=== PATIENT | male | born 1940 | race Caucasian/White ===

== ENCOUNTER → 2021-07-10 | Outpatient (CLI) | payer OTHER, SELFPAY ==
--- NOTE | 2021-07-10 13:00 | RAD_ITS ---
PROCEDURE: Fluoroscopic guided left shoulder Injection DATE: 07/10/2021. INDICATION: Male, 81 years old. Chronic shoulder pain. PHYSICIAN: Elia Adame M.D. MEDICATIONS: 12 mg of BETAMETHASONE and 4 cc of 1% LIDOCAINE. 2% lidocaine administered subcutaneously for local anesthesia. ACCESS SITE: Left shoulder. NEEDLE: 22-gauge spinal needle. FLUOROSCOPY TIME (if supplied): (0:46) minutes/seconds. One image was obtained. FINDINGS: The risks, benefits, and alternatives to the procedure were explained to the patient. The specific risks of bleeding, infection, and neurovascular injury were detailed and accepted. Witnessed informed consent was obtained. A 22-gauge spinal needle was positioned under radiographic fluoroscopic localization. Approximately 2 cc of ISOVUE-300 instilled for localization purposes. Medication was then injected. The patient tolerated the procedure well without any immediate complications. RAD/Inj/Asp Campos Jt Should/Hip/Knee IMPRESSION: 1. Successful fluoroscopic guided left shoulder injection Electronically Signed: Elia Adame MD at 14:04 EDT ,
[2021-07-10] MEDS: Lidocaine 2% (5ml sdv) 5 ML VIAL.MPF INFILT (13:03)
[2021-07-10] MEDS: Lidocaine 1% (5 ml sdv) 5 ML Vial 4 ML OPERA.SITE ×2 (13:04→13:19)
[2021-07-10] MEDS: Betamethasone/Betamethasone 30 MG/5 ML Vial 12 MG OPERA.SITE ×2 (13:04→13:19)
--- NOTE | 2021-07-10 13:15 | RAD_ITS ---
PROCEDURE: Fluoroscopic guided right shoulder Injection DATE: 07/10/2021. INDICATION: Male, 81 years old. Chronic right shoulder pain. PHYSICIAN: Elia Adame M.D. MEDICATIONS: 12 mg of BETAMETHASONE and 4 cc of 1% LIDOCAINE. 2% lidocaine administered subcutaneously for local anesthesia. ACCESS SITE: Right shoulder. NEEDLE: 22-gauge spinal needle. FLUOROSCOPY TIME (if supplied): (0:42) minutes/seconds. One image was obtained. FINDINGS: The risks, benefits, and alternatives to the procedure were explained to the patient. The specific risks of bleeding, infection, and neurovascular injury were detailed and accepted. Witnessed informed consent was obtained. A 22-gauge spinal needle was positioned under radiographic fluoroscopic localization. Approximately 2 cc of ISOVUE-300 instilled for localization purposes. Medication was then injected. The patient tolerated the procedure well without any immediate complications. RAD/Inj/Asp Campos Jt Should/Hip/Knee IMPRESSION: 1. Successful fluoroscopic guided right shoulder injection. Electronically Signed: Elia Adame MD at 14:02 EDT ,
== END | disposition home or self-care (01) ==
PROVIDERS: PCP Family Medicine; Referring Provider Specialist; Visit Provider Specialist
DX: M19.012 Primary osteoarthritis, left shoulder (principal); M19.011 Primary osteoarthritis, right shoulder
CPT/HCPCS: 20610; 77002; Q9967; J0702

== ENCOUNTER 2023-11-25 17:56 | Emergency (ER) | payer OTHER, SELFPAY ==
[2023-11-25 17:57] VITALS: BP 144/91; PULSE 78; RESP 16; TEMP 36.1; O2SAT 98; BMI 28.0
--- NOTE | 2023-11-25 19:50 | ED.RN ---
Addendum entered by Cielo Canas 11/25/23 19:54: Pt lwbs @ 1932 Original Note: Pt states that he spoke to a family member that is a COMPENSATION/BENEFITS SPECIALIST and was told that if I broke my ribs there's nothing you can do about it anyway. This RN offered pt to stay if he thought he might require pain medication and pt states he has some tramadol at home. This RN informed pt that he could get an xray of his ribs and pain management at the [facility] tomorrow when they are open or come back here we might not be as busy. Pt instructed to cough and deep breathe to keep lungs exercised. Pt acknowledges understanding.
== END 2023-11-25 19:32 | disposition left against medical advice (07) ==
LOC: ED 20:02
DX: R69 Illness, unspecified (principal)

== ENCOUNTER 2024-08-08 21:15 | Inpatient (IN) | payer MEDICARE, SELFPAY ==
[2024-08-08] VITALS (19 sets, daily range): BP systolic 154–196; BP diastolic 84–118; PULSE 63–81; RESP 12–20; TEMP 36.1–36.9; O2SAT 94–98; BMI 25.4; BMI 26.2
--- NOTE | 2024-08-08 21:19 | EKG12_ITS ---
Test Reason : STROKE Blood Pressure : */* mmHG Vent. Rate : 74 BPM Atrial Rate : 74 BPM P-R Int : 198 ms QRS Dur : 108 ms QT Int : 398 ms P-R-T Axes : 14 42 266 degrees QTcB Int : 441 ms Normal sinus rhythm ST & T wave abnormality, consider anterolateral ischemia Abnormal ECG Confirmed by Hari Tirado ([id number]), telegraph editor ANDIE SHELDON ([id number]) on 08/09/2024 10:02:42 AM Referred By: Confirmed By: Hari Tirado
--- NOTE | 2024-08-08 21:20 | CT_ITS ---
PROCEDURE: STROKE BRAIN/HEAD WITHOUT CONT 08/08/2024 REASON FOR EXAM: NEURO DEFICIT, ACUTE, STROKE SUSPECTED TECHNIQUE: Head CT without intravenous contrast. Coronal and Sagittal reconstruction series were provided. One or more dose reduction techniques were used (e.g., Automated exposure control, adjustment of the mA and/or kV according to patient size, use of iterative reconstruction technique. RADIATION DOSE SUMMARY: CTDlvol: 44.99 mGy DLP: 883.29 mGycm COMPARISON: None. FINDINGS: Mild global parenchymal atrophy. No evidence of acute hemorrhage or infarction. No extra-axial blood or fluid collections. The paranasal sinuses are clear. The mastoid air cells are well aerated. The calvarial vault and skull base are intact. CT/STROKE Brain/Head without Cont IMPRESSION: No acute intracranial abnormalities. Reading Location: [place] [id number]
--- NOTE | 2024-08-08 21:22 | CT_ITS ---
PROCEDURE: STROKE CTA HEAD AND NECK W/CON 08/08/2024 REASON FOR EXAM: NEURO DEFICIT, ACUTE, STROKE SUSPECTED TECHNIQUE: CTA imaging of the head and neck from the aortic arch to the skull vertex with out contrast and with intravenous contrast. Multiplanar and multisequence images were obtained. 3D post processing was performed One or more dose reduction techniques were used (e.g., Automated exposure control, adjustment of the mA and/or kV according to patient size, use of iterative reconstruction technique). RADIATION DOSE SUMMARY: CTDlvol: 33.2 mGy DLP: 692 mGycm COMPARISON: Same date CT head FINDINGS: Aortic Arch: Normal size and branching pattern. Mild calcified and noncalcified atherosclerotic plaque. Brachiocephalic and Subclavians: Mild atherosclerotic plaque without significant stenosis. RIGHT Carotid: Right CCA: Mild calcified and soft plaque. Right ICA: Minimal calcified and soft plaque. Maximum stenosis (NASCET): <50 % Right ECA: Unremarkable. LEFT Carotid: Left CCA: Mild calcified and soft plaque. Left ICA: Minimal calcified and soft plaque. Maximum stenosis (NASCET): <50% Left ECA: Unremarkable. Vertebrals: Codominant. Arise from the subclavians. Both vertebrals form the basilar. RIGHT Vertebral: There is absent opacification of the V4 segment of the right vertebral artery. No discrete dissection flap. LEFT Vertebral: Unremarkable. Anatomy: [place] anatomy is normal. Aneurysm or AVM: None identified. Anterior cerebral arteries: Unremarkable: Middle cerebral arteries: Unremarkable. Basilar artery: Unremarkable. Posterior cerebral arteries: Unremarkable. Other major branches of the posterior circulation: Right PICA is not well-visualized. Major venous structures: Unremarkable. Other findings: Right mastoid effusion. Neck: No lymphadenopathy. Lungs: Solid nodule at the right lung apex measuring 4 mm (series 2 image 20). Bones: Degenerative changes of the spine. CT/STROKE CTA Head AND Neck W/Con IMPRESSION: 1. Absent opacification of the V4 segment of the right vertebral artery and ri ght PICA, worrisome for occlusion of unknown chronicity. Vertebral artery dissection could also appear similar. Correlate with symptoms and consider MRI/MRA. 2. No hemodynamically significant narrowing or occlusion of the internal carot id arteries. 3. Right mastoid effusion. 4. Solid pulmonary nodule at the right lung apex measuring [address] chest in 12 months if patient is at high risk for malignancy per Fleischner society guidelines. Reading Location: [id number]
--- NOTE | 2024-08-08 21:25 | PCA ---
no old ekg
[2024-08-08 21:29] LABS: Absolute Lymphocyte Count 1.91 X10^3/uL (0.83-4.51); Absolute Neutrophil Count 5.1 X10^3/uL (2.0-7.7); Basophil# 0.05 X10^3/uL; Basophil% 0.6 % (0-1); Eosinophil# 0.15 X10^3/uL; Eosinophils% 1.9 % (0-5); Hematocrit 42.2 % (40-54); Hemoglobin 13.9 g/dL (13.0-16.5); Lymphocyte # 1.91 X10^3/ul (0.83-4.51); Lymphocyte % 23.9 % (19-41); Mean Corp Hgb Conc 32.9 g/dL (32-36); Mean Corpuscular Hgb 29.5 pg (27.0-32.0); Mean Corpuscular Volume 89.6 fL (80-94); Mean Platelet Vol. 10.6 fl (6.2-12.0); Monocyte# 0.75 X10^3/uL; Monocyte% 9.4 % (0-10); NRBC Flagged by Analyzer 0 % (0-5); Neutrophil % 63.7 % (47-70); Platelet Count 218 K/mm3 (150-450); RBC Distribution Width CV 13.8 % (11.6-14.6); RBC Distribution Width SD 45.1 fl (35.1-43.9); Red Blood Count 4.71 M/mm3 (4.6-6.2)
[2024-08-08 21:38] LABS: Partial Thromboplast Time 24.4 Seconds (24.1-36.2); Prothrombin Time (Protime)PT. 13.3 SECONDS (11.7-14.9)
[2024-08-08 21:49] LABS: Bedside Glucose 251 mg/dL (74-106)
--- NOTE | 2024-08-08 21:51 | ED.VIS.STROK ---
HPI History of Present Illness Chief Complaint: Stroke Alert Narrative Narrative: 84-year-old male past medical history of previous strokes presents via EMS with headache, slurred speech, and reported left facial droop. His relates history that he stated he was not feeling well, he went to lay down for a nap because he complained of a headache. She went to check on him, and he was having difficulty with speech, slurred speech, and was reportedly unable to walk. She states that the relative is a nurse, who told them to call an ambulance. This happened within the last hour if not less, prior to arrival. EMS reported left facial droop and slurring of speech with headache. Patient states that his last stroke was not within the last 30 days and was years ago. He only takes aspirin for this and does not take any blood thinners. He denies any paresthesias of arms or legs. He states that he was unable to walk. [facility] Medical History Hypercholesteremia Diabetes mellitus HTN (hypertension) CT (myocardial infarction) CVA (cerebral vascular accident) Home Medications ?Medication ?Instructions ?Recorded ?Last Taken ?Type amlodipine 5 mg tablet 5 mg PO DAILY 08/08/24 Unknown History amlodipine 5 mg tablet 5 mg PO DAILY 08/08/24 Unknown History aspirin 325 mg capsule 325 mg PO DAILY 08/08/24 Unknown History diclofenac sodium 75 mg 75 mg PO BID 08/08/24 Unknown History tablet,delayed release diclofenac sodium 75 mg 75 mg PO BID 08/08/24 Unknown History tablet,delayed release duloxetine 30 mg capsule,delayed 30 mg PO DAILY 08/08/24 Unknown History release duloxetine 30 mg capsule,delayed 30 mg PO DAILY 08/08/24 Unknown History release ezetimibe 10 mg tablet 10 mg PO DAILY 08/08/24 Unknown History ezetimibe 10 mg tablet 10 mg PO DAILY 08/08/24 Unknown History metformin 500 mg tablet 500 mg PO BID 08/08/24 Unknown History metformin 500 mg tablet 500 mg PO BID 08/08/24 Unknown History metoprolol succinate 25 mg 25 mg PO DAILY 08/08/24 Unknown History tablet,extended release 24 hr metoprolol succinate 25 mg 25 mg PO DAILY 08/08/24 Unknown History tablet,extended release 24 hr montelukast 10 mg tablet 10 mg PO DAILY 08/08/24 Unknown History olmesartan 40 mg tablet 40 mg PO DAILY 08/08/24 Unknown History olmesartan 40 mg tablet 40 mg PO DAILY 08/08/24 Unknown History pantoprazole 40 mg tablet,delayed 40 mg PO DAILY 08/08/24 Unknown History release pantoprazole 40 mg tablet,delayed 40 mg PO DAILY 08/08/24 Unknown History release simvastatin 40 mg tablet 40 mg PO QHS 08/08/24 Unknown History simvastatin 40 mg tablet 40 mg PO QHS 08/08/24 Unknown History sitagliptin phosphate 100 mg 100 mg PO DAILY 08/08/24 Unknown History tablet (Januvia) Allergy/AdvReac Type Severity Reaction Status Date / Time No Known Allergies Allergy Verified 08/08/24 22:15 Family History no significant family his Surgical History History of left knee surgery Social History Smoking Status: Never smoker ROS ROS ED ROS Narrative Review of systems positive for headache, slurred speech, and left facial droop. He did not feel well, and it was reported that he was unable to ambulate. EXAM Physical Exam Narrative Exam Narrative: Afebrile. Vital signs noted. Nontoxic-appearing. Cardiovascular examination reveals a regular rate and rhythm. Lungs are clear to auscultation bilaterally. Abdomen is soft, nontender, with normoactive bowel sounds. NIH stroke scale was 1 for mild dysarthria. No appreciable facial droop. No pronator drift, no leg drift bilaterally. Const Vital Signs: 08/08/24 21:16 08/08/24 21:16 08/08/24 21:19 Temperature 97.0 F L Temperature Source Tympanic Pulse Rate 70 70 73 Respiratory Rate 18 18 12 Blood Pressure 160/92 H 160/92 H 158/96 H Blood Pressure Mean 114 114 116 Blood Pressure Source Blood Pressure Position Blood Pressure Location Pulse Ox 96 96 98 Oxygen Delivery Method Room Air Room Air Room Air 08/08/24 21:30 08/08/24 21:38 08/08/24 21:38 Temperature 98.2 F 98.2 F Temperature Source Oral Oral Pulse Rate 75 71 Respiratory Rate 17 15 Blood Pressure 158/96 H 158/96 H Blood Pressure Mean 116 116 Blood Pressure Source Blood Pressure Position Blood Pressure Location Pulse Ox 97 97 Oxygen Delivery Method Room Air Room Air Room Air 08/08/24 21:55 08/08/24 22:00 08/08/24 22:00 Temperature 98.2 F Temperature Source Oral Pulse Rate 81 79 Respiratory Rate 20 H 12 Blood Pressure 161/94 H 165/95 H 165/95 H Blood Pressure Mean 118 118 Blood Pressure Source Monitor Blood Pressure Position Semi-Fowlers Blood Pressure Location Left Arm Pulse Ox 96 95 Oxygen Delivery Method Room Air Room Air 08/08/24 22:03 08/08/24 22:16 08/08/24 22:18 Temperature Temperature Source Pulse Rate 78 76 72 Respiratory Rate 13 16 17 Blood Pressure 165/95 H 154/100 H 154/100 H Blood Pressure Mean 118 118 118 Blood Pressure Source Monitor Monitor Blood Pressure Position Semi-Fowlers Blood Pressure Location Left Arm Pulse Ox 98 96 97 Oxygen Delivery Method Room Air Room Air Room Air 08/08/24 22:23 08/08/24 22:30 08/08/24 22:33 Temperature 98.4 F Temperature Source Oral Pulse Rate 75 71 75 Respiratory Rate 15 14 15 Blood Pressure 154/100 H 154/100 H 187/118 H Blood Pressure Mean 118 118 141 Blood Pressure Source Monitor Blood Pressure Position Semi-Fowlers Blood Pressure Location Left Arm Pulse Ox 97 98 97 Oxygen Delivery Method Room Air Room Air Room Air 08/08/24 22:48 08/08/24 23:00 08/08/24 23:03 Temperature Temperature Source Pulse Rate 68 68 68 Respiratory Rate 16 14 Blood Pressure 196/105 H 188/103 H 188/103 H Blood Pressure Mean 135 131 131 Blood Pressure Source Monitor Monitor Blood Pressure Position Semi-Fowlers Semi-Fowlers Blood Pressure Location Left Arm Right Arm Pulse Ox 97 94 94 Oxygen Delivery Method Room Air Room Air Room Air 08/08/24 23:18 08/08/24 23:30 08/08/24 23:33 Temperature Temperature Source Pulse Rate 69 69 63 Respiratory Rate 12 14 Blood Pressure 174/90 H 174/90 H 175/84 H Blood Pressure Mean 118 118 114 Blood Pressure Source Monitor Monitor Blood Pressure Position Semi-Fowlers Semi-Fowlers Blood Pressure Location Left Arm Left Arm Pulse Ox 95 95 96 Oxygen Delivery Method Room Air Room Air Room Air MDM MDM MDM Narrative Medical decision making narrative: Stroke team workup was pursued. Differential does include TIA versus intracranial hemorrhage versus atypical migraine versus ischemic stroke. My initial NIH stroke scale was a 1 more for dysarthria. In discussion with the stroke neurologist, he also had a low NIH stroke scale about with the patient stating that his speech had not returned to baseline, he said yes to TNK. I gave the patient informed consent and told him about the possibility of a 6% chance of intracranial hemorrhage that could be fatal, and he accepted the risk and wanted to proceed with TNK. EKG obtained and interpreted by myself independently as normal sinus rhythm at 74 bpm without ectopy or acute ST changes. No STEMI. I reviewed his laboratory work and he has normal white count of 8.0 with hemoglobin normal at 13.9, hematocrit 42.2, platelet count 218. Coagulation studies are negative with an INR of 1.0 and PTT T24.4. BMP is grossly unremarkable except for glucose of 262 with a normal anion gap of 12, BUN elevated at 24 with creatinine 0.95. Initial high-sensitivity troponin is 31 which I think is nonspecific. [id number] glucose was 251. I reviewed the radiology report of the CT of the brain which shows no acute process. As long as a CT a does not show an LVO, I will discuss the patient with the hospitalist for admission to the ICU as he did receive TNK. Patient is in stable condition. In review of the CTA, there is absent opacification of the V4 segment of the right vertebral artery and right PICA. This is of unknown chronicity. Also mention by radiology would be vertebral artery dissection. I rediscussed the patient with the stroke neurologist who states that that is medical management with Plavix and aspirin or TNK which was already given. I informed the stroke neurologist about the patient's worsening headache and vomiting, and he agrees with repeat CT scan of the head. However, he did still state that the patient does not require transfer to a tertiary care center, and that they would be on teleneurology consultation tomorrow. On repeat examination he states that his headache has resolved. I reviewed the radiology report of the repeat CT of the brain and there is no intracranial hemorrhage. I discussed the patient with Dr. Pace for admission to the ICU. Patient is in guarded condition. Critical care time 30 min. History & Record Review Discussion w/independent historian: Patient Additional record(s) reviewed:: No prior records Lab Data Attestation: I reviewed the patient's lab results. Labs: Laboratory Results - last 24 hr 08/08/24 08/08/24 21:19 21:31 WBC 8.0 RBC 4.71 Hgb 13.9 Hct 42.2 MCV 89.6 MCH 29.5 MCHC 32.9 RDW Std Deviation 45.1 H RDW Coeff of Josh 13.8 Plt Count 218 MPV 10.6 Immature Gran % (Auto) 0.500 Neut % (Auto) 63.7 Lymph % (Auto) 23.9 [place] % (Auto) 9.4 Eos % (Auto) 1.9 Baso % (Auto) 0.6 Absolute Neuts (auto) 5.1 Absolute Lymphs (auto) 1.91 Nucleated RBC % 0 PT 13.3 INR 1.0 APTT 24.4 Sodium 141 Potassium 3.8 Chloride 105 Carbon Dioxide 23.4 Anion Gap 12 BUN 24 H Creatinine 0.95 Estim Creat Clear Calc 57.88 Est GFR (MDRD) Non-Af 79 BUN/Creatinine Ratio 24.9 H Glucose 262 H Calcium 9.4 Troponin T High Sens 31 H POC Glucose 251 H Radiography Diagnostic Testing: Clinical Impression(s) from Imaging Studies Brain CT 08/08/24 21:20 IMPRESSION: No acute intracranial abnormalities. Reading Location: [place] [id number] Head/Neck CTA 08/08/24 21:22 IMPRESSION: 1. Absent opacification of the V4 segment of the right vertebral artery and right PICA, worrisome for occlusion of unknown chronicity. Vertebral artery dissection could also appear similar. Correlate with symptoms and consider MRI/MRA. 2. No hemodynamically significant narrowing or occlusion of the internal carotid arteries. 3. Right mastoid effusion. 4. Solid pulmonary nodule at the right lung apex measuring [address] chest in 12 months if patient is at high risk for malignancy per Fleischner society guidelines. Reading Location: [id number] Brain CT 08/08/24 22:50 IMPRESSION: No acute intracranial abnormality. No evidence of new hemorrhage. Reading Location: [id number] Management Discussion w/another healthcare provider: Hospitalist (Dr. Pace) Critical Care Time Critical Care Time: Yes Critical care time (excluding procedures): 30-74 minutes (31) Discharge Plan Dx/Rx/DC Orders Clinical Impression: CVA (cerebral vascular accident), Slurred speech, Headache, Adverse effect of tenecteplase Disposition Disposition: Acute Care Hospital [facility] NIHSS NIHSS 1a. Level of Consciousness: 0 - Alert; keenly responsive 1b. LOC Questions: 0 - Answers BOTH questions correctly 1c. LOC Commands: 0 - Performs BOTH tasks correctly 2. Best Gaze: 0 - Normal 3. Visual: 0 - No visual loss 4. Facial Palsy: 0 - Normal symmetrical movements 5a. Left Arm: 0 - No drift; arm holds 90 (or 45) degrees for full 10 seconds 5b. Right Arm: 0 - No drift; arm holds 90 (or 45) degrees for full 10 seconds 6a. Left Le - No drift; leg holds 30-degree position for full 5 seconds 6b. Right Le - No drift; leg holds 30-degree position for full 5 seconds 7. Limb Ataxia: 0 - Absent 8. Sensory: 0 - Normal; no sensory loss 9. Best Language: 0 - No aphasia; normal 10. Dysarthria: 1 = [id number] dysarthria; 11. Extinction and Inattention: 0 - No abnormality Total: 1 Stroke Questions Stroke Team Activated: Yes Reviewed Inclusion/Exclusion criteria: Yes Was Patient considered for Endovascular Intervention?: No IV Thrombolytic Administered: Yes No contraindications from thrombolytic administration: Yes Informed the patient and/or family of all associated risks, benefits, & alternatives to IV Thrombolytic Therapy. Patient and/or family voluntarily consent to the administration of IV Thrombolytic Therapy: Yes
[2024-08-08] MEDS: TENECTEPLASE 2894.4 MG IV (21:55)
[2024-08-08 22:06] LABS: Anion Gap 12 (5-15); BUN 24 mg/dL (4-19); BUN/Creat Ratio 24.9 RATIO (10-20); Calcium,Total 9.4 mg/dL (7.6-11.0); Carbon Dioxide 23.4 mmol/L (21.0-32.0); Chloride 105 mmol/L (98-108); Creatinine, Serum 0.95 mg/dL (0.70-1.20); EST Glomerular Filtration Rate 79 (>60); Estimated Creatinine Clearance 57.88 ml/min (50-250); Glucose 262 mg/dL (70-99); Potassium 3.8 mmol/L (3.3-5.1); Sodium Level 141 mmol/L (133-145); Troponin T High Sensitivity 31 ng/L (<=22)
--- NOTE | 2024-08-08 22:17 | ED.RN ---
Pt urine appearance after inserting manning catheter was clear and yellow. This RN noticed shortly after giving tenecteplase that the urine appeared blood-tinged with small blood clots in the manning tubing. This RN notified Dr. Aguila. No new orders at this time.
[2024-08-08] MEDS: 0.9% Normal Saline (1000mL) 1,000 ML 100 ML IV (22:25)
[2024-08-08] MEDS: Ondansetron 4 MG/2 ML Vial IV (22:40)
--- NOTE | 2024-08-08 22:50 | CT_ITS ---
PROCEDURE: BRAIN/HEAD WITHOUT CONTRAST 08/08/2024 REASON FOR EXAM: HEADACHE STATUS POST TNK TECHNIQUE: Head CT without intravenous contrast. Coronal and Sagittal reconstruction series were provided. One or more dose reduction techniques were used (e.g., Automated exposure control, adjustment of the mA and/or kV according to patient size, use of iterative reconstruction technique. RADIATION DOSE SUMMARY: CTDlvol: 44.99 mGy DLP: 829.85 mGycm COMPARISON: 08/08/2024. FINDINGS: Moderate global parenchymal atrophy. Periventricular white matter hypodensity likely representing chronic microvascular ischemia. No evidence of acute hemorrhage or infarction. No extra-axial blood or fluid collections. The paranasal sinuses are clear. The mastoid air cells are well aerated. The calvarial vault and skull base are intact. CT/Brain/Head without Contrast IMPRESSION: No acute intracranial abnormality. No evidence of new hemorrhage. Reading Location: [id number]
[2024-08-08 23:22] LABS: Bacteria 0 SEEN /hpf (None Seen); Mucous, Urine 0 SEEN /hpf (<or=2+); Squamous Epithelial Cells - UA 0 SEEN /hpf (0-5); White Blood Cells 0 SEEN /hpf (0-5)
--- NOTE | 2024-08-08 23:44 | PCM.HP.STD ---
HPI - General General Date of Admission: 08/08/24 Date of Service: 08/08/24 Chief Complaint: Headache, left sided facial droop, dysarthria. HPI Narrative The patient is an 84 y/o M w/ PMHx: HTN, HLD, Diabetes mellitus type II, Hx CVA, Hx PR, Allergic rhinitis, GERD, Anxiety and Depression who presents to the [facility] ED on 08/08/2024 with history of last known well 8:15 PM on day of presentation with onset approximately 915 slurred speech as well as a headache with left-sided facial droop prompting EMS call and transition to the ED with an inner route call per EMS of stroke alert. Patient had unfortunately not been feeling well and reportedly per spouse went to take a nap because of a mild headache at that time and when she checked on him it was at that point that he had been noted altered speech and facial droop. He does report a history of stroke as noted however this was years previously and he only takes a baby aspirin daily. In the ED NIH stroke assessment with 1 for minor paralysis and 1 for mild to moderate dysarthria. Given timeline of events patient initiated on thrombolytic therapy per neurology recommendation. Workup in the ED included T97, heart rate 70, BP 160/92, respiratory rate 18, 96% on room air with most recent repeat vitals T98.2 Oral, heart rate 71, BP 161/94, respiratory rate 15, 97% on room air, CBC with WBC 8.0, hemoglobin 13.9, platelet 218 without marked shift, unremarkable coags, BMP with BUN/creatinine 24/0.95, GFR 79, glucose 262, troponin 31, CT brain with no acute intracranial findings, CTA head and neck with absent opacification of V4 segment of the right vertebral artery and right PICA worrisome for occlusion of unknown chronicity, vertebral artery dissection could also appear similar, right mastoid effusion, incidental noted solid pulmonary nodule at the right lung apex measuring 4 mm, EKG with sinus rhythm with no acute evidence of ischemia. ED physician did discuss findings on CTA with neurology given absent opacification of the V4 segment of the right vertebral artery and right PICA of unknown chronicity and neurology noted that it would be medical management with Plavix/aspirin after appropriate tenecteplase timeline. ED physician also updated neurology that patient had worsening headache with onset of nausea and emesis with repeat CT head ordered at that time which demonstrated no acute intracranial abnormality. In the ED upon hospitalist evaluation patient had persistent dysarthria/speech slurred but also had reported blurred vision primarily when he had both eyes open but improved when he closed at least 1 eye with noted left eye deviation and nystagmus which apparently he had not had specifically previously as far as any eye/vision changes therefore stroke alert was reinitiated and repeat CT head was obtained which was again negative with [facility] again contacted and recommended continued plan admission with evaluation as previously recommended. [facility] Medical History (Updated 08/09/24 @ 01:[address] Tiffanie Pace MD) GERD (gastroesophageal reflux disease) CAD (coronary artery disease) Hypercholesteremia Diabetes mellitus HTN (hypertension) PR (myocardial infarction) CVA (cerebral vascular accident) Home Medications ?Medication ?Instructions ?Recorded ?Last Taken ?Type amlodipine 5 mg tablet 5 mg PO DAILY 08/08/24 Unknown History amlodipine 5 mg tablet 5 mg PO DAILY 08/08/24 Unknown History aspirin 325 mg capsule 325 mg PO DAILY 08/08/24 Unknown History diclofenac sodium 75 mg 75 mg PO BID 08/08/24 Unknown History tablet,delayed release diclofenac sodium 75 mg 75 mg PO BID 08/08/24 Unknown History tablet,delayed release duloxetine 30 mg capsule,delayed 30 mg PO DAILY 08/08/24 Unknown History release duloxetine 30 mg capsule,delayed 30 mg PO DAILY 08/08/24 Unknown History release ezetimibe 10 mg tablet 10 mg PO DAILY 08/08/24 Unknown History ezetimibe 10 mg tablet 10 mg PO DAILY 08/08/24 Unknown History metformin 500 mg tablet 500 mg PO BID 08/08/24 Unknown History metformin 500 mg tablet 500 mg PO BID 08/08/24 Unknown History metoprolol succinate 25 mg 25 mg PO DAILY 08/08/24 Unknown History tablet,extended release 24 hr metoprolol succinate 25 mg 25 mg PO DAILY 08/08/24 Unknown History tablet,extended release 24 hr montelukast 10 mg tablet 10 mg PO DAILY 08/08/24 Unknown History olmesartan 40 mg tablet 40 mg PO DAILY 08/08/24 Unknown History olmesartan 40 mg tablet 40 mg PO DAILY 08/08/24 Unknown History pantoprazole 40 mg tablet,delayed 40 mg PO DAILY 08/08/24 Unknown History release pantoprazole 40 mg tablet,delayed 40 mg PO DAILY 08/08/24 Unknown History release simvastatin 40 mg tablet 40 mg PO QHS 08/08/24 Unknown History simvastatin 40 mg tablet 40 mg PO QHS 08/08/24 Unknown History sitagliptin phosphate 100 mg 100 mg PO DAILY 08/08/24 Unknown History tablet (Januvia) Allergy/AdvReac Type Severity Reaction Status Date / Time No Known Allergies Allergy Verified 08/08/24 22:15 Family History (Updated 08/09/24 @ 01:[address] Tiffanie Paec MD) Mother Colon cancer Father CAD (coronary artery disease) Heart disease Hypertension Myocardial infarction Family History no significant family his Surgical History (Updated 08/09/24 @ 01:[address] Tiffanie Pace MD) S/P left rotator cuff repair History of tonsillectomy and adenoidectomy History of coronary angioplasty with insertion of stent Status post left partial knee replacement Social History (Updated 08/09/24 @ 01:[address] Tiffanie Pace MD) household members: spouse Smoking Status: Never smoker alcohol intake: never substance use type: does not use ROS ROS Narrative Admission Review of Systems: CONSTITUTIONAL: No weight loss, fever, chills, + weakness or fatigue. HEENT: + Headache, left-sided facial droop, dysarthria, blurred vision. Eyes: No visual loss, double vision or yellow sclerae. Ears, Nose, Throat: No hearing loss, sneezing, congestion, runny nose or sore throat. SKIN: No rash or itching, lesions, wounds. CARDIOVASCULAR: No chest pain, chest pressure or chest discomfort, palpitations, edema, orthopnea, syncopal events. RESPIRATORY: No shortness of breath, cough or sputum, wheezing, hemoptysis. GASTROINTESTINAL: + N/V in the ED following TNK. No anorexia, diarrhea, abdominal pain, melena, BRBPR. GENITOURINARY: No dysuria, frequency, urgency or retention. NEUROLOGICAL: + Headache, left-sided facial droop, dysarthria, noted upon hospitalist evaluation L eye deviation laterally with blurred vision/nystagmus. No syncope, paralysis, ataxia, numbness or tingling in the extremities, change in bowel or bladder control, seizure. MUSCULOSKELETAL: No muscle, back pain, joint pain or stiffness. HEMATOLOGIC: No anemia, bleeding or bruising. LYMPHATICS: No enlarged nodes. No history of splenectomy. PSYCHIATRIC: + History of anxiety and depression. ENDOCRINOLOGIC: No reports of sweating, cold or heat intolerance. No polyuria or polydipsia. ALLERGIES: + History of allergic rhinitis. Vital Signs Vital Signs Vital Signs: 08/08/24 21:16 08/08/24 21:16 08/08/24 21:19 Temperature 97.0 F L Temperature Source Tympanic Pulse Rate 70 70 73 Respiratory Rate 18 18 12 Blood Pressure 160/92 H 160/92 H 158/96 H Blood Pressure Mean 114 114 116 Blood Pressure Source Blood Pressure Position Blood Pressure Location Pulse Ox 96 96 98 Oxygen Delivery Method Room Air Room Air Room Air 08/08/24 21:30 08/08/24 21:38 08/08/24 21:38 Temperature 98.2 F 98.2 F Temperature Source Oral Oral Pulse Rate 75 71 Respiratory Rate 17 15 Blood Pressure 158/96 H 158/96 H Blood Pressure Mean 116 116 Blood Pressure Source Blood Pressure Position Blood Pressure Location Pulse Ox 97 97 Oxygen Delivery Method Room Air Room Air Room Air 08/08/24 21:55 08/08/24 22:00 08/08/24 22:00 Temperature 98.2 F Temperature Source Oral Pulse Rate 81 79 Respiratory Rate 20 H 12 Blood Pressure 161/94 H 165/95 H 165/95 H Blood Pressure Mean 118 118 Blood Pressure Source Monitor Blood Pressure Position Semi-Fowlers Blood Pressure Location Left Arm Pulse Ox 96 95 Oxygen Delivery Method Room Air Room Air 08/08/24 22:03 08/08/24 22:16 08/08/24 22:18 Temperature Temperature Source Pulse Rate 78 76 72 Respiratory Rate 13 16 17 Blood Pressure 165/95 H 154/100 H 154/100 H Blood Pressure Mean 118 118 118 Blood Pressure Source Monitor Monitor Blood Pressure Position Semi-Fowlers Blood Pressure Location Left Arm Pulse Ox 98 96 97 Oxygen Delivery Method Room Air Room Air Room Air 08/08/24 22:23 08/08/24 22:30 08/08/24 22:33 Temperature 98.4 F Temperature Source Oral Pulse Rate 75 71 75 Respiratory Rate 15 14 15 Blood Pressure 154/100 H 154/100 H 187/118 H Blood Pressure Mean 118 118 141 Blood Pressure Source Monitor Blood Pressure Position Semi-Fowlers Blood Pressure Location Left Arm Pulse Ox 97 98 97 Oxygen Delivery Method Room Air Room Air Room Air 08/08/24 22:48 08/08/24 23:00 08/08/24 23:03 Temperature Temperature Source Pulse Rate 68 68 68 Respiratory Rate 16 14 Blood Pressure 196/105 H 188/103 H 188/103 H Blood Pressure Mean 135 131 131 Blood Pressure Source Monitor Monitor Blood Pressure Position Semi-Fowlers Semi-Fowlers Blood Pressure Location Left Arm Right Arm Pulse Ox 97 94 94 Oxygen Delivery Method Room Air Room Air Room Air 08/08/24 23:18 08/08/24 23:30 08/08/24 23:33 Temperature Temperature Source Pulse Rate 69 69 63 Respiratory Rate 12 14 Blood Pressure 174/90 H 174/90 H 175/84 H Blood Pressure Mean 118 118 114 Blood Pressure Source Monitor Monitor Blood Pressure Position Semi-Fowlers Semi-Fowlers Blood Pressure Location Left Arm Left Arm Pulse Ox 95 95 96 Oxygen Delivery Method Room Air Room Air Room Air Weight Weight: 177 lb 7.554 oz Body Mass Index (BMI) 26.2 Physical Exam Narrative Physical Examination: General: Awake, alert, oriented x [address], month, year, remains cooperative, seated upright in the ED bed, patient with recurrent slurred speech/dysarthria. Skin: Normal color, normal turgor, no icterus, no cyanosis except occasional stage ecchymoses, abrasion. HEENT: AT/NC, EOM right eye intact however left eye with lateral gaze deviation with complaint of blurred vision although all noguera intact upon evaluation, blurred vision only present if both eyes are open regardless of eye, pupils equal and reactive, MMM, no carotid bruits or JVD noted. Lungs: CTA bilaterally, moderate effort, mild decrease BL bases, no rales, ronchi or wheezing. Heart: Regular rate and rhythm; no gallop, rub audible. Abdomen: Soft, NTTP, ND, normal BS, no appreciated HSM. Extremities: No cyanosis, clubbing, or edema. Neurological: Patient awake, alert, oriented as noted, cognitive function intact; pupils equal and reactive however blurred vision as noted with noguera of vision intact with blurring improving with at least 1 eye closed, left lateral gaze deviation with nystagmus evident, cranial nerves otherwise intact with no evidence of significant left facial droop ongoing, moving all 4 extremities, no focal deficits, strength moderately globally decreased in general secondary to age, underlying comorbidities and acute presentation but no focal findings, FTN/HTS appropriate, sensation intact, equivocal Babinski. Psychiatric: Affect appears flat, fatigued, no acute evidence of depressive or anxiety feelings but does have underlying history. Results Lab / Micro Data 08/08/24 21:19 08/08/24 21:19 Labs: Laboratory Results - last 24 hr 08/08/24 21:19: WBC 8.0, RBC 4.71, Hgb 13.9, Hct 42.2, MCV 89.6, MCH 29.5, MCHC 32.9, RDW Std Deviation 45.1 H, RDW Coeff of Josh 13.8, Plt Count 218, MPV 10.6, Immature Gran % (Auto) 0.500, Neut % (Auto) 63.7, Lymph % (Auto) 23.9, [place] % (Auto) 9.4, Eos % (Auto) 1.9, Baso % (Auto) 0.6, Absolute Neuts (auto) 5.1, Absolute Lymphs (auto) 1.91, Nucleated RBC % 0, PT 13.3, INR 1.0, APTT 24.4, Sodium 141, Potassium 3.8, Chloride 105, Carbon Dioxide 23.4, Anion Gap 12, BUN 24 H, Creatinine 0.95, Estim Creat Clear Calc 57.88, Est GFR (MDRD) Non-Af 79, BUN/Creatinine Ratio 24.9 H, Glucose 262 H, Calcium 9.4, Troponin T High Sens 31 H 08/08/24 21:31: POC Glucose 251 H Imaging Radiology Impression Brain CT 08/08/24 21:20 IMPRESSION: No acute intracranial abnormalities. Reading Location: [id number] Head/Neck CTA 08/08/24 21:22 IMPRESSION: 1. Absent opacification of the V4 segment of the right vertebral artery and right PICA, worrisome for occlusion of unknown chronicity. Vertebral artery dissection could also appear similar. Correlate with symptoms and consider MRI/MRA. 2. No hemodynamically significant narrowing or occlusion of the internal carotid arteries. 3. Right mastoid effusion. 4. Solid pulmonary nodule at the right lung apex measuring [address] chest in 12 months if patient is at high risk for malignancy per Fleischner society guidelines. Reading Location: [id number] Brain CT 08/08/24 22:50 IMPRESSION: No acute intracranial abnormality. No evidence of new hemorrhage. Reading Location: [id number] Assessment & Plan Assessment/Plan (1) CVA (cerebral vascular accident): PLAN: Plan The patient is an 84 y/o M w/ PMHx: HTN, HLD, Diabetes mellitus type II, Hx CVA, Hx PR, Allergic rhinitis, GERD, Anxiety and Depression who presents to the [facility] ED on 08/08/2024 with history of last known well 8:15 PM on day of presentation with onset approximately 915 slurred speech as well as a headache with left-sided facial droop prompting EMS call and transition to the ED with an inner route call per EMS of stroke alert. #1. Headache, left-sided facial droop, dysarthria, left eye lateral deviation with nystagmus, blurred vision concerning for CVA status post ED initiated/neurology initiated tenecteplase administration with questionable absent opacification of V4 segment of the right vertebral artery and right PICA worrisome for possible occlusion of unknown chronicity and versus vertebral artery dissection which can also appear similar versus variant: Patient initiated tenecteplase in the ED. Will admit to ICU per protocol following tenecteplase, will obtain MRI of the brain in 24 hours post tenecteplase administration versus CT head pending timing, will obtain ECHO, PT/OT/Speech/Nutrition evaluation per protocol. Will allow permissive HTN with as needed agents especially given tenecteplase administration, maintain on high-dose statin w/ AM FLP, once assured follow-up CT imaging versus MRI following tenecteplase administration at 24 juan david appropriate would reinitiate antiplatelet therapy with per neurology potentially aspirin/Plavix given findings on CTA head as noted at that time, fall precautions. Mag, TSH, FLP, HgbA1c requested. Maintain on fall and aspiration precautions. Business Management Specialist consulted per protocol given ICU admission. Neurology consultation continued. #2. Incidentally noted solid pulmonary nodule: CTA head and neck with noted incidental solid pulmonary nodule the right lung apex measuring 4 mm, will need follow-up CT imaging outpatient. #3. Indeterminate cardiac enzyme of unclear significance: Initial troponin 31, EKG with SR without acute evidence of ischemia, will place on a monitored bed to assure no acute myocardial infarction with serial cardiac enzymes once completed 24 hours of tenecteplase no lab draw parameters, repeat EKGs as needed, echocardiogram pending as noted, magnesium level requested as well as FLP. Will reinitiate antiplatelet therapy once completed the 24 hours post tenecteplase and imaging or repeat obtained with no evidence of any bleed assured. #4. Hypertension: Given presentation will maintain permissive hypertension per stroke protocol with current agents especially given usage of tenecteplase as noted. #5. Hyperlipidemia: Will continue patient home ezetimibe regimen, maintain on high-dose statin therapy, FLP in AM. #6. Diabetes mellitus type II: Hold oral home regimen, hemoglobin A1c requested per protocol, nutrition consulted per protocol, maintain on ADA diet, accu checks w/ ISS once past the 24-hour juan david given tenecteplase usage as noted above. #7. Allergic rhinitis: Will continue patient home montelukast regimen. #8. Anxiety and depression: Will continue patient home duloxetine regimen. #9. GERD: Will continue patient on PPI. #10. History PR: Given tenecteplase administration temporarily holding antiplatelet therapy, continue statin, temporally holding hypertensive medication with permissive hypertension given #1 with as needed agents per stroke protocol, add back patient regimen once clinically appropriate. #11. Possible Chronic Kidney Disease Stage II but uncertain as no comparison labs: Admission BUN/Cr 24/0.95, GFR 79, baseline renal function unknown, repeat BMP in AM to further elucidate chronicity. #12. DVT prophylaxis: SCDs, may consider adding chemoprophylaxis once out of the 24-hour window with repeat imaging status post tenecteplase administration. #13. CODE status: Patient ALVA is his and son and living will is currently in place. Discussed CODE status at length including difference between FULL code, DNR-CCA and DNR-CC status. Following discussions about the differences in these status, requested DNR-CCA with allowance of intubation short term if necessary. Advanced Care Planning Face to Face Time: 16 minutes. Charges/Coding Visit Charges Inpatient E&M: 12385 Init Hosp L3 Procedures Hospitalists Procedures: 53578 Advncd Care Plan 30 Min
[2024-08-08 23:47] LABS: Glucose, Dipstick 1000 mg/dl (Normal); Ketone-Dipstick Negative (Negative); Leukocyte Esterase-Dipstick Negative /ul (Negative); Nitrite-Dipstick Negative (Negative); Occult Blood-Urine 250 /ul (Negative); Protein-Dipstick 30 mg/dl (Negative); Urine Bilirubin Dipstick Negative (Negative); Urine Urobilinogen 1 mg/dl (Normal)
[2024-08-08 23:53] LABS: Color, Urine Yellow (Yellow); Urine Clarity Clear (Clear)
--- NOTE | 2024-08-08 23:57 | ED.RN ---
Approx 2230 pt started to c/o increased/worsening headache. Dr. Aguila notified. 2237 pt started vomiting. ED notified and IV Zofran was ordered. IV Zofran was administered at 2240. Emesis was noted to be blood tinged and ED notified. Repeat CT scan was ordered. During this time the pt BP became elevated. This RN and a secondary RN used our nursing judgement to allow IV Zofran to work before administering IV Labetalol, ED notified and aware. Pt BP at 2330 is 175/84. He states the headache is gone and pt appears to be resting comfortably.
[2024-08-09] VITALS (39 sets, daily range): BP systolic 129–180; BP diastolic 79–145; PULSE 67–97; RESP 14–25; TEMP 36.4–36.9; O2SAT 92–99; BMI 26.2
[2024-08-09] LABS: Red Blood Cells-Urine 50-100 SEEN /hpf (0-5)
--- OUTSIDE RECORDS SUMMARY | 2024-08-09 00:05 | XMS RPT_ITS | CCD ---
Author Organization [facility] Care Team Providers Care Estimator Paperboard Boxes Name Role Phone Nancy Donahue PA-C Unavailable [phone] Julisa Hall Unavailable JULISA HALL MD Primary Care Physician FRANCOIS HAMILTON DO Primary Care Physician MARY ESTEBAN, DR. JULISA Ambriz Primary Care Wayne HALL MD., DR. JULISA Ambriz Attending FRANCOIS Swenson DO Primary Care Unavailable FRANCOIS HAMILTON DO Attending Adrienne HALL MD., DR. JULISA Ambriz Primary Care STIVEN Deleon MD Attending Adrienne HALL MD., DR. JULISA Ambriz Primary Care Wayne HALL MD., DR. JULISA Ambriz Attending Wayne Hall, Dr. Julisa Fox Referring mW Hall, Dr. Julisa Fox Primary Care Maribelva Gareth Sky Attending CHRIS Durán Attending GARETH Romero Attending JULISA Dove Primary Care GARETH John Referring Unavailable Provider, Ed Physician Attending Andrésab aida Care Physician, No Primary Primary Care DR YULY Dong DO Attending DR YULY Morales DO Primary Care Yesika parra Allergies Allergy Classification Reported Allergen(s) Allergy Type Date of Onset Reaction(s) Facility (1 source) SEASONAL; Translations: [SEASONAL] allergy to substance 4 [facility] Work Phone: Medications Current Medications Medication Drug Class(es) Dates Sig (Normalized) Sig (Original) 0.5 ML tirzepatide 5 MG/ML Auto-Injector [Mounjaro] (1 source) Start: 12-01-2022 inject 1 dose by subcutaneous injection every week Mounjaro 2.5 mg/0.5 mL subcutaneous solution Dose : 2.5 mg =, Subcutaneous, qWeek, rotate injection sites, # 2 mL, 2 Refill(s), Pharmacy: [facility], 175.3, cm, 11/19/22 11:02:00 EDT, Height, kg, 11/19/22 11:02:00 EDT, Dosing Weight Start Date: 12/01/22 Status: Ordered amLODIPine 5 mg oral tablet (7 sources) Dihydropyridine Calcium Channel Pastor Start: 11-19-2022 amLODIPine 5 mg oral tablet Dose : 5 mg = 1 tab(s), Oral, qDay, # 90 tab(s), 0 Refill(s), [facility]: [facility] [place], 175.3, cm, 11/19/22 11:02:00 EDT, Height, kg, 11/19/22 11:02:00 EDT, Dosing Weight Start Date: 11/19/22 Status: Ordered Start: 07-25-2021 amLODIPine 5 m g oral tablet Dose : 5 mg = 1 tab(s), Oral, qDay, # 90 tab(s), 3 Refill(s), [facility], [place], cm, 07/25/21 15:25:00 EDT, Height, kg, 07/25/21 15:25:00 EDT, Dosing Weight Start Date: 07/25/21 Status: Ordered Start: 08-15-2013 AMLODIPINE BES YLATE 5 MG TABS takes 1 tablet daily AMLODIPINE BESYLATE [id number] Yulissa Waller SAFETY SCIENTIST aspirin 325 mg oral tablet (7 sources) Nonsteroidal Anti-inflammatory Drug Start: 07-31-2009 take 1 dose by mouth once daily Ecotrin Dose : 325 mg =, PO, Daily, 0 Refill(s), current med (Hx) Start Date: 07/31/09 Status: Ordered ezetimibe 10 mg oral tablet (6 sources) Dietary Cholesterol Absorption Inhibitor Start: 11-19-2022 ezetimibe 10 mg oral tablet Dose : 10 mg = 1 tab(s), Oral, qDay, # 90 tab(s), 1 Refill(s), [facility]acy: [facility] [place], 175.3, cm, 11/19/22 11:02:00 EDT, Height, kg, 11/19/22 11:02:00 EDT, Dosing Weight Start Date: 11/19/22 Status: Ordered Start: 11-26-2020 ezetimibe 10 m g oral tablet 0 Refill(s) Start Date: 11/26/20 Status: Ordered fexofenadine hydrochloride 180 mg oral tablet (2 sources) Histamine-1 Receptor Antagonist Start: 11-19-2022 fexofenadine 180 mg oral tablet Dose : 180 mg = 1 tab(s), Oral, Daily, # 100 tab(s), 3 Refill(s), [facility]acy: [facility] [place], Hearing loss on right, 175.3, cm, 11/19/22 11:02:00 EDT, Height, kg, 11/19/22 11:02:00 EDT, Dosing Weight Start Date: 11/19/22 Status: Ordered fluticasone propionate 0.05 mg/actuat metered dose nasal spray (2 sources) Corticosteroid Start: 11-19-2022 take 1 dose nasal route twice daily Flonase 50 mcg/inh nasal spray Dose = 1 spray(s), Nostril, each, BID, # 16 gram(s), 0 Refill(s), [facility]acy: [facility] [place], Hearing loss on right, 175.3, cm, 11/19/22 11:02:00 EDT, Height, kg, 11/19/22 11:02:00 EDT, Dosing Weight Start Date: 11/19/22 Status: Ordered meloxicam 15 mg oral tablet (7 sources) Nonsteroidal Anti-inflammatory Drug Start: 11-19-2022 meloxicam 15 mg oral tablet Dose : 15 mg = 1 tab(s), Oral, qDay, # 90 tab(s), 1 Refill(s), [facility]acy: [facility] [place], 175.3, cm, 11/19/22 11:02:00 EDT, Height, kg, 11/19/22 11:02:00 EDT, Dosing Weight Start Date: 11/19/22 Status: Ordered Start: 03-27-2021 meloxicam 15 m g oral tablet Dose : 15 mg = 1 tab(s), Oral, qDay, # 90 tab(s), 3 Refill(s), [facility], 176, cm, 12/06/20 14:01:00 EDT, Height, kg, 12/06/20 14:01:00 EDT, Dosing Weight Start Date: 03/27/21 Status: Ordered Start: 02-04-2017 MELOXICAM 15 M G TABS one a day MELOXICAM [id number] Ryan Suarez MD metFORMIN hydrochloride 500 mg oral tablet (7 sources) Biguanide Start: 11-19-2022 End: 05-18-2023 metFORMIN 500 mg oral tablet (IR) Dose : 500 mg = 1 tab(s), Oral, BID, # 180 tab(s), 1 Refill(s), [facility]: [facility] [place], 175.3, cm, 11/19/22 11:02:00 EDT, Height, kg, 11/19/22 11:02:00 EDT, Dosing Weight Start Date: 11/19/22 Stop Date: 05/18/23 Status: Ordered Start: 06-18-2021 End: 08-10-2022 metFORMIN 500 mg oral tablet (IR) Dose : 500 mg = 1 tab(s), Oral, qDay, # 90 tab(s), 3 Refill(s), [facility], [place], cm, 08/09/21 11:03:00 EDT, Height, kg, 08/09/21 11:03:00 EDT, Dosing Weight Start Date: 08/15/21 Stop Date: 08/10/22 Status: Ordered Start: 08-15-2013 METFORMIN HCL 500 MG TABS takes 1 tablet daily METFORMIN HCL [id number] Yulissa Waller SAFETY SCIENTIST metoprolol tartrate 25 mg oral tablet (7 sources) beta-Adrenergic Pastor Start: 09-13-2023 Metopr olol Succinate ER 25 mg oral TABLET extended release Dose : 25 mg = 1 tab(s), Oral, qDay, # 90 tab(s), 1 Refill(s), [facility]acy: [facility] [place], 175.3, cm, 11/19/22 11:02:00 EDT, Height, kg, 11/19/22 11:02:00 EDT, Dosing Weight Start Date: 11/19/22 Status: Ordered Start: 07-25-2021 Metoprolol Suc cinate ER 25 mg oral TABLET extended release Dose : 25 mg = 1 tab(s), Oral, qDay, # 90 tab(s), 3 Refill(s), Pharmacy: [facility], 176, cm, 07/25/21 15:25:00 EDT, Height, kg, 07/25/21 15:25:00 EDT, Dosing Weight Start Date: 07/25/21 Status: Ordered Start: 08-15-2013 METOPROLOL SUC CINATE ER 25 MG [id number] takes 1 tablet daily METOPROLOL SUCCINATE [id number] [facility] montelukast 10 mg oral tablet (2 sources) Leukotriene Receptor Antagonist Start: 11-19-2022 Singulair 10 mg oral tablet Dose : 10 mg = 1 tab(s), Oral, qDay, # 90 tab(s), 1 Refill(s), [facility]acy: [facility] [place], Nasal congestion Environmental allergies, 175.3, cm, 11/19/22 11:02:00 EDT, Height, kg, 11/19/22 11:02:00 EDT, Dosing Weight Start Date: 11/19/22 Status: Ordered mupirocin 0.02 mg/mg topical ointment (6 sources) RNA Synthetase Inhibitor Antibacterial Start: 11-26-2020 mupirocin 2% topical ointment Apply 1 luis, Topical, TID, # 15 gram(s), 1 Refill(s), Pharmacy: [facility], 176, cm, 11/26/20 15:02:00 EDT, Height, 94.5, kg, 11/26/20 15:02:00 EDT, Dosing Weight Start Date: 11/26/20 Status: Ordered naproxen sodium 220 mg oral tablet (6 sources) Nonsteroidal Anti-inflammatory Drug Start: 12-15-2018 take 2 capsules by mouth once Aleve 220 mg oral tablet 2 cap(s), Oral, Once, 0 Refill(s) Start Date: 12/15/18 Status: Ordered olmesartan medoxomil 40 mg oral tablet (7 sources) Angiotensin 2 Receptor Pastor Start: 11-19-2022 olmesartan 40 mg oral tablet Dose : 40 mg = 1 tab(s), Oral, qDay, # 90 tab(s), 1 Refill(s), [facility]acy: [facility] [place], 175.3, cm, 11/19/22 11:02:00 EDT, Height, kg, 11/19/22 11:02:00 EDT, Dosing Weight Start Date: 11/19/22 Status: Ordered Start: 07-25-2021 olmesartan 40 mg oral tablet Dose : 40 mg = 1 tab(s), Oral, qDay, # 90 tab(s), 3 Refill(s), [facility]acy: [facility], 176, cm, 07/25/21 15:25:00 EDT, Height, kg, 07/25/21 15:25:00 EDT, Dosing Weight Start Date: 07/25/21 Status: Ordered Start: 08-15-2013 BENICAR 20 MG TABS takes 1 tablet daily OLMESARTAN MEDOXOMIL [id number] Yulissa Waller SAFETY SCIENTIST pantoprazole 40 mg delayed release oral tablet (7 sources) Proton Pump Inhibitor Start: 11-19-2022 End: 11-14-2023 pantoprazole 40 mg oral enteric coated tablet Dose : 40 mg = 1 tab(s), Oral, qDay, # 90 tab(s), 3 Refill(s), [facility]: [facility] [place], 175.3, cm, 11/19/22 11:02:00 EDT, Height, kg, 11/19/22 11:02:00 EDT, Dosing Weight Start Date: 11/19/22 Stop Date: 11/14/23 Status: Ordered Start: 04-12-2021 End: 04-07-2022 pantoprazole 40 mg oral ente mario coated tablet Dose : 40 mg = 1 tab(s), Oral, qDay, # 90 tab(s), 3 Refill(s), [facility], 176, cm, 12/06/20 14:01:00 EDT, Height, kg, 12/06/20 14:01:00 EDT, Dosing Weight Start Date: 04/12/21 Stop Date: 04/07/22 Status: Ordered Start: 08-15-2013 PANTOPRAZOLE S ODIUM 40 MG TBEC takes 1 tablet daily PANTOPRAZOLE SODIUM [id number] Yulissa Waller SAFETY SCIENTIST simvastatin 40 mg oral tablet (7 sources) HMG-CoA Reductase Inhibitor Start: 09-18-2022 simvastatin 40 mg or al tablet Dose : 40 mg = 1 tab(s), Oral, qHS, # 90 tab(s), 3 Refill(s), [facility]: [id number], 175.3, cm, 07/30/22 15:37:00 EDT, Height, kg, 07/30/22 15:37:00 EDT, Dosing Weight Start Date: 09/18/22 Status: Ordered Start: 08-15-2021 simvastatin 40 mg oral tablet Dose : 40 mg = 1 tab(s), Oral, qHS, # 90 tab(s), 3 Refill(s), [facility], 176, cm, 08/09/21 11:03:00 EDT, Height, kg, 08/09/21 11:03:00 EDT, Dosing Weight Start Date: 08/15/21 Status: Ordered Start: 12-22-2020 simvastatin 40 mg oral tablet Dose : 40 mg = 1 tab(s), Oral, qHS, # 90 tab(s), 3 Refill(s), [facility]: [facility], 176, cm, 12/06/20 14:01:00 EDT, Height, kg, 12/06/20 14:01:00 EDT, Dosing Weight Start Date: 12/22/20 Status: Ordered Start: 08-15-2013 SIMVASTATIN 40 MG TABS takes 1 tablet daily SIMVASTATIN [id number] Yulissa Waller SAFETY SCIENTIST tadalafil 20 mg oral tablet (6 sources) Phosphodiesterase 5 Inhibitor Start: 07-25-2021 Cialis 20 mg oral tablet Dose : 20 mg = 1 tab(s), Oral, qDay, PRN as needed for erectile dysfunction, # 5 tab(s), 4 Refill(s), Pharmacy: [facility], 176, cm, 07/25/21 15:25:00 EDT, Height Start Date: 07/25/21 Status: Ordered Completed/Discontinued Medications Medication Drug Class(es) Dates Sig (Normalized) Sig (Original) cetirizine hydrochloride 10 mg oral tablet (1 source) Histamine-1 Receptor Antagonist Start: 08-15-2013 ZYRTEC ALLERGY 10 MG CAPS takes 1 capsule daily as needed CETIRIZINE HCL [id number] Yulissa Waller SAFETY SCIENTIST ibuprofen 200 mg oral tablet (1 source) Nonsteroidal Anti-inflammatory Drug Start: 08-15-2013 IBUPROFEN 200 MG TABS takes 1 tablet bedtime as needed IBUPROFEN [id number] Yulissa Waller SAFETY SCIENTIST Problems Active Problems Problem Classification Problem Date Documented Date Episodic/Chronic Acute cerebrovascular disease (3 sources) Embolic stroke 12-15-2018 Chronic Allergic reactions (2 sources) Environmental allergy 07-30-2022 Episodic Coronary atherosclerosis and other heart disease (12 sources) Coronary atherosclerosis; Translations: [Coronary atherosclerosis of [place] coronary artery] Onset: 11-04-2022 12-15-2018 Chronic Diabetes mellitus without complication (12 sources) Diabetes mellitus; Translations: [Type 2 diabetes mellitus] 08-24-2013 Chronic Disorders of lipid metabolism (9 sources) Hyperlipidemia; Translations: [Hyperlipidemia, unspecified] Onset: 11-04-2022 12-15-2018 Chronic Esophageal disorders (2 sources) Gastroesophageal reflux disease 11-19-2022 Chronic Essential hypertension (9 sources) Benign essential hypertension; Translations: [Essential (primary) hypertension] Onset: 11-04-2022 12-15-2018 Chronic Genitourinary symptoms and ill-defined conditions (2 sources) Grade A2 albuminuria 11-19-2022 Episodic Osteoarthritis (8 sources) Osteoarthritis of glenohumeral joint; 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] Onset: 08-14-2015 08-14-2015 Chronic Other circulatory disease (3 sources) History of cerebral aneurysm 11-25-2021 Episodic Other circulatory disease (3 sources) History of cerebrovascular accident 11-25-2021 Episodic Other ear and sense organ disorders (2 sources) Hearing loss of right ear 07-30-2022 Chronic Other inflammatory condition of skin (6 sources) Psoriasis 12-15-2018 Chronic Other nervous system disorders (2 sources) Paresthesia of lower extremity 11-19-2022 Episodic Other screening for suspected conditions (not mental disorders or infectious disease) (3 sources) Abnormal renal function 11-25-2021 Episodic Residual codes; unclassified (6 sources) Insomnia 12-15-2018 Episodic Residual codes; unclassified (1 source) Illness, unspecified; Translations: [Illness, unspecified] Onset: 12-17-2023 Episodic Unclassified (2 sources) Long-term current use of proton pump inhibitor therapy 11-19-2022 Past or Other Problems Problem Classification Problem Date Documented Da te Episodic/Chronic Other connective tissue disease (3 sources) Trochanteric bursitis; Translations: [Rotator cuff syndrome] Onset: 02-06-2016 02-04-2017 Episodic Unclassified (1 source) Problem Results Test Name Value Interpretation Reference Range Facility ECG 12-LEADon 10-13-2023 ECG 12-LEAD Ventricular Rate 56 Atrial Rate 56 P-R Interval 198 QRS Duration 96 Q-T Interval 418 QTC Calculation(Bazett) 403 P [place] 37 R [place] 18 T [place] 194 QRS Count 9 Q Onset 214 P Onset 115 P Offset 167 T Offset 423 QTC Fredericia 408 Diagnosis Sinus bradycardia Inferior infarct (cited on or before 25-JAN-2020) ST & T wave abnormality, consider anterolateral ischemia Abnormal ECG When compared with ECG of 04-NOV-2022 07:52, Nonspecific T wave abnormality has replaced inverted T waves in Inferior leads Confirmed by Gareth Alcantar ([id number]) on 11/10/2023 1:19:59 PM Normal [facility] LABORATORYOrdered By: SYSTEM SYSTEM on 12-01-2022 Albumin BCP dye [Mass/Vol] 4.1 G/dL Invalid Interpretation Code 3.4 - 4.8 G/dL AO ADM SS Albumin/Globulin [Mass ratio] 1.5 {ratio} Invalid Interpretation Code 1.1 - 2.5 ratio AO ADM SS ALP [Catalytic activity/Vol] 69 U/L Invalid Interpretation Code 40 - 135 U/L AO ADM SS ALT With P-5'-P [Catalytic activity/Vol] 34 U/L Invalid Interpretation Code 16 - 63 U/L AO ADM SS AST With P-5'-P [Catalytic activity/Vol] 12 U/L Invalid Interpretation Code 10 - 40 U/L AO ADM SS Basophil, Absolute 0.1 103/mcL Invalid Interpretation Code 0.0 - 0.2 10^3/mcL AO Workflow SS Basophils/100 WBC (Bld) 0.9 % Invalid Interpretation Code 0.0 - 2.5 % AO Workflow SS Bilirubin [Mass/Vol] 0.7 mg/dL Invalid Interpretation Code 0.2 - 1.0 mg/dL AO ADM SS Comment on above: Interpretive Data: U se of this assay is not recommended for patients undergoing treatment with eltrombopag due to the potential for falsely elevated results. Calcium [Mass/Vol] 9.2 mg/dL Invalid Interpretation Code 8.4 - 10.2 mg/dL AO ADM SS Chloride [Moles/Vol] 103 mmol/L Invalid Interpretation Code 98 - 107 mmol/L AO ADM SS CO2 [Moles/Vol] 31 mmol/L Invalid Interpretation Code 23 - 31 mmol/L AO ADM SS Cobalamin (Vitamin B12) [Mass/Vol] 277 pg/mL Invalid Interpretation Code 211 - 911 pg/mL AH ADM SS Creatinine [Mass/Vol] 1.14 mg/dL Invalid Interpretation Code 0.70 - 1.30 mg/dL AO ADM SS Electrolyte Balance 6.0 mEq/L Invalid Interpretation Code 4.0 - 15.0 mEq/L AO ADM SS Eosinophil, Absolute 0.1 103/mcL Invalid Interpretation Code 0.0 - 0.4 10^3/mcL AO Workflow SS Eosinophils/100 WBC (Bld) 1.5 % Invalid Interpretation Code 0.0 - 7.0 % AO Workflow SS Erythrocyte distribution width (RBC) [Ratio] 14.2 % Invalid Interpretation Code 11.5 - 14.5 % AO Workflow SS Free T4 [Mass/Vol] 1.37 ng/dL Invalid Interpretation Code 0.76 - 1.46 ng/dL AO ADM SS GFR/1.73 sq M.predicted among blacks MDRD (S/P/Bld) [Vol rate/Area] 75 ml/min/1.73sqm Invalid Interpretation Code AO Chemistry S Comment on above: Interpretive Data: GFR Population mean for , Non- Americans Ages 20-29 = 116 mL/min/1.73 sq.m. Ages 30-39 = 107 mL/min/1.73 sq.m. Ages 40-49 = 99 mL/min/1.73 sq.m. Ages 50-59 = 93 mL/min/1.73 sq.m. Ages 60-69 = 85 mL/min/1.73 sq.m. Ages 70+ = 75 mL/min/1.73 sq.m. Chronic Kidney Disease: Less than 60 mL/min/1.73 square meters End Stage Renal Disease: Less than 15 mL/min/1.73 square meters GFR/1.73 sq M.predicted among non-blacks MDRD (S/P/Bld) [Vol rate/Area] 62 ml/min/1.73sqm Invalid Interpretation Code AO Chemistry S Comment on above: Interpretive Data: GFR Population mean for , Non- Americans Ages 20-29 = 116 mL/min/1.73 sq.m. Ages 30-39 = 107 mL/min/1.73 sq.m. Ages 40-49 = 99 mL/min/1.73 sq.m. Ages 50-59 = 93 mL/min/1.73 sq.m. Ages 60-69 = 85 mL/min/1.73 sq.m. Ages 70+ = 75 mL/min/1.73 sq.m. Chronic Kidney Disease: Less than 60 mL/min/1.73 square meters End Stage Renal Disease: Less than 15 mL/min/1.73 square meters Globulin 2.8 G/dL Invalid Interpretation Code AO ADM SS Glucose [Mass/Vol] 167 mg/dL Invalid Interpretation Code 83 - 110 mg/dL AO ADM SS Hematocrit (Bld) [Volume fraction] 40.6 % Invalid Interpretation Code 42.0 - 52.0 % AO Workflow SS Hemoglobin (Bld) [Mass/Vol] 13.7 G/dL Invalid Interpretation Code 14.0 - 18.0 G/dL AO Workflow SS Lymphocyte, Absolute 1.4 103/mcL Invalid Interpretation Code 0.8 - 3.9 10^3/mcL AO Workflow SS Lymphocytes/100 WBC (Bld) 19.8 % Invalid Interpretation Code 10.0 - 50.0 % AO Workflow SS MCH (RBC) [Entitic mass] 29.4 pg Invalid Interpretation Code 27.0 - 31.2 pg AO Workflow SS MCHC 33.8 G/dL Invalid Interpretation Code 31.8 - 35.4 G/dL AO Workflow SS MCV (RBC) [Entitic vol] 87.0 fL Invalid Interpretation Code 80.0 - 94.0 fL AO Workflow SS Monocyte, Absolute 0.6 103/mcL Invalid Interpretation Code 0.2 - 1.0 10^3/mcL AO Workflow SS Monocytes/100 WBC (Bld) 8.2 % Invalid Interpretation Code 1.7 - 13.0 % AO Workflow SS Neutrophil, Absolute 4.9 103/mcL Invalid Interpretation Code 2.9 - 6.2 10^3/mcL AO Workflow SS Neutrophils/100 WBC (Bld) 69.6 % Invalid Interpretation Code 37.0 - 80.0 % AO Workflow SS Platelet mean volume (Bld) [Entitic vol] 8.4 fL Invalid Interpretation Code 7.4 - 10.4 fL AO Workflow SS Platelets (Bld) [#/Vol] 198 103/mcL Invalid Interpretation Code 130 - 400 10^3/mcL AO Workflow SS Potassium [Moles/Vol] 4.9 mmol/L Invalid Interpretation Code 3.5 - 5.1 mmol/L AO ADM SS Prostate specific Ag [Mass/Vol] 3.25 ng/mL Invalid Interpretation Code 0.00 - 4.00 ng/mL AO ADM SS Protein [Mass/Vol] 6.9 G/dL Invalid Interpretation Code 6.4 - 8.2 G/dL AO ADM SS RBC (Bld) [#/Vol] 4.67 106/mcL Invalid Interpretation Code 4.04 - 6.13 10^6/mcL AO Workflow SS Sodium [Moles/Vol] 140 mmol/L Invalid Interpretation Code 136 - 145 mmol/L AO ADM SS TSH Qn 1.61 m[IU]/L Invalid Interpretation Code 0.36 - 3.74 mcIU/mL AO ADM SS Urea nitrogen [Mass/Vol] 23 mg/dL Invalid Interpretation Code 7 - 18 mg/dL AO ADM SS Urea nitrogen/Creatinine [Mass ratio] 20 ratio Invalid Interpretation Code 7 - 27 ratio AO ADM SS WBC (Bld) [#/Vol] 7.0 103/mcL Invalid Interpretation Code 4.6 - 10.8 10^3/mcL AO Workflow SS LABORATORYOrdered By: Norah Chavez on 12-01-2022 Cholesterol [Mass/Vol] 123 mg/dL Invalid Interpretation Code 0 - 200 mg/dL AO ADM SS Comment on above: Interpretive Data: C holesterol Reference Interval: Less than 200 Desirable 200-239 Borderline high risk 240 and above High risk Cholesterol in HDL [Mass/Vol] 51 mg/dL Invalid Interpretation Code 40 - 60 mg/dL AO ADM SS Cholesterol in LDL [Mass/Vol] 59 mg/dL Invalid Interpretation Code 0 - 130 mg/dL AO ADM SS Triglyceride [Mass/Vol] 66 mg/dL Invalid Interpretation Code 0 - 150 mg/dL AO ADM SS Comment on above: Interpretive Data: T riglyceride Reference Interval: Less than 150 Normal 150-199 Borderline high risk 200-499 High risk 500 or higher Very high risk LABORATORYOrdered By: Mariola Cummins on 11-19-2022 Albumin DL <= 20 mg/L (U) [Mass/Vol] 4757 mcg/dL Invalid Interpretation Code AO ADM SS Albumin/Creatinine DL <= 20 mg/L (U) [Mass ratio] 55 mcg/mg Invalid Interpretation Code 0 - 30 mcg/mg AO ADM SS Creatinine (U) [Mass/Vol] 87.0 mg/dL Invalid Interpretation Code 39.0 - 259.0 mg/dL AO ADM SS .GFRon 12-06-2021 GFR 80 ml/min/1.73sqm Normal [facility] ([place]) Comment on above: Result Comment: GFR Population mean for , Non- Americans Ages 20-29 = 116 mL/min/1.73 sq.m. Ages 30-39 = 107 mL/min/1.73 sq.m. Ages 40-49 = 99 mL/min/1.73 sq.m. Ages 50-59 = 93 mL/min/1.73 sq.m. Ages 60-69 = 85 mL/min/1.73 sq.m. Ages 70+ = 75 mL/min/1.73 sq.m. Chronic Kidney Disease: Less than 60 mL/min/1.73 square meters End Stage Renal Disease: Less than 15 mL/min/1.73 square meters Performed By: #### A DIFF, LIPID, ANEU, CBC, A1C, GFR, CMP #### Uday [address] [address] GFR Non- 66 ml/min/1.73sqm Normal [facility] ([place]) Comment on above: Result Comment: GFR Population mean for , Non- Americans Ages 20-29 = 116 mL/min/1.73 sq.m. Ages 30-39 = 107 mL/min/1.73 sq.m. Ages 40-49 = 99 mL/min/1.73 sq.m. Ages 50-59 = 93 mL/min/1.73 sq.m. Ages 60-69 = 85 mL/min/1.73 sq.m. Ages 70+ = 75 mL/min/1.73 sq.m. Chronic Kidney Disease: Less than 60 mL/min/1.73 square meters End Stage Renal Disease: Less than 15 mL/min/1.73 square meters Performed By: #### A DIFF, LIPID, ANEU, CBC, A1C, GFR, CMP #### [address] [address] B12on 12-06-2021 Cobalamin (Vitamin B12) [Mass/Vol] 428 pg/mL Normal 211-911 [facility] ([place]) Comment on above: Performed By: #### A DIFF, LIPID, ANEU, CBC, A1C, GFR, CMP #### [address] [address] BMPon 12-06-2021 BUN/Creatinine Ratio 21 ratio Normal 7-27 [facility] ([place]) Comment on above: Performed By: #### B 12 #### [place] [address] #### BMP, FT4, GFR, VIDH, TSH #### [address] [address] Calcium [Mass/Vol] 9.2 mg/dL Normal 8.4-10.2 [facility] ([place]) Comment on above: Performed By: #### B 12 #### [address] [address] #### BMP, FT4, GFR, VIDH, TSH #### [address] [address] Chloride [Moles/Vol] 104 mmol/L Normal 98-107 [facility] ([place]) Comment on above: Performed By: #### B 12 #### [place] [address] #### BMP, FT4, GFR, VIDH, TSH #### [address] [address] CO2 [Moles/Vol] 30 mmol/L Normal 23-31 [facility] ([place]) Comment on above: Performed By: #### B 12 #### [place] [address] #### BMP, FT4, GFR, VIDH, TSH #### [address] [address] Creatinine [Mass/Vol] 1.08 mg/dL Normal 0.70-1.30 [facility] ([place]) Comment on above: Performed By: #### B 12 #### [place] [address] #### BMP, FT4, GFR, VIDH, TSH #### [address] [address] Electrolyte Balance 8.0 mEq/L Normal 4.0-15.0 [facility] ([place]) Comment on above: Performed By: #### B 12 #### [place] [address] #### BMP, FT4, GFR, VIDH, TSH #### [address] [address] Glucose [Mass/Vol] 156 mg/dL High 83-110 [facility] ([place]) Comment on above: Performed By: #### B 12 #### [place] [address] #### BMP, FT4, GFR, VIDH, TSH #### [address] [address] Potassium [Moles/Vol] 4.4 mmol/L Normal 3.5-5.1 [facility] ([place]) Comment on above: Performed By: #### B 12 #### [place] [address] #### BMP, FT4, GFR, VIDH, TSH #### [address] [address] Sodium [Moles/Vol] 142 mmol/L Normal 136-145 [facility] ([place]) Comment on above: Performed By: #### B 12 #### [address] [address] #### BMP, FT4, GFR, VIDH, TSH #### [place] [address] [place], [place] [address] Urea nitrogen [Mass/Vol] 23 mg/dL High 7-18 [facility] ([place]) Comment on above: Performed By: #### B 12 #### [address] [address] #### BMP, FT4, GFR, VIDH, TSH #### [address] [address] FT4on 12-06-2021 Free T4 [Mass/Vol] 1.23 ng/dL Normal 0.76-1.46 [facility] ([place]) Comment on above: Performed By: #### A DIFF, LIPID, ANEU, CBC, A1C, GFR, CMP #### [address] [address] LABORATORYOrdered By: Norah Chavez on 12-06-2021 Albumin DL <= 20 mg/L (U) [Mass/Vol] 9604 mcg/dL Invalid Interpretation Code AO ADM SS Albumin/Creatinine DL <= 20 mg/L (U) [Mass ratio] 84 mcg/mg Invalid Interpretation Code 0 - 30 mcg/mg AO ADM SS Creatinine (U) [Mass/Vol] 114.3 mg/dL Invalid Interpretation Code 39.0 - 259.0 mg/dL AO ADM SS Calcium [Mass/Vol] 9.2 mg/dL Invalid Interpretation Code 8.4 - 10.2 mg/dL AO ADM SS Chloride [Moles/Vol] 104 mmol/L Invalid Interpretation Code 98 - 107 mmol/L AO ADM SS CO2 [Moles/Vol] 30 mmol/L Invalid Interpretation Code 23 - 31 mmol/L AO ADM SS Creatinine [Mass/Vol] 1.08 mg/dL Invalid Interpretation Code 0.70 - 1.30 mg/dL AO ADM SS Electrolyte Balance 8.0 mEq/L Invalid Interpretation Code 4.0 - 15.0 mEq/L AO ADM SS Free T4 [Mass/Vol] 1.23 ng/dL Invalid Interpretation Code 0.76 - 1.46 ng/dL AO ADM SS Glucose [Mass/Vol] 156 mg/dL Invalid Interpretation Code 83 - 110 mg/dL AO ADM SS Potassium [Moles/Vol] 4.4 mmol/L Invalid Interpretation Code 3.5 - 5.1 mmol/L AO ADM SS Sodium [Moles/Vol] 142 mmol/L Invalid Interpretation Code 136 - 145 mmol/L AO ADM SS TSH Qn 3.23 m[IU]/L Invalid Interpretation Code 0.36 - 3.74 mcIU/mL AO ADM SS Urea nitrogen [Mass/Vol] 23 mg/dL Invalid Interpretation Code 7 - 18 mg/dL AO ADM SS Urea nitrogen/Creatinine [Mass ratio] 21 ratio Invalid Interpretation Code 7 - 27 ratio AO ADM SS Vit. D 25-Hydroxy 30.5 ng/mL Invalid Interpretation Code AO ADM SS LABORATORYOrdered By: SYSTEM SYSTEM on 12-06-2021 Cobalamin (Vitamin B12) [Mass/Vol] 428 pg/mL Invalid Interpretation Code 211 - 911 pg/mL AH ADM SS GFR 80 ml/min/1.73sqm Invalid Interpretation Code AO Chemistry S GFR Non- 66 ml/min/1.73sqm Invalid Interpretation Code AO Chemistry S MALBRon 12-06-2021 U Creatinine 114.3 mg/dL Normal 39.0-259.0 [facility] ([place]) Comment on above: Performed By: #### M ALBR #### Uday [address] [address] U Microalb 9604 mcg/dL Normal [facility] ([place]) Comment on above: Performed By: #### M ALBR #### Uday [address] [place], [place] [address] U Ratio Alb/Cre 84 mcg/mg High 0- [facility] ([place]) Comment on above: Performed By: #### M ALBR #### Uday [id number] [place], [place] [address] TSHon 12-06-2021 TSH Qn 3.23 m[IU]/L Normal 0.36-3.74 [facility] ([place]) Comment on above: Performed By: #### A DIFF, LIPID, ANEU, CBC, A1C, GFR, CMP #### [address] [address] VIDHon 12-06-2021 Vit. D 25-Hydroxy 30.5 ng/mL Normal [facility] ([place]) Comment on above: Result Comment: Inte rpretive Values Based on Total 25(OH) Vitamin D: Deficient <20 ng/mL Insufficient 20 - <30 ng/mL Sufficient 30-100 ng/mL Performed By: #### A DIFF, LIPID, ANEU, CBC, A1C, GFR, CMP #### [address] [address] [address] HEAD OR BRAIN W/O CONTRAS Ton 08-02-2021 CT HEAD OR BRAIN W/O CONTRAST ORIGINAL HISTORY: TIA COMPARISON: 29 Jul 2009 TECHNIQUE: Routine non-contrast head CT with sagittal and coronal reconstructions This exam was performed according to our departmental dose optimization program, and includes the following measures where applicable: automated exposure control, adjustment of the mAs and/or kVp according to patient size and/or exam, and an iterative reconstruction algorithm. FINDINGS: The ventricles and sulci are mildly enlarged. There are no abnormal intra or extra-axial fluid collections. There are small right basal ganglia lacunar infarcts. There is mild irregular decreased attenuation in the cerebral white matter; schafer-white matter differentiation is maintained. The calvaria and the bones of the base of the skull are intact. 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 Interpreted by: Dean Euceda MD Preliminary Report By: Dean Euceda MD Electronically signed By Dean Euceda MD Dictated Date: 08/02/2021 10:51:06 AM Prelim Date: 08/02/2021 10:53:13 AM Sign Date: 08/02/2021 10:53:13 AM Ordering Provider: JULISA [facility] ([place]) .Auto Diffon 07-25-2021 Basophil, Absolute 0.10 10 3/mcL Normal 0.00-0.19 [facility] ([place]) Comment on above: Performed By: #### A DIFF, LIPID, ANEU, CBC, A1C, GFR, CMP #### [address] [address] Basophils/100 WBC (Bld) 0.7 % Normal 0.0-2.5 [facility] ([place]) Comment on above: Performed By: #### A DIFF, LIPID, ANEU, CBC, A1C, GFR, CMP #### [address] [address] Eosinophil, Absolute 0.10 10 3/mcL Normal 0.00-0.40 A [facility] ([place]) Comment on above: Performed By: #### A DIFF, LIPID, ANEU, CBC, A1C, GFR, CMP #### [address] [address] Eosinophils/100 WBC (Bld) 1.7 % Normal 0.0-7.0 [facility] ([place]) Comment on above: Performed By: #### A DIFF, LIPID, ANEU, CBC, A1C, GFR, CMP #### [address] [address] Lymphocyte, Absolute 1.40 10 3/mcL Normal 0.77-3.85 A [facility] ([place]) Comment on above: Performed By: #### A DIFF, LIPID, ANEU, CBC, A1C, GFR, CMP #### [address] [address] Lymphocytes/100 WBC (Bld) 17.4 % Normal 10.0-50.0 [facility] ([place]) Comment on above: Performed By: #### A DIFF, LIPID, ANEU, CBC, A1C, GFR, CMP #### [address] [address] Monocyte, Absolute 0.60 10 3/mcL Normal 0.15-1.00 [facility] ([place]) Comment on above: Performed By: #### A DIFF, LIPID, ANEU, CBC, A1C, GFR, CMP #### [address] [address] Monocytes/100 WBC (Bld) 8.1 % Normal 1.7-13.0 [facility] ([place]) Comment on above: Performed By: #### A DIFF, LIPID, ANEU, CBC, A1C, GFR, CMP #### [address] [address] Neutrophils/100 WBC (Bld) 72.1 % Normal 37.0-80.0 [facility] ([place]) Comment on above: Performed By: #### A DIFF, LIPID, ANEU, CBC, A1C, GFR, CMP #### [address] [address] .GFRon 07-25-2021 GFR Non- 58 ml/min/1.73sqm Normal [facility] ([place]) Comment on above: Result Comment: GFR Population mean for , Non- Americans Ages 20-29 = 116 mL/min/1.73 sq.m. Ages 30-39 = 107 mL/min/1.73 sq.m. Ages 40-49 = 99 mL/min/1.73 sq.m. Ages 50-59 = 93 mL/min/1.73 sq.m. Ages 60-69 = 85 mL/min/1.73 sq.m. Ages 70+ = 75 mL/min/1.73 sq.m. Chronic Kidney Disease: Less than 60 mL/min/1.73 square meters End Stage Renal Disease: Less than 15 mL/min/1.73 square meters Performed By: #### A DIFF, LIPID, ANEU, CBC, A1C, GFR, CMP #### [address] [address] GFR 70 ml/min/1.73sqm Normal [facility] ([place]) Comment on above: Result Comment: GFR Population mean for , Non- Americans Ages 20-29 = 116 mL/min/1.73 sq.m. Ages 30-39 = 107 mL/min/1.73 sq.m. Ages 40-49 = 99 mL/min/1.73 sq.m. Ages 50-59 = 93 mL/min/1.73 sq.m. Ages 60-69 = 85 mL/min/1.73 sq.m. Ages 70+ = 75 mL/min/1.73 sq.m. Chronic Kidney Disease: Less than 60 mL/min/1.73 square meters End Stage Renal Disease: Less than 15 mL/min/1.73 square meters Performed By: #### A DIFF, LIPID, ANEU, CBC, A1C, GFR, CMP #### [address] [address] .NEUABSon 07-25-2021 Neutrophil, Absolute 5.60 10 3/mcL Normal 2.85-6.16 A [facility] ([place]) Comment on above: Performed By: #### A DIFF, LIPID, ANEU, CBC, A1C, GFR, CMP #### [address] [address] A1Con 07-25-2021 HbA1c (Bld) [Mass fraction] 7.2 % High 4.3-6.4 [facility] ([place]) Comment on above: Performed By: #### A DIFF, LIPID, ANEU, CBC, A1C, GFR, CMP #### [place] [address] CBCon 07-25-2021 Erythrocyte distribution width (RBC) [Ratio] 13.8 % Normal 11.5-14.5 [facility] ([place]) Comment on above: Performed By: #### A DIFF, LIPID, ANEU, CBC, A1C, GFR, CMP #### [place] [address] Hematocrit (Bld) [Volume fraction] 39.3 % Low 42.0-52.0 [facility] ([place]) Comment on above: Performed By: #### A DIFF, LIPID, ANEU, CBC, A1C, GFR, CMP #### [place] [address] Hgb 13.5 G/dL Low 14.0-18.0 [facility] ([place]) Comment on above: Performed By: #### A DIFF, LIPID, ANEU, CBC, A1C, GFR, CMP #### [address] [address] MCH (RBC) [Entitic mass] 30.3 pg Normal 27.0-31.2 [facility] ([place]) Comment on above: Performed By: #### A DIFF, LIPID, ANEU, CBC, A1C, GFR, CMP #### [address] [address] MCHC 34.2 G/dL Normal 31.8-35.4 [facility] ([place]) Comment on above: Performed By: #### A DIFF, LIPID, ANEU, CBC, A1C, GFR, CMP #### [address] [address] MCV (RBC) [Entitic vol] 88.6 fL Normal 80.0-94.0 [facility] ([place]) Comment on above: Performed By: #### A DIFF, LIPID, ANEU, CBC, A1C, GFR, CMP #### [address] [address] Platelet 173 10 3/mcL Normal 130-400 [facility] ([place]) Comment on above: Performed By: #### A DIFF, LIPID, ANEU, CBC, A1C, GFR, CMP #### [address] [address] Platelet mean volume (Bld) [Entitic vol] 9.0 fL Normal 7.4-10.4 [facility] ([place]) Comment on above: Performed By: #### A DIFF, LIPID, ANEU, CBC, A1C, GFR, CMP #### [address] [address] RBC 4.44 10 6/mcL Normal 4.04-6.13 [facility] ([place]) Comment on above: Performed By: #### A DIFF, LIPID, ANEU, CBC, A1C, GFR, CMP #### [address] [address] WBC 7.80 10 3/mcL Normal 4.60-10.80 [facility] ([place]) Comment on above: Performed By: #### A DIFF, LIPID, ANEU, CBC, A1C, GFR, CMP #### [address] [address] CMPon 07-25-2021 Albumin Level 4.2 G/dL Normal 3.4-4.8 [facility] ([place]) Comment on above: Performed By: #### A DIFF, LIPID, ANEU, CBC, A1C, GFR, CMP #### [address] [address] Albumin/Globulin [Mass ratio] 1.6 {ratio} Normal 1.1-2.5 [facility] ([place]) Comment on above: Performed By: #### A DIFF, LIPID, ANEU, CBC, A1C, GFR, CMP #### [address] [address] ALP [Catalytic activity/Vol] 78 U/L Normal 40-135 [facility] ([place]) Comment on above: Performed By: #### A DIFF, LIPID, ANEU, CBC, A1C, GFR, CMP #### [address] [address] ALT [Catalytic activity/Vol] 31 U/L Normal 16-63 [facility] Comment on above: Performed By: #### A DIFF, LIPID, ANEU, CBC, A1C, GFR, CMP #### [address] [address] AST [Catalytic activity/Vol] 18 U/L Normal 10-40 [facility] Comment on above: Performed By: #### A DIFF, LIPID, ANEU, CBC, A1C, GFR, CMP #### [address] [address] Bili Total 0.5 mg/dL Normal 0.2-1.0 [facility] ([place]) Comment on above: Result Comment: Use of this assay is not recommended for patients undergoing treatment with eltrombopag due to the potential for falsely elevated results. Performed By: #### A DIFF, LIPID, ANEU, CBC, A1C, GFR, CMP #### [address] [address] BUN/Creatinine Ratio 21 ratio Normal 7-27 [facility] ([place]) Comment on above: Performed By: #### A DIFF, LIPID, ANEU, CBC, A1C, GFR, CMP #### [address] [address] Calcium [Mass/Vol] 9.6 mg/dL Normal 8.4-10.2 [facility] ([place]) Comment on above: Performed By: #### A DIFF, LIPID, ANEU, CBC, A1C, GFR, CMP #### [address] [address] Chloride [Moles/Vol] 109 mmol/L High 98-107 [facility] ([place]) Comment on above: Performed By: #### A DIFF, LIPID, ANEU, CBC, A1C, GFR, CMP #### [address] [address] CO2 [Moles/Vol] 29 mmol/L Normal 23-31 [facility] ([place]) Comment on above: Performed By: #### A DIFF, LIPID, ANEU, CBC, A1C, GFR, CMP #### [address] [address] Creatinine [Mass/Vol] 1.20 mg/dL Normal 0.70-1.30 [facility] ([place]) Comment on above: Performed By: #### A DIFF, LIPID, ANEU, CBC, A1C, GFR, CMP #### [address] [address] Electrolyte Balance 8.0 mEq/L Normal 4.0-15.0 [facility] ([place]) Comment on above: Performed By: #### A DIFF, LIPID, ANEU, CBC, A1C, GFR, CMP #### [address] [address] Globulin 2.7 G/dL Normal [facility] ([place]) Comment on above: Performed By: #### A DIFF, LIPID, ANEU, CBC, A1C, GFR, CMP #### [address] [address] Glucose [Mass/Vol] 133 mg/dL High 83-110 [facility] ([place]) Comment on above: Performed By: #### A DIFF, LIPID, ANEU, CBC, A1C, GFR, CMP #### [address] [address] Potassium [Moles/Vol] 4.9 mmol/L Normal 3.5-5.1 [facility] ([place]) Comment on above: Performed By: #### A DIFF, LIPID, ANEU, CBC, A1C, GFR, CMP #### [place] [address] [place], [place] [address] Sodium [Moles/Vol] 146 mmol/L High 136-145 [facility] ([place]) Comment on above: Performed By: #### A DIFF, LIPID, ANEU, CBC, A1C, GFR, CMP #### [place] [address] [place], [place] [address] Total Protein 6.9 G/dL Normal 6.4-8.2 [facility] ([place]) Comment on above: Performed By: #### A DIFF, LIPID, ANEU, CBC, A1C, GFR, CMP #### [place] [address] [place], [place] [address] Urea nitrogen [Mass/Vol] 25 mg/dL High 7-18 [facility] ([place]) Comment on above: Performed By: #### A DIFF, LIPID, ANEU, CBC, A1C, GFR, CMP #### [place] [place], [place] [address] LABORATORYOrdered By: La Knight on 07-25-2021 Albumin BCP dye [Mass/Vol] 4.2 G/dL Invalid Interpretation Code 3.4 - 4.8 G/dL AO ADM SS Albumin/Globulin [Mass ratio] 1.6 {ratio} Invalid Interpretation Code 1.1 - 2.5 ratio AO ADM SS ALP [Catalytic activity/Vol] 78 U/L Invalid Interpretation Code 40 - 135 U/L AO ADM SS ALT With P-5'-P [Catalytic activity/Vol] 31 U/L Invalid Interpretation Code 16 - 63 U/L AO ADM SS AST With P-5'-P [Catalytic activity/Vol] 18 U/L Invalid Interpretation Code 10 - 40 U/L AO ADM SS Bilirubin [Mass/Vol] 0.5 mg/dL Invalid Interpretation Code 0.2 - 1.0 mg/dL AO ADM SS Calcium [Mass/Vol] 9.6 mg/dL Invalid Interpretation Code 8.4 - 10.2 mg/dL AO ADM SS Chloride [Moles/Vol] 109 mmol/L Invalid Interpretation Code 98 - 107 mmol/L AO ADM SS Cholesterol [Mass/Vol] 143 mg/dL Invalid Interpretation Code 0 - 200 mg/dL AO ADM SS Cholesterol in HDL [Mass/Vol] 52 mg/dL Invalid Interpretation Code 40 - 60 mg/dL AO ADM SS Cholesterol in LDL [Mass/Vol] 78 mg/dL Invalid Interpretation Code 0 - 130 mg/dL AO ADM SS CO2 [Moles/Vol] 29 mmol/L Invalid Interpretation Code 23 - 31 mmol/L AO ADM SS Creatinine [Mass/Vol] 1.20 mg/dL Invalid Interpretation Code 0.70 - 1.30 mg/dL AO ADM SS Electrolyte Balance 8.0 mEq/L Invalid Interpretation Code 4.0 - 15.0 mEq/L AO ADM SS Globulin 2.7 G/dL Invalid Interpretation Code AO ADM SS Glucose [Mass/Vol] 133 mg/dL Invalid Interpretation Code 83 - 110 mg/dL AO ADM SS HbA1c (Bld) [Mass fraction] 7.2 % Invalid Interpretation Code 4.3 - 6.4 % AO ADM SS Potassium [Moles/Vol] 4.9 mmol/L Invalid Interpretation Code 3.5 - 5.1 mmol/L AO ADM SS Protein [Mass/Vol] 6.9 G/dL Invalid Interpretation Code 6.4 - 8.2 G/dL AO ADM SS Sodium [Moles/Vol] 146 mmol/L Invalid Interpretation Code 136 - 145 mmol/L AO ADM SS Triglyceride [Mass/Vol] 67 mg/dL Invalid Interpretation Code 0 - 150 mg/dL AO ADM SS Urea nitrogen [Mass/Vol] 25 mg/dL Invalid Interpretation Code 7 - 18 mg/dL AO ADM SS Urea nitrogen/Creatinine [Mass ratio] 21 ratio Invalid Interpretation Code 7 - 27 ratio AO ADM SS LABORATORYOrdered By: La Salazar on 07-25-2021 Basophil, Absolute 0.10 103/mcL Invalid Interpretation Code 0.00 - 0.19 10^3/mcL AO Auto Heme SS Basophils/100 WBC (Bld) 0.7 % Invalid Interpretation Code 0.0 - 2.5 % AO Auto Heme SS Eosinophil, Absolute 0.10 103/mcL Invalid Interpretation Code 0.00 - 0.40 10^3/mcL AO Auto Heme SS Eosinophils/100 WBC (Bld) 1.7 % Invalid Interpretation Code 0.0 - 7.0 % AO Auto Heme SS Erythrocyte distribution width (RBC) [Ratio] 13.8 % Invalid Interpretation Code 11.5 - 14.5 % AO Auto Heme SS Hematocrit (Bld) [Volume fraction] 39.3 % Invalid Interpretation Code 42.0 - 52.0 % AO Auto Heme SS Hemoglobin (Bld) [Mass/Vol] 13.5 G/dL Invalid Interpretation Code 14.0 - 18.0 G/dL AO Auto Heme SS Lymphocyte, Absolute 1.40 103/mcL Invalid Interpretation Code 0.77 - 3.85 10^3/mcL AO Auto Heme SS Lymphocytes/100 WBC (Bld) 17.4 % Invalid Interpretation Code 10.0 - 50.0 % AO Auto Heme SS MCH (RBC) [Entitic mass] 30.3 pg Invalid Interpretation Code 27.0 - 31.2 pg AO Auto Heme SS MCHC (RBC) [Mass/Vol] 34.2 G/dL Invalid Interpretation Code 31.8 - 35.4 G/dL AO Auto Heme SS MCV (RBC) [Entitic vol] 88.6 fL Invalid Interpretation Code 80.0 - 94.0 fL AO Auto Heme SS Monocyte, Absolute 0.60 103/mcL Invalid Interpretation Code 0.15 - 1.00 10^3/mcL AO Auto Heme SS Monocytes/100 WBC (Bld) 8.1 % Invalid Interpretation Code 1.7 - 13.0 % AO Auto Heme SS Neutrophil, Absolute 5.60 103/mcL Invalid Interpretation Code 2.85 - 6.16 10^3/mcL AO Auto Heme SS Neutrophils/100 WBC (Bld) 72.1 % Invalid Interpretation Code 37.0 - 80.0 % AO Auto Heme SS Platelet mean volume (Bld) [Entitic vol] 9.0 fL Invalid Interpretation Code 7.4 - 10.4 fL AO Auto Heme SS Platelets (Bld) [#/Vol] 173 103/mcL Invalid Interpretation Code 130 - 400 10^3/mcL AO Auto Heme SS RBC (Bld) [#/Vol] 4.44 106/mcL Invalid Interpretation Code 4.04 - 6.13 10^6/mcL AO Auto Heme SS WBC (Bld) [#/Vol] 7.80 103/mcL Invalid Interpretation Code 4.60 - 10.80 10^3/mcL AO Auto Heme SS LABORATORYOrdered By: SYSTEM SYSTEM on 07-25-2021 GFR 70 ml/min/1.73sqm Invalid Interpretation Code AO Chemistry S GFR Non- 58 ml/min/1.73sqm Invalid Interpretation Code AO Chemistry S LIPIDon 07-25-2021 Cholesterol [Mass/Vol] 143 mg/dL Normal 0-200 [facility] ([place]) Comment on above: Result Comment: Chol esterol Reference Interval: Less than 200 Desirable 200-239 Borderline high risk 240 and above High risk Performed By: #### A DIFF, LIPID, ANEU, CBC, A1C, GFR, CMP #### [place] [address] [place], [place] [address] Cholesterol in HDL [Mass/Vol] 52 mg/dL Normal 40-60 [facility] ([place]) Comment on above: Performed By: #### A DIFF, LIPID, ANEU, CBC, A1C, GFR, CMP #### [place] [place], [place] [address] Cholesterol in LDL [Mass/Vol] 78 mg/dL Normal 0-130 [facility] ([place]) Comment on above: Performed By: #### A DIFF, LIPID, ANEU, CBC, A1C, GFR, CMP #### [place] [address] [place], [place] [address] Triglyceride [Mass/Vol] 67 mg/dL Normal 0-150 [facility] ([place]) Comment on above: Result Comment: Trig lyceride Reference Interval: Less than 150 Normal 150-199 Borderline high risk 200-499 High risk 500 or higher Very high risk Performed By: #### A DIFF, LIPID, ANEU, CBC, A1C, GFR, CMP #### [place] [address] [place], [place] [address] Lipid Panelon 10-23-2020 Cholesterol [Mass/Vol] 123 mg/dL 0 - 199 [facility] Jesse Work Phone: Comment on above: . AGE DESIRABLE BORD DARION HIGH HIGH 0-19 Y 0 - 169 170 - 199 >/= 200 20-24 Y 0 - 189 190 - 224 >/= 225 >24 Y 0 - 199 200 - 239 >/= 240 All ranges are based on fasting samples. Specific therapeutic targets will vary based on patient-specific cardiac risk.. Pediatric guidelines reference:Pediatrics 2011, 128(S5). Adult guidelines reference: NCEP ATPIII Guidelines, SEGUNDO 2001, 258:2486-97. Venipuncture immediately after or during the administration of Metamizole may lead to falsely low results. Testing should be performed immediately prior to Metamizole dosing. Cholesterol in HDL [Mass/Vol] 42.4 mg/dL [employer] Work Phone: Comment on above: . AGE VERY LOW LOW N ORMAL HIGH 0-19 Y < 35 < 40 40-45 ---- 20- 24 Y ---- < 40 >45 ---- >24 Y ---- < 40 40-60 >60. Cholesterol in LDL [Mass/Vol] 63 mg/dL 0 - 99 [employer] Work Phone: Comment on above: . NEAR BORD AGE CATRACHITO RABLE OPTIMAL HIGH HIGH VERY HIGH 0-19 Y 0 - 109 --- 110-129 >/= 130 ---- 20-24 Y 0 - 119 --- 120-159 >/= 160 ---- >24 Y 0 - 99 100-129 130-159 160-189 >/=190. Cholesterol.total/Cho lesterol in HDL [Mass ratio] 2.9 {ratio} [employer] Work Phone: Comment on above: REF VALUESDESIRABLE < 3.4HIGH RISK > 5.0 Triglyceride [Mass/Vol] 90 mg/dL 0 - 149 [employer] Work Phone: Comment on above: . AGE DESIRABLE BORD DARION HIGH HIGH VERY HIGH 0 D-90 D 19 - 174 ---- ---- ----91 D- 9 Y 0 - 74 75 - 99 >/= 100 ---- 10-19 Y 0 - 89 90 - 129 >/= 130 ---- 20-24 Y 0 - 114 115 - 149 >/= 150 ---- >24 Y 0 - 149 150 - 199 200- 499 >/= 500. Venipuncture immediately after or during the administration of Metamizole may lead to falsely low results. Testing should be performed immediately prior to Metamizole dosing. Lipid Panel 18 mg/dL 0 - 40 [employer] Work Phone: Hepatic Function Panelon Albumin BCP dye [Mass/Vol] 4.2 g/dL 3.4 - 5.0 [facility] [employer] Work Phone: ALP [Catalytic activity/Vol] 68 U/L 33 - 136 [facility] [employer] Work Phone: ALT With P-5'-P [Catalytic activity/Vol] 14 U/L 10 - 52 [facility] [employer] Work Phone: Comment on above: Patients treated wit h Sulfasalazine may generate falsely decreased results for ALT. AST With P-5'-P [Catalytic activity/Vol] 11 U/L 9 - 39 [facility] [employer] Work Phone: Bilirubin [Mass/Vol] 0.6 mg/dL 0.0 - 1.2 [facility] [place] [place] [facility] Work Phone: Bilirubin.direct [Mass/Vol] 0.1 mg/dL 0.0 - 0.3 [facility] [employer] Work Phone: Protein [Mass/Vol] 6.2 g/dL below low threshold 6.4 - 8.2 [facility] [employer] Work Phone: Lipid Panelon 08-27-2020 Cholesterol [Mass/Vol] 142 mg/dL 0 - 199 [facility] [employer] Work Phone: Comment on above: . AGE DESIRABLE BORD DARION HIGH HIGH 0-19 Y 0 - 169 170 - 199 >/= 200 20-24 Y 0 - 189 190 - 224 >/= 225 >24 Y 0 - 199 200 - 239 >/= 240 All ranges are based on fasting samples. Specific therapeutic targets will vary based on patient-specific cardiac risk.. Pediatric guidelines reference:Pediatrics 2011, 128(S5). Adult guidelines reference: NCEP ATPIII Guidelines, SEGUNDO 2001, 258:2486-97. Venipuncture immediately after or during the administration of Metamizole may lead to falsely low results. Testing should be performed immediately prior to Metamizole dosing. Cholesterol in HDL [Mass/Vol] 37.3 mg/dL Abnormal [employer] Work Phone: Comment on above: . AGE VERY LOW LOW N ORMAL HIGH 0-19 Y < 35 < 40 40-45 ---- 20- 24 Y ---- < 40 >45 ---- >24 Y ---- < 40 40-60 >60. Cholesterol in LDL [Mass/Vol] 88 mg/dL 0 - 99 [employer] Work Phone: Comment on above: . NEAR BORD AGE CATRACHITO RABLE OPTIMAL HIGH HIGH VERY HIGH 0-19 Y 0 - 109 --- 110-129 >/= 130 ---- 20-24 Y 0 - 119 --- 120-159 >/= 160 ---- >24 Y 0 - 99 100-129 130-159 160-189 >/=190. Cholesterol.total/Cho lesterol in HDL [Mass ratio] 3.8 {ratio} [employer] Work Phone: Comment on above: REF VALUESDESIRABLE < 3.4HIGH RISK > 5.0 Triglyceride [Mass/Vol] 83 mg/dL 0 - 149 [employer] Phone: Comment on above: . AGE DESIRABLE BORD DARION HIGH HIGH VERY HIGH 0 D-90 D 19 - 174 ---- ---- ----91 D- 9 Y 0 - 74 75 - 99 >/= 100 ---- 10-19 Y 0 - 89 90 - 129 >/= 130 ---- 20-24 Y 0 - 114 115 - 149 >/= 150 ---- >24 Y 0 - 149 150 - 199 200- 499 >/= 500. Venipuncture immediately after or during the administration of Metamizole may lead to falsely low results. Testing should be performed immediately prior to Metamizole dosing. Lipid Panel 17 mg/dL 0 - 40 [employer] Work Phone: No Panel Informationon 08-27 Echocardiography Please click on the link to view the study images Normal [employer] Phone: PROGRESSon 01-18-2020 PROGRESS HNO ID: [id number] Author: ILDEFONSO Hua (Ct) Service: Radiology Author Type: Clinical Talent Agent Type: Progress Notes Filed: 01/18/2020 11:02 AM Note Text: Radiology Service Progress Note PATIENT NAME: Henrik Gates DATE OF SERVICE: January 18, 2020 TIME: 11:02 AM PATIENT IDENTITY VERIFICATION COMPLETED USING TWO (2) IDENTIFIERS: Name and Date of confirmed by patient verbally. FALL SCREENING: Has the patient had 2 falls in the last year or 1 fall with injury or currently using an Ambulatory Assistive Device (Walker, Cane, Wheelchair, Crutches, etc.)? No PATIENT GENDER DATA: Male PATIENT RELEVANT IMPLANT DATA REVIEWED: Not Applicable RADIOLOGY DEPARTMENT: General X-ray: Exam(s) Completed: Upper Extremity X-Ray(s): Shoulder, AP / TRUE AP / AXILLARY bilateral : PERIPHERAL IV DATA: Not applicable SIGNED BY: ILDEFONSO Hua January 18, 2020 11:02 AM [facility] XR SHLDR >/=3V AP/JOSE AP/OTH R LTon 01-18-2020 XR SHLDR >/=3V AP/JOSE AP/OTHR LT * * *Final Report* * * DATE OF EXAM: Jan 18 2020 11:00AM EDA [id number] - XR SHLDR >/=3V AP/JOSE AP/OTHR LT / PROCEDURE REASON: multiple diagnoses * * * * Physician Interpretation * * * * EXAMINATION: XR SHLDR >/=3V AP/JOSE AP/OTHR LT, XR SHLDR >/=3V AP/JOSE AP/OTHR RT PATIENT/TECHNOLOGIST PROVIDED HISTORY: BILATERAL SHOULDER PAIN CLINICAL INFORMATION: Acute pain of both shoulders Acute pain of both shoulders TECHNIQUE: Bilateral shoulders, 3 views each COMPARISON: None RESULT: Surgical anchors about the right greater tuberosity, probably from a prior rotator cuff repair. Severe bilateral glenohumeral joint space narrowing with near [id number] articulation, subchondral sclerosis, and inferior glenoid osteophyte. Mild narrowing of the right acromiohumeral interval, may suggest chronic rotator cuff tear. Left acromiohumeral interval is maintained. Mild-moderate acromioclavicular joint degenerative change bilaterally. No acute fracture. No dislocation. IMPRESSION: Severe bilateral glenohumeral arthritis. Mild narrowing of the right acromiohumeral interval, may suggest chronic rotator cuff tear. Freelance Photographer: ANY Transcribe Date/Time: Jan 18 2020 11:49A Dictated by : GIOVANA LEYVA DO This examination was interpreted and the report reviewed and electronically signed by: GIOVANA LEYVA DO on Jan 18 2020 11:53AM EST [id number] N [facility] XR SHLDR >/=3V AP/JOSE AP/OTH R RTon 01-18-2020 XR SHLDR >/=3V AP/JOSE AP/OTHR RT * * *Final Report* * * DATE OF EXAM: Jan 18 2020 11:00AM EDA [id number] - XR SHLDR >/=3V AP/JOSE AP/OTHR RT / PROCEDURE REASON: multiple diagnoses * * * * Physician Interpretation * * * * EXAMINATION: XR SHLDR >/=3V AP/JOSE AP/OTHR LT, XR SHLDR >/=3V AP/JOSE AP/OTHR RT PATIENT/TECHNOLOGIST PROVIDED HISTORY: BILATERAL SHOULDER PAIN CLINICAL INFORMATION: Acute pain of both shoulders Acute pain of both shoulders TECHNIQUE: Bilateral shoulders, 3 views each COMPARISON: None RESULT: Surgical anchors about the right greater tuberosity, probably from a prior rotator cuff repair. Severe bilateral glenohumeral joint space narrowing with near [id number]-tu-ymxz articulation, subchondral sclerosis, and inferior glenoid osteophyte. Mild narrowing of the right acromiohumeral interval, may suggest chronic rotator cuff tear. Left acromiohumeral interval is maintained. Mild-moderate acromioclavicular joint degenerative change bilaterally. No acute fracture. No dislocation. IMPRESSION: Severe bilateral glenohumeral arthritis. Mild narrowing of the right acromiohumeral interval, may suggest chronic rotator cuff tear. Freelance Photographer: ANY Transcribe Date/Time: Jan 18 2020 11:49A Dictated by : GIOVANA LEYVA DO This examination was interpreted and the report reviewed and electronically signed by: GIOVANA LEYVA DO on Jan 18 2020 11:53AM EST [id number] N [facility] Clinical Summary: HMSPatient IDon 07-21-2017 OOP Invalid Interpretation Code [facility] Work Phone: Office Visit: Follow-up by suki genao, Rm: 38on 07-21-2017 NEGATED: Highlighted rowDocumentation of current medications (procedure) Done Invalid Interpretation Code [facility] Work Phone: Vital Signs Date Time Vital Sign Value Performing Clinician Facility NEGATED: Highlighted [id number] 07:45-0400 BMI (Body Mass Index) 29.2 kg/m2 [facility] Work Phone: NEGATED: Highlighted [id number] 07:45-0400 BP Diastolic 96 mm[Hg] [facility] Work Phone: NEGATED: Highlighted [id number] 07:45-0400 BP Diastolic 88 mm[Hg] [facility] Work Phone: NEGATED: Highlighted [id number] 07:45-0400 BP Systolic 163 mm[Hg] [facility] Work Phone: NEGATED: Highlighted [id number] 07:45-0400 BP Systolic 155 mm[Hg] [facility] Work Phone: NEGATED: Highlighted [id number] 07:45-0400 Height 175.26 cm [facility] Work Phone: NEGATED: Highlighted [id number] 07:45-0400 Height 175 cm [facility] Work Phone: NEGATED: Highlighted [id number] 07:45-0400 Pulse (Heart Rate) 58 /min [facility] Work Phone: NEGATED: Highlighted [id number] 07:45-0400 Weight 89.36 kg Kae Jacki [facility] Work Phone: NEGATED: Tracy [id number] 07:45-0400 Weight 90 kg Kae Echeverria [facility] Work Phone: Encounters Encounter Date Encounter Type Care Provider Facility Start: 08-08-[address] YULY CEDILLO DO F acility:[facility] Start: 11-25-2023 End: 11-25-2023 Emergency department patient visit Ed Physician Provider Facility:[facility] Start: 10-13-2023 End: 10-13-2023 ambulatory [facility] Start: 06-02-2023 End: 06-03-2023 ambulatory CHRIS RAJAN Not Available Start: 12-01-2022 End: 12-01-2022 Patient encounter procedure FRANCOIS HAMILTON DO [facility] Start: 11-19-2022 End: 11-23-2022 Outreach Lab FRANCOIS HAMILTON DO [facility] Start: 11-04-[address] Julisa Hall Facility:[id number] Start: 12-06-2021 End: 12-07-2021 ambulatory FRANCOIS HAMILTON DO Facility:B Start: 12-06-2021 End: 12-06-2021 Patient encounter procedure FRANCOIS HAMILTON DO [facility] Start: 09-27-2021 End: 09-28-[address] JULISA HALL MD. Facility:B Start: 09-27-2021 End: 09-27-2021 Patient encounter procedure STIVEN BEST MD [facility] Start: 08-02-2021 End: 08-03-[address] JULISA HALL MD. Facility:B Start: 08-02-2021 End: 08-02-2021 Patient encounter procedure JULISA HALL MD [facility] Start: 07-25-2021 End: 07-26-[address] JULISA HALL MD. Facility:B Start: 07-25-2021 End: 07-25-2021 Patient encounter procedure JULISA HALL MD [facility] Start: 07-10-2021 End: 07-10-2021 Patient encounter procedure [facility], [facility] Start: 10-24-2020 Chart Update Julisa Villarreal ff Work Phone: [facility] Work Phone: Start: 08-28-2020 AUDIT Julisa Villarreal ff Work Phone: [facility] Work Phone: Start: 08-27-2020 Chart Update Julisa Villarreal ff Work Phone: [facility]px[facility] Work Phone: Start: 07-21-2017 End: 07-21-2017 Patient encounter procedure Nancy Donahue PA-C Work Phone: [facility] Work Phone: Procedures Date Procedure Procedure Detail Performing Clinician Start: 07-10-2021 End: 07-10-2021 Procedure on extremity Start: 08-27-2020 Echocardiography Julisa Hall Work Phone: Start: 07-21-2017 End: 07-21-2017 Blood pressure outside of normal parameters - follow-up documented Nancy KEARNEY-C Work Phone: Start: 07-21-2017 End: 07-21-2017 BMI documented as above normal parameters - follow-up documented Nancy KEARNEY-C Work Phone: Start: 07-21-2017 End: 07-21-2017 Current medications documented Nancy MUNIZC Work Phone: Start: 07-21-2017 End: 07-21-2017 Drain/inject, joint/bursa Nancy Rosa burch PA-C Work Phone: Start: 07-21-2017 End: 07-21-2017 Pain assessment documented as positive - follow-up documented Nancy KEARNEY-C Work Phone: Start: 07-21-2017 End: 07-21-2017 Tobacco non-user Nancy KEARNEY-C Work Phone: Start: 06-07-2012 Arthroplasty of knee AN TANIA HALL MD Start: 03-09-2003 Inguinal hernia (disorder) JULISA HALL MD Start: 03-09-1986 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) JULISA HALL MD Arthroscopy of knee JULISA LINDQUIST MD Plan of Treatment Date Care Activity Detail Author Start: 07-21-2017 End: 07-21-2017 Appointment Appointment [facility] Work Phone: Patient Education \cps-[email or web address]\CPS_ PtEducation \[email or web address].pdf [facility] Work Phone: Immunizations Immunization Date Immunization Notes Care Provider Concha etienne 12-15-2021 influenza virus vacc ine, unspecified formulation FRANCOIS HAMILTON DO [facility] 07-25-2021 COVID-19, mRNA, LNP- S, PF, 100 mcg or 50 mcg dose; Translations: [Moderna COVID-19 Vaccine] JULISA HALL MD [facility] 07-25-2021 tetanus toxoid, redu sandeep diphtheria toxoid, and acellular pertussis vaccine, adsorbed; Translations: [Boostrix (Tdap)] JULISA HALL MD [facility] 01-24-2021 influenza virus vacc ine, unspecified formulation JULISA HALL MD [facility] 01-05-2021 SARS-CoV-2 (COVID-19 ) [id number] vaccine JULISA HALL MD [facility] 12-24-2019 influenza virus vacc ine, unspecified formulation JULISA HALL MD [facility] 12-15-2018 influenza, injectabl e, quadrivalent, preservative free; Translations: [Fluarix PF Quadrivalent ] JULISA HALL MD [facility] 01-02-2017 influenza virus vacc ine, unspecified formulation JULISA HALL MD [facility] 01-02-2016 influenza virus vacc ine, unspecified formulation JULISA HALL MD [facility] 06-15-2015 pneumococcal conjuga te vaccine, 13 valent JULISA HALL MD [facility] 12-01-2014 influenza virus vacc ine, unspecified formulation JULISA HALL MD [facility] 10-26-2012 pneumococcal polysaccharide vaccine, 23 valent JULISA HALL MD [facility] 08-14-2011 tetanus toxoid, redu sandeep diphtheria toxoid, and acellular pertussis vaccine, adsorbed JULISA HALL MD [facility] No information available. Kae Echeverria [facility] Work Phone: Payers Date Payer Category Payer Self-pay [id number] 2021 Unknown [id number] 1940 Unknown [id number] 2.16.8 [id number] 194 Unknown [id number] 2.16.8 [id number] 194 Unknown [id number] 2.16.8 [id number] 1940 Unknown [id number] 2.16.8 [id number] 194 Unknown [id number] 2.16. [id number] 1940 Unknown [id number] 2.16.84 [id number] 194 Unknown [id number] 2.16.8 [id number] 194 Unknown [id number] 2.16.8 [id number] Unknown [employer] Unknown [employer] [id number] Unknown [id number] 2.16.8 [id number] Social History Date Type Detail Facility Start: 07-21-2017 End: 07-21-2017 Assertion Unknown if ever smoked [facility] Work Phone: Start: 1940 Sex Assigned At Male [facility] Work Phone: Start: 12-15-2018 Tobacco smoking status Ex-smoker (fi nding) [facility] Comment on above: no tobacco smoke exp osure Medical Equipment Procedure Code Equipment Code Equipment Origin al Text Equipment Identifier Dates See Instructions , Dispense 1 machine with test strips and lancets., # 1 EA, 0 Refill(s), [facility], Diabetes, 183, cm, 09/07/19 8:07:00 EDT, Height, 90.3, kg, 09/07/19 8:07:00 EDT, Dosing Weight Start: 09-07-2019 See Instructions , Patient checks his sugar once daily. Please dispense enough for 3 months at a time with 3 refills., # 1 EA, 0 Refill(s), [facility]: [facility], Diabetes, 183, cm, 09/07/19 8:07:00 EDT, Height, 90.3, kg, 09/07/19 8:07:... Start: 09-07-2019 See Instructions , Dispense 1 machine with test strips and lancets., # 1 EA, 0 Refill(s), [facility]: [place] [id number], Diabetes, 183, cm, 09/07/19 8:07:00 EDT, Height, 90.3, kg, 09/07/19 8:07:00 EDT, Dosing Weight Start: 09-07-2019 See Instructions , Patient checks his sugar once daily. Please dispense enough for 3 months at a time with 3 refills., # 1 EA, 0 Refill(s), [facility], Diabetes, 183, cm, 09/07/19 8:07:00 EDT, Height, 90.3, kg, 09/07/19 8:07:... Start: 09-07-2019 See Instructions , Dispense 1 machine with test strips and lancets., # 1 EA, 0 Refill(s), [facility]: [facility], Diabetes, 183, cm, 09/07/19 8:07:00 EDT, Height, 90.3, kg, 09/07/19 8:07:00 EDT, Dosing Weight Start: 09-07-2019 See Instructions , Patient checks his sugar once daily. Please dispense enough for 3 months at a time with 3 refills., # 1 EA, 0 Refill(s), Pharmacy: [address] [facility], Diabetes, 183, cm, 09/07/19 8:07:00 EDT, Height, 90.3, kg, 09/07/19 8:07:... Start: 09-07-2019 See Instructions , Dispense 1 machine with test strips and lancets., # 1 EA, 0 Refill(s), [facility] [address] [facility], Diabetes, 183, cm, 09/07/19 8:07:00 EDT, Height, 90.3, kg, 09/07/19 8:07:00 EDT, Dosing Weight Start: 09-07-2019 See Instructions , Patient checks his sugar once daily. Please dispense enough for 3 months at a time with 3 refills., # 1 EA, 0 Refill(s), Pharmacy: [address] [facility], Diabetes, 183, cm, 09/07/19 8:07:00 EDT, Height, 90.3, kg, 09/07/19 8:07:... Start: 09-07-2019 See Instructions , Dispense 1 machine with test strips and lancets., # 1 EA, 0 Refill(s), Pharmacy: [address] [place], Diabetes, 183, cm, 09/07/19 8:07:00 EDT, Height, 90.3, kg, 09/07/19 8:07:00 EDT, Dosing Weight Start: 09-07-2019 See Instructions , Patient checks his sugar once daily. Please dispense enough for 3 months at a time with 3 refills., # 1 EA, 0 Refill(s), Pharmacy: [address], Diabetes, 183, cm, 09/07/19 8:07:00 EDT, Height, 90.3, kg, 09/07/19 8:07:00 EDT, Dosing Weight Start: 09-07-2019 See Instructions , Dispense 1 machine with test strips and lancets., # 1 EA, 0 Refill(s), Pharmacy: [address], Diabetes, 183, cm, 09/07/19 8:07:00 EDT, Height, 90.3, kg, 09/07/19 8:07:00 EDT, Dosing Weight Start: 09-07-2019 See Instructions , Patient checks his sugar once daily. Please dispense enough for 3 months at a time with 3 refills., # 1 EA, 0 Refill(s), Pharmacy: [address], Diabetes, 183, cm, 09/07/19 8:07:00 EDT, Height, 90.3, kg, 09/07/19 8:07:00 EDT, Dosing Weight Start: 09-07-2019 Clinical Notes 04-12-2020 to 07-14-2021 LaboratoryLaboratoryRadiologyLaboratoryLaboratoryLaboratory Note Date & Type Note Facility 07-14-2021 Evaluation + Plan note Future Scheduled TestsThyroid Stimulating Hormone 07/14/21Complete Blood Count 07/14/21Lipid Profile 07/14/21Complete Metabolic Panel 07/14/21 [facility] 04-12-2020 Note Patient Outreach ([facility] VAMN) HENRIK GATES ([id number]) 1940 M Date Time Provider Department 04/12/20 BRITTANY LEWIS During your visit today, we recorded the following information about you: Allergies As of Date: 04/12/2020 (No Known Allergies) Date Reviewed: 01/18/2020 Reviewed by: Alejandra Awan Ma - Fully Assessed Order(s):SARS-COVID VACCINE 1ST DOSE APPT [[id number]] Order #: [id number] FUTURE Prescriptions as of 04/12/2020 Sig: OLMESARTAN 20 MG TABLET Take 20 mg by mouth once jeff* AMLODIPINE 5 MG TABLET Take 5 mg by mouth once daily. SIMVASTATIN 40 MG TABLET Take 40 mg by mouth daily at * PANTOPRAZOLE 40 MG TABLET,DEL* Take 40 mg by mouth once jeff* METFORMIN ER 500 MG 24 HR TAB* Take 500 mg by mouth daily wi* METOPROLOL SUCCINATE ER 25 MG* Take 25 mg by mouth once jeff* MELOXICAM 15 MG TABLET Take 15 mg by mouth once jeff* Problem List As Of Date: 04/12/2020 (None) Letter Text Encounter Status:Closed by HUGO PRODUSER on 04/16/20 [facility] Evaluation + Plan note Future Appointments Appointment Date:08/01/2021 01:15:00 PM Scheduled Provider:JULISA HALL MD [facility] Appointment Type:PC OV Follow Up Future Scheduled TestsThyroid Stimulating Hormone 07/14/21Complete Blood Count 07/14/21Lipid Profile 07/14/21Complete Metabolic Panel 07/14/21CT Head or Brain w/o Contrast 07/25/21 [facility] Evaluation + Plan note Future Appointments Appointment Date:08/09/2021 11:05:00 AM Scheduled Provider:JULISA HALL MD Location[facility] Appointment Type:PC OV Follow Up Future Scheduled TestsThyroid Stimulating Hormone 07/14/21Complete Blood Count 07/14/21Lipid Profile 07/14/21Complete Metabolic Panel 07/14/21 [facility] Evaluation + Plan note Future Appointments Appointment Date:12/13/2021 08:30:00 AM Scheduled Provider:FRANCOIS HAMILTON DO Location:[facility] Appointment Type:PC OV Future Scheduled TestsThyroid Stimulating Hormone 07/14/21Complete Blood Count 07/14/21Lipid Profile 07/14/21Complete Metabolic Panel 07/14/21 [facility] Evaluation + Plan note Future Appointments Appointment Date:12/22/2022 01:00:00 PM Scheduled Provider:FRANCOIS HAMILTON DO Location:[facility] Appointment Type: OV Future Scheduled TestsProstate Specific Antigen 11/19/22Thyroid Stimulating Hormone 11/19/22Free T4 11/19/22Vitamin B12 Level 11/19/22Complete Blood Count 11/19/22Lipid Profile 11/19/22Complete Metabolic Panel 11/19/22 [facility] Evaluation + Plan note Future Appointments Appointment Date:12/22/2022 01:00:00 PM Scheduled Provider:FRANCOIS HAMILTON DO Location:[facility] Appointment Type:PC OV [facility] Evaluation note No assessment inform ation available [facility] Work Phone: Hospital course Narrative No data available for this section [facility] Hospital Discharge instructions No data available for this section [facility] Note ELADIO PATEL MD: SIGN, VERIFY Event Display: VL Carotid US/Doppler Complete AOH [facility] Progress note No data available for this section [facility] Instructions Instruction Description Start Date Please follow-up with Primar y Care Physician or Lacrosse Player for treatment or adjustment of medication regarding elevated blood pressure.Patient advised to follow-up with Primary Care Physician for BMI management. Advance Directives There may be information available, but it has not been provided by the sender. No Advanced Directives Records FoundNo Advanced Directives Records FoundNo Advanced Directives Records FoundNo Advanced Directives Records FoundNo Advanced Directives Records FoundNo Advanced Directives Records FoundNo Advanced Directives Records FoundNo Advanced Directives Records FoundNo Advanced Directives Records Found Assessments There may be information available, but it has not been provided by the sender. Review of System There may be information available, but it has not been provided by the sender. Family History There may be information available, but it has not been provided by the sender.No Family History Records FoundNo Family History Records FoundNo Family History Records FoundNo Family History Records Found No data available for this section No data available for this section No Family History Records FoundNo Family History Records FoundNo Family History Records FoundNo Family History Records FoundNo Family History Records Found Summary Purpose Chief Complaint and Reason for Visit Chief Complaint BILAT SHOULDER OA Additional Source Comments (unrecognized sect ion and content) No Status Records FoundNo Status Records FoundNo Status Records FoundNo Status Records FoundNo Status Records FoundNo Status Records FoundNo Status Records FoundNo Status Records FoundNo Status Records Found INFORMATION SOURCE (unrecogn ized section and content) DATE CREATED AUTHOR 01/18/[address] [facility] DATE CREATED AUTHOR AUTHOR'S ORGANIZ ATION 04/01/2021 [facility] DATE CREATED AUTHOR AUTHOR'S ORGANIZ ATION 12/09/2021 [facility] ([place]) DATE CREATED AUTHOR AUTHOR'S ORGANIZ ATION 11/07/2022 [facility] DATE CREATED AUTHOR AUTHOR'S ORGANIZ ATION 06/06/2023 [facility] DATE CREATED AUTHOR AUTHOR'S ORGANIZ ATION 10/15/2023 [facility] DATE CREATED AUTHOR AUTHOR'S ORGANIZ ATION 11/11/2023 [facility] DATE CREATED AUTHOR AUTHOR'S ORGANIZ ATION 12/20/2023 [facility] DATE CREATED AUTHOR AUTHOR'S ORGANIZ ATION 08/08/2024 [facility] Goals (unrecognized section and content) Goals may be documented in a n alternate section No data available for this section No data available for this section No data available for this section No data available for this section No data available for this section No data available for this section Care Team (unrecognized sect ion and content) Personnel Name: JULISA HALL MD Address: [address] [facility] [place] [address] [place] Personnel Name: JULISA HALL MD Address: [address] [place] [id number] [place] [address] Care Team Personnel Name: FRANCOIS HAMILTON DO Position: P4 Physician - Primary Care Member Role: Primary Care Physician Address: Address: [address] [place] [address] Care Team Related Persons Name: ADIA GATESLIS Address: Home [address] [place], [place] [id number] Care Team Personnel Name: FRANCOIS HAMILTON DO Position: P4 Physician - Primary Care Member Role: Primary Care Physician Address: Address: [address] [place] [address] Care Team Related Persons Name: RANGEL GATES Address: Home [address] [place], [place] [id number] Care Team (unrecognized sect ion and content) Care Team Personnel Name: JULISA HALL MD Position: P4 Physician - Primary Care Med Service: Active Provider Member Role: Primary Care Physician Address: Address: [address] [place] [address]- Care Team Related Persons Name: RANGEL GATES Address: Home [address] [place], [place] [id number] Care Team Personnel Name: FRANCOIS HAMILTON DO Position: P4 Physician - Primary Care Member Role: Primary Care Physician Address: Address: [address] [place] [address] Care Team Related Persons Name: RANGEL GATES Address: Home [address] [place], [place] [id number] FOR RECORDS PERTAINING TO PATIENTS WHO ARE OR HAVE BEEN ENROLLED IN A CHEMICAL DEPENDENCY/SUBSTANCEABUSE PROGRAM, SOME INFORMATION MAY BE OMITTED. This clinical summary was aggregated from multiple sources. Caution should be exercised in using it in the provision of clinical care. This summary normalizes information from multiple sources, and as a consequence, information in this document may materially change the coding, format and clinical context of patient data. In addition, data may be omitted in some cases. CLINICAL DECISIONS SHOULD BE BASED ON THE PRIMARY CLINICAL RECORDS. [facility]. provides no warranty or guarantee of the accuracy or completeness of information in this document.
[2024-08-09 00:22] LABS: Magnesium 1.9 mg/dL (1.5-2.2)
--- NOTE | 2024-08-09 00:46 | CT_ITS ---
PROCEDURE: STROKE BRAIN/HEAD WITHOUT CONT N/A REASON FOR EXAM: CHANGE IN EXAM AFTER TNK TECHNIQUE: Head CT without intravenous contrast. Coronal and Sagittal reconstruction series were provided. One or more dose reduction techniques were used (e.g., Automated exposure control, adjustment of the mA and/or kV according to patient size, use of iterative reconstruction technique. RADIATION DOSE SUMMARY: CTDlvol: 44 mGy DLP: 825 mGycm COMPARISON: 08/08/2024. FINDINGS: Mild diffuse cortical atrophy, commensurate with the patient's age. Scattered hypodense foci in the periventricular and subcortical white matter suggestive of chronic ischemic white matter disease. Normal size of the ventricles and extra-axial spaces for the patient's age. Normal basal ganglia and thalami. Normal brainstem. Normal cerebellum. There is no demonstrated extra-axial, intraparenchymal, or intraventricular hemorrhage. There are no findings of an acute ischemic infarction. Normal calvarium. There is no demonstrated fracture. Normal soft tissue structures. Normal visualized paranasal sinuses. CT/STROKE Brain/Head without Cont IMPRESSION: No CT evidence for acute brain abnormality. Reading [facility]
[2024-08-09 00:57] LABS: Troponin T High Sens 2 HR 21 ng/L (<=22)
--- NOTE | 2024-08-09 02:19 | ECHOCS_ITS ---
Reason For Study Reason For Study: TIA/CVA Procedure This was a 2D Doppler, Color Flow transthoracic echocardiogram. Contrast injection was performed. Exam performed portable in ICU/CCU. Left Ventricle Normal LV size. Mild concentric left ventricular hypertrophy. LV apical akinesis. 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 Estimated LVEF 45%. Stage I diastolic dysfunction. Right Ventricle Normal right ventricle. Atria The left and right atria are normal. Bubble contrast study is negative for PFO/ASD. Mitral Valve Mild (1+) mitral valve insufficiency. Tricuspid Valve Mild tricuspid valve insufficiency. Normal pulmonary artery pressure. Aortic Valve Trisinus/trileaflet aortic valve. Mild (1+) aortic valve insufficiency. Pulmonic Valve The pulmonic valve is not well visualized. Great Vessels Normal sized aortic root. Pericardium/Pleural No pericardial effusion. Medication Diluted definity 3.5ml given slow IV push to enhance endocardial definition. Performed a rapid injection of agitated mix of 9 cc saline and 1cc air to assess for atrial septal defect. MMode/2D Measurements & Calculations LVIDd: 4.8 cm IVSd: 1.4 cm LVOT diam: 2.2 cm LVIDs: 3.5 cm LVPWd: 0.97 cm RVDd: 3.3 cm FS: 26.4 % LVOT area: 3.8 cm2 asc Aorta Diam: 3.6 cm LAV(MOD-bp): 25.7 ml LVAd ap4: 45.7 cm2 LAV(MOD-bp) Indexed: 13.1 ml/m2 LVLd ap4: 10.3 cm LAV(MOD-sp2): 30.0 ml EDV(MOD-sp4): 165.8 ml LAV(MOD-sp4): 20.9 ml EDV(sp4-el): 171.8 ml LVAs ap4: 32.9 cm2 LVLs ap4: 9.5 cm ESV(MOD-sp4): 93.3 ml ESV(sp4-el): 96.6 ml EF(MOD-sp4): 43.7 % EF(sp4-el): 43.8 % LVAd ap2: 38.7 cm2 SV(MOD-sp4): 72.5 ml SV(MOD-sp2): 39.3 ml LVLd ap2: 9.6 cm SI(MOD-sp4): 37.0 ml/m2 SI(MOD-sp2): 20.0 ml/m2 EDV(MOD-sp2): 124.5 ml EDV(sp2-el): 132.3 ml LVAs ap2: 31.6 cm2 LVLs ap2: 9.4 cm ESV(MOD-sp2): 85.2 ml ESV(sp2-el): 90.3 ml EF(MOD-sp2): 31.5 % SV(sp4-el): 75.2 ml Ao sinus diam: 3.[address] Junction: 2.8 cm LA dimension(2D): 3.3 cm LA A4 area: 10.1 cm2 RA A4 area: 7.1 cm2 TAPSE: 1.3 cm Doppler Measurements & Calculations MV E max homero: 42.9 cm/sec Lat Peak E' Homero: 3.7 cm/sec Med Peak E' Homero: 5.1 cm/sec MV A max homero: 96.6 cm/sec E/E' lat: 11.6 E/E' med: 8.4 MV E/A: 0.44 Ao V2 max: 117.2 cm/sec LV V1 max: 76.6 cm/sec SV(LVOT): 79.5 ml Ao max P.5 mmHg LV V1 max P.3 mmHg Ao V2 mean: 85.1 cm/sec LV V1 mean P.5 mmHg Ao mean P.2 mmHg LV V1 mean: 57.8 cm/sec Ao V2 VTI: 26.7 cm LV V1 VTI: 20.8 cm AV (velocity ratio): 0.78 MARCO(I,D): 3.0 cm2 MARCO(V,D): 2.5 cm2 PA V2 max: 86.0 cm/sec TR max homero: 188.3 cm/sec TR max P.2 mmHg ECHO/Echo Complete W/ Contrast Interpretation Summary Mild concentric left ventricular hypertrophy. LV apical akinesis. 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 Estimated LVEF 45%. Stage I allen stolic dysfunction. Bubble contrast study is negative for PFO/ASD. Mild (1+) mitral valve insufficiency. Mild tricuspid valve insufficiency. Mild (1+) aortic valve insufficiency. Recommend cardiac MRI for further evaluation of LV apex and possible thrombus. Ordering Physician: Tiffanie Pace Performed By: Karen Tompkins RDCS and Student
[2024-08-09 03:09] LABS: Troponin T High Sens 4 HR 23 ng/L (<=22)
[2024-08-09] MEDS: 0.9% Normal Saline (1000mL) 1,000 ML 100 ML IV ×2 (03:18→15:06)
[2024-08-09] MEDS: proCHLORPERazine 10 MG/2 ML Vial 5 MG IV (04:37)
[2024-08-09 04:54] LABS: Absolute Lymphocyte Count 1.05 X10^3/uL (0.83-4.51); Absolute Neutrophil Count 7.4 X10^3/uL (2.0-7.7); Basophil# 0.06 X10^3/uL; Basophil% 0.7 % (0-1); Eosinophil# 0.04 X10^3/uL; Eosinophils% 0.4 % (0-5); Hematocrit 39.6 % (40-54); Hemoglobin 12.8 g/dL (13.0-16.5); Lymphocyte # 1.05 X10^3/ul (0.83-4.51); Lymphocyte % 11.4 % (19-41); Mean Corp Hgb Conc 32.3 g/dL (32-36); Mean Corpuscular Hgb 29.2 pg (27.0-32.0); Mean Corpuscular Volume 90.4 fL (80-94); Mean Platelet Vol. 10.6 fl (6.2-12.0); Monocyte# 0.64 X10^3/uL; Monocyte% 6.9 % (0-10); NRBC Flagged by Analyzer 0 % (0-5); Neutrophil # 7.39 X10^3/uL (2.7-7.7); Neutrophil % 80.1 % (47-70); Platelet Count 204 K/mm3 (150-450); RBC Distribution Width CV 13.7 % (11.6-14.6); Red Blood Count 4.38 M/mm3 (4.6-6.2); White Blood Count 9.2 K/mm3 (4.4-11.0)
[2024-08-09 04:59] LABS: Bedside Glucose 217 mg/dL (74-106)
[2024-08-09 05:30] LABS: ALB/GLOB Ratio 1.7 RATIO (0.9-2.4); AST(SGOT) 14 U/L (<=37); Alanine Aminotransfer ALT/SGPT 15 U/L (<=46); Alkaline Phosphatase 81 U/L (40-129); Anion Gap 11 (5-15); BUN 17 mg/dL (4-19); BUN/Creat Ratio 21.2 RATIO (10-20); Carbon Dioxide 22.9 mmol/L (21.0-32.0); Chloride 106 mmol/L (98-108); EST Glomerular Filtration Rate 87 (>60); Globulin 2.3 g/dL (2.2-4.2); Glucose 230 mg/dL (70-99); Potassium 4.1 mmol/L (3.3-5.1); Protein, Total 6.3 g/dL (5.9-8.4); Sodium Level 140 mmol/L (133-145); Total Bilirubin 0.38 mg/dL (0.00-1.30)
[2024-08-09 05:51] LABS: Hemoglobin A1c 8.8 % (<=5.6)
[2024-08-09 06:24] LABS: Cholesterol 122 mg/dL (<=200); High Density Lipoprotein 40 mg/dL; Low Density Lipoprotein Calc. 67 mg/dL; Triglycerides 75 mg/dL; Very Low Density Lipoprotein 15 mg/dL (5-40); cholesterol:hdl ratio screen 3.07
--- NOTE | 2024-08-09 07:07 | PN.HOSP_ITS ---
Reason for Visit Reason for Visit: Diagnoses Cerebral infarction, unspecified (08/08/24) Subjective Subjective Still with dysarthria. Objective Data Objective Data Vital Signs: Vital Signs Temp Pulse Resp BP Pulse Ox O2 Del Method 36.9 C 75 17 165/97 H 95 Room Air 08/09/24 06:47 08/09/24 06:47 08/09/24 06:47 08/09/24 06:47 08/09/24 06:47 08/09/24 06:47 Oxygen Delivery Method Room Air Weight: 80.5 kg Body Mass Index (BMI) 26.2 Intake & Output: Intake and Output for Last 24 Hours 08/07/24 08/08/24 08/09/24 23:59 23:59 23:59 Intake Total 488.33 / 488.33 Output Total 800 / 800 550 / 550 Balance -800 / -800 -61.67 / -61.67 Lab / Micro Data 08/09/24 04:32 08/09/24 04:32 Labs: Laboratory Results - last 24 hr 08/08/24 21:19: WBC 8.0, RBC 4.71, Hgb 13.9, Hct 42.2, MCV 89.6, MCH 29.5, MCHC 32.9, RDW Std Deviation 45.1 H, RDW Coeff of Josh 13.8, Plt Count 218, MPV 10.6, Immature Gran % (Auto) 0.500, Neut % (Auto) 63.7, Lymph % (Auto) 23.9, Door % (Auto) 9.4, Eos % (Auto) 1.9, Baso % (Auto) 0.6, Absolute Neuts (auto) 5.1, Absolute Lymphs (auto) 1.91, Nucleated RBC % 0, PT 13.3, INR 1.0, APTT 24.4, Sodium 141, Potassium 3.8, Chloride 105, Carbon Dioxide 23.4, Anion Gap 12, BUN 24 H, Creatinine 0.95, Estim Creat Clear Calc 57.88, Est GFR (MDRD) Non-Af 79, B UN/Creatinine Ratio 24.9 H, Glucose 262 H, Calcium 9.4, Magnesium 1.9, Troponin T High Sens 31 H 08/08/24 21:31: POC Glucose 251 H 08/08/24 23:15: Urine Color Yellow, Urine Clarity Clear, Urine pH 7.0, Ur Specific Marshall 1.010, Urine Protein 30 H, Urine Glucose (UA) 1000 H, Urine Ketones Negative, Urine Occult Blood 250 H, Urine Nitrite Negative, Urine Bilirubin Negative, Urine Urobilinogen 1 H, Ur Leukocyte Esterase Negative, Urine RBC 50-100 SEEN, Urine WBC 0 SEEN, Ur Squamous Epith Cells 0 SEEN, Urine Bacteria 0 SEEN, Urine Mucus 0 SEEN 08/09/24 00:15: Troponin T Hi Sens 2 Hr 21 08/09/24 02:30: Troponin T Hi Sens 4Hr 23 H 08/09/24 04:32: WBC 9.2, RBC 4.38 L, Hgb 12.8 L, Hct 39.6 L, MCV 90.4, MCH 29.2, MCHC 32.3, RDW Std Deviation 46.0 H, RDW Coeff of Josh 13.7, Plt Count 204, MPV 10.6, Immature Gran % (Auto) 0.500, Neut % (Auto) 80.1 H, Lymph % (Auto) 11.4 L, Door % (Auto) 6.9, Eos % (Auto) 0.4, Baso % (Auto) 0.7, Absolute Neuts (auto) 7.4, Absolute Lymphs (auto) 1.05, Nucleated RBC % 0, Sodium 140, Potassium 4.1, Chloride 106, Carbon Dioxide 22.9, Anion Gap 11, BUN 17, Creatinine 0.80, Estim Creat Clear Calc 66.50, Est GFR (MDRD) Non-Af 87, BUN/Creatinine Ratio 21.2 H, G lucose 230 H, Hemoglobin A1c 8.8 H, Calcium 9.0, Total Bilirubin 0.38, AST 14, ALT 15, Alkaline Phosphatase 81, Total Protein 6.3, Albumin 4.0, Globulin 2.3, Albumin/Globulin Ratio 1.7, Triglycerides 75, Cholesterol 122, LDL Cholesterol, Calc 67, VLDL Cholesterol 15, HDL Cholesterol 40, Cholesterol/HDL Ratio 3.07, TSH 1.390 08/09/24 04:37: POC Glucose 217 H Radiography Diagnostic Testing: Radiology Impression Brain CT 08/08/24 21:20 IMPRESSION: No acute intracranial abnormalities. Reading Location: [id number] Head/Neck CTA 08/08/24 21:22 IMPRESSION: 1. Absent opacification of the V4 segment of the right vertebral artery and right PICA, worrisome for occlusion of unknown chronicity. Vertebral artery dissection could also appear similar. Correlate with symptoms and consider MRI/MRA. 2. No hemodynamically significant narrowing or occlusion of the internal carotid arteries. 3. Right mastoid effusion. 4. Solid pulmonary nodule at the right lung apex measuring [address] chest in 12 months if patient is at high risk for malignancy per Fleischner society guidelines. Reading Location: [id number] Brain CT 08/08/24 22:50 IMPRESSION: No acute intracranial abnormality. No evidence of new hemorrhage. Reading Location: [id number] Brain CT 08/09/24 00:46 IMPRESSION: No CT evidence for acute brain abnormality. Reading Location: [facility] Physical Exam Const alert and no apparent distress HEENT head/scalp atraumatic HEENT Narrative: right facial droop Resp normal respiratory effort, no retractions, no use of accessory muscles and clear to auscultation bilaterally Cardio regular rate, regular rhythm, S1 normal heart sound and S2 normal heart sound GI normal to inspection, nondistended, normoactive bowel sounds, soft to palpation, non-tender and non-distended Extremity normal to inspection Neuro moves all extremities Neuro Narrative: Refill droop with some ataxia in the left upper and left lower extremity. Assessment & Plan Assessment/Plan (1) CVA (cerebral vascular accident): PLAN: s/p TNK (received on 08/08 on 2154) CTA head and neck showed V4 segment right vertebral artery and right PICA showed absent opacification follow up MRI brain. Will require imaging 24 hour post TNK. [facility] teleneurology following. Recommending 30-day event monitor upon discharge. Aspirin and Plavix 21 days followed by aspirin if no hemorrhage. Statin. on atorvastatin 40/d PT OT ST (2) Pulmonary nodule: PLAN: solid pulmonary nodule right lung apex at 4mm. repeat imaging in 12-months (3) Dysphagia: PLAN: Secondary to stroke Speech therapy evaluated. Recommending a modified barium swallow and n.p.o. for now. If continues to fail and does not pass the modified barium swallow, may need to consider a PEG tube. PLAN: Plan Chronic conditions: * DM2: SSI * anxiety/depressoin: duloxeine * GERD: PPI. VTE prophylaxis: SCDs Updated patient's spouse. Charges/Coding Visit Charges Inpatient E&M: 96859 Subs Hosp L2 NIHSS NIHSS Nursing Documentation NIHSS Nursing Documentation: Thrombolytic: Vital Signs & NIHSS Start: 08/08/24 21:48 Text: Assess and document vital signs and NIHSS Status: Active within 15 minutes of tenecteplase bolus administration Freq: [id number] Protocol: Activity Type Activity Date Activity User E-sign Co-sign Detail Recorded Client Recorded Date Recorded By Document 08/09/24 06:47 [id number] 08/09/24 06:53 08/09/24 06:47 Vital Signs [Temperature Protocol: VS] -Temperature (36.6 C-37.3 C) 36.9 C -Temperature Source Temporal [Pulse] -Pulse Rate (60-100) 75 -Pulse Location Monitor [Respirations] -Respiratory Rate (12-18) 17 -Respiratory rate source Monitor -Pulse Oximetry 95 -Oxygen Delivery Method Room Air [Blood Pressure] -Blood Pressure (90/60-120/80) 165/97 H -Blood Pressure Mean (mm Hg) 119 -Source Monitor -Position Semi-Fowlers -Blood Pressure Location Left Arm -Is the SBP > or = 180 No -Is the DBP > or = 105 No NIH Stroke Scale [NIHSS] A score of 0 is normal or asymptomatic . Total possible score is 42. Inpatient: RN or Physician to activate a stroke alert for onset of new stroke symptoms or with NIHSS increase >/= 3 points. Following change in neurological status, NIHSS will be performed per physician order or more frequently PRN. -1a. Level of Consciousness 0 - Alert; keenly responsive -1b. LOC Questions 0 - Answers BOTH questions correctly -1c. LOC Commands 0 - Performs BOTH tasks correctly -2. Best Gaze 1 - Partial gaze palsy; -3. Visual 0 - No visual loss -4. Facial Palsy 1 - Minor paralysis ( flattened nasolabial fold , asymmetry on smiling) -5a. Left Arm 0 - No drift; arm holds 90 ( or 45) degrees for full 10 seconds -5b. Right Arm 0 - No drift; arm holds 90 ( or 45) degrees for full 10 seconds -6a. Left Leg 0 - No drift; leg holds 30- degree position for full 5 seconds -6b. Right Leg 0 - No drift; leg holds 30- degree position for full 5 seconds -7. Limb Ataxia 0 - Absent -8. Sensory 0 - Normal; no sensory loss -9. Best Language 0 - No aphasia; normal -10. Dysarthria 1 = Mild-to- moderate dysarthria; -11. Extinction and Inattention 0 - No abnormality -Total 3 Query Text:A score of 0 is normal or asymptomatic. Total possible score is 42 . ED: Notify Physician for NIHSS increase by > / = 3 points. Inpatient: RN or Physician to activate a stroke alert for NIHSS increase of > / = 3 points.
[2024-08-09 09:52] LABS: Bedside Glucose 170 mg/dL (74-106)
--- NOTE | 2024-08-09 10:01 | CASEMGMT ---
AMANDA GRANT Assessment Face to Face with patient for initial transition planning/care coordination assessment. AMANDA GRANT introduced self and role at [facility], pt voices understanding. Pt is A&Ox4 and is resting comfortably in bed and is calm. Pt's and daughter at bedside. Care providers, pharmacy, and demographics verified. Admitting dx: CVA s/p TNK LACE Strata: 1 PCP: Sonny Santos Specialists: denies Preferred Pharmacy: [facility] at the time of DC [facility] Benef[facility]: Yes LNOK: Kiana (W), Varun (Son), Nancy (Daughter) Living Arrangements: Pt lives with his in a two story home with one step to enter ADLs/IADLs: Pt states that he is independent Transportation: Self, DME: [employer] with sufficient supplies. Walk in shower with grab bars and a bench. BP Machine. Pulse ox. HHC/SNF: Denies history Pt?s goal: Home Plan: TBD. Anticipate eventual DC home with the pt's once medically ready. Current 6-click score is 18. PT unable to evaluate until tomorrow due to TNK administration. ST pending. CM to follow for needs. Pt denies further questions or concerns at this time. Jim Hill RN, CM
--- NOTE | 2024-08-09 12:18 | CON.PCM.NE_ITS ---
Assessment and Plan: Stroke Assessment/Plan HENRIK MARQUEZ is a 84 M w/ HTN, HLD, Diabetes mellitus type II, Hx CVA (TIA 2014 which was left hand weakness) , Hx HI, Allergic rhinitis, GERD, Anxiety and Depression who presents to the [facility] ED on 08/08/2024 for trouble walking and COPE. He states around 630pm the day of admission he had a COPE and trouble walking which he describes as incoordinated gate. He tried sleeping it off but things still persisted so he decided to come in to get evaluated. He was seen by telestroke, NIH 2 for right FD and dysarthria. CTH neg. 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 He was given tnk. Admitted for post tnk and stroke workup. Today he is clinically the same NIH 2. Highest impression for a posterior stroke. Still pending most of stroke work up. - Post tnk CTH - MRI brain - TTE - Will likely need a 30d event monitor at dc - ASA 81mg and plavix 75mg for 21d followed by just ASA after post tnk CTH if no hemorrhage - Statin - CV risk factor optimization - Can slowly normallize BP - Stroke to follow HPI Consult Data Date of Consult: 08/09/24 HPI Narrative HPI Narrative: HENRIK MARQUEZ is a 84 M w/ HTN, HLD, Diabetes mellitus type II, Hx CVA (TIA 2014 which was left hand weakness) , Hx HI, Allergic rhinitis, GERD, Anxiety and Depression who presents to the [facility] ED on 08/08/2024 for trouble walking and COPE. He states around 630pm the day of admission he had a COPE and trouble walking which he describes as incoordinated gate. He tried sleeping it off but things still persisted so he decided to come in to get evaluated. He was seen by telestroke, NIH 2 for right FD and dysarthria. CTH neg. 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 He was given tnk. Admitted for post tnk and stroke workup. Today he is clinically the same NIH 2. Highest impression for a posterior stroke. Still pending most of stroke work up. [facility] Medical History (Updated 08/09/24 @ 07:[address] Jaison Puga DO) GERD (gastroesophageal reflux disease) CAD (coronary artery disease) Hypercholesteremia Diabetes mellitus HTN (hypertension) HI (myocardial infarction) CVA (cerebral vascular accident) Home Medications ?Medication ?Instructions ?Recorded ?Last Taken ?Type amlodipine 5 mg tablet 5 mg PO DAILY 08/08/24 Unkno wn History amlodipine 5 mg tablet 5 mg PO DAILY 08/08/24 Unkno wn History aspirin 325 mg capsule 325 mg PO DAILY 08/08/24 Unk nown History diclofenac sodium 75 mg 75 mg PO BID 08/08/24 Unknow n History tablet,delayed release diclofenac sodium 75 mg 75 mg PO BID 08/08/24 Unknow n History tablet,delayed release duloxetine 30 mg capsule,delayed 30 mg PO DAILY Unknown History release duloxetine 30 mg capsule,delayed 30 mg PO DAILY Unknown History release ezetimibe 10 mg tablet 10 mg PO DAILY 08/08/24 Unkn own History ezetimibe 10 mg tablet 10 mg PO DAILY 08/08/24 Unkn own History metformin 500 mg tablet 500 mg PO BID 08/08/24 Unkno wn History metformin 500 mg tablet 500 mg PO BID 08/08/24 Unkno wn History metoprolol succinate 25 mg 25 mg PO DAILY 08/08/24 Unk nown History tablet,extended release 24 hr metoprolol succinate 25 mg 25 mg PO DAILY 08/08/24 Unk nown History tablet,extended release 24 hr montelukast 10 mg tablet 10 mg PO DAILY 08/08/24 Unkn own History olmesartan 40 mg tablet 40 mg PO DAILY 08/08/24 Unkn own History olmesartan 40 mg tablet 40 mg PO DAILY 08/08/24 Unkn own History pantoprazole 40 mg tablet,delayed 40 mg PO DAILY 08/08 Unknown History release pantoprazole 40 mg tablet,delayed 40 mg PO DAILY 08/08 Unknown History release simvastatin 40 mg tablet 40 mg PO QHS 08/08/24 Unknow n History simvastatin 40 mg tablet 40 mg PO QHS 08/08/24 Unknow n History sitagliptin phosphate 100 mg 100 mg PO DAILY 08/08/24 Unknown History tablet (Januvia) Allergy/AdvReac Type Severity Reaction Status Date / Time No Known Allergies Allergy Verified 08/08/24 22:15 Family History Mother Colon cancer Father CAD (coronary artery disease) Heart disease Hypertension Myocardial infarction Family History no significant family his Surgical History S/P left rotator cuff repair History of tonsillectomy and adenoidectomy History of coronary angioplasty with insertion of stent Status post left partial knee replacement Social History (Updated 08/09/24 @ 01:[address] Tiffanie Pace MD) household members: spouse Smoking Status: Never smoker alcohol intake: never substance use type: does not use Vital Signs Vital Signs Vital Signs: 08/08/24 21:16 08/08/24 21:16 08/08/24 21:19 Temperature 97.0 F L Temperature Source Tympanic Pulse Rate 70 70 73 Respiratory Rate 18 18 12 Respiratory Effort Respiratory Depth Respiratory Pattern Blood Pressure 160/92 H 160/92 H 158/96 H Blood Pressure Mean 114 114 116 Blood Pressure Source Blood Pressure Position Blood Pressure Location Pulse Ox 96 96 98 Oxygen Delivery Method Room Air Room Air Room Air 08/08/24 21:30 08/08/24 21:38 08/08/24 21:38 Temperature 98.2 F 98.2 F Temperature Source Oral Oral Pulse Rate 75 71 Respiratory Rate 17 15 Respiratory Effort Respiratory Depth Respiratory Pattern Blood Pressure 158/96 H 158/96 H Blood Pressure Mean 116 116 Blood Pressure Source Blood Pressure Position Blood Pressure Location Pulse Ox 97 97 Oxygen Delivery Method Room Air Room Air Room Air 08/08/24 21:55 08/08/24 22:00 08/08/24 22:00 Temperature 98.2 F Temperature Source Oral Pulse Rate 81 79 Respiratory Rate 20 H 12 Respiratory Effort Respiratory Depth Respiratory Pattern Blood Pressure 161/94 H 165/95 H 165/95 H Blood Pressure Mean 118 118 Blood Pressure Source Monitor Blood Pressure Position Semi-Fowlers Blood Pressure Location Left Arm Pulse Ox 96 95 Oxygen Delivery Method Room Air Room Air 08/08/24 22:03 08/08/24 22:16 08/08/24 22:18 Temperature 98.5 F 98.4 F Temperature Source Oral Oral Pulse Rate 78 76 72 Respiratory Rate 13 16 17 Respiratory Effort Respiratory Depth Respiratory Pattern Blood Pressure 165/95 H 154/100 H 154/100 H Blood Pressure Mean 118 118 118 Blood Pressure Source Monitor Monitor Blood Pressure Position Semi-Fowlers Blood Pressure Location Left Arm Pulse Ox 98 96 97 Oxygen Delivery Method Room Air Room Air Room Air 08/08/24 22:23 08/08/24 22:30 08/08/24 22:33 Temperature 98.4 F 98.3 F Temperature Source Oral Oral Pulse Rate 75 71 75 Respiratory Rate 15 14 15 Respiratory Effort Respiratory Depth Respiratory Pattern Blood Pressure 154/100 H 154/100 H 187/118 H Blood Pressure Mean 118 118 141 Blood Pressure Source Monitor Blood Pressure Position Semi-Fowlers Blood Pressure Location Left Arm Pulse Ox 97 98 97 Oxygen Delivery Method Room Air Room Air Room Air 08/08/24 22:48 08/08/24 23:00 08/08/24 23:03 Temperature 98.2 F 98.4 F Temperature Source Oral Oral Pulse Rate 68 68 68 Respiratory Rate 16 14 Respiratory Effort Respiratory Depth Respiratory Pattern Blood Pressure 196/105 H 188/103 H 188/103 H Blood Pressure Mean 135 131 131 Blood Pressure Source Monitor Monitor Blood Pressure Position Semi-Fowlers Semi-Fowlers Blood Pressure Location Left Arm Right Arm Pulse Ox 97 94 94 Oxygen Delivery Method Room Air Room Air Room Air 08/08/24 23:18 08/08/24 23:30 08/08/24 23:33 Temperature 98.2 F 98.4 F Temperature Source Oral Oral Pulse Rate 69 69 63 Respiratory Rate 12 14 Respiratory Effort Respiratory Depth Respiratory Pattern Blood Pressure 174/90 H 174/90 H 175/84 H Blood Pressure Mean 118 118 114 Blood Pressure Source Monitor Monitor Blood Pressure Position Semi-Fowlers Semi-Fowlers Blood Pressure Location Left Arm Left Arm Pulse Ox 95 95 96 Oxygen Delivery Method Room Air Room Air Room Air 08/08/24 23:48 08/08/24 23:52 08/09/24 00:18 Temperature 98.2 F 98.4 F 97.6 F L Temperature Source Oral Oral Pulse Rate 72 69 79 Respiratory Rate 15 16 14 Respiratory Effort Respiratory Depth Respiratory Pattern Blood Pressure 158/88 H 158/88 H 144/87 H Blood Pressure Mean 111 111 106 Blood Pressure Source Monitor Monitor Blood Pressure Position Semi-Fowlers Semi-Fowlers Blood Pressure Location Left Arm Left Arm Pulse Ox 97 97 94 Oxygen Delivery Method Room Air Room Air 08/09/24 00:48 08/09/24 01:18 08/09/24 01:48 Temperature 97.8 F 97.8 F 98 F Temperature Source Oral Oral Oral Pulse Rate 75 80 75 Respiratory Rate 15 25 H 17 Respiratory Effort Respiratory Depth Respiratory Pattern Blood Pressure 129/90 H 145/95 H 150/94 H Blood Pressure Mean 103 111 112 Blood Pressure Source Monitor Monitor Monitor Blood Pressure Position Semi-Fowlers Semi-Fowlers Semi-Fowlers Blood Pressure Location Left Arm Left Arm Left Arm Pulse Ox 96 95 96 Oxygen Delivery Method Room Air Room Air Room Air 08/09/24 02:18 08/09/24 02:30 08/09/24 02:35 Temperature 97.9 F 98.2 F Temperature Source Oral Oral Pulse Rate 71 70 67 Respiratory Rate 20 H 18 Respiratory Effort Respiratory Depth Respiratory Pattern Blood Pressure 160/92 H 160/92 H Blood Pressure Mean 114 114 Blood Pressure Source Monitor Monitor Blood Pressure Position Semi-Fowlers Semi-Fowlers Blood Pressure Location Left Arm Left Arm Pulse Ox 97 96 Oxygen Delivery Method Room Air Room Air 08/09/24 02:48 08/09/24 03:18 08/09/24 03:48 Temperature 97.8 F Temperature Source Oral Pulse Rate 68 68 76 Respiratory Rate 19 H 16 16 Respiratory Effort Respiratory Depth Respiratory Pattern Blood Pressure 141/95 H 155/91 H 151/79 H Blood Pressure Mean 110 112 103 Blood Pressure Source Monitor Monitor Monitor Blood Pressure Position Semi-Fowlers Semi-Fowlers Semi-Fowlers Blood Pressure Location Left Arm Left Arm Left Arm Pulse Ox 97 96 94 Oxygen Delivery Method Room Air Room Air Room Air 08/09/24 04:48 08/09/24 05:00 08/09/24 05:17 Temperature 98.3 F Temperature Source Oral Pulse Rate 75 79 77 Respiratory Rate 17 15 18 Respiratory Effort Respiratory Depth Respiratory Pattern Blood Pressure 179/95 H 165/93 H 162/98 H Blood Pressure Mean 123 117 119 Blood Pressure Source Monitor Monitor Monitor Blood Pressure Position Semi-Fowlers Semi-Fowlers Semi-Fowlers Blood Pressure Location Left Arm Left Arm Left Arm Pulse Ox 92 97 97 Oxygen Delivery Method Room Air Room Air Room Air 08/09/24 05:41 08/09/24 05:47 08/09/24 06:00 Temperature Temperature Source Pulse Rate 77 77 Respiratory Rate 20 H Respiratory Effort Non-Labored Respiratory Depth Normal Respiratory Pattern Normal Blood Pressure 164/98 H Blood Pressure Mean 120 Blood Pressure Source Monitor Blood Pressure Position Semi-Fowlers Blood Pressure Location Left Arm Pulse Ox 95 95 97 Oxygen Delivery Method Room Air Room Air Room Air 08/09/24 06:47 08/09/24 07:15 08/09/24 07:47 Temperature 98.4 F 97.6 F L Temperature Source Temporal Oral Pulse Rate 75 72 75 Respiratory Rate 17 16 17 Respiratory Effort Respiratory Depth Respiratory Pattern Blood Pressure 165/97 H 163/145 H 166/106 H Blood Pressure Mean 119 151 126 Blood Pressure Source Monitor Monitor Monitor Blood Pressure Position Semi-Fowlers Semi-Fowlers Semi-Fowlers Blood Pressure Location Left Arm Left Arm Left Arm Pulse Ox 95 96 95 Oxygen Delivery Method Room Air Room Air Room Air 08/09/24 08:15 08/09/24 08:17 08/09/24 08:47 Temperature Temperature Source Pulse Rate 73 72 Respiratory Rate 16 17 Respiratory Effort Normal Non-Labored Respiratory Depth Normal Respiratory Pattern Normal Blood Pressure 155/97 H 169/100 H Blood Pressure Mean 116 123 Blood Pressure Source Monitor Monitor Blood Pressure Position Semi-Fowlers Semi-Fowlers Blood Pressure Location Left Arm Left Arm Pulse Ox 96 96 Oxygen Delivery Method Room Air Room Air Room Air 08/09/24 09:17 08/09/24 09:35 08/09/24 09:47 Temperature Temperature Source Pulse Rate 69 71 Respiratory Rate 15 15 Respiratory Effort Respiratory Depth Respiratory Pattern Blood Pressure 164/97 H 151/105 H Blood Pressure Mean 119 120 Blood Pressure Source Monitor Monitor Blood Pressure Position Semi-Fowlers Semi-Fowlers Blood Pressure Location Left Arm Left Arm Pulse Ox 96 99 96 Oxygen Delivery Method Room Air Room Air Room Air 08/09/24 10:17 08/09/24 10:47 Temperature Temperature Source Pulse Rate 77 83 Respiratory Rate 15 18 Respiratory Effort Respiratory Depth Respiratory Pattern Blood Pressure 169/99 H 161/95 H Blood Pressure Mean 122 117 Blood Pressure Source Monitor Monitor Blood Pressure Position Semi-Fowlers Semi-Fowlers Blood Pressure Location Left Arm Left Arm Pulse Ox 94 92 Oxygen Delivery Method Room Air Room Air Weight Weight: 80.5 kg Body Mass Index (BMI) 26.2 Physical Exam Narrative - General: NAD, pleasant, cooperative, well nourished, well developed - Head/Eyes: Atraumatic, normocephalic, clear cornea, normal sclera/conjunctive - Neuro: ? Mental Status: AAOX4 & following simple commands. ? Speech: Clear and fluent with good repetition, comprehension, & naming. No aphasia. Some dysarthria ? CN II: Visual noguera are full to confrontation. ? CN III, IV, : EOMI, no gaze preference, no nystagmus, no ptosis ? CN V: Facial sensation is intact to light touch throughout. ? CN VII: Mild right facial droop ? Hearing is grossly normal to conversational speech. ? CN XI: Head turning, and shoulder shrug are intact. ? Motor: Able to sustain all limbs ? Sensation: Normal to light touch bilaterally. ? Coordination: Normal FTN & HTS. No abn movements seen. Lab / Micro Data 08/09/24 04:32 08/09/24 04:32 Labs: Laboratory Results - last 24 hr 08/08/24 21:19: WBC 8.0, RBC 4.71, Hgb 13.9, Hct 42.2, MCV 89.6, MCH 29.5, MCHC 32.9, RDW Std Deviation 45.1 H, RDW Coeff of Josh 13.8, Plt Count 218, MPV 10.6, Immature Gran % (Auto) 0.500, Neut % (Auto) 63.7, Lymph % (Auto) 23.9, Christian % (Auto) 9.4, Eos % (Auto) 1.9, Baso % (Auto) 0.6, Absolute Neuts (auto) 5.1, Absolute Lymphs (auto) 1.91, Nucleated RBC % 0, PT 13.3, INR 1.0, APTT 24.4, Sodium 141, Potassium 3.8, Chloride 105, Carbon Dioxide 23.4, Anion Gap 12, BUN 24 H, Creatinine 0.95, Estim Creat Clear Calc 57.88, Est GFR (MDRD) Non-Af 79, B UN/Creatinine Ratio 24.9 H, Glucose 262 H, Calcium 9.4, Magnesium 1.9, Troponin T High Sens 31 H 08/08/24 21:31: POC Glucose 251 H 08/08/24 23:15: Urine Color Yellow, Urine Clarity Clear, Urine pH 7.0, Ur Specific [place] 1.010, Urine Protein 30 H, Urine Glucose (UA) 1000 H, Urine Ketones Negative, Urine Occult Blood 250 H, Urine Nitrite Negative, Urine Bilirubin Negative, Urine Urobilinogen 1 H, Ur Leukocyte Esterase Negative, Urine RBC 50-100 SEEN, Urine WBC 0 SEEN, Ur Squamous Epith Cells 0 SEEN, Urine Bacteria 0 SEEN, Urine Mucus 0 SEEN 08/09/24 00:15: Troponin T Hi Sens 2 Hr 21 08/09/24 02:30: Troponin T Hi Sens 4Hr 23 H 08/09/24 04:32: WBC 9.2, RBC 4.38 L, Hgb 12.8 L, Hct 39.6 L, MCV 90.4, MCH 29.2, MCHC 32.3, RDW Std Deviation 46.0 H, RDW Coeff of Josh 13.7, Plt Count 204, MPV 10.6, Immature Gran % (Auto) 0.500, Neut % (Auto) 80.1 H, Lymph % (Auto) 11.4 L, Christian % (Auto) 6.9, Eos % (Auto) 0.4, Baso % (Auto) 0.7, Absolute Neuts (auto) 7.4, Absolute Lymphs (auto) 1.05, Nucleated RBC % 0, Sodium 140, Potassium 4.1, Chloride 106, Carbon Dioxide 22.9, Anion Gap 11, BUN 17, Creatinine 0.80, Estim Creat Clear Calc 66.50, Est GFR (MDRD) Non-Af 87, BUN/Creatinine Ratio 21.2 H, G lucose 230 H, Hemoglobin A1c 8.8 H, Calcium 9.0, Total Bilirubin 0.38, AST 14, ALT 15, Alkaline Phosphatase 81, Total Protein 6.3, Albumin 4.0, Globulin 2.3, Albumin/Globulin Ratio 1.7, Triglycerides 75, Cholesterol 122, LDL Cholesterol, Calc 67, VLDL Cholesterol 15, HDL Cholesterol 40, Cholesterol/HDL Ratio 3.07, TSH 1.390 08/09/24 04:37: POC Glucose 217 H 08/09/24 09:33: POC Glucose 170 H Imaging Radiology Impression Brain CT 08/08/24 21:20 IMPRESSION: No acute intracranial abnormalities. Reading Location: [place] [id number] Head/Neck CTA 08/08/24 21:22 IMPRESSION: 1. Absent opacification of the V4 segment of the right vertebral artery and right PICA, worrisome for occlusion of unknown chronicity. Vertebral artery dissection could also appear similar. Correlate with symptoms and consider MRI/MRA. 2. No hemodynamically significant narrowing or occlusion of the internal carotid arteries. 3. Right mastoid effusion. 4. Solid pulmonary nodule at the right lung apex measuring [address] chest in 12 months if patient is at high risk for malignancy per Fleischner society guidelines. Reading Location: [id number] Brain CT 08/08/24 22:50 IMPRESSION: No acute intracranial abnormality. No evidence of new hemorrhage. Reading Location: [id number] 08/09/24 00:46 IMPRESSION: No CT evidence for acute brain abnormality. Reading [facility] Echocardiogram 08/09/24 02:19 Interpretation Summary Mild concentric left ventricular hypertrophy. LV apical akinesis. 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 Estimated LVEF 45%. Stage I diastolic dysfunction. Bubble contrast study is negative for PFO/ASD. Mild (1+) mitral valve insufficiency. Mild tricuspid valve insufficiency. Mild (1+) aortic valve insufficiency. Recommend cardiac MRI for further evaluation of LV apex and possible thrombus. Ordering Physician: Tiffanie Pace Performed By: Karen Tompkins RDCS and Student Active Medications Active Medications Active Medications: Current Medications Generic Name Dose Route Start Last Admin Trade Name Freq PRN Reason Stop Dose Admin Acetaminophen 650 mg 08/08/24 21:48 Acetaminophen 325 Mg Tablet PO X1 PRN Temp > 99.6 F Acetaminophen 650 mg 08/09/24 02:19 Acetaminophen 325 Mg Tablet PO Q4H PRN PRN Fever, pain 1-10/10 Al Hydroxide/Mg Hydroxide 30 ml 08/09/24 02:19 Mag Hydrox/Al Hydrox/Simeth 30 Ml Udc PO Q6H PRN PRN Gastric Burning Albuterol Sulfate 2.5 mg 08/09/24 02:19 Albuterol 2.5 Mg/3 Ml Vial.Neb. INHALATION Q2H PRN PRN Dyspnea, wheezing Atorvastatin Calcium 40 mg 08/09/24 22:00 Atorvastatin Calcium 40 Mg Tablet PO QHS [facility] Duloxetine HCl 30 mg 08/09/24 10:00 08/09/24 11:59 Duloxetine Hcl 30 Mg Capsule PO Not Given DAILY SOIL[facility] Ezetimibe 10 mg 08/09/24 10:00 08/09/24 12:00 Ezetimibe 10 Mg Tablet PO Not Given DAILY SOILA Glucagon 1 mg 08/09/24 02:19 Glucagon 1 Mg/Ml Syringe IM X1 PRN HYPOGLYCEMIA Protocol Guaifenesin 10 ml 08/09/24 02:19 Guaifenesin 10 Ml Udc (200mg/10ml) PO Q4H PRN PRN COUGH Dextrose 250 mls @ 0 mls/hr 08/09/24 02:19 Dextrose 10%-Water IV .Q0M PRN HYPOGLYCEMIA Protocol As Directed Sodium Chloride 250 mls @ 15 mls/hr 08/09/24 02:19 IV .[id number] PRN Saline Flush Sodium Chloride 250 mls @ 15 mls/hr 08/09/24 02:19 IV .[id number] PRN Additional IVPB Infusion Nicardipine/Sodium Chloride 20 mg in 200 mls @ 50 mls/hr 08/09/24 03:00 08/09/24 12:00 Cardene-Tung 20 Mg/200 Ml Soln IV Not Given Q4H SOILA Protocol 5 MG/HR Insulin Human Lispro 0 unit 08/09/24 07:00 08/09/24 12:00 Insulin Lispro 100 Unit/Ml Insuln.Pen SC Not Given ACHS [facility] Protocol Melatonin 3 mg 08/09/24 02:19 Melatonin 3 Mg Tablet PO QHS PRN PRN INSOMNIA Montelukast Sodium 10 mg 08/09/24 10:00 08/09/24 12:00 Montelukast 10 Mg Tablet PO Not Given DAILY [facility] Ondansetron HCl 4 mg 08/09/24 02:19 Ondansetron 4 Mg/2 Ml Vial IV Q8H PRN PRN NAUSEA/VOMITING Pantoprazole Sodium 40 mg 08/09/24 10:00 08/09/24 11:59 Pantoprazole Sodium 40 Mg Tablet PO Not Given DAILY [facility] Prochlorperazine Edisylate 5 mg 08/09/24 02:19 08/09/24 04:37 Prochlorperazine 10 Mg/2 Ml Vial IV 5 mg Q4H PRN PRN Administration Breakthrough Nausea/Vomiting Senna/Docusate Sodium 2 tablet 08/09/24 02:19 Senna/Docusate Sodium 1 Tablet PO BID PRN PRN Constipation Sodium Chloride 10 - 40 ml 08/09/24 02:19 0.9% Saline Lock 10 Ml Syringe IV UD PRN SALINE FLUSH NIHSS NIHSS Nursing Documentation NIHSS Nursing Documentation: Thrombolytic: Vital Signs & NIHSS Start: 08/08/24 21:48 Text: Assess and document vital signs and NIHSS Status: Active within 15 minutes of tenecteplase bolus administration Freq: [id number] Protocol: Activity Type Activity Date Activity User E-sign Co-sign Detail Recorded Client Recorded Date Recorded By Document 08/09/24 10:47 [id number] 08/09/24 11:08 RV 08/09/24 10:47 Vital Signs [Pulse] -Pulse Rate (60-100) 83 -Pulse Location Monitor [Respirations] -Respiratory Rate (12-18) 18 -Respiratory rate source Monitor -Pulse Oximetry 92 -Oxygen Delivery Method Room Air [Blood Pressure] -Blood Pressure (90/60-120/80) 161/95 H -Blood Pressure Mean 117 -Source Monitor -Position Semi-Fowlers -Blood Pressure Location Left Arm -Is the SBP > or = 180 No -Is the DBP > or = 105 No NIH Stroke Scale [NIHSS] A score of 0 is normal or asymptomatic . Total possible score is 42. Inpatient: RN or Physician to activate a stroke alert for onset of new stroke symptoms or with NIHSS increase >/= 3 points. Following change in neurological status, NIHSS will be performed per physician order or more frequently PRN. -1a. Level of Consciousness 0 - Alert; keenly responsive -1b. LOC Questions 0 - Answers BOTH questions correctly -1c. LOC Commands 0 - Performs BOTH tasks correctly -2. Best Gaze 0 - Normal -3. Visual 0 - No visual loss -4. Facial Palsy 1 - Minor paralysis ( flattened nasolabial fold , asymmetry on smiling) -5a. Left Arm 0 - No drift; arm holds 90 ( or 45) degrees for full 10 seconds -5b. Right Arm 0 - No drift; arm holds 90 ( or 45) degrees for full 10 seconds -6a. Left Leg 0 - No drift; leg holds 30- degree position for full 5 seconds -6b. Right Leg 0 - No drift; leg holds 30- degree position for full 5 seconds -7. Limb Ataxia 1 - Present in 1 limb -8. Sensory 0 - Normal; no sensory loss -9. Best Language 0 - No aphasia; normal -10. Dysarthria 1 = Mild-to- moderate dysarthria; -11. Extinction and Inattention 0 - No abnormality -Total 3 Query Text:A score of 0 is normal or asymptomatic. Total possible score is 42 . ED: Notify Physician for NIHSS increase by > / = 3 points. Inpatient: RN or Physician to activate a stroke alert for NIHSS increase of > / = 3 points.
--- NOTE | 2024-08-09 15:42 | CHAPLAIN ---
Type of Pastoral Visit _x__ Initial Visit ___ Follow-up Visit ___ On-call Visit ___ General Patient Visit ___ Spiritual Assessment ___ Family Conference ___ Bereavement ___ Rapid Response ___ Code Blue ___ Other (describe below) Pastoral Care Referral From ___ Patient _x__ Family ___ Nurse ___ Physician ___ Surfacing Technician ___ Expense Clerk ___ Other (describe below) Sacrament/Intervention ___ Active listening ___ Anointing ___ Jain ___ Bereavement ___ Communion ___ Heena exploration ___ ___ Life review ___ Prayer ___ Reconciliation ___ Sacrament of Sick _x__ Supportive presence ___ Wedding ___ Other (describe below) Pastoral Comments met family members that were gathered in the waiting room; 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
[2024-08-09 16:39] LABS: Bedside Glucose 168 mg/dL (74-106)
[2024-08-09 22:15] LABS: Bedside Glucose 181 mg/dL (74-106)
[2024-08-09] MEDS: Insulin Lispro 100 UNIT/ML INSULN.PEN SC (22:35)
--- NOTE | 2024-08-09 23:30 | CT_ITS ---
PROCEDURE: STROKE BRAIN/HEAD WITHOUT CONT 08/09/2024 REASON FOR EXAM: IF UNABLE TO OBTAIN MRI AT 24 HOURS YULY POST TNK TECHNIQUE: Head CT without intravenous contrast. Coronal and Sagittal reconstruction series were provided. One or more dose reduction techniques were used (e.g., Automated exposure control, adjustment of the mA and/or kV according to patient size, use of iterative reconstruction technique. RADIATION DOSE SUMMARY: CTDlvol: 44.99 mGy DLP: 849.54 mGycm COMPARISON: 08/09/2024. FINDINGS: Mild global parenchymal atrophy. Mild chronic microvascular ischemia. No evidence of acute hemorrhage or infarction. No extra-axial blood or fluid collections. The paranasal sinuses are clear. Partial right mastoid effusion. The calvarial vault and skull base are intact. CT/STROKE Brain/Head without Cont IMPRESSION: No acute intracranial abnormality. Reading Location: [place] [id number]
[2024-08-10] VITALS (12 sets, daily range): BP systolic 125–170; BP diastolic 57–103; PULSE 74–93; RESP 14–22; TEMP 36.5–37.1; O2SAT 95–100; BMI 26.2; BMI 26.5
--- NOTE | 2024-08-10 02:19 | MRI_ITS ---
PROCEDURE: BRAIN WITHOUT CONTRAST 08/10/2024 REASON FOR EXAM: ACUTE CVA 24HRS AFTER TENECTEPLASE ADMINISTRATION TECHNIQUE: Noncontrast brain MRI. Multiplanar and multisequence images were obtained. COMPARISON: 08/09/2024 CT. FINDINGS: Mild global parenchymal atrophy. Right parietal, right basal nucleus, and left frontal small chronic lacunar infarctions. Periventricular white matter T2/FLAIR hyperintense foci likely representing mild chronic microvascular ischemia. No evidence of acute hemorrhage or infarction. No extra-axial blood or fluid collections. The paranasal sinuses are clear. Partial right mastoid effusion. MRI/Brain without Contrast IMPRESSION: No acute intracranial abnormality. Chronic and ancillary findings as above. Reading Location: [id number]
[2024-08-10 05:21] LABS: Absolute Lymphocyte Count 1.03 X10^3/uL (0.83-4.51); Absolute Neutrophil Count 9.4 X10^3/uL (2.0-7.7); Basophil# 0.04 X10^3/uL; Basophil% 0.3 % (0-1); Eosinophil# 0.05 X10^3/uL; Eosinophils% 0.4 % (0-5); Hematocrit 39.3 % (40-54); Hemoglobin 13.1 g/dL (13.0-16.5); Lymphocyte # 1.03 X10^3/ul (0.83-4.51); Mean Corp Hgb Conc 33.3 g/dL (32-36); Mean Corpuscular Hgb 29.4 pg (27.0-32.0); Mean Corpuscular Volume 88.1 fL (80-94); Mean Platelet Vol. 10.7 fl (6.2-12.0); Monocyte# 0.92 X10^3/uL; NRBC Flagged by Analyzer 0 % (0-5); Neutrophil # 9.41 X10^3/uL (2.7-7.7); Neutrophil % 81.9 % (47-70); Platelet Count 185 K/mm3 (150-450); RBC Distribution Width CV 13.5 % (11.6-14.6); RBC Distribution Width SD 43.5 fl (35.1-43.9); Red Blood Count 4.46 M/mm3 (4.6-6.2); White Blood Count 11.5 K/mm3 (4.4-11.0)
[2024-08-10 05:43] LABS: Anion Gap 12 (5-15); BUN 9 mg/dL (4-19); BUN/Creat Ratio 13.2 RATIO (10-20); Calcium,Total 9.1 mg/dL (7.6-11.0); Carbon Dioxide 21.4 mmol/L (21.0-32.0); Chloride 102 mmol/L (98-108); EST Glomerular Filtration Rate 91 (>60); Glucose 190 mg/dL (70-99); Potassium 3.8 mmol/L (3.3-5.1); Sodium Level 136 mmol/L (133-145)
--- NOTE | 2024-08-10 07:13 | PN.HOSP_ITS ---
Reason for Visit Reason for Visit: Diagnoses Cerebral infarction, unspecified (08/08/24) Dysphagia, unspecified (08/08/24) Solitary pulmonary nodule (08/08/24) Subjective Subjective Had MBS today and did poorly, unable to tolerate teaspoon. Objective Data Objective Data Vital Signs: Vital Signs Temp Pulse Resp BP Pulse Ox O2 Del Method 36.8 C 74 20 H 125/82 H 100 Room Air 08/10/24 04:47 08/10/24 06:00 08/10/24 06:00 08/10/24 06:00 08/10/24 06:00 08/10/24 06:00 Oxygen Delivery Method Room Air Weight: 81.2 kg Body Mass Index (BMI) 26.5 Intake & Output: Intake and Output for Last 24 Hours 08/08/24 08/09/24 08/10/24 23:59 23:59 23:59 Intake Total 1488.33 / 1488.33 1000 / 1000 Output Total 800 / 800 1300 / 1700 700 / 700 Balance -800 / -800 188.33 / -211.67 300 / 300 Lab / Micro Data 08/10/24 05:00 08/10/24 05:00 Labs: Laboratory Results - last 24 hr 08/09/24 09:33: POC Glucose 170 H 08/09/24 16:17: POC Glucose 168 H 08/09/24 21:56: POC Glucose 181 H 08/10/24 05:00: WBC 11.5 H, RBC 4.46 L, Hgb 13.1, Hct 39.3 L, MCV 88.1, MCH 29.4, MCHC 33.3, RDW Std Deviation 43.5, RDW Coeff of Josh 13.5, Plt Count 185, MPV 10.7, Immature Gran % (Auto) 0.400, Neut % (Auto) 81.9 H, Lymph % (Auto) 9.0 L, Barron % (Auto) 8.0, Eos % (Auto) 0.4, Baso % (Auto) 0.3, Absolute Neuts (auto) 9.4 H, Absolute Lymphs (auto) 1.03, Nucleated RBC % 0, Sodium 136, Potassium 3.8, Chloride 102, Carbon Dioxide 21.4, Anion Gap 12, BUN 9, Creatinine 0.70, Estim Creat Clear Calc 66.50, Est GFR (MDRD) Non-Af 91, BUN/Creatinine Ratio 13.2, Glucose 190 H, Calcium 9.1 Radiography Diagnostic Testing: Radiology Impression Echocardiogram 08/09/24 02:19 Interpretation Summary Mild concentric left ventricular hypertrophy. LV apical akinesis. 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 Estimated LVEF 45%. Stage I diastolic dysfunction. Bubble contrast study is negative for PFO/ASD. Mild (1+) mitral valve insufficiency. Mild tricuspid valve insufficiency. Mild (1+) aortic valve insufficiency. Recommend cardiac MRI for further evaluation of LV apex and possible thrombus. Ordering Physician: Tiffanie Pace Performed By: Karen Tompkins RDCS and Student Brain CT 08/09/24 23:30 IMPRESSION: No acute intracranial abnormality. Reading Location: [place] [id number] Physical Exam Const alert and no apparent distress HEENT head/scalp atraumatic and moist oral mucous membranes Eyes EOMs intact bilaterally and conjunctivae normal Resp normal respiratory effort and no retractions GI soft to palpation, non-tender and non-distended Extremity normal to inspection and full ROM Neuro oriented x3 and moves all extremities Neuro Narrative: weak voice. Coordination / Balance: wcwzhc-lv-cffs test normal and mfsv-ox-lfgi test normal Psych affect normal Assessment & Plan Assessment/Plan (1) CVA (cerebral vascular accident): PLAN: s/p TNK (received on 08/08) CTA head and neck showed V4 segment right vertebral artery and right PICA showed absent opacification follow up MRI brain. CT head 24 hour post TNK showed no changes. [facility] teleneurology following. Recommending 30-day event monitor upon discharge. Aspirin and Plavix 21 days followed by aspirin. Given NPO status, will hold off on clopidogrel until PEG tube placed. For now, will have rectal ASA, until patient able to take PO/OG. PT OT ST (2) Dysphagia: PLAN: Secondary to stroke DW ST, he did very poorly, not safely able to take even a teaspoon. Recommending PEG tube. Consult placed to GI. (3) Pulmonary nodule: PLAN: solid pulmonary nodule right lung apex at 4mm. repeat imaging in 12-months PLAN: Plan Chronic conditions: * DM2: SSI. Metformin held. * anxiety/depression: duloxetine when able to take PO/OG * GERD: PPI IV until able to take PO/OG * HTN: ARB, amlodipine held given NPO status. VTE prophylaxis: SCDs Transfer to PCU status. Charges/Coding Visit Charges Inpatient E&M: 92330 Subs Hosp L3 NIHSS NIHSS Nursing Documentation NIHSS Nursing Documentation: Thrombolytic: Vital Signs & NIHSS Start: 08/08/24 21:48 Text: Assess and document vital signs and NIHSS Status: Active within 15 minutes of tenecteplase bolus administration Freq: [id number],[id number],Q2H Protocol: Activity Type Activity Date Activity User E-sign Co-sign Detail Recorded Client Recorded Date Recorded By Document 08/10/24 06:00 [facility] [id number] 08/10/24 06:02 [facility] 08/10/24 06:00 Vital Signs [Pulse] -Pulse Rate (60-100) 74 -Pulse Location Monitor [Respirations] -Respiratory Rate (12-18) 20 H -Respiratory rate source Monitor -Pulse Oximetry 100 -Oxygen Delivery Method Room Air [Blood Pressure] -Blood Pressure (90/60-120/80) 125/82 H -Blood Pressure Mean (mm Hg) 96 -Source Monitor -Position Semi-Fowlers -Blood Pressure Location Left Arm -Is the SBP > or = 180 No -Is the DBP > or = 105 No NIH Stroke Scale [NIHSS] A score of 0 is normal or asymptomatic . Total possible score is 42. Inpatient: RN or Physician to activate a stroke alert for onset of new stroke symptoms or with NIHSS increase >/= 3 points. Following change in neurological status, NIHSS will be performed per physician order or more frequently PRN. -1a. Level of Consciousness 0 - Alert; keenly responsive -1b. LOC Questions 0 - Answers BOTH questions correctly -1c. LOC Commands 0 - Performs BOTH tasks correctly -2. Best Gaze 0 - Normal -3. Visual 0 - No visual loss -4. Facial Palsy 1 - Minor paralysis ( flattened nasolabial fold , asymmetry on smiling) -5a. Left Arm 0 - No drift; arm holds 90 ( or 45) degrees for full 10 seconds -5b. Right Arm 0 - No drift; arm holds 90 ( or 45) degrees for full 10 seconds -6a. Left Leg 0 - No drift; leg holds 30- degree position for full 5 seconds -6b. Right Leg 0 - No drift; leg holds 30- degree position for full 5 seconds -7. Limb Ataxia 0 - Absent -8. Sensory 0 - Normal; no sensory loss -9. Best Language 0 - No aphasia; normal -10. Dysarthria 1 = Mild-to- moderate dysarthria; -11. Extinction and Inattention 0 - No abnormality -Total 2 Query Text:A score of 0 is normal or asymptomatic. Total possible score is 42 . ED: Notify Physician for NIHSS increase by > / = 3 points. Inpatient: RN or Physician to activate a stroke alert for NIHSS increase of > / = 3 points.
[2024-08-10] MEDS: Insulin Lispro 100 UNIT/ML INSULN.PEN SC ×3 (08:04→21:03)
[2024-08-10 08:22] LABS: Bedside Glucose 173 mg/dL (74-106)
[2024-08-10] MEDS: Pantoprazole Sodium 40 MG in 0.9% Normal Saline (100mL MB+) 100 ML 330 MG IV (09:54)
[2024-08-10] MEDS: Aspirin 300 MG Suppository RC (09:55)
[2024-08-10 11:43] LABS: Bedside Glucose 154 mg/dL (74-106)
--- NOTE | 2024-08-10 13:06 | SP.MBSS_ITS ---
Modified Barium Swallow Patient Information Study Date: 08/10/24 Study Time: 13:00 Direct Billable Minutes: 96 Total Minutes procedure & reportin Diagnosis: Dysphagia R13.10; CVA I63.9 Referring Physician: Jaison Puga Reason for Referral: Assess swallow function, assess risk for aspiration, and determine recommendations for least restrictive diet textures and compensatory strategies to improve safety of swallow. Medical History: Patient is an 84-year-old male with a history of cerebrovascular accident (remote), hypertension, hyperlipidemia, type II diabetes mellitus, myocardial infarction, GERD, allergic rhinitis, anxiety, and depression who presented to the ED on 08/08/2024 with acute onset of slurred speech and left-sided facial droop at approximately 9:15 PM, with last known well at 8:15 PM. Stroke alert was activated and patient received thrombolytic therapy (tenecteplase) per neurology recommendation. NIH Stroke Scale score was 2, with points given for minor facial paralysis and mild to moderate dysarthria. On hospitalist evaluation, patient continued to demonstrate persistent slurred speech. He also reported blurred vision, primarily when both eyes were open, with noted left eye deviation and nystagmus, which were not part of his baseline. He subsequently developed worsening headache, nausea, and vomiting; repeat CT remained negative for hemorrhage. Imaging revealed absent opacification of the right vertebral artery and PICA, suspicious for occlusion or dissection. Pt failed his RN dys phagia screening in ED and has been kept NPO, although RN reports that she gave one sip of water and it went poorly. BSE completed and recommended strict NPO w/ plan for MBSS today to further assess swallow function and aspiration risk prior to diet advancement w/ education provided that alternative means of nutrition/hydration may be required due to severity of swallow function. Brain CT 08/09/2024 revealed no acute intracranial abnormality. Brain MRI planned for today. Current Diet Ordered: Strict NPO Dentition: Natural Teeth Respiratory Status: Oxygenating on Room Air Penetration-Aspiration Scale Penetration-Aspiration Scale: OBJECTIVE ASSESSMENT OF SWALLOW FUNCTION (QUANTITATIVE ? PER TRIAL): PENETRATION / ASPIRATION SCALE (OSORIO): 1 = does not enter airway 2 = enters airway/above vocal folds/ejected 3 = enters airway/above vocal folds/not ejected 4 = enters airway/contacts vocal folds/ejected 5 = enters airway/contacts vocal folds/not ejected 6 = enters airway/below vocal folds/ejected 7 = enters airway/below vocal folds/not ejected despite effort 8 = enters airway/below vocal folds/no effort VIDEOFLOROSCOPIC SCALE SCORE (OSORIO): Grade I = aspiration of material that has penetrated into the laryngeal vestibule, intact cough reflex Grade II = aspiration < 10 % of the bolus, intact cough reflex Grade III = aspiration of < 10 % of the bolus, reduced cough reflex or aspiration of > 10 % of the bolus, intact cough reflex Grade IV = aspiration of > 10 % of the bolus, reduced cough reflex Penetration-Aspiration Scale Score Thin Liquid via teaspoon: Result: 7= enters airways/below vocal folds/not ejected despite effort [place] Thick Liquid via teaspoon: Result: 7= enters airways/below vocal folds/not ejected despite effort Oral Phase Labial Seal: No Labial Escape Tongue Control During Bolus Hold: Posterior escape of greater than half of bolus Bolus Transport/Lingual Motion: Slowed tongue motion Oral Residue: Residue collection on oral structures (nectar/mildly thick) Pharyngeal Phase Initiation of Pharyngeal Swallow: Bolus head in pyriforms Soft Palate Elevation: No bolus between soft palate and pharyngeal wall Laryngeal Elevation: Partial superior movement thyroid cart/partial apprx aryt- epig petiole Anterior Hyoid Excursion: Partial anterior movement Epiglottic Movement: Partial inversion (minimal) Laryngeal Vestibule Closure at Height of Swallow: Incomplete; narrow column of air/contrast in laryngeal vestibule Pharyngeal Stripping Wave: Absent Pharyngoesophageal Segment Opening: Minimal distension and minimal duration; marked obstruction of flow Tongue Base Retraction: Wide column of contrast between tongue base & post. pharyngeal wall Pharyngeal Residue: Minimal to no pharyngeal clearance Diagnosis/Impression Diagnosis: Severe pharyngoesophageal dysphagia R13.14; Mild oral dysphagia R13.11 Impression: Continued poor secretion management. The oral phase is primarily marked by... -Decreased bolus control w/ posterior loss of >1/2 the bolus to the pharynx prior to swallow onset. -Slowed tongue motion for A-P transport. -Mild oral residue. -Did not assess mastication w/ cookie due to HIGH choking risk given poor pharyngeal clearance of liquids and decreased pharyngeal motility and airway closure. The pharyngeal phase is primarily marked by... -Delayed swallow onset. -Poor pharyngeal motility w/ no pharyngeal stripping wave and poor TB retraction. -Very little pharyngeal clearance due to very limited UES opening and duration of opening. 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 -Decreased anterior hyoid excursion and laryngeal elevation w/ aspiration during and after the swallow w/ thin and mildly thick liquids by tsp. Pt also appeared to aspirate secretions. Despite cues to cough, reflexive cough, and use of Yankauer suction before and after trials, he still presented w/ aspiration and moderate-severe pharyngeal residues. Recommendations Diet: NPO (Strict) Recommend Repeat Modified Barium Swallow: Yes Comment: Repeat MBSS after 2-4 weeks of intensive oropharyngeal exercise program. Repeat MBSS sooner if pt receives GI intervention for cricopharyngeal dysfunction. Need for Skilled Speech Therapy Services: Yes Comment: -Train pt in intensive oropharyngeal exercise program to include lingual resistance exercises, Effortful swallows, Matthew, Karely, and Shaker. -Trial ice chips w/ use of effortful, multiple swallows w/ GENERAL PRODUCTION MANAGER ONLY at GENERAL PRODUCTION MANAGER's discretion. -Train the patient in the importance for thorough and frequent oral care. -Cognitive-linguistic evaluation. Recommended Referrals: GI Consult (GENERAL PRODUCTION MANAGER sent backline message to Dr. Puga and Dr. Napoles informing them of very poor UES opening and recommendation for GI co nsult and consideration for tube feeding.) Education Completed: 1. Described result of evaluation., 2. Pt understands evaluation & agrees with goals and treatment plan., 4. Family/caregivers understand evaluation & agree w/ goals & tx plan. and 7. Pt requires further education on strategies & risks. Status Active ST Patient: Active Contact Information [facility] Speech Therapy:: Yulissa Burleson M.A. [facility]-GENERAL PRODUCTION MANAGER? Speech-Language Pathologist?? [facility] [address] [place] [address]? [email or web address]?? [phone]
--- NOTE | 2024-08-10 14:46 | CASEMGMT ---
Social Work SW met with pt, pt's Kiana and pt dgt in law. SW introduced self and role of SW and discussed pt's functional ability with PT/OT today. SW discussed recommendations for continued therapy and explained all levels of care including Inpatient Rehab, SNF and home health. Pt is currently min-mod assist x2. Pt does not feel she can care for pt at home at this time and is in favor of Inpatient Rehab. Pt is grudgingly agreeable. A list of [place] providers including quality and resource use data and consistent with the patient?s preferred geographic region, medical needs, and insurance network were provided from the [employer] Guide. Preferred provider is [facility] Inpatient Rehab. Referral sent to Neisha in [place]. SW will await determination of acceptance. Plan: Inpatient Rehab, pending acceptance and precert DALLIN Robertson
[2024-08-10 17:08] LABS: Bedside Glucose 148 mg/dL (74-106)
[2024-08-10 21:30] LABS: Bedside Glucose 178 mg/dL (74-106)
[2024-08-10] MEDS: CHLORHEXIDINE GLUC 2% CLOTH 1 EACH TOWELETTE TOPICAL (21:44)
[2024-08-11] VITALS (20 sets, daily range): BP systolic 99–165; BP diastolic 68–109; PULSE 81–116; RESP 16–24; TEMP 36.1–37.2; O2SAT 80–100; BMI 26.5
--- NOTE | 2024-08-11 06:08 | NURSING ---
0606- report called to WHEEL BLOCKERAMANDA Sarabia by this RN
[2024-08-11 07:14] LABS: Bedside Glucose 158 mg/dL (74-106)
--- NOTE | 2024-08-11 08:12 | PN.HOSP_ITS ---
Reason for Visit Reason for Visit: Diagnoses Cerebral infarction, unspecified (08/08/24) Dysphagia, unspecified (08/08/24) Solitary pulmonary nodule (08/08/24) Subjective Subjective Still with dysarthia. States that he'd rather be . Denies to me suicidal ideation. Objective Data Objective Data Vital Signs: Vital Signs Temp Pulse Resp BP Pulse Ox O2 Del Method 36.8 C 96 18 165/109 H 94 Room Air 08/11/24 06:49 08/11/24 06:49 08/11/24 06:49 08/11/24 06:49 08/11/24 06:49 08/11/24 06:49 Oxygen Delivery Method Room Air Weight: 81.2 kg Body Mass Index (BMI) 26.5 Intake & Output: Intake and Output for Last 24 Hours 08/09/24 08/10/24 08/11/24 23:59 23:59 23:59 Intake Total 1488.33 / 1488.33 1100 / 1100 Output Total 1300 / 1700 1250 / 1250 150 / 150 Balance 188.33 / -211.67 -150 / -150 -150 / -150 Lab / Micro Data 08/10/24 05:00 08/10/24 05:00 Labs: Laboratory Results - last 24 hr 08/10/24 08:02: POC Glucose 173 H 08/10/24 11:21: POC Glucose 154 H 08/10/24 16:51: POC Glucose 148 H 08/10/24 21:02: POC Glucose 178 H 08/11/24 06:45: POC Glucose 158 H Radiography Diagnostic Testing: Radiology Impression Brain MRI 08/10/24 02:19 IMPRESSION: No acute intracranial abnormality. Chronic and ancillary findings as above. Reading Location: [place] [id number] Physical Exam Const alert and no apparent distress HEENT head/scalp atraumatic and moist oral mucous membranes Neck no lymphadenopathy Resp normal respiratory effort, no retractions, no use of accessory muscles and clear to auscultation bilaterally Cardio regular rate, regular rhythm, S1 normal heart sound and S2 normal heart sound GI normal to inspection, nondistended, normoactive bowel sounds, soft to palpation, non-tender and non-distended Extremity normal to inspection and full ROM Neuro Sensorium / Orientation: awake and alert Assessment & Plan Assessment/Plan (1) CVA (cerebral vascular accident): PLAN: s/p TNK (received on 08/08 on 2154) CTA head and neck showed V4 segment right vertebral artery and right PICA showed absent opacification follow up MRI brain. CT head 24 hour post TNK showed no changes. [facility] tel[facility]rology following. Recommending 30-day event monitor upon discharge. Aspirin and Plavix 21 days followed by aspirin. PT OT ST MRI brain negative. (2) Dysphagia: PLAN: Secondary to stroke DW ST, he did very poorly, not safely able to take even a teaspoon. PEG tube placed 08/11. Continue ST. (3) Pulmonary nodule: PLAN: solid pulmonary nodule right lung apex at 4mm. repeat imaging in 12-months PLAN: Plan Chronic conditions: * DM2: SSI. Metformin held. * anxiety/depression: duloxetine when able to take PO/OG * GERD: PPI IV until able to take PO/OG * HTN: ARB, amlodipine held given NPO status. VTE prophylaxis: SCDs Eventually to rehab/SNF. DW patient's at bedside. Charges/Coding Visit Charges Inpatient E&M: 43435 Subs Hosp L2 NIHSS NIHSS Nursing Documentation NIHSS Nursing Documentation: NIHSS: Ischemic Stroke/TIA Start: 08/10/24 07:46 Freq: Status: Active Protocol: Activity Type Activity Date Activity User E-sign Co-sign Detail Recorded Client Recorded Date Recorded By Document 08/11/24 06:40 DC [id number] 08/11/24 06:44 DC 08/11/24 06:40 NIH Stroke Scale [NIHSS] A score of 0 is normal or asymptomatic . Total possible score is 42. Inpatient: RN or Physician to activate a stroke alert for onset of new stroke symptoms or with NIHSS increase >/= 3 points. Following change in neurological status, NIHSS will be performed per physician order or more frequently PRN. -1a. Level of Consciousness 0 - Alert; keenly responsive -1b. LOC Questions 0 - Answers BOTH questions correctly -1c. LOC Commands 0 - Performs BOTH tasks correctly -2. Best Gaze 0 - Normal -3. Visual 0 - No visual loss -4. Facial Palsy 1 - Minor paralysis ( flattened nasolabial fold , asymmetry on smiling) -5a. Left Arm 0 - No drift; arm holds 90 ( or 45) degrees for full 10 seconds -5b. Right Arm 0 - No drift; arm holds 90 ( or 45) degrees for full 10 seconds -6a. Left Leg 0 - No drift; leg holds 30- degree position for full 5 seconds -6b. Right Leg 0 - No drift; leg holds 30- degree position for full 5 seconds -7. Limb Ataxia 0 - Absent -8. Sensory 0 - Normal; no sensory loss -9. Best Language 0 - No aphasia; normal -10. Dysarthria 1 = Mild-to- moderate dysarthria; -11. Extinction and Inattention 0 - No abnormality -Total 2 Query Text:A score of 0 is normal or asymptomatic. Total possible score is 42 . ED: Notify Physician for NIHSS increase by > / = 3 points. Inpatient: RN or Physician to activate a stroke alert for NIHSS increase of > / = 3 points. Coma Scale [Assess] -Eye Opening Spontaneous -Motor Obeys Commands -Verbal Oriented [Total] -Coma Scale Total 15 Thrombolytic: Vital Signs & NIHSS Start: 08/08/24 21:48 Text: Assess and document vital signs and NIHSS Status: Complete within 15 minutes of tenecteplase bolus administration Freq: [id number],Q1HX16,Q2H Protocol: Activity Type Activity Date Activity User E-sign Co-sign Detail Recorded Client Recorded Date Recorded By Document 08/10/24 06:00 [facility] [id number] 08/10/24 06:02 [facility] 08/10/24 06:00 Vital Signs [Pulse] -Pulse Rate (60-100) 74 -Pulse Location Monitor [Respirations] -Respiratory Rate (12-18) 20 H -Respiratory rate source Monitor -Pulse Oximetry 100 -Oxygen Delivery Method Room Air [Blood Pressure] -Blood Pressure (90/60-120/80) 125/82 H -Blood Pressure Mean (mm Hg) 96 -Source Monitor -Position Semi-Fowlers -Blood Pressure Location Left Arm -Is the SBP > or = 180 No -Is the DBP > or = 105 No NIH Stroke Scale [NIHSS] A score of 0 is normal or asymptomatic . Total possible score is 42. Inpatient: RN or Physician to activate a stroke alert for onset of new stroke symptoms or with NIHSS increase >/= 3 points. Following change in neurological status, NIHSS will be performed per physician order or more frequently PRN. -1a. Level of Consciousness 0 - Alert; keenly responsive -1b. LOC Questions 0 - Answers BOTH questions correctly -1c. LOC Commands 0 - Performs BOTH tasks correctly -2. Best Gaze 0 - Normal -3. Visual 0 - No visual loss -4. Facial Palsy 1 - Minor paralysis ( flattened nasolabial fold , asymmetry on smiling) -5a. Left Arm 0 - No drift; arm holds 90 ( or 45) degrees for full 10 seconds -5b. Right Arm 0 - No drift; arm holds 90 ( or 45) degrees for full 10 seconds -6a. Left Leg 0 - No drift; leg holds 30- degree position for full 5 seconds -6b. Right Leg 0 - No drift; leg holds 30- degree position for full 5 seconds -7. Limb Ataxia 0 - Absent -8. Sensory 0 - Normal; no sensory loss -9. Best Language 0 - No aphasia; normal -10. Dysarthria 1 = Mild-to- moderate dysarthria; -11. Extinction and Inattention 0 - No abnormality -Total 2 Query Text:A score of 0 is normal or asymptomatic. Total possible score is 42 . ED: Notify Physician for NIHSS increase by > / = 3 points. Inpatient: RN or Physician to activate a stroke alert for NIHSS increase of > / = 3 points.
[2024-08-11] MEDS: Lactated Ringers 1,000 ML 15 ML IV (11:26)
--- NOTE | 2024-08-11 11:27 | PCM.PN.BLA ---
Progress Note Patient has been n.p.o. after failing swallowing study. He agreed to undergo percutaneous endoscopic gastrostomy tube placement. Physical Exam Const alert and no apparent distress HEENT head/scalp atraumatic and moist oral mucous membranes Eyes EOMs intact bilaterally and conjunctivae normal Resp normal respiratory effort and no retractions GI soft to palpation, non-tender and non-distended Extremity normal to inspection and full ROM Neuro oriented x3 and moves all extremities Neuro Narrative: weak voice. Coordination / Balance: [id number]-[id number] test normal and [id number]-pw-[id number] test normal Psych affect normal Assessment & Plan Assessment/Plan (1) Dysphagia: (2) Slurred speech: (3) CVA (cerebral vascular accident): PLAN: Patient will undergo PEG tube placement. Antibiotic was given. Patient and patient's were explained alternatives, risk, benefits including understanding bleeding, infection, sepsis, perforation, need for brain surgery . He will have an ASA of 3. Visit Charges Inpatient E&M: 75972 Subs Hosp L3
--- NOTE | 2024-08-11 11:38 | PCM.PRE.AN2 ---
ASA Classification* ASA Classification ASA Classification: 3 and E Assessment & Plan Anesthesia* Anesthesia Assessment Anesthesia Assessment: Discussed sedation and/or anesthesia options, risks, benefits, and alternatives with patient/parents/legal guardian/POA. Questions invited. The patient/parents/legal guardian/POA seems to understand and agrees to proceed with anesthesia plan. Reviewed the physical assessment, medical history, allergy history and patient home medications list prior to surgery/procedure/anesthetic and documented any changes. Performed airway and anesthesia risk assessments. Anesthesia Type Anesthesia Type: MAC History Source History Obtained from:: Patient, Chart and Parent/ Guardian Anesthesia Focused Assessment* Temperature: 98.2 F Pulse Rate: 96 Blood Pressure: 165/109 Respiratory Rate: 18 Pulse Ox: 94 Oxygen Delivery Method: Room Air Airway Assessment Mouth opens: >3 cm Mallampati Score: III Teeth Condition: Intact Neck Range of motion (ROM): Full ROM Focused Labs Anesthesia Preop lab: CBC WBC 11.5 K/mm3 (4.4-11.0) H 08/10/24 05:00 08/10/24 RBC 4.46 M/mm3 (4.6-6.2) L 08/10/24 05:00 08/10/24 Hgb 13.1 g/dL (13.0-16.5) 08/10/24 05:00 08/10/24 Hct 39.3 % (40-54) L 08/10/24 05:00 08/10/24 Plt Count 185 K/mm3 (150-450) 08/10/24 05:00 08/10/24 CHEMISTRY Potassium 3.8 mmol/L (3.3-5.1) 08/10/24 05:00 08/10/24 Sodium 136 mmol/L (133-145) 08/10/24 05:00 08/10/24 Magnesium 1.9 mg/dL (1.5-2.2) 08/08/24 21:19 08/08/24 BUN 9 mg/dL (4-19) 08/10/24 05:00 08/10/24 Creatinine 0.70 mg/dL (0.70-1.20) 08/10/24 05:00 08/10/24 Glucose 190 mg/dL (70-99) H 08/10/24 05:00 08/10/24 POC Glucose 158 mg/dL (74-106) H 08/11/24 06:45 08/11/24 TSH 1.390 uIU/mL (0.300-4.200) 08/09/24 04:32 08/09/24 COAG PT 13.3 SECONDS (11.7-14.9) 08/08/24 21:19 08/08/24 Pre-Assessment Diagnosis/Proposed Procedure Planned Operative Procedure(s): EGD with PEG Anesthesia History 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 When Was Last Pacemaker Check QUESTION #4 FULL TEXT: You/Your Family Experience fever (hyperthermia) with Anesthesia Any additional information?: No Last Oral Intake Last Oral intake: Last Oral Intake NPO since Meds taken in AM with sips of water? Meds patient instructed to take am of surgery Any additional information?: No PONV PONV - plaster foreman: PONV - plaster foreman Female HX of Motion Sickness HX of N/V After Surgery Non-Smoker Duration of Surgery greater than 60 minutes Number of Risk Factors PONV Score Any additional information?: No Height & Weight Height & Weight: Anesthesia: Height & Weight Height 5 ft 8.9 in 08/10/24 14:39 Weight: 81.2 kg 08/10/24 14:39 Body Mass Index (BMI) 26.5 08/11/24 02:17 Respiratory Assessment Respiratory Assessment - plaster foreman: Respiratory Tract Infection Hx - plaster foreman Hx Respiratory Tract Infection Any additional information?: No STOP Sleep Apnea STOP Sleep Apnea - plaster foreman: STOP Sleep Apnea - plaster foreman Hx Hypertension Yes 08/11/24 10:00 Hx Sleep Apnea No 08/09/24 02:19 CPAP BIPAP Do you snore loudly (louder No 08/09/24 02:19 than talking or can be heard Do you often feel tired/ No 08/09/24 02:19 fatigued/ sleepy during daytime? Has anyone observed you stop No 08/09/24 02:19 breathing during sleep? STOP Results Negative 08/09/24 02:19 QUESTION #5 FULL TEXT : Do you snore loudly (louder than talking or can be heard through closed doors)? 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 Specify any problems Hx of Preganancy in last 3 N/A 08/09/24 02:19 Months Nurse Filling Out Transfusion CHARRIS2 08/09/24 02:19 & Questions: Date: 08/09/24 08/09/24 02:19 Time: 03:38 08/09/24 02:19 Patient unable to answer at this time (ie. confused, unrespo Any additional information?: No /Reproduction History /Reproductive History - plaster foreman: /Reproductive Hx- plaster foreman Hx Now Gestational Age (in weeks): EDC: Hx Hx Para Hx Section SAB Any additional information?: No Active Medications Active Medications: Current Medications Generic Name Dose Route Start Last Admin Trade Name Freq PRN Reason Stop Dose Admin Albuterol Sulfate 2.5 mg 08/09/24 02:19 Albuterol 2.5 Mg/3 Ml Vial.Neb. INHALATION Q2H PRN PRN Dyspnea, wheezing Aspirin 300 mg 08/10/24 10:00 08/10/24 09:55 Aspirin 300 Mg Suppository RC 300 mg DAILY SOILA Administration Atorvastatin Calcium 40 mg 08/09/24 22:00 08/10/24 20:55 Atorvastatin Calcium 40 Mg Tablet PO Not Given QHS SOILA Duloxetine HCl 30 mg 08/09/24 10:00 08/10/24 09:55 Duloxetine Hcl 30 Mg Capsule PO Not Given DAILY SOILA Ezetimibe 10 mg 08/09/24 10:00 08/10/24 09:55 Ezetimibe 10 Mg Tablet PO Not Given DAILY SOILA Glucagon 1 mg 08/09/24 02:19 Glucagon 1 Mg/Ml Syringe IM X1 PRN HYPOGLYCEMIA Protocol Dextrose 250 mls @ 0 mls/hr 08/09/24 02:19 Dextrose 10%-Water IV .Q0M PRN HYPOGLYCEMIA Protocol As Directed Sodium Chloride 250 mls @ 15 mls/hr 08/09/24 02:19 IV .[id number] PRN Saline Flush Sodium Chloride 250 mls @ 15 mls/hr 08/09/24 02:19 IV .[id number] PRN Additional IVPB Infusion Pantoprazole Sodium 40 mg/ 100 mls @ 330 mls/hr 08/10/24 10:00 08/10/24 12:32 Sodium Chloride IV Infused Q24 SOILA Infusion Cefazolin Sodium 2 gm/ Sodium 110 mls @ 150 mls/hr 08/11/24 13:00 Chloride IV 08/11/24 13:43 X1 ONE Lactated Ringer's 1,000 mls @ 15 mls/hr 08/11/24 11:30 08/11/24 11:26 IV 15 mls/hr .Q48H SOILA Administration Insulin Human Lispro 0 unit 08/09/24 07:00 08/11/24 06:55 Insulin Lispro 100 Unit/Ml Insuln.Pen SC Not Given ACHS SOILA Protocol Montelukast Sodium 10 mg 08/09/24 10:00 08/10/24 09:55 Montelukast 10 Mg Tablet PO Not Given DAILY SOILA Ondansetron HCl 4 mg 08/09/24 02:19 Ondansetron 4 Mg/2 Ml Vial IV Q8H PRN PRN NAUSEA/VOMITING Prochlorperazine Edisylate 5 mg 08/09/24 02:19 08/09/24 04:37 Prochlorperazine 10 Mg/2 Ml Vial IV 5 mg Q4H PRN PRN Administration Breakthrough Nausea/Vomiting Sodium Chloride 10 - 40 ml 08/09/24 02:19 0.9% Saline Lock 10 Ml Syringe IV UD PRN SALINE FLUSH PFSH Medical History GERD (gastroesophageal reflux disease) CAD (coronary artery disease) Hypercholesteremia Diabetes mellitus HTN (hypertension) VA (myocardial infarction) CVA (cerebral vascular accident) Home Medications ?Medication ?Instructions ?Recorded ?Last Taken ?Type amlodipine 5 mg tablet 5 mg PO DAILY 08/08/24 Unknown History amlodipine 5 mg tablet 5 mg PO DAILY 08/08/24 Unknown History aspirin 325 mg capsule 325 mg PO DAILY 08/08/24 Unknown History diclofenac sodium 75 mg 75 mg PO BID 08/08/24 Unknown History tablet,delayed release diclofenac sodium 75 mg 75 mg PO BID 08/08/24 Unknown History tablet,delayed release duloxetine 30 mg capsule,delayed 30 mg PO DAILY 08/08/24 Unknown History release duloxetine 30 mg capsule,delayed 30 mg PO DAILY 08/08/24 Unknown History release ezetimibe 10 mg tablet 10 mg PO DAILY 08/08/24 Unknown History ezetimibe 10 mg tablet 10 mg PO DAILY 08/08/24 Unknown History metformin 500 mg tablet 500 mg PO BID 08/08/24 Unknown History metformin 500 mg tablet 500 mg PO BID 08/08/24 Unknown History metoprolol succinate 25 mg 25 mg PO DAILY 08/08/24 Unknown History tablet,extended release 24 hr metoprolol succinate 25 mg 25 mg PO DAILY 08/08/24 Unknown History tablet,extended release 24 hr montelukast 10 mg tablet 10 mg PO DAILY 08/08/24 Unknown History olmesartan 40 mg tablet 40 mg PO DAILY 08/08/24 Unknown History olmesartan 40 mg tablet 40 mg PO DAILY 08/08/24 Unknown History pantoprazole 40 mg tablet,delayed 40 mg PO DAILY 08/08/24 Unknown History release pantoprazole 40 mg tablet,delayed 40 mg PO DAILY 08/08/24 Unknown History release simvastatin 40 mg tablet 40 mg PO QHS 08/08/24 Unknown History simvastatin 40 mg tablet 40 mg PO QHS 08/08/24 Unknown History sitagliptin phosphate 100 mg 100 mg PO DAILY 08/08/24 Unknown History tablet (Januvia) Allergy/AdvReac Type Severity Reaction Status Date / Time No Known Allergies Allergy Verified 08/08/24 22:15 Family History Mother Colon cancer Father CAD (coronary artery disease) Heart disease Hypertension Myocardial infarction Family History no significant family his Surgical History S/P left rotator cuff repair History of tonsillectomy and adenoidectomy History of coronary angioplasty with insertion of stent Status post left partial knee replacement Social History household members: spouse Smoking Status: Never smoker alcohol intake: never substance use type: does not use Review of Systems (Anesthesia) ROS Narrative System reviewed and no additional complaints, except as documented.
[2024-08-11] MEDS: Cefazolin 2 GM in 0.9% Normal Saline (100mL Bag) 100 ML IV (11:55)
--- NOTE | 2024-08-11 12:22 | PCM.POST.ANE ---
Anesthesia: Postop Eval I Current Vital Signs Temperature: 99 F Pulse Rate: 81 Blood Pressure: 130/72 Respiratory Rate: 18 Pulse Ox: 100 Assessment Airway patent: Yes Spontaneous unlabored respirations: Yes nausea: No Vomiting: No Anesthesia Complication: No Fluid Hydration Crystalloid volume administer (ml): 300 Total IV fluid infused: 300 Progress Note Anesthesia document: Postop Eval 1 completed: Yes
--- NOTE | 2024-08-11 12:24 | OP.CCLET_ITS ---
08/11/2024 Sonny Santos [address] [facility] [place] [place] [address] Re : Upper GI endoscopy procedure for Alida Gates Dear Dr. Santos This procedure was performed on August. My impressions and recommendations are as follows: Impressions : - Normal esophagus. - No gross lesions in the stomach. - No gross lesions in the entire examined duodenum. - An externally removable PEG placement was successfully completed. - No specimens collected. Recommendations : - Discharge patient to home. - Resume previous diet. - Continue present medications. My findings are described in the full procedure note, which is enclosed. If I can be of further assistance, please feel free to contact me at . Sincerely, Roberto Carlos Friend, 08/11/2024 12:24:17 PM This report has been signed electronically.
--- NOTE | 2024-08-11 12:24 | OP.EGD_ITS ---
Patient Name: Alida Gates Procedure Date: 08/11/2024 11:36 AM Date of : 1940 Age: 84 Procedure: Upper GI endoscopy Indications: Dysphagia Providers: Roberto Carlos Napoles DO Medicines: Monitored Anesthesia Care Patient Profile: This is an 84 year old male. Refer to note in patient chart for documentation of history and physical. Patient has symptoms of acute dysphagia. Complications: No immediate complications. Procedure: Pre-Anesthesia Assessment: - Prior to the procedure, a History and Physical was performed, and patient medications and allergies were reviewed. The patient is competent. The risks and benefits of the procedure and the sedation options and risks were discussed with the patient. All questions were answered and informed consent was obtained. Patient identification and proposed procedure were verified by the physician in the pre-procedure area. Mental Status Examination: alert and oriented. Airway Examination: normal oropharyngeal airway and neck mobility. Respiratory Examination: clear to auscultation. CV Examination: normal. Prophylactic Antibiotics: The patient does not require prophylactic antibiotics. Prior Anticoagulants: The patient has taken no anticoagulant or antiplatelet agents except for NSAID medication. ASA Grade Assessment: II - A patient with mild systemic disease. After reviewing the risks and benefits, the patient was deemed in satisfactory condition to undergo the procedure. The anesthesia plan was to use monitored anesthesia care (MAC). Immediately prior to administration of medications, the patient was re-assessed for adequacy to receive sedatives. The heart rate, respiratory rate, oxygen saturations, blood pressure, adequacy of pulmonary ventilation, and response to care were monitored throughout the procedure. The physical status of the patient was re-assessed after the procedure. After obtaining informed consent, the endoscope was passed under direct vision. Throughout the procedure, the patient's blood pressure, pulse, and oxygen saturations were monitored continuously. The gastroscope was introduced through the mouth, and advanced to the second part of duodenum. The upper GI endoscopy was accomplished without difficulty. The patient tolerated the procedure well. Scope In: 12:02:21 PM Scope Out: 12:12:58 PM Total Procedure Duration Time 0 hours 10 minutes 37 seconds Findings: The examined esophagus was normal. No gross lesions were noted in the stomach. The patient was placed in the supine position for PEG placement. The stomach was insufflated to appose gastric and abdominal eddy. A site was located in the cardia with excellent transillumination for placement. The abdominal wall was marked and prepped in a sterile manner. The area was anesthetized with 1 mL of 0.5% lidocaine. The trocar needle was introduced through the abdominal wall and into the stomach under direct endoscopic view. A snare was introduced through the endoscope and opened in the gastric lumen. The guide wire was passed through the trocar and into the open snare. The snare was closed around the guide wire. The endoscope and snare were removed, pulling the wire out through the mouth. A skin incision was made at the site of needle insertion. The externally removable 20 Fr EndoVive Safety gastrostomy tube was lubricated. The G-tube was tied to the guide wire and pulled through the mouth and into the stomach. The trocar needle was removed, and the gastrostomy tube was pulled out from the stomach through the skin. The external bumper was attached to the gastrostomy tube, and the tube was cut to remove the guide wire. The final position of the gastrostomy tube was confirmed by relook endoscopy, and skin marking noted to be 4 cm at the external bumper. The final tension and compression of the abdominal wall by the PEG tube and external bumper were checked. The feeding tube was capped, and the tube site cleaned and dressed. No gross lesions were noted in the entire examined duodenum. Impression: - Normal esophagus. - No gross lesions in the stomach. - No gross lesions in the entire examined duodenum. - An externally removable PEG placement was successfully completed. - No specimens collected. Recommendation: - Discharge patient to home. - Resume previous diet. - Continue present medications. Procedure Code(s): --- Professional --- 70310, Esophagogastroduodenoscopy, flexible, transoral; with directed placement of percutaneous gastrostomy tube CPT copyright 2021 [employer]. All rights reserved. The codes documented in this report are preliminary and upon scenic arts supervisor review may be revised to meet current compliance requirements. Roberto Carlos Napoles DO 08/11/2024 12:24:17 PM This report has been signed electronically. Number of Addenda: 0 Note Initiated On: 08/11/2024 11:36 AM
--- NOTE | 2024-08-11 13:13 | POSTOPAN2_ITS ---
Anesthesia Postop Eval I Sum Postop Eval Completion status Anesthesia document: Postop Eval 1 completed: Yes Anesthesia Postop Eval I Summary Anesthesia Postop Eval I Summary: Anesthesia Postop Eval I: Assessment Summary Airway patent Yes 08/11/24 12:22 CHIEF CONTROLLER TOWER.CSIR Spontaneous unlabored Yes 08/11/24 12:22 CHIEF CONTROLLER TOWER.CSIR respirations Mental status nausea No 08/11/24 12:22 CHIEF CONTROLLER TOWER.CSIR Vomiting No 08/11/24 12:22 CHIEF CONTROLLER TOWER.CSIR Anesthesia Postop Eval I: Fluid Summary Crystalloid volume administer 300 08/11/24 12:22 CHIEF CONTROLLER TOWER.CSIR (ml) Colloids volume administered ( ml) Blood Product volume administered (ml) Total IV fluid infused 300 08/11/24 12:22 CHIEF CONTROLLER TOWER.CSIR Anesthesia Postop Eval I: Summary Notes Anesthesia Complication No 08/11/24 12:22 CHIEF CONTROLLER TOWER.CSIR Anesthesia Complication Comment: Post-operative progress note Anesthesia: Postop Eval II Evaluation Mental status: Awake Pain Level: 0 nausea: No Vomiting: No
--- NOTE | 2024-08-11 13:13 | PCM.POSTANE2 ---
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 Spontaneous unlabored Yes 08/11/24 12:22 ARMORED TRUCK DRIVER.CSIR respirations Mental status nausea No 08/11/24 12:22 ARMORED TRUCK DRIVER.CSIR Vomiting No 08/11/24 12:22 ARMORED TRUCK DRIVER.CSIR Anesthesia Postop Eval I: Fluid Summary Crystalloid volume administer 300 08/11/24 12:22 ARMORED TRUCK DRIVER.CSIR (ml) Colloids volume administered ( ml) Blood Product volume administered (ml) Total IV fluid infused 300 08/11/24 12:22 ARMORED TRUCK DRIVER.CSIR Anesthesia Postop Eval I: Summary Notes Anesthesia Complication No 08/11/24 12:22 ARMORED TRUCK DRIVER.CSIR Anesthesia Complication Comment: Post-operative progress note Anesthesia: Postop Eval II Evaluation Mental status: Awake Pain Level: 0 nausea: No Vomiting: No
[2024-08-11] MEDS: Pantoprazole Sodium 40 MG in 0.9% Normal Saline (100mL MB+) 100 ML 330 MG IV (13:44)
[2024-08-11 15:30] LABS: Bedside Glucose 197 mg/dL (74-106)
[2024-08-11] MEDS: Ezetimibe 10 MG Tablet PO (15:53)
[2024-08-11] MEDS: Montelukast 10 MG Tablet PO (15:53)
[2024-08-11] MEDS: DULoxetine Hcl 30 MG Capsule PO (15:54)
--- NOTE | 2024-08-11 15:55 | NURSING ---
Per Dr. Puga this RN to give PO medication through Peg tube.
--- NOTE | 2024-08-11 15:56 | CASEMGMT ---
Rehab Unit physician will review patient tomorrow since patient has had his peg tube placed. Jocelin ENGLISH
--- NOTE | 2024-08-11 16:11 | CHAPLAIN ---
Type of Pastoral Visit ___ Initial Visit ___ Follow-up Visit ___ On-call Visit _x__ General Patient Visit ___ Spiritual Assessment ___ Family Conference ___ Bereavement ___ Rapid Response ___ Code Blue ___ Other (describe below) Pastoral Care Referral From ___ Patient _x__ Family ___ Nurse ___ Physician ___ Cable Maker ___ Measurement Operator ___ Other (describe below) Sacrament/Intervention ___ Active listening ___ Anointing ___ Roman Catholic ___ Bereavement ___ Communion ___ Heena exploration ___ ___ Life review _x__ Prayer ___ Reconciliation ___ Sacrament of Sick ___ Supportive presence ___ Wedding ___ Other (describe below) Pastoral Comments made two attempts to see this patient; first the patient was out of the room; second the patient was sound asleep in a darkened room without visitors
--- NOTE | 2024-08-11 21:34 | PCM.HOSP.N ---
Hospitalist Note Patient with onset hypoxia in the afternoon from review of records initially on 2 and 4 L now with increasing oxygen requirements up to 12 L high flow noted to be mildly coarse, will obtain ABG and chest x-ray. From review of records patient with significant dysphagia and possibility of aspiration. Most recent CBC 08/10/2024 with WBC 11.5 with left shift. Will obtain repeat CBC now as well as procalcitonin.
--- NOTE | 2024-08-11 21:40 | RAD_ITS ---
PROCEDURE: CHEST 1 VIEW (PORTABLE) 08/11/2024 REASON FOR EXAM: HYPOXIA TECHNIQUE: Frontal view of the chest. COMPARISON: None FINDINGS: Right lower lobe opacity may reflect atelectasis, pneumonia, and/or aspiration. Mild cardiomegaly. Mild pulmonary vascular congestion. No pleural effusion or pneumothorax. Atherosclerotic aortic arch. No acute fractures. RAD/Chest 1 View (Portable) IMPRESSION: Right lower lobe opacity may reflect atelectasis, pneumonia, and/or aspiration. Mild pulmonary vascular congestion. Mild cardiomegaly. Reading Location: [id number]
[2024-08-11 22:05] LABS: Allen Test Positive; Base Excess -5 mmol/L (-2 to +2); Bicarbonate 20.7 mmol/L (22-26); Blood Gas Specimen Type ART; Mode Not entered; O2 Delivery Device HFNC; PO2 71 mmHG (75-100); SITE L Radial; SO2 93 % (95-99); Total Carbon Dioxide 22 mmol/L; pCO2 37.5 mmHg (35-45); pH 7.35 (7.35-7.45)
[2024-08-11 22:43] LABS: Absolute Neutrophil Count 8.1 X10^3/uL (2.0-7.7); Basophil# 0.05 X10^3/uL; Basophil% 0.5 % (0-1); Eosinophil# 0.02 X10^3/uL; Eosinophils% 0.2 % (0-5); Hematocrit 42.3 % (40-54); Hemoglobin 13.9 g/dL (13.0-16.5); Lymphocyte % 4.1 % (19-41); Mean Corp Hgb Conc 32.9 g/dL (32-36); Mean Corpuscular Hgb 29.2 pg (27.0-32.0); Mean Corpuscular Volume 88.9 fL (80-94); Mean Platelet Vol. 10.9 fl (6.2-12.0); Monocyte# 1.03 X10^3/uL; Monocyte% 10.7 % (0-10); NRBC Flagged by Analyzer 0 % (0-5); Neutrophil # 8.13 X10^3/uL (2.7-7.7); Neutrophil % 84.2 % (47-70); POSITIVE DIFFERENTIAL YES; POSITIVE MORPHOLOGY YES; Platelet Count 204 K/mm3 (150-450); RBC Distribution Width CV 13.8 % (11.6-14.6); RBC Distribution Width SD 44.9 fl (35.1-43.9); Red Blood Count 4.76 M/mm3 (4.6-6.2); White Blood Count 9.7 K/mm3 (4.4-11.0)
[2024-08-11 23:11] LABS: Procalcitonin 0.55 ng/mL (<=0.10)
[2024-08-11 23:16] LABS: Differential Indicated SCAN CRITERIA MET
[2024-08-11 23:56] LABS: Bedside Glucose 223 mg/dL (74-106)
[2024-08-12] VITALS (11 sets, daily range): BP systolic 123–171; BP diastolic 82–99; PULSE 89–105; RESP 18–20; TEMP 36.4–36.9; O2SAT 93–99; BMI 26.5; BMI 26.4
[2024-08-12] MEDS: Atorvastatin Calcium 40 MG Tablet NG ×2 (00:01→21:33)
[2024-08-12] MEDS: Metoprolol Tartrate 25 MG Tablet GT ×2 (00:01→09:37)
[2024-08-12] MEDS: Furosemide 40 MG/4 ML Vial IV (00:03)
[2024-08-12] MEDS: Piperacil/Tazobactam 3.375 GM in 0.9% Normal Saline (50mL MB+) 50 ML IV ×4 (00:09→21:33)
[2024-08-12 00:42] LABS: Differential Comment SCANNED
[2024-08-12 06:00] LABS: Absolute Lymphocyte Count 0.62 X10^3/uL (0.83-4.51); Absolute Neutrophil Count 8.1 X10^3/uL (2.0-7.7); Basophil# 0.05 X10^3/uL; Basophil% 0.5 % (0-1); Hematocrit 41.7 % (40-54); Hemoglobin 13.9 g/dL (13.0-16.5); Lymphocyte # 0.62 X10^3/ul (0.83-4.51); Lymphocyte % 6.4 % (19-41); Mean Corp Hgb Conc 33.3 g/dL (32-36); Mean Corpuscular Hgb 29.3 pg (27.0-32.0); Mean Corpuscular Volume 87.8 fL (80-94); Mean Platelet Vol. 10.9 fl (6.2-12.0); Monocyte# 0.89 X10^3/uL; Monocyte% 9.2 % (0-10); NRBC Flagged by Analyzer 0 % (0-5); Neutrophil % 83.6 % (47-70); POSITIVE MORPHOLOGY YES; Platelet Count 193 K/mm3 (150-450); RBC Distribution Width CV 13.7 % (11.6-14.6); RBC Distribution Width SD 44.2 fl (35.1-43.9); Red Blood Count 4.75 M/mm3 (4.6-6.2); White Blood Count 9.7 K/mm3 (4.4-11.0)
[2024-08-12 06:07] LABS: Differential Indicated SCAN CRITERIA MET
[2024-08-12 06:42] LABS: Differential Comment SCANNED
[2024-08-12 06:49] LABS: Bedside Glucose 232 mg/dL (74-106)
[2024-08-12 06:52] LABS: ALB/GLOB Ratio 1.2 RATIO (0.9-2.4); AST(SGOT) 11 U/L (<=37); Alanine Aminotransfer ALT/SGPT 11 U/L (<=46); Albumin, Serum 3.7 g/dL (3.4-4.8); Alkaline Phosphatase 75 U/L (40-129); Anion Gap 16 (5-15); BUN 26 mg/dL (4-19); BUN/Creat Ratio 24.2 RATIO (10-20); Calcium,Total 9.7 mg/dL (7.6-11.0); Chloride 101 mmol/L (98-108); Creatinine, Serum 1.06 mg/dL (0.70-1.20); EST Glomerular Filtration Rate 69 (>60); Estimated Creatinine Clearance 50.19 ml/min (50-250); Glucose 242 mg/dL (70-99); Potassium 3.7 mmol/L (3.3-5.1); Protein, Total 6.7 g/dL (5.9-8.4); Sodium Level 137 mmol/L (133-145)
--- NOTE | 2024-08-12 09:20 | CASEMGMT ---
Tertiary Insurance review for hospitals In-network with [facility] insurance if transfer is recommended is as follows: [facility], [facility], [facility], [facility], [facility], [facility], , [facility]. Kae Arias, Discharge Planning Asst.
[2024-08-12] MEDS: Aspirin 81 MG TAB.CHEW NG (09:37)
[2024-08-12] MEDS: DULoxetine Hcl 30 MG Capsule PO (09:37)
[2024-08-12] MEDS: Clopidogrel Bisulfate 75 MG Tablet NG (09:38)
[2024-08-12] MEDS: Ezetimibe 10 MG Tablet GT (09:38)
[2024-08-12] MEDS: Montelukast 10 MG Tablet GT (09:38)
[2024-08-12] MEDS: Pantoprazole Sodium 40 MG in 0.9% Normal Saline (100mL MB+) 100 ML 330 MG IV (10:01)
[2024-08-12 12:17] LABS: Bedside Glucose 217 mg/dL (74-106)
--- NOTE | 2024-08-12 13:55 | PCM.PN.HOSP ---
Reason for Visit Reason for Visit: Diagnoses Cerebral infarction, unspecified (08/08/24) Dysphagia, unspecified (08/08/24) Slurred speech (08/08/24) Solitary pulmonary nodule (08/08/24) Subjective Subjective Increased oxygen requirements, necessitating Airvo. Objective Data Objective Data Vital Signs: Vital Signs Temp Pulse Resp BP Pulse Ox O2 Del Method O2 Flow Rate 36.6 C 93 18 134/92 H 97 Airvo 50 08/12/24 09:32 08/12/24 09:37 08/12/24 09:32 08/12/24 09:37 08/12/24 09:32 08/12/24 09:32 08/12/24 09:32 FiO2 63 08/12/24 09:32 Oxygen Flow Rate (L/min) 50 Oxygen Delivery Method Airvo Weight: 81 kg Body Mass Index (BMI) 26.4 Intake & Output: Intake and Output for Last 24 Hours 08/10/24 08/11/24 08/12/24 23:59 23:59 23:59 Intake Total 1100 / 1100 1210 / 1210 440 / 440 Output Total 1250 / 1250 450 / 450 1500 / 1500 Balance -150 / -150 760 / 760 -1060 / -1060 Lab / Micro Data 08/12/24 05:50 08/12/24 05:50 Labs: Laboratory Results - last 24 hr 08/11/24 15:11: POC Glucose 197 H 08/11/24 21:02: POC Glucose 223 H 08/11/24 22:14: WBC 9.7, RBC 4.76, Hgb 13.9, Hct 42.3, MCV 88.9, MCH 29.2, MCHC 32.9, RDW Std Deviation 44.9 H, RDW Coeff of Josh 13.8, Plt Count 204, MPV 10.9, Immature Gran % (Auto) 0.300, Neut % (Auto) 84.2 H, Lymph % (Auto) 4.1 L, [place] % (Auto) 10.7 H, Eos % (Auto) 0.2, Baso % (Auto) 0.5, Absolute Neuts (auto) 8.1 H, Absolute Lymphs (auto) 0.40 L, Nucleated RBC % 0, Differential Comment SCANNED, Procalcitonin 0.55 H 08/12/24 05:50: WBC 9.7, RBC 4.75, Hgb 13.9, Hct 41.7, MCV 87.8, MCH 29.3, MCHC 33.3, RDW Std Deviation 44.2 H, RDW Coeff of Josh 13.7, Plt Count 193, MPV 10.9, Immature Gran % (Auto) 0.300, Neut % (Auto) 83.6 H, Lymph % (Auto) 6.4 L, [place] % (Auto) 9.2, Eos % (Auto) 0.0, Baso % (Auto) 0.5, Absolute Neuts (auto) 8.1 H, Absolute Lymphs (auto) 0.62 L, Nucleated RBC % 0, Differential Comment SCANNED, Sodium 137, Potassium 3.7, Chloride 101, Carbon Dioxide 21.0, Anion Gap 16 H, BUN 26 H, Creatinine 1.06, Estim Creat Clear Calc 50.19, Est GFR (MDRD) Non-Af 69, BUN/Creatinine Ratio 24.2 H, Glucose 242 H, Calcium 9.7, Total Bilirubin 1.10, AST 11, ALT 11, Alkaline Phosphatase 75, Total Protein 6.7, Albumin 3.7, Globulin 3.0, Albumin/Globulin Ratio 1.2 08/12/24 06:21: POC Glucose 232 H 08/12/24 11:49: POC Glucose 217 H ABG Data ABG results: ABG 08/11/24 21:59 Specimen Type ART Sample Site L Radial pH 7.35 Bicarbonate Actual 20.7 L Total CO2 22 Base Excess -5 L O2 Saturation 93 L O2 % 12.0 ABG pCO2 37.5 ABG pO2 71 L Abimael Test Positive O2 Delivery Device HFNC Vent Mode Not entered Radiography Diagnostic Testing: Radiology Impression Chest X-Ray 08/11/24 21:40 IMPRESSION: Right lower lobe opacity may reflect atelectasis, pneumonia, and/or aspiration. Mild pulmonary vascular congestion. Mild cardiomegaly. Reading Location: [facility] Physical Exam Const alert and no apparent distress Constitutional Narrative: weak voice. able to clear his throat. HEENT head/scalp atraumatic and moist oral mucous membranes Resp normal respiratory effort, no retractions, no use of accessory muscles and clear to auscultation bilaterally Cardio regular rate, regular rhythm, S1 normal heart sound and S2 normal heart sound GI normal to inspection, nondistended, normoactive bowel sounds, soft to palpation, non-tender and non-distended Extremity normal to inspection Neuro Sensorium / Orientation: awake and alert Assessment & Plan Assessment/Plan (1) CVA (cerebral vascular accident): PLAN: s/p TNK (received on 08/08 on 2154) CTA head and neck showed V4 segment right vertebral artery and right PICA showed absent opacification CT head 24 hour post TNK showed no changes. MRI brain WNL. DW Dr. Kelley, that didn't quite look like a CVA, but concerning for cancer, particularly lymphoma and recommends transfer. I discussed with the [facility] transfer line and provided information, had MRI push the images over to [facility] for the specialists to review. (2) Dysphagia: PLAN: Secondary to stroke DW ST, he did very poorly, not safely able to take even a teaspoon. PEG tube placed 08/11. Continue ST. (3) Pulmonary nodule: PLAN: solid pulmonary nodule right lung apex at 4mm. repeat imaging in 12-months (4) LV (left ventricular) mural thrombus: PLAN: DW Dr. Kelley, ok for heparin gtt. (5) Acute hypoxic respiratory failure: PLAN: high concern for aspiration event. on pip/tazo on Airvo, wean as tolerated. PLAN: Plan Chronic conditions: DM2: SSI. Metformin held. anxiety/depression: duloxetine when able to take PO/OG GERD: PPI IV until able to take PO/OG HTN: ARB, amlodipine held given NPO status. VTE prophylaxis: SCDs Greater than 60 minutes involved, including discussing with the patient, his son and , discussing with the transfer line at [facility]. Charges/Coding Visit Charges Inpatient E&M: 45246 Subs Hosp L3 NIHSS NIHSS Nursing Documentation NIHSS Nursing Documentation: NIHSS: Ischemic Stroke/TIA Start: 08/10/24 07:46 Freq: Status: Active Protocol: Activity Type Activity Date Activity User E-sign Co-sign Detail Recorded Client Recorded Date Recorded By Document 08/11/24 06:40 DC [id number] 08/11/24 06:44 DC 08/11/24 06:40 NIH Stroke Scale [NIHSS] A score of 0 is normal or asymptomatic . Total possible score is 42. Inpatient: RN or Physician to activate a stroke alert for onset of new stroke symptoms or with NIHSS increase >/= 3 points. Following change in neurological status, NIHSS will be performed per physician order or more frequently PRN. -1a. Level of Consciousness 0 - Alert; keenly responsive -1b. LOC Questions 0 - Answers BOTH questions correctly -1c. LOC Commands 0 - Performs BOTH tasks correctly -2. Best Gaze 0 - Normal -3. Visual 0 - No visual loss -4. Facial Palsy 1 - Minor paralysis ( flattened nasolabial fold , asymmetry on smiling) -5a. Left Arm 0 - No drift; arm holds 90 ( or 45) degrees for full 10 seconds -5b. Right Arm 0 - No drift; arm holds 90 ( or 45) degrees for full 10 seconds -6a. Left Leg 0 - No drift; leg holds 30- degree position for full 5 seconds -6b. Right Leg 0 - No drift; leg holds 30- degree position for full 5 seconds -7. Limb Ataxia 0 - Absent -8. Sensory 0 - Normal; no sensory loss -9. Best Language 0 - No aphasia; normal -10. Dysarthria 1 = Mild-to- moderate dysarthria; -11. Extinction and Inattention 0 - No abnormality -Total 2 Query Text:A score of 0 is normal or asymptomatic. Total possible score is 42 . ED: Notify Physician for NIHSS increase by > / = 3 points. Inpatient: RN or Physician to activate a stroke alert for NIHSS increase of > / = 3 points. Coma Scale [Assess] -Eye Opening Spontaneous -Motor Obeys Commands -Verbal Oriented [Total] -Coma Scale Total 15 Thrombolytic: Vital Signs & NIHSS Start: 08/08/24 21:48 Text: Assess and document vital signs and NIHSS Status: Complete within 15 minutes of tenecteplase bolus administration Freq: [id number],Q2H Protocol: Activity Type Activity Date Activity User E-sign Co-sign Detail Recorded Client Recorded Date Recorded By Document 08/10/24 06:00 [facility] [id number] 08/10/24 06:02 [facility] 08/10/24 06:00 Vital Signs [Pulse] -Pulse Rate (60-100) 74 -Pulse Location Monitor [Respirations] -Respiratory Rate (12-18) 20 H -Respiratory rate source Monitor -Pulse Oximetry 100 -Oxygen Delivery Method Room Air [Blood Pressure] -Blood Pressure (90/60-120/80) 125/82 H -Blood Pressure Mean (mm Hg) 96 -Source Monitor -Position Semi-Fowlers -Blood Pressure Location Left Arm -Is the SBP > or = 180 No -Is the DBP > or = 105 No NIH Stroke Scale [NIHSS] A score of 0 is normal or asymptomatic . Total possible score is 42. Inpatient: RN or Physician to activate a stroke alert for onset of new stroke symptoms or with NIHSS increase >/= 3 points. Following change in neurological status, NIHSS will be performed per physician order or more frequently PRN. -1a. Level of Consciousness 0 - Alert; keenly responsive -1b. LOC Questions 0 - Answers BOTH questions correctly -1c. LOC Commands 0 - Performs BOTH tasks correctly -2. Best Gaze 0 - Normal -3. Visual 0 - No visual loss -4. Facial Palsy 1 - Minor paralysis ( flattened nasolabial fold , asymmetry on smiling) -5a. Left Arm 0 - No drift; arm holds 90 ( or 45) degrees for full 10 seconds -5b. Right Arm 0 - No drift; arm holds 90 ( or 45) degrees for full 10 seconds -6a. Left Leg 0 - No drift; leg holds 30- degree position for full 5 seconds -6b. Right Leg 0 - No drift; leg holds 30- degree position for full 5 seconds -7. Limb Ataxia 0 - Absent -8. Sensory 0 - Normal; no sensory loss -9. Best Language 0 - No aphasia; normal -10. Dysarthria 1 = Mild-to- moderate dysarthria; -11. Extinction and Inattention 0 - No abnormality -Total 2 Query Text:A score of 0 is normal or asymptomatic. Total possible score is 42 . ED: Notify Physician for NIHSS increase by > / = 3 points. Inpatient: RN or Physician to activate a stroke alert for NIHSS increase of > / = 3 points.
[2024-08-12] MEDS: Jevity 1.5 1,000 ML 10 ML GT (14:28)
[2024-08-12] MEDS: 0.9% Saline Lock 10 ML Syringe IV ×5 (15:08→21:33)
[2024-08-12 15:24] LABS: Partial Thromboplast Time 29.1 Seconds (24.1-36.2)
[2024-08-12] MEDS: HEPARIN/D5w 25,000 UNITS 25,000 UNITS/250 ML IV.SOLN. 12 UNITS CONT INF (15:50)
[2024-08-12] MEDS: Heparin Injection (Vial) 5,000 UNIT/ML VIAL 6000 UNIT IV (15:51)
[2024-08-12] MEDS: Insulin Lispro 100 UNIT/ML INSULN.PEN SC ×2 (16:39→21:33)
[2024-08-12 16:59] LABS: Bedside Glucose 240 mg/dL (74-106)
--- NOTE | 2024-08-12 18:03 | PN_ITS ---
Progress Note Patient has been having increasing oxygen requirements. He denies any chest pain. Physical Exam Const alert and no apparent distress HEENT head/scalp atraumatic and moist oral mucous membranes Eyes EOMs intact bilaterally and conjunctivae normal Resp normal respiratory effort and no retractions GI soft to palpation, non-tender and non-distended Extremity normal to inspection and full ROM Neuro oriented x3 and moves all extremities Neuro Narrative: weak voice. Coordination / Balance: [id number] test normal and [id number] test normal Psych affect normal Assessment & Plan Assessment/Plan (1) Dysphagia: (2) Slurred speech: (3) CVA (cerebral vascular accident): PLAN: Patient will undergo PEG tube placement. Antibiotic was given. Patient and patient's were explained alternatives, risk, benefits including understanding bleeding, infection, sepsis, perforation, need for brain surgery . He will have an ASA of 3. 08/12/2024 -patient underwent PEG tube placement yesterday. It was uneventful. His chest x-ray shows possible right lower lobe pneumonia. He is currently being taken care of by hospitalist service. He is not having any residuals from his PEG tube placement. Continue bowel regimen. findings: The examined esophagus was normal. No gross lesions were noted in the stomach. The patient was placed in the supine position for PEG placement. The stomach was insufflated to appose gastric and abdominal eddy. A site was located in the cardia with excellent transillumination for placement. The abdominal wall was marked and prepped in a sterile manner. The area was anesthetized with 1 mL of 0.5% lidocaine. The trocar needle was introduced through the abdominal wall and into the stomach under direct endoscopic view. A snare was introduced through the endoscope and opened in the gastric lumen. The guide wire was passed through the trocar and into the open snare. The snare was closed around the guide wire. The endoscope and snare were removed, pulling the wire out through the mouth. A skin incision was made at the site of needle insertion. The externally removable 20 Fr EndoVive Safety gastrostomy tube was lubricated. The G-tube was tied to the guide wire and pulled through the mouth and into the stomach. The trocar needle was removed, and the gastrostomy tube was pulled out from the stomach through the skin. The external bumper was attached to the gastrostomy tube, and the tube was cut to remove the guide wire. The final position of the gastrostomy tube was confirmed by relook endoscopy, and skin marking noted to be 4 cm at the external bumper. The final tension and compression of the abdominal wall by the PEG tube and external bumper were checked. The feeding tube was capped, and the tube site cleaned and dressed. No gross lesions were noted in the entire examined duodenum. Impression: - Normal esophagus. - No gross lesions in the stomach. - No gross lesions in the entire examined duodenum. - An externally removable PEG placement was successfully completed. - No specimens collected. Visit Charges Inpatient E&M: 19580 [facility] Hosp L3
[2024-08-12 23:17] LABS: Bedside Glucose 208 mg/dL (74-106)
[2024-08-13] VITALS (12 sets, daily range): BP systolic 128–136; BP diastolic 79–89; PULSE 72–99; RESP 17–20; TEMP 36.4–36.7; O2SAT 91–98; BMI 26.4
[2024-08-13 04:47] LABS: Partial Thromboplast Time 61.1 Seconds (24.1-36.2)
[2024-08-13] MEDS: Piperacil/Tazobactam 3.375 GM in 0.9% Normal Saline (50mL MB+) 50 ML IV ×3 (06:16→21:06)
[2024-08-13] MEDS: Insulin Lispro 100 UNIT/ML INSULN.PEN SC ×4 (06:24→21:07)
[2024-08-13 06:58] LABS: Bedside Glucose 222 mg/dL (74-106)
--- NOTE | 2024-08-13 07:10 | NEURO.PNOTE ---
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 He is s/p TNK based on his clinical symptoms but there is some concern on imaging this is not just a stroke. Will extend his workup further as below as there may be a neuroinflammatory or neoplastic etiology Plan: - pending transfer to [facility] for additional neuro-inflammatory/neuro-oncologic evaluation - repeat MRI Brain w/wo contrast with thin cuts through brainstem - recommend CT of chest, abdomen, pelvis for malignancy screen - would benefit from LP - consider Thursday pending possible transfer to [facility] I personally attended this patient and spent a total time of 45minutes evaluating this patient including clinical assessment, review of chart, medical history imaging, and determining appropriate treatment and workup. Subject: Neurology Subjective Patient is stable, denies prior headaches, has had 10 lb weight loss recently. No night sweats. Woke up suddenly with symptoms as previously described. of note, patient does endorse a viral URI prodrome 2 months ago but with no clear subsequent change in function or disability. He is still a kaminski. EEG Results Procedure Details EEG Procedure Details: HENRIK MARQUEZ is a 84 year old M with a past medical history of , who presents for evaluation of Electroencephalogram on DATE at TIME Objective Data Objective Data Vital Signs: Vital Signs Temp Pulse Resp BP Pulse Ox O2 Del Method O2 Flow Rate 97.9 F 99 19 H 135/84 H 96 Airvo 50 08/13/24 06:20 08/13/24 06:20 08/13/24 06:20 08/13/24 06:20 08/13/24 06:20 08/13/24 06:20 08/13/24 06:20 FiO2 50 08/13/24 06:20 Oxygen Flow Rate (L/min) 50 Oxygen Delivery Method Airvo Weight: 80.8 kg Body Mass Index (BMI) 26.4 Intake & Output: Intake and Output for Last 24 Hours 08/11/24 08/12/24 08/13/24 23:59 23:59 23:59 Intake Total 1210 / 1210 956.4 / 956.4 391.43 / 391.43 Output Total 450 / 450 1999 / 1999 300 / 300 Balance 760 / 760 -1043.6 / -1043.6 91.43 / 91.43 Lab / Micro Data 08/12/24 05:50 08/12/24 05:50 Labs: Laboratory Results - last 24 hr 08/12/24 11:49: POC Glucose 217 H 08/12/24 15:06: APTT 29.1 08/12/24 16:38: POC Glucose 240 H 08/12/24 21:31: POC Glucose 208 H 08/12/24 22:09: APTT 69.0 H 08/13/24 04:30: APTT 61.1 H 08/13/24 06:21: POC Glucose 222 H Physical Exam Narrative -? General: Laying comfortably in bed; in no acute distress. -? HENT: Normal oropharynx and mucosa. Normal external appearance of ears and nose. Exophthalmos. -? Neck: Supple, no pain or tenderness -? CV:? No peripheral edema. -? Pulmonary:? Normal respiratory effort. -? Ext: No cyanosis, edema, or deformity -? Skin: No rash. Normal palpation of skin.? -? Musculoskeletal: full range of motion; no joint tenderness. Normal digits and nails by inspection. No clubbing. -? NEURO: -? Mental Status: The patient was alert and oriented to time, place, and person. Normal recent/remote memory, concentration, and general fund of knowledge. -? Language: speech is dysarthric.? Naming, repetition, fluency, and comprehension intact. -? Cranial Nerves: PERRL 2 mm/brisk. EOMI, visual noguera full, no facial asymmetry, facial sensation intact, hearing intact, tongue midline -? Motor: normal bulk, tone, and strength throughout. No pronator drift or satelliting. Upper and lower extremities equal bilaterally. -? Sensation- Intact to light touch bilaterally -? Coordination: dysmetria noted on the RUE and RLE - mild -? Gait- patient able to stand, with trucal titubation and unable to fully ambulate NIHSS NIHSS Nursing Documentation NIHSS Nursing Documentation: NIHSS: Ischemic Stroke/TIA Start: 08/10/24 07:46 Freq: Status: Complete Protocol: Activity Type Activity Date Activity User E-sign Co-sign Detail Recorded Client Recorded Date Recorded By Document 08/11/24 06:40 DC [id number] 08/11/24 06:44 DC 08/11/24 06:40 NIH Stroke Scale [NIHSS] A score of 0 is normal or asymptomatic . Total possible score is 42. Inpatient: RN or Physician to activate a stroke alert for onset of new stroke symptoms or with NIHSS increase >/= 3 points. Following change in neurological status, NIHSS will be performed per physician order or more frequently PRN. -1a. Level of Consciousness 0 - Alert; keenly responsive -1b. LOC Questions 0 - Answers BOTH questions correctly -1c. LOC Commands 0 - Performs BOTH tasks correctly -2. Best Gaze 0 - Normal -3. Visual 0 - No visual loss -4. Facial Palsy 1 - Minor paralysis ( flattened nasolabial fold , asymmetry on smiling) -5a. Left Arm 0 - No drift; arm holds 90 ( or 45) degrees for full 10 seconds -5b. Right Arm 0 - No drift; arm holds 90 ( or 45) degrees for full 10 seconds -6a. Left Leg 0 - No drift; leg holds 30- degree position for full 5 seconds -6b. Right Leg 0 - No drift; leg holds 30- degree position for full 5 seconds -7. Limb Ataxia 0 - Absent -8. Sensory 0 - Normal; no sensory loss -9. Best Language 0 - No aphasia; normal -10. Dysarthria 1 = Mild-to- moderate dysarthria; -11. Extinction and Inattention 0 - No abnormality -Total 2 Query Text:A score of 0 is normal or asymptomatic. Total possible score is 42 . ED: Notify Physician for NIHSS increase by > / = 3 points. Inpatient: RN or Physician to activate a stroke alert for NIHSS increase of > / = 3 points. Coma Scale [Assess] -Eye Opening Spontaneous -Motor Obeys Commands -Verbal Oriented [Total] -Coma Scale Total 15 Thrombolytic: Vital Signs & NIHSS Start: 08/08/24 21:48 Text: Assess and document vital signs and NIHSS Status: Complete within 15 minutes of tenecteplase bolus administration Freq: [id number],Q1HX16,Q2H Protocol: Activity Type Activity Date Activity User E-sign Co-sign Detail Recorded Client Recorded Date Recorded By Document 08/10/24 06:00 [facility] [id number] 08/10/24 06:02 [facility] 08/10/24 06:00 Vital Signs [Pulse] -Pulse Rate (60-100) 74 -Pulse Location Monitor [Respirations] -Respiratory Rate (12-18) 20 H -Respiratory rate source Monitor -Pulse Oximetry 100 -Oxygen Delivery Method Room Air [Blood Pressure] -Blood Pressure (90/60-120/80) 125/82 H -Blood Pressure Mean (mm Hg) 96 -Source Monitor -Position Semi-Fowlers -Blood Pressure Location Left Arm -Is the SBP > or = 180 No -Is the DBP > or = 105 No NIH Stroke Scale [NIHSS] A score of 0 is normal or asymptomatic . Total possible score is 42. Inpatient: RN or Physician to activate a stroke alert for onset of new stroke symptoms or with NIHSS increase >/= 3 points. Following change in neurological status, NIHSS will be performed per physician order or more frequently PRN. -1a. Level of Consciousness 0 - Alert; keenly responsive -1b. LOC Questions 0 - Answers BOTH questions correctly -1c. LOC Commands 0 - Performs BOTH tasks correctly -2. Best Gaze 0 - Normal -3. Visual 0 - No visual loss -4. Facial Palsy 1 - Minor paralysis ( flattened nasolabial fold , asymmetry on smiling) -5a. Left Arm 0 - No drift; arm holds 90 ( or 45) degrees for full 10 seconds -5b. Right Arm 0 - No drift; arm holds 90 ( or 45) degrees for full 10 seconds -6a. Left Leg 0 - No drift; leg holds 30- degree position for full 5 seconds -6b. Right Leg 0 - No drift; leg holds 30- degree position for full 5 seconds -7. Limb Ataxia 0 - Absent -8. Sensory 0 - Normal; no sensory loss -9. Best Language 0 - No aphasia; normal -10. Dysarthria 1 = Mild-to- moderate dysarthria; -11. Extinction and Inattention 0 - No abnormality -Total 2 Query Text:A score of 0 is normal or asymptomatic. Total possible score is 42 . ED: Notify Physician for NIHSS increase by > / = 3 points. Inpatient: RN or Physician to activate a stroke alert for NIHSS increase of > / = 3 points.
--- NOTE | 2024-08-13 09:14 | PN.HOSP_ITS ---
Reason for Visit Reason for Visit: Diagnoses Intracardiac thrombosis, not elsewhere classified (08/08/24) Cerebral infarction, unspecified (08/08/24) Acute respiratory failure with hypoxia (08/08/24) Dysphagia, unspecified (08/08/24) Slurred speech (08/08/24) Solitary pulmonary nodule (08/08/24) Subjective Subjective Still on Airvo. Objective Data Objective Data Vital Signs: Vital Signs Temp Pulse Resp BP Pulse Ox O2 Del Method O2 Flow Rate 36.6 C 99 19 H 135/84 H 96 Airvo 50 08/13/24 06:20 08/13/24 06:20 08/13/24 06:20 08/13/24 06:20 08/13/24 06:20 08/13/24 06:20 08/13/24 06:20 FiO2 50 08/13/24 06:20 Oxygen Flow Rate (L/min) 50 Oxygen Delivery Method Airvo Weight: 80.8 kg Body Mass Index (BMI) 26.4 Intake & Output: Intake and Output for Last 24 Hours 08/11/24 08/12/24 08/13/24 23:59 23:59 23:59 Intake Total 1210 / 1210 956.4 / 956.4 391.43 / 391.43 Output Total 450 / 450 2000 / 1999 300 / 300 Balance 760 / 760 -1043.6 / -1043.6 91.43 / 91.43 Lab / Micro Data 08/12/24 05:50 08/12/24 05:50 Labs: Laboratory Results - last 24 hr 08/12/24 11:49: POC Glucose 217 H 08/12/24 15:06: APTT 29.1 08/12/24 16:38: POC Glucose 240 H 08/12/24 21:31: POC Glucose 208 H 08/12/24 22:09: APTT 69.0 H 08/13/24 04:30: APTT 61.1 H 08/13/24 06:21: POC Glucose 222 H Physical Exam Const alert and no apparent distress Constitutional Narrative: up in chair. on Airvo HEENT head/scalp atraumatic and moist oral mucous membranes Resp normal respiratory effort, no retractions, no use of accessory muscles and clear to auscultation bilaterally Cardio regular rate, regular rhythm, S1 normal heart sound and S2 normal heart sound GI normal to inspection, nondistended, normoactive bowel sounds, soft to palpation, non-tender and non-distended Extremity normal to inspection and full ROM Assessment & Plan Assessment/Plan (1) CVA (cerebral vascular accident): PLAN: s/p TNK (received on 08/08 on 2154) CTA head and neck showed V4 segment right vertebral artery and right PICA showed absent opacification CT head 24 hour post TNK showed no changes. MRI brain WNL. JAM Kelley, that didn't quite look like a CVA, but concerning for cancer, particularly lymphoma and recommends transfer. I discussed with the [facility] transfer line and provided information, had MRI push the images over to [facility] for the specialists to review. DW several [facility] specialists, first was neurology resident, then neurology attending. Given the respiratory changes, he requested ICU. I spoke with the swing frame grinder operator, Dr. Soto, who accepted, but said it would be quite a while before a bed opened up and suggested I reach out to other institutions. I called , had images pushed to , later discussed with the neurosurgeon who agreed there was something in the area of concern brought up by Dr. Kelley, but did not feel it lubna to the level of transfer, but did suggest an MRI brain w contrast to further characterize the lesion. MRI brain with contrast ordered, but unable to be done until his respiratory status improves. (2) Dysphagia: PLAN: Secondary to stroke DW ST, he did very poorly, not safely able to take even a teaspoon. PEG tube placed /. Continue ST. On Tube feeds. (3) Pulmonary nodule: PLAN: solid pulmonary nodule right lung apex at 4mm. repeat imaging in 12-months (4) LV (left ventricular) mural thrombus: PLAN: JAM Kelley, ok for heparin gtt. (5) Acute hypoxic respiratory failure: PLAN: high concern for aspiration event. on pip/tazo on Airvo, wean as tolerated. PLAN: Plan Chronic conditions: * DM2: SSI. Metformin held. * anxiety/depression: duloxetine when able to take PO/OG * GERD: PPI IV until able to take PO/OG * HTN: ARB, amlodipine held given NPO status. VTE prophylaxis: SCDs DW patient's at bedside. Charges/Coding Visit Charges Inpatient E&M: 99045 Subs Hosp L2 NIHSS NIHSS Nursing Documentation NIHSS Nursing Documentation: NIHSS: Ischemic Stroke/TIA Start: 08/10/24 07:46 Freq: Status: Complete Protocol: Activity Type Activity Date Activity User E-sign Co-sign Detail Recorded Client Recorded Date Recorded By Document 08/11/24 06:40 DC [id number] 08/11/24 06:44 DC 08/11/24 06:40 NIH Stroke Scale [NIHSS] A score of 0 is normal or asymptomatic . Total possible score is 42. Inpatient: RN or Physician to activate a stroke alert for onset of new stroke symptoms or with NIHSS increase >/= 3 points. Following change in neurological status, NIHSS will be performed per physician order or more frequently PRN. -1a. Level of Consciousness 0 - Alert; keenly responsive -1b. LOC Questions 0 - Answers BOTH questions correctly -1c. LOC Commands 0 - Performs BOTH tasks correctly -2. Best Gaze 0 - Normal -3. Visual 0 - No visual loss -4. Facial Palsy 1 - Minor paralysis ( flattened nasolabial fold , asymmetry on smiling) -5a. Left Arm 0 - No drift; arm holds 90 ( or 45) degrees for full 10 seconds -5b. Right Arm 0 - No drift; arm holds 90 ( or 45) degrees for full 10 seconds -6a. Left Leg 0 - No drift; leg holds 30- degree position for full 5 seconds -6b. Right Leg 0 - No drift; leg holds 30- degree position for full 5 seconds -7. Limb Ataxia 0 - Absent -8. Sensory 0 - Normal; no sensory loss -9. Best Language 0 - No aphasia; normal -10. Dysarthria 1 = Mild-to- moderate dysarthria; -11. Extinction and Inattention 0 - No abnormality -Total 2 Query Text:A score of 0 is normal or asymptomatic. Total possible score is 42 . ED: Notify Physician for NIHSS increase by > / = 3 points. Inpatient: RN or Physician to activate a stroke alert for NIHSS increase of > / = 3 points. Coma Scale [Assess] -Eye Opening Spontaneous -Motor Obeys Commands -Verbal Oriented [Total] -Coma Scale Total 15 Thrombolytic: Vital Signs & NIHSS Start: 08/08/24 21:48 Text: Assess and document vital signs and NIHSS Status: Complete within 15 minutes of tenecteplase bolus administration Freq: [id number],Q2H Protocol: Activity Type Activity Date Activity User E-sign Co-sign Detail Recorded Client Recorded Date Recorded By Document 08/10/24 06:00 [facility] [id number] 08/10/24 06:02 [facility] 08/10/24 06:00 Vital Signs [Pulse] -Pulse Rate (60-100) 74 -Pulse Location Monitor [Respirations] -Respiratory Rate (12-18) 20 H -Respiratory rate source Monitor -Pulse Oximetry 100 -Oxygen Delivery Method Room Air [Blood Pressure] -Blood Pressure (90/60-120/80) 125/82 H -Blood Pressure Mean (mm Hg) 96 -Source Monitor -Position Semi-Fowlers -Blood Pressure Location Left Arm -Is the SBP > or = 180 No -Is the DBP > or = 105 No NIH Stroke Scale [NIHSS] A score of 0 is normal or asymptomatic . Total possible score is 42. Inpatient: RN or Physician to activate a stroke alert for onset of new stroke symptoms or with NIHSS increase >/= 3 points. Following change in neurological status, NIHSS will be performed per physician order or more frequently PRN. -1a. Level of Consciousness 0 - Alert; keenly responsive -1b. LOC Questions 0 - Answers BOTH questions correctly -1c. LOC Commands 0 - Performs BOTH tasks correctly -2. Best Gaze 0 - Normal -3. Visual 0 - No visual loss -4. Facial Palsy 1 - Minor paralysis ( flattened nasolabial fold , asymmetry on smiling) -5a. Left Arm 0 - No drift; arm holds 90 ( or 45) degrees for full 10 seconds -5b. Right Arm 0 - No drift; arm holds 90 ( or 45) degrees for full 10 seconds -6a. Left Leg 0 - No drift; leg holds 30- degree position for full 5 seconds -6b. Right Leg 0 - No drift; leg holds 30- degree position for full 5 seconds -7. Limb Ataxia 0 - Absent -8. Sensory 0 - Normal; no sensory loss -9. Best Language 0 - No aphasia; normal -10. Dysarthria 1 = Mild-to- moderate dysarthria; -11. Extinction and Inattention 0 - No abnormality -Total 2 Query Text:A score of 0 is normal or asymptomatic. Total possible score is 42 . ED: Notify Physician for NIHSS increase by > / = 3 points. Inpatient: RN or Physician to activate a stroke alert for NIHSS increase of > / = 3 points.
[2024-08-13 10:51] LABS: Partial Thromboplast Time 47.7 Seconds (24.1-36.2)
[2024-08-13] MEDS: Metoprolol Tartrate 25 MG Tablet GT (12:08)
[2024-08-13] MEDS: DULoxetine Hcl 30 MG Capsule PO (12:09)
[2024-08-13] MEDS: HEPARIN/D5w 25,000 UNITS 25,000 UNITS/250 ML IV.SOLN. 13 UNITS CONT INF (12:09)
[2024-08-13] MEDS: Aspirin 81 MG TAB.CHEW NG (12:09)
[2024-08-13] MEDS: Montelukast 10 MG Tablet GT (12:09)
[2024-08-13] MEDS: Ezetimibe 10 MG Tablet GT (12:17)
[2024-08-13] MEDS: Heparin Injection (Vial) 5,000 UNIT/ML VIAL IV (12:19)
[2024-08-13] MEDS: Pantoprazole Sodium 40 MG in 0.9% Normal Saline (100mL MB+) 100 ML 330 MG IV (12:20)
[2024-08-13 20:04] LABS: Partial Thromboplast Time 62.1 Seconds (24.1-36.2)
--- NOTE | 2024-08-13 20:41 | NURSING ---
Spoke with luis antonio RNLuzma. States she increase tube feed to 30 mL/hr around 1745. This RN documented it to ensure it reflected on the MAR.
[2024-08-13] MEDS: Atorvastatin Calcium 40 MG Tablet NG (21:07)
[2024-08-13 21:23] LABS: Bedside Glucose 204 mg/dL (74-106)
[2024-08-13 21:23] LABS: Bedside Glucose 215 mg/dL (74-106)
[2024-08-13 23:56] LABS: Bedside Glucose 216 mg/dL (74-106)
[2024-08-14] VITALS (12 sets, daily range): BP systolic 104–137; BP diastolic 76–91; PULSE 72–88; RESP 17–19; TEMP 36.5–36.8; O2SAT 96–100; BMI 26.4
[2024-08-14] MEDS: Jevity 1.5 1,000 ML 40 ML GT (00:09)
[2024-08-14 02:04] LABS: Partial Thromboplast Time 55.3 Seconds (24.1-36.2)
[2024-08-14] MEDS: Piperacil/Tazobactam 3.375 GM in 0.9% Normal Saline (50mL MB+) 50 ML IV ×3 (05:51→22:15)
[2024-08-14] MEDS: 0.9% Saline Lock 10 ML Syringe IV (05:52)
[2024-08-14] MEDS: HEPARIN/D5w 25,000 UNITS 25,000 UNITS/250 ML IV.SOLN. 13 UNITS CONT INF (06:08)
[2024-08-14] MEDS: Insulin Lispro 100 UNIT/ML INSULN.PEN SC ×4 (06:14→22:15)
[2024-08-14 06:55] LABS: Bedside Glucose 261 mg/dL (74-106)
--- NOTE | 2024-08-14 08:46 | PCM.PN.HOSP ---
Reason for Visit Reason for Visit: Diagnoses Intracardiac thrombosis, not elsewhere classified (08/08/24) Cerebral infarction, unspecified (08/08/24) Acute respiratory failure with hypoxia (08/08/24) Dysphagia, unspecified (08/08/24) Slurred speech (08/08/24) Solitary pulmonary nodule (08/08/24) Subjective Subjective Weaned down to 5 liters NC. Objective Data Objective Data Vital Signs: Vital Signs Temp Pulse Resp BP Pulse Ox O2 Del Method O2 Flow Rate 36.7 C 87 17 137/91 H 97 High Flow 5 08/14/24 06:15 08/14/24 06:15 08/14/24 06:15 08/14/24 06:15 08/14/24 06:15 08/14/24 06:15 08/14/24 06:15 FiO2 41 08/14/24 03:57 Oxygen Flow Rate (L/min) 5 Oxygen Delivery Method High Flow Weight: 80.8 kg Body Mass Index (BMI) 26.4 Intake & Output: Intake and Output for Last 24 Hours 08/12/24 08/13/24 08/14/24 23:59 23:59 23:59 Intake Total 956.4 / 956.4 1280.45 / 1280.45 700.85 / 700.85 Output Total 1999 685 / 685 350 / 350 Balance -1043.6 / -1043.6 595.45 / 595.45 350.85 / 350.85 Lab / Micro Data 08/12/24 05:50 08/12/24 05:50 Labs: Laboratory Results - last 24 hr 08/13/24 10:27: APTT 47.7 H 08/13/24 11:46: POC Glucose 215 H 08/13/24 16:57: POC Glucose 204 H 08/13/24 19:45: APTT 62.1 H 08/13/24 21:05: POC Glucose 216 H 08/14/24 01:46: APTT 55.3 H 08/14/24 06:13: POC Glucose 261 H Physical Exam Const alert and no apparent distress HEENT head/scalp atraumatic and moist oral mucous membranes Resp normal respiratory effort, no retractions, no use of accessory muscles and clear to auscultation bilaterally Cardio regular rate, regular rhythm, S1 normal heart sound and S2 normal heart sound GI normal to inspection, nondistended, normoactive bowel sounds, soft to palpation and non-tender Extremity normal to inspection Neuro Neuro Narrative: speech can be difficult to understand at times due to slurring of words. Sensorium / Orientation: awake, alert, oriented to person, oriented to place and oriented to time Assessment & Plan Assessment/Plan (1) CVA (cerebral vascular accident): PLAN: s/p TNK (received on 08/08 on 2154) CTA head and neck showed V4 segment right vertebral artery and right PICA showed absent opacification CT head 24 hour post TNK showed no changes. MRI brain WNL. DW Dr. Kelley, that didn't quite look like a CVA, but concerning for cancer, particularly lymphoma and recommends transfer. I discussed with the [facility] transfer line and provided information, had MRI push the images over to [facility] for the specialists to review. DW several [facility] specialists, first was neurology resident, then neurology attending. Given the respiratory changes, he requested ICU. I spoke with the feed in worker, Dr. Soto, who accepted, but said it would be quite a while before a bed opened up and suggested I reach out to other institutions. I called , had images pushed to , later discussed with the neurosurgeon who agreed there was something in the area of concern brought up by Dr. Kelley, but did not feel it lubna to the level of transfer, but did suggest an MRI brain w contrast to further characterize the lesion. MRI brain with contrast ordered, to be done 08/15. Neurology also recommending LP. Will need to discuss with radiology how soon that could be done given the TKA he received on 08/08. (2) Dysphagia: PLAN: Secondary to stroke DW ST, he did very poorly, not safely able to take even a teaspoon. PEG tube placed 08/11. Continue ST. On Tube feeds. (3) Pulmonary nodule: PLAN: solid pulmonary nodule right lung apex at 4mm. repeat imaging in 12-months (4) LV (left ventricular) mural thrombus: PLAN: DW Dr. Kelley, ok for heparin gtt. (5) Acute hypoxic respiratory failure: PLAN: high concern for aspiration event. on pip/tazo weaned down to 5 liters. PLAN: Plan Chronic conditions: DM2: SSI. Metformin held. anxiety/depression: duloxetine when able to take PO/OG GERD: PPI IV until able to take PO/OG HTN: ARB, amlodipine held given NPO status. VTE prophylaxis: SCDs Disposition: accepted at [facility] ICU. No beds currently available. If beds not reasonably available, may need to reach out to [facility] to see if this could be done as outpt. Charges/Coding Visit Charges Inpatient E&M: 59183 Subs Hosp L2 NIHSS NIHSS Nursing Documentation NIHSS Nursing Documentation: NIHSS: Ischemic Stroke/TIA Start: 08/10/24 07:46 Freq: Status: Complete Protocol: Activity Type Activity Date Activity User E-sign Co-sign Detail Recorded Client Recorded Date Recorded By Document 08/11/24 06:40 DC [id number] 08/11/24 06:44 DC 08/11/24 06:40 NIH Stroke Scale [NIHSS] A score of 0 is normal or asymptomatic . Total possible score is 42. Inpatient: RN or Physician to activate a stroke alert for onset of new stroke symptoms or with NIHSS increase >/= 3 points. Following change in neurological status, NIHSS will be performed per physician order or more frequently PRN. -1a. Level of Consciousness 0 - Alert; keenly responsive -1b. LOC Questions 0 - Answers BOTH questions correctly -1c. LOC Commands 0 - Performs BOTH tasks correctly -2. Best Gaze 0 - Normal -3. Visual 0 - No visual loss -4. Facial Palsy 1 - Minor paralysis ( flattened nasolabial fold , asymmetry on smiling) -5a. Left Arm 0 - No drift; arm holds 90 ( or 45) degrees for full 10 seconds -5b. Right Arm 0 - No drift; arm holds 90 ( or 45) degrees for full 10 seconds -6a. Left Leg 0 - No drift; leg holds 30- degree position for full 5 seconds -6b. Right Leg 0 - No drift; leg holds 30- degree position for full 5 seconds -7. Limb Ataxia 0 - Absent -8. Sensory 0 - Normal; no sensory loss -9. Best Language 0 - No aphasia; normal -10. Dysarthria 1 = Mild-to- moderate dysarthria; -11. Extinction and Inattention 0 - No abnormality -Total 2 Query Text:A score of 0 is normal or asymptomatic. Total possible score is 42 . ED: Notify Physician for NIHSS increase by > / = 3 points. Inpatient: RN or Physician to activate a stroke alert for NIHSS increase of > / = 3 points. Coma Scale [Assess] -Eye Opening Spontaneous -Motor Obeys Commands -Verbal Oriented [Total] -Coma Scale Total 15 Thrombolytic: Vital Signs & NIHSS Start: 08/08/24 21:48 Text: Assess and document vital signs and NIHSS Status: Complete within 15 minutes of tenecteplase bolus administration Freq: [id number],[id number],Q2H Protocol: Activity Type Activity Date Activity User E-sign Co-sign Detail Recorded Client Recorded Date Recorded By Document 08/10/24 06:00 [facility] [id number] 08/10/24 06:02 [facility] 08/10/24 06:00 Vital Signs [Pulse] -Pulse Rate (60-100) 74 -Pulse Location Monitor [Respirations] -Respiratory Rate (12-18) 20 H -Respiratory rate source Monitor -Pulse Oximetry 100 -Oxygen Delivery Method Room Air [Blood Pressure] -Blood Pressure (90/60-120/80) 125/82 H -Blood Pressure Mean (mm Hg) 96 -Source Monitor -Position Semi-Fowlers -Blood Pressure Location Left Arm -Is the SBP > or = 180 No -Is the DBP > or = 105 No NIH Stroke Scale [NIHSS] A score of 0 is normal or asymptomatic . Total possible score is 42. Inpatient: RN or Physician to activate a stroke alert for onset of new stroke symptoms or with NIHSS increase >/= 3 points. Following change in neurological status, NIHSS will be performed per physician order or more frequently PRN. -1a. Level of Consciousness 0 - Alert; keenly responsive -1b. LOC Questions 0 - Answers BOTH questions correctly -1c. LOC Commands 0 - Performs BOTH tasks correctly -2. Best Gaze 0 - Normal -3. Visual 0 - No visual loss -4. Facial Palsy 1 - Minor paralysis ( flattened nasolabial fold , asymmetry on smiling) -5a. Left Arm 0 - No drift; arm holds 90 ( or 45) degrees for full 10 seconds -5b. Right Arm 0 - No drift; arm holds 90 ( or 45) degrees for full 10 seconds -6a. Left Leg 0 - No drift; leg holds 30- degree position for full 5 seconds -6b. Right Leg 0 - No drift; leg holds 30- degree position for full 5 seconds -7. Limb Ataxia 0 - Absent -8. Sensory 0 - Normal; no sensory loss -9. Best Language 0 - No aphasia; normal -10. Dysarthria 1 = Mild-to- moderate dysarthria; -11. Extinction and Inattention 0 - No abnormality -Total 2 Query Text:A score of 0 is normal or asymptomatic. Total possible score is 42 . ED: Notify Physician for NIHSS increase by > / = 3 points. Inpatient: RN or Physician to activate a stroke alert for NIHSS increase of > / = 3 points.
[2024-08-14] MEDS: Montelukast 10 MG Tablet GT (10:46)
[2024-08-14] MEDS: Ezetimibe 10 MG Tablet GT (10:46)
[2024-08-14] MEDS: Acetaminophen 650 MG/20 ML UDC GT (10:46)
[2024-08-14] MEDS: Aspirin 81 MG TAB.CHEW NG (10:46)
[2024-08-14] MEDS: Metoprolol Tartrate 25 MG Tablet GT (10:46)
[2024-08-14] MEDS: Pantoprazole Sodium 40 MG in 0.9% Normal Saline (100mL MB+) 100 ML 330 MG IV (10:47)
[2024-08-14] MEDS: 0.9% Normal Saline (250mL Bag) 250 ML 15 ML IV (11:10)
[2024-08-14 13:14] LABS: Bedside Glucose 327 mg/dL (74-106)
[2024-08-14 18:29] LABS: Bedside Glucose 257 mg/dL (74-106)
[2024-08-14] MEDS: Atorvastatin Calcium 40 MG Tablet NG (22:17)
[2024-08-15 01:04] LABS: Bedside Glucose 239 mg/dL (74-106)
[2024-08-15] MEDS: Jevity 1.5 1,000 ML 55 ML GT (01:11)
[2024-08-15] MEDS: HEPARIN/D5w 25,000 UNITS 25,000 UNITS/250 ML IV.SOLN. 13 UNITS CONT INF (01:11)
[2024-08-15 06:00] VITALS: BMI 26.4
[2024-08-15] MEDS: Piperacil/Tazobactam 3.375 GM in 0.9% Normal Saline (50mL MB+) 50 ML IV ×3 (06:37→21:00)
[2024-08-15] MEDS: Insulin Lispro 100 UNIT/ML INSULN.PEN SC ×4 (06:44→21:01)
[2024-08-15 07:13] LABS: Bedside Glucose 337 mg/dL (74-106)
--- NOTE | 2024-08-15 08:00 | MRI_ITS ---
PROCEDURE: BRAIN W/WO CONTRAST 08/15/2024 REASON FOR EXAM: FLAIR CHANGES ON RIGHT SNEHA-MEDULLA. TECHNIQUE: Routine brain MRI without and with intravenous contrast. Multiplanar and multisequence images were obtained. COMPARISON: Multiple comparison CT and MRI exams in the past week FINDINGS: Brain: No intra-axial or extra-axial hemorrhage. No mass, mass effect or midline shift.. Right parietal, right basal ganglia and left frontal small chronic lacunar infarctions. [id number] comparison of the current study axial T2 FLAIR images from [id number] shows resolution of abnormal signal in the medulla. Diffusion: No restricted diffusion Ventricles: Prominent ventricles and sulci indicating age related involution Major Intracranial Vessels: Normal flow voids are seen in the anterior circulation and vertebrobasilar system Sinuses: Mild ethmoid sinus mucosal thickening. Sinuses are otherwise predominantly clear. Right mastoid effusion. No obvious nasopharyngeal mass. Consider direct visualization of the nasopharynx Mastoids: Right mastoid effusion. No obvious nasopharyngeal mass. Consider direct visualization of the nasopharynx. MRI/Brain W/WO Contrast IMPRESSION: No abnormal FLAIR signal seen in the medulla on today's exam. Age-related involution and chronic small-vessel ischemic disease. No restricted diffusion. Mild global parenchymal atrophy. Right parietal, right basal nucleus, and left frontal small chronic lacunar infarctions. Call made to patients nurse to discuss current neurological findings. Reading [facility]
[2024-08-15 10:11] VITALS: O2SAT 97
[2024-08-15 12:35] VITALS: BP 140/94; PULSE 92; RESP 18; TEMP 36.4; O2SAT 94
[2024-08-15] MEDS: Aspirin 81 MG TAB.CHEW NG (12:39)
[2024-08-15 12:40] VITALS: BP 140/94; PULSE 92
[2024-08-15] MEDS: Metoprolol Tartrate 25 MG Tablet GT (12:40)
[2024-08-15] MEDS: Ezetimibe 10 MG Tablet GT (12:40)
[2024-08-15] MEDS: Montelukast 10 MG Tablet GT (12:40)
[2024-08-15] MEDS: 0.9% Saline Lock 10 ML Syringe IV ×2 (13:00→21:02)
[2024-08-15] MEDS: Heparin Injection (Vial) 5,000 UNIT/ML VIAL IV (13:01)
[2024-08-15] MEDS: Acetaminophen 650 MG/20 ML UDC GT (13:02)
[2024-08-15 13:13] LABS: Bedside Glucose 240 mg/dL (74-106)
[2024-08-15] MEDS: Pantoprazole Sodium 40 MG in 0.9% Normal Saline (100mL MB+) 100 ML 330 MG IV (13:48)
[2024-08-15 15:14] VITALS: BMI 26.4
--- NOTE | 2024-08-15 16:09 | PCM.PN.HOSP ---
Reason for Visit Reason for Visit: Diagnoses Intracardiac thrombosis, not elsewhere classified (08/08/24) Cerebral infarction, unspecified (08/08/24) Acute respiratory failure with hypoxia (08/08/24) Dysphagia, unspecified (08/08/24) Slurred speech (08/08/24) Solitary pulmonary nodule (08/08/24) Subjective Subjective No new issues. Objective Data Objective Data Vital Signs: Vital Signs Temp Pulse Resp BP Pulse Ox O2 Del Method O2 Flow Rate 36.4 C L 92 18 140/94 H 94 Nasal Cannula 2 08/15/24 12:35 08/15/24 12:40 08/15/24 12:35 08/15/24 12:40 08/15/24 12:35 08/15/24 12:35 08/15/24 12:35 FiO2 41 08/14/24 03:57 Oxygen Flow Rate (L/min) 2 Oxygen Delivery Method Nasal Cannula Weight: 80.8 kg Body Mass Index (BMI) 26.4 Intake & Output: Intake and Output for Last 24 Hours 08/13/24 08/14/24 08/15/24 23:59 23:59 23:59 Intake Total 1280.45 / 1280.45 2156.28 / 2156.28 1347.73 / 1347.73 Output Total 685 / 685 350 / 650 300 / 300 Balance 595.45 / 595.45 1806.28 / 1506.28 1047.73 / 1047.73 Lab / Micro Data 08/12/24 05:50 08/12/24 05:50 Labs: Laboratory Results - last 24 hr 08/14/24 18:02: POC Glucose 257 H 08/14/24 22:14: POC Glucose 239 H 08/15/24 06:41: POC Glucose 337 H 08/15/24 12:03: APTT 30.0 08/15/24 12:50: POC Glucose 240 H Radiography Diagnostic Testing: Radiology Impression Brain MRI 08/15/24 08:00 IMPRESSION: No abnormal FLAIR signal seen in the medulla on today's exam. Age-related involution and chronic small-vessel ischemic disease. No restricted diffusion. Mild global parenchymal atrophy. Right parietal, right basal nucleus, and left frontal small chronic lacunar infarctions. Call made to patients nurse to discuss current neurological findings. Reading Location: [facility] Physical Exam Const alert and no apparent distress Constitutional Narrative: still with dysarthria. Resp normal respiratory effort, no retractions, no use of accessory muscles and clear to auscultation bilaterally Cardio regular rate, regular rhythm, S1 normal heart sound and S2 normal heart sound GI normal to inspection, nondistended, normoactive bowel sounds, soft to palpation, non-tender and non-distended Neuro Sensorium / Orientation: awake and alert Assessment & Plan Assessment/Plan (1) CVA (cerebral vascular accident): PLAN: s/p TNK (received on 08/08 on 2154) CTA head and neck showed V4 segment right vertebral artery and right PICA showed absent opacification CT head 24 hour post TNK showed no changes. MRI brain WNL. DW Dr. Kelley, that didn't quite look like a CVA, but concerning for cancer, particularly lymphoma and recommends transfer. I discussed with the [facility] transfer line and provided information, had MRI push the images over to [facility] for the specialists to review. DW several [facility] specialists, first was neurology resident, then neurology attending. Given the respiratory changes, he requested ICU. I spoke with the microsoft access developer, Dr. Soto, who accepted, but said it would be quite a while before a bed opened up and suggested I reach out to other institutions. I called , had images pushed to , later discussed with the neurosurgeon who agreed there was something in the area of concern brought up by Dr. Kelley, but did not feel it lubna to the level of transfer, but did suggest an MRI brain w contrast to further characterize the lesion. MRI brain with contrast ordered that showed no abnormal flair signal seen in the medula. Mild global parechymal atrophy. Right parietal, basal nucleus, left frontal small chronic lacunar infarcts. I spoke with [facility] transfer line and informed them that respiratory status is much improved. Later I spoke with Dr. Yepez of neurology at [facility] who reviewed the 1st MRI (w/o contrast) and saw a subacute brainstem CVA. No malignancy and transfer to [facility] has been cancelled. (2) Dysphagia: PLAN: Secondary to stroke DW ST, he did very poorly, not safely able to take even a teaspoon. PEG tube placed 08/11. Continue ST. On Tube feeds. (3) Pulmonary nodule: PLAN: solid pulmonary nodule right lung apex at 4mm. repeat imaging in 12-months (4) LV (left ventricular) mural thrombus: PLAN: DW osiris Davis for heparin gtt. (5) Acute hypoxic respiratory failure: PLAN: high concern for aspiration event. on pip/tazo weaned down to 5 liters. PLAN: Plan Chronic conditions: DM2: SSI. Metformin held. anxiety/depression: duloxetine when able to take PO/OG GERD: PPI IV until able to take PO/OG HTN: ARB, amlodipine held given NPO status. 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 Greater than 50 minutes discussing with the patient and his spouse, social work, speaking to [facility]. Charges/Coding Visit Charges Inpatient E&M: 25215 Subs Hosp L3 NIHSS NIHSS Nursing Documentation NIHSS Nursing Documentation: NIHSS: Ischemic Stroke/TIA Start: 08/10/24 07:46 Freq: Status: Complete Protocol: Activity Type Activity Date Activity User E-sign Co-sign Detail Recorded Client Recorded Date Recorded By Document 08/11/24 06:40 DC [id number] 08/11/24 06:44 DC 08/11/24 06:40 NIH Stroke Scale [NIHSS] A score of 0 is normal or asymptomatic . Total possible score is 42. Inpatient: RN or Physician to activate a stroke alert for onset of new stroke symptoms or with NIHSS increase >/= 3 points. Following change in neurological status, NIHSS will be performed per physician order or more frequently PRN. -1a. Level of Consciousness 0 - Alert; keenly responsive -1b. LOC Questions 0 - Answers BOTH questions correctly -1c. LOC Commands 0 - Performs BOTH tasks correctly -2. Best Gaze 0 - Normal -3. Visual 0 - No visual loss -4. Facial Palsy 1 - Minor paralysis ( flattened nasolabial fold , asymmetry on smiling) -5a. Left Arm 0 - No drift; arm holds 90 ( or 45) degrees for full 10 seconds -5b. Right Arm 0 - No drift; arm holds 90 ( or 45) degrees for full 10 seconds -6a. Left Leg 0 - No drift; leg holds 30- degree position for full 5 seconds -6b. Right Leg 0 - No drift; leg holds 30- degree position for full 5 seconds -7. Limb Ataxia 0 - Absent -8. Sensory 0 - Normal; no sensory loss -9. Best Language 0 - No aphasia; normal -10. Dysarthria 1 = Mild-to- moderate dysarthria; -11. Extinction and Inattention 0 - No abnormality -Total 2 Query Text:A score of 0 is normal or asymptomatic. Total possible score is 42 . ED: Notify Physician for NIHSS increase by > / = 3 points. Inpatient: RN or Physician to activate a stroke alert for NIHSS increase of > / = 3 points. Coma Scale [Assess] -Eye Opening Spontaneous -Motor Obeys Commands -Verbal Oriented [Total] -Coma Scale Total 15 Thrombolytic: Vital Signs & NIHSS Start: 08/08/24 21:48 Text: Assess and document vital signs and NIHSS Status: Complete within 15 minutes of tenecteplase bolus administration Freq: [id number],[id number],Q2H Protocol: Activity Type Activity Date Activity User E-sign Co-sign Detail Recorded Client Recorded Date Recorded By Document 08/10/24 06:00 [facility] [id number] 08/10/24 06:02 [facility] 08/10/24 06:00 Vital Signs [Pulse] -Pulse Rate (60-100) 74 -Pulse Location Monitor [Respirations] -Respiratory Rate (12-18) 20 H -Respiratory rate source Monitor -Pulse Oximetry 100 -Oxygen Delivery Method Room Air [Blood Pressure] -Blood Pressure (90/60-120/80) 125/82 H -Blood Pressure Mean (mm Hg) 96 -Source Monitor -Position Semi-Fowlers -Blood Pressure Location Left Arm -Is the SBP > or = 180 No -Is the DBP > or = 105 No NIH Stroke Scale [NIHSS] A score of 0 is normal or asymptomatic . Total possible score is 42. Inpatient: RN or Physician to activate a stroke alert for onset of new stroke symptoms or with NIHSS increase >/= 3 points. Following change in neurological status, NIHSS will be performed per physician order or more frequently PRN. -1a. Level of Consciousness 0 - Alert; keenly responsive -1b. LOC Questions 0 - Answers BOTH questions correctly -1c. LOC Commands 0 - Performs BOTH tasks correctly -2. Best Gaze 0 - Normal -3. Visual 0 - No visual loss -4. Facial Palsy 1 - Minor paralysis ( flattened nasolabial fold , asymmetry on smiling) -5a. Left Arm 0 - No drift; arm holds 90 ( or 45) degrees for full 10 seconds -5b. Right Arm 0 - No drift; arm holds 90 ( or 45) degrees for full 10 seconds -6a. Left Leg 0 - No drift; leg holds 30- degree position for full 5 seconds -6b. Right Leg 0 - No drift; leg holds 30- degree position for full 5 seconds -7. Limb Ataxia 0 - Absent -8. Sensory 0 - Normal; no sensory loss -9. Best Language 0 - No aphasia; normal -10. Dysarthria 1 = Mild-to- moderate dysarthria; -11. Extinction and Inattention 0 - No abnormality -Total 2 Query Text:A score of 0 is normal or asymptomatic. Total possible score is 42 . ED: Notify Physician for NIHSS increase by > / = 3 points. Inpatient: RN or Physician to activate a stroke alert for NIHSS increase of > / = 3 points.
--- NOTE | 2024-08-15 16:20 | CHAPLAIN ---
Type of Pastoral Visit ___ Initial Visit _x__ Follow-up Visit ___ On-call Visit ___ General Patient Visit ___ Spiritual Assessment ___ Family Conference ___ Bereavement ___ Rapid Response ___ Code Blue ___ Other (describe below) Pastoral Care Referral From ___ Patient _x__ Family ___ Nurse ___ Physician ___ Plant Hr Manager ___ Learning And Development Intern ___ Other (describe below) Sacrament/Intervention _x__ Active listening ___ Anointing ___ Congregational ___ Bereavement ___ Communion ___ Heena exploration ___ _x__ Life review _x__ Prayer ___ Reconciliation ___ Sacrament of Sick _x__ Supportive presence ___ Wedding ___ Other (describe below) Pastoral Comments patient is able to talk today with this clinical massage therapist; pt awoke from napping some after this clinical massage therapist arrived in room; initially the conversation was with the spouse in the room; spouse gives more of the details but the patient interacts too; both agree that this has been a long journey already and that they are still waiting on more answers from the tests; pt has several health issues that need to be sorted out; pt is not used to being so inactive and this is difficult to handle; pt has many drawings from grandchildren and neighborhood children which does cheer him up greatly; pt welcomes a prayer for extra spiritual support; offer of ongoing support to spouse as well
[2024-08-15 18:03] VITALS: BP 120/88; PULSE 80; RESP 16; TEMP 36.5; O2SAT 95
[2024-08-15 19:13] LABS: Bedside Glucose 327 mg/dL (74-106)
[2024-08-15 19:27] LABS: Partial Thromboplast Time 74.1 Seconds (24.1-36.2)
[2024-08-15 21:00] VITALS: BP 141/71; PULSE 87; RESP 20; TEMP 36.9; O2SAT 99
[2024-08-15] MEDS: Atorvastatin Calcium 40 MG Tablet NG (21:00)
[2024-08-15] MEDS: APIXABAN 5 MG TABLET GT (21:01)
[2024-08-15 23:09] LABS: Bedside Glucose 235 mg/dL (74-106)
[2024-08-16] VITALS (7 sets, daily range): BP systolic 134–152; BP diastolic 79–100; PULSE 86–91; RESP 16–18; TEMP 35.9–36.9; O2SAT 95–100; BMI 26.4
[2024-08-16] MEDS: Jevity 1.5 1,000 ML 55 ML GT ×2 (00:26→17:14)
[2024-08-16 06:28] LABS: Partial Thromboplast Time 33.6 Seconds (24.1-36.2)
[2024-08-16] MEDS: Piperacil/Tazobactam 3.375 GM in 0.9% Normal Saline (50mL MB+) 50 ML IV ×3 (06:40→21:07)
[2024-08-16] MEDS: Insulin Lispro 100 UNIT/ML INSULN.PEN SC ×4 (06:43→21:08)
[2024-08-16 07:06] LABS: Bedside Glucose 367 mg/dL (74-106)
--- NOTE | 2024-08-16 08:43 | PCM.PN.HOSP ---
Reason for Visit Reason for Visit: Diagnoses Intracardiac thrombosis, not elsewhere classified (08/08/24) Cerebral infarction, unspecified (08/08/24) Acute respiratory failure with hypoxia (08/08/24) Dysphagia, unspecified (08/08/24) Slurred speech (08/08/24) Solitary pulmonary nodule (08/08/24) Subjective Subjective Feeling well. Objective Data Objective Data Vital Signs: Vital Signs Temp Pulse Resp BP Pulse Ox O2 Del Method O2 Flow Rate 36.8 C 88 16 134/79 H 95 High Flow 2 08/16/24 03:00 08/16/24 03:00 08/16/24 03:00 08/16/24 03:00 08/16/24 07:58 08/16/24 07:58 08/16/24 07:58 FiO2 41 08/14/24 03:57 Oxygen Flow Rate (L/min) 2 Oxygen Delivery Method High Flow Weight: 81.1 kg Body Mass Index (BMI) 26.4 Intake & Output: Intake and Output for Last 24 Hours 08/14/24 08/15/24 08/16/24 23:59 23:59 23:59 Intake Total 2156.28 / 2156.28 2736.81 / 3186.81 830 / 830 Output Total 350 / 650 300 / 800 700 / 700 Balance 1806.28 / 1506.28 2436.81 / 2386.81 130 / 130 Lab / Micro Data 08/12/24 05:50 08/12/24 05:50 Labs: Laboratory Results - last 24 hr 08/15/24 12:03: APTT 30.0 08/15/24 12:50: POC Glucose 240 H 08/15/24 17:58: POC Glucose 327 H 08/15/24 19:04: APTT 74.1 H 08/15/24 20:49: POC Glucose 235 H 08/16/24 05:37: APTT 33.6 08/16/24 06:39: POC Glucose 367 H Radiography Diagnostic Testing: Radiology Impression Brain MRI 08/15/24 08:00 IMPRESSION: No abnormal FLAIR signal seen in the medulla on today's exam. Age-related involution and chronic small-vessel ischemic disease. No restricted diffusion. Mild global parenchymal atrophy. Right parietal, right basal nucleus, and left frontal small chronic lacunar infarctions. Call made to patients nurse to discuss current neurological findings. Reading Location: [facility] Physical Exam Const alert and no apparent distress HEENT head/scalp atraumatic and moist oral mucous membranes Assessment & Plan Assessment/Plan (1) CVA (cerebral vascular accident): PLAN: s/p TNK (received on 08/08 on 2154) CTA head and neck showed V4 segment right vertebral artery and right PICA showed absent opacification CT head 24 hour post TNK showed no changes. MRI brain WNL. DW Dr. Kelley, that didn't quite look like a CVA, but concerning for cancer, particularly lymphoma and recommends transfer. I discussed with the [facility] transfer line and provided information, had MRI push the images over to [facility] for the specialists to review. DW several [facility] specialists, first was neurology resident, then neurology attending. Given the respiratory changes, he requested ICU. I spoke with the telecommunications equipment installer, Dr. Soto, who accepted, but said it would be quite a while before a bed opened up and suggested I reach out to other institutions. I called , had images pushed to , later discussed with the neurosurgeon who agreed there was something in the area of concern brought up by Dr. Kelley, but did not feel it lubna to the level of transfer, but did suggest an MRI brain w contrast to further characterize the lesion. MRI brain with contrast ordered that showed no abnormal flair signal seen in the medula. Mild global parechymal atrophy. Right parietal, basal nucleus, left frontal small chronic lacunar infarcts. I spoke with [facility] transfer line and informed them that respiratory status is much improved. Later I spoke with Dr. Yepez of neurology at [facility] who reviewed the 1st MRI (w/o contrast) and saw a subacute brainstem CVA. No malignancy and transfer to [facility] has been cancelled. (2) Dysphagia: PLAN: Secondary to stroke JAM ST, he did very poorly, not safely able to take even a teaspoon. PEG tube placed 08/11. Continue ST. On Tube feeds. (3) Pulmonary nodule: PLAN: solid pulmonary nodule right lung apex at 4mm. repeat imaging in 12-months (4) LV (left ventricular) mural thrombus: PLAN: DW Dr. Kelley, ok for heparin gtt. (5) Acute hypoxic respiratory failure: PLAN: high concern for aspiration event. on pip/tazo weaned down to 2 liters. PLAN: Plan Chronic conditions: DM2: SSI. Metformin held. anxiety/depression: duloxetine when able to take PO/OG GERD: PPI IV until able to take PO/OG HTN: ARB, amlodipine held given NPO status. 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 Patient medically ready for discharge since 08/15. Delay in discharge is due awaiting on insurance approval for rehab. DW patient's . Charges/Coding Visit Charges Inpatient E&M: 68677 Subs Hosp L2 NIHSS NIHSS Nursing Documentation NIHSS Nursing Documentation: NIHSS: Ischemic Stroke/TIA Start: 08/10/24 07:46 Freq: Status: Complete Protocol: Activity Type Activity Date Activity User E-sign Co-sign Detail Recorded Client Recorded Date Recorded By Document 08/11/24 06:40 DC [id number] 08/11/24 06:44 DC 08/11/24 06:40 NIH Stroke Scale [NIHSS] A score of 0 is normal or asymptomatic . Total possible score is 42. Inpatient: RN or Physician to activate a stroke alert for onset of new stroke symptoms or with NIHSS increase >/= 3 points. Following change in neurological status, NIHSS will be performed per physician order or more frequently PRN. -1a. Level of Consciousness 0 - Alert; keenly responsive -1b. LOC Questions 0 - Answers BOTH questions correctly -1c. LOC Commands 0 - Performs BOTH tasks correctly -2. Best Gaze 0 - Normal -3. Visual 0 - No visual loss -4. Facial Palsy 1 - Minor paralysis ( flattened nasolabial fold , asymmetry on smiling) -5a. Left Arm 0 - No drift; arm holds 90 ( or 45) degrees for full 10 seconds -5b. Right Arm 0 - No drift; arm holds 90 ( or 45) degrees for full 10 seconds -6a. Left Leg 0 - No drift; leg holds 30- degree position for full 5 seconds -6b. Right Leg 0 - No drift; leg holds 30- degree position for full 5 seconds -7. Limb Ataxia 0 - Absent -8. Sensory 0 - Normal; no sensory loss -9. Best Language 0 - No aphasia; normal -10. Dysarthria 1 = Mild-to- moderate dysarthria; -11. Extinction and Inattention 0 - No abnormality -Total 2 Query Text:A score of 0 is normal or asymptomatic. Total possible score is 42 . ED: Notify Physician for NIHSS increase by > / = 3 points. Inpatient: RN or Physician to activate a stroke alert for NIHSS increase of > / = 3 points. Coma Scale [Assess] -Eye Opening Spontaneous -Motor Obeys Commands -Verbal Oriented [Total] -Coma Scale Total 15 Thrombolytic: Vital Signs & NIHSS Start: 08/08/24 21:48 Text: Assess and document vital signs and NIHSS Status: Complete within 15 minutes of tenecteplase bolus administration Freq: [id number],[id number],Q2H Protocol: Activity Type Activity Date Activity User E-sign Co-sign Detail Recorded Client Recorded Date Recorded By Document 08/10/24 06:00 [facility] [id number] 08/10/24 06:02 [facility] 08/10/24 06:00 Vital Signs [Pulse] -Pulse Rate (60-100) 74 -Pulse Location Monitor [Respirations] -Respiratory Rate (12-18) 20 H -Respiratory rate source Monitor -Pulse Oximetry 100 -Oxygen Delivery Method Room Air [Blood Pressure] -Blood Pressure (90/60-120/80) 125/82 H -Blood Pressure Mean (mm Hg) 96 -Source Monitor -Position Semi-Fowlers -Blood Pressure Location Left Arm -Is the SBP > or = 180 No -Is the DBP > or = 105 No NIH Stroke Scale [NIHSS] A score of 0 is normal or asymptomatic . Total possible score is 42. Inpatient: RN or Physician to activate a stroke alert for onset of new stroke symptoms or with NIHSS increase >/= 3 points. Following change in neurological status, NIHSS will be performed per physician order or more frequently PRN. -1a. Level of Consciousness 0 - Alert; keenly responsive -1b. LOC Questions 0 - Answers BOTH questions correctly -1c. LOC Commands 0 - Performs BOTH tasks correctly -2. Best Gaze 0 - Normal -3. Visual 0 - No visual loss -4. Facial Palsy 1 - Minor paralysis ( flattened nasolabial fold , asymmetry on smiling) -5a. Left Arm 0 - No drift; arm holds 90 ( or 45) degrees for full 10 seconds -5b. Right Arm 0 - No drift; arm holds 90 ( or 45) degrees for full 10 seconds -6a. Left Leg 0 - No drift; leg holds 30- degree position for full 5 seconds -6b. Right Leg 0 - No drift; leg holds 30- degree position for full 5 seconds -7. Limb Ataxia 0 - Absent -8. Sensory 0 - Normal; no sensory loss -9. Best Language 0 - No aphasia; normal -10. Dysarthria 1 = Mild-to- moderate dysarthria; -11. Extinction and Inattention 0 - No abnormality -Total 2 Query Text:A score of 0 is normal or asymptomatic. Total possible score is 42 . ED: Notify Physician for NIHSS increase by > / = 3 points. Inpatient: RN or Physician to activate a stroke alert for NIHSS increase of > / = 3 points.
--- NOTE | 2024-08-16 10:10 | CASEMGMT ---
RACHAEL spoke with patient and his Kiana. SW let them both know that [facility] is able to take patient as long as insurance approves him. SW told them this could be a day or so, but as soon as RACHAEL hears anything SW will let them know. Jocelin Trotter [employer]
[2024-08-16] MEDS: Pantoprazole Sodium 40 MG in 0.9% Normal Saline (100mL MB+) 100 ML 330 MG IV (11:18)
[2024-08-16] MEDS: Metoprolol Tartrate 25 MG Tablet GT (11:19)
[2024-08-16] MEDS: APIXABAN 5 MG TABLET GT ×2 (11:19→21:08)
[2024-08-16] MEDS: Aspirin 81 MG TAB.CHEW NG (11:20)
[2024-08-16] MEDS: Montelukast 10 MG Tablet GT (11:20)
[2024-08-16] MEDS: Ezetimibe 10 MG Tablet GT (11:20)
[2024-08-16 12:03] LABS: Bedside Glucose 261 mg/dL (74-106)
[2024-08-16 17:14] LABS: Bedside Glucose 278 mg/dL (74-106)
[2024-08-16] MEDS: Acetaminophen 650 MG/20 ML UDC GT (21:07)
[2024-08-16] MEDS: Atorvastatin Calcium 40 MG Tablet NG (21:07)
[2024-08-16 23:32] LABS: Bedside Glucose 308 mg/dL (74-106)
[2024-08-17 03:30] VITALS: BP 155/98; PULSE 84; RESP 18; TEMP 36.6; O2SAT 98
[2024-08-17 03:35] VITALS: BMI 27.8
[2024-08-17 05:00] VITALS: BMI 27.8
[2024-08-17] MEDS: Piperacil/Tazobactam 3.375 GM in 0.9% Normal Saline (50mL MB+) 50 ML IV ×2 (06:58→14:07)
[2024-08-17] MEDS: Insulin Lispro 100 UNIT/ML INSULN.PEN SC ×3 (06:58→17:07)
[2024-08-17 07:18] LABS: Bedside Glucose 340 mg/dL (74-106)
[2024-08-17 08:04] VITALS: O2SAT 98
--- NOTE | 2024-08-17 08:20 | PCM.PN.HOSP ---
Reason for Visit Reason for Visit: Diagnoses Intracardiac thrombosis, not elsewhere classified (08/08/24) Cerebral infarction, unspecified (08/08/24) Acute respiratory failure with hypoxia (08/08/24) Dysphagia, unspecified (08/08/24) Slurred speech (08/08/24) Solitary pulmonary nodule (08/08/24) Subjective Subjective Feeling well. No new issues overnight. Objective Data Objective Data Vital Signs: Vital Signs Temp Pulse Resp BP Pulse Ox O2 Del Method O2 Flow Rate 36.6 C 84 18 155/98 H 98 Nasal Cannula 2 08/17/24 03:30 08/17/24 03:30 08/17/24 03:30 08/17/24 03:30 08/17/24 03:30 08/17/24 03:30 08/17/24 03:30 FiO2 41 08/14/24 03:57 Oxygen Flow Rate (L/min) 2 Oxygen Delivery Method Nasal Cannula Weight: 85.3 kg Body Mass Index (BMI) 27.8 Intake & Output: Intake and Output for Last 24 Hours 08/15/24 08/16/24 08/17/24 23:59 23:59 23:59 Intake Total 2736.81 / 3186.81 2288.08 / 2288.08 215 / 215 Output Total 300 / 800 1500 / 1500 300 / 300 Balance 2436.81 / 2386.81 788.08 / 788.08 -85 / -85 Lab / Micro Data 08/12/24 05:50 08/12/24 05:50 Labs: Laboratory Results - last 24 hr 08/16/24 11:29: POC Glucose 261 H 08/16/24 16:51: POC Glucose 278 H 08/16/24 20:49: POC Glucose 308 H 08/17/24 06:57: POC Glucose 340 H Physical Exam Const alert and no apparent distress Constitutional Narrative: speech more coherent. HEENT head/scalp atraumatic and moist oral mucous membranes Neuro Sensorium / Orientation: awake and alert Psych affect normal Assessment & Plan Assessment/Plan (1) CVA (cerebral vascular accident): PLAN: s/p TNK (received on 08/08 on 2154) CTA head and neck showed V4 segment right vertebral artery and right PICA showed absent opacification CT head 24 hour post TNK showed no changes. MRI brain WNL. DW Dr. Kelley, that didn't quite look like a CVA, but concerning for cancer, particularly lymphoma and recommends transfer. I discussed with the [facility] transfer line and provided information, had MRI push the images over to [facility] for the specialists to review. DW several [facility] specialists, first was neurology resident, then neurology attending. Given the respiratory changes, he requested ICU. I spoke with the passenger agent, Dr. Soto, who accepted, but said it would be quite a while before a bed opened up and suggested I reach out to other institutions. I called , had images pushed to , later discussed with the neurosurgeon who agreed there was something in the area of concern brought up by Dr. Kelley, but did not feel it lubna to the level of transfer, but did suggest an MRI brain w contrast to further characterize the lesion. MRI brain with contrast ordered that showed no abnormal flair signal seen in the medula. Mild global parechymal atrophy. Right parietal, basal nucleus, left frontal small chronic lacunar infarcts. I spoke with [facility] transfer line and informed them that respiratory status is much improved. Later I spoke with Dr. Yepez of neurology at [facility] who reviewed the 1st MRI (w/o contrast) and saw a subacute brainstem CVA. No malignancy and transfer to [facility] has been cancelled. (2) Dysphagia: PLAN: Secondary to stroke DW ST, he did very poorly, not safely able to take even a teaspoon. PEG tube placed 08/11. Continue ST. On Tube feeds. (3) Pulmonary nodule: PLAN: solid pulmonary nodule right lung apex at 4mm. repeat imaging in 12-months (4) LV (left ventricular) mural thrombus: PLAN: DW Dr. Kelley, ok for anticoauglation. Changed to apixaban. (5) Acute hypoxic respiratory failure: PLAN: high concern for aspiration event. on pip/tazo weaned down to 2 liters. PLAN: Plan Chronic conditions: DM2: SSI. Metformin held. anxiety/depression: duloxetine when able to take PO/OG GERD: PPI IV until able to take PO/OG HTN: ARB, amlodipine held given NPO status. VTE prophylaxis: SCDs Disposition: now that transfer to [facility] and has been declined and it now appears that this a brainstem CVA, plan now is for SNF/rehab. Patient medically ready for discharge since 6/9. Delay in discharge is due awaiting on insurance approval for rehab. DW patient's . Greater than 35 minutes of which greater than 50% of time was counseling the patient and his at bedside about the stroke and ongoing plan for rehab and this explained to them also just waiting on authorization for him to go to rehab. Will change patient's status to medical surg given that he is medically ready for discharge. Charges/Coding Visit Charges Inpatient E&M: 14730 Subs Hosp L2 NIHSS NIHSS Nursing Documentation NIHSS Nursing Documentation: NIHSS: Ischemic Stroke/TIA Start: 08/10/24 07:46 Freq: Status: Complete Protocol: Activity Type Activity Date Activity User E-sign Co-sign Detail Recorded Client Recorded Date Recorded By Document 08/11/24 06:40 DC [id number] 08/11/24 06:44 DC 08/11/24 06:40 NIH Stroke Scale [NIHSS] A score of 0 is normal or asymptomatic . Total possible score is 42. Inpatient: RN or Physician to activate a stroke alert for onset of new stroke symptoms or with NIHSS increase >/= 3 points. Following change in neurological status, NIHSS will be performed per physician order or more frequently PRN. -1a. Level of Consciousness 0 - Alert; keenly responsive -1b. LOC Questions 0 - Answers BOTH questions correctly -1c. LOC Commands 0 - Performs BOTH tasks correctly -2. Best Gaze 0 - Normal -3. Visual 0 - No visual loss -4. Facial Palsy 1 - Minor paralysis ( flattened nasolabial fold , asymmetry on smiling) -5a. Left Arm 0 - No drift; arm holds 90 ( or 45) degrees for full 10 seconds -5b. Right Arm 0 - No drift; arm holds 90 ( or 45) degrees for full 10 seconds -6a. Left Leg 0 - No drift; leg holds 30- degree position for full 5 seconds -6b. Right Leg 0 - No drift; leg holds 30- degree position for full 5 seconds -7. Limb Ataxia 0 - Absent -8. Sensory 0 - Normal; no sensory loss -9. Best Language 0 - No aphasia; normal -10. Dysarthria 1 = Mild-to- moderate dysarthria; -11. Extinction and Inattention 0 - No abnormality -Total 2 Query Text:A score of 0 is normal or asymptomatic. Total possible score is 42 . ED: Notify Physician for NIHSS increase by > / = 3 points. Inpatient: RN or Physician to activate a stroke alert for NIHSS increase of > / = 3 points. Coma Scale [Assess] -Eye Opening Spontaneous -Motor Obeys Commands -Verbal Oriented [Total] -Coma Scale Total 15 Thrombolytic: Vital Signs & NIHSS Start: 08/08/24 21:48 Text: Assess and document vital signs and NIHSS Status: Complete within 15 minutes of tenecteplase bolus administration Freq: [id number],Q2H Protocol: Activity Type Activity Date Activity User E-sign Co-sign Detail Recorded Client Recorded Date Recorded By Document 08/10/24 06:00 [facility] [id number] 08/10/24 06:02 [facility] 08/10/24 06:00 Vital Signs [Pulse] -Pulse Rate (60-100) 74 -Pulse Location Monitor [Respirations] -Respiratory Rate (12-18) 20 H -Respiratory rate source Monitor -Pulse Oximetry 100 -Oxygen Delivery Method Room Air [Blood Pressure] -Blood Pressure (90/60-120/80) 125/82 H -Blood Pressure Mean (mm Hg) 96 -Source Monitor -Position Semi-Fowlers -Blood Pressure Location Left Arm -Is the SBP > or = 180 No -Is the DBP > or = 105 No NIH Stroke Scale [NIHSS] A score of 0 is normal or asymptomatic . Total possible score is 42. Inpatient: RN or Physician to activate a stroke alert for onset of new stroke symptoms or with NIHSS increase >/= 3 points. Following change in neurological status, NIHSS will be performed per physician order or more frequently PRN. -1a. Level of Consciousness 0 - Alert; keenly responsive -1b. LOC Questions 0 - Answers BOTH questions correctly -1c. LOC Commands 0 - Performs BOTH tasks correctly -2. Best Gaze 0 - Normal -3. Visual 0 - No visual loss -4. Facial Palsy 1 - Minor paralysis ( flattened nasolabial fold , asymmetry on smiling) -5a. Left Arm 0 - No drift; arm holds 90 ( or 45) degrees for full 10 seconds -5b. Right Arm 0 - No drift; arm holds 90 ( or 45) degrees for full 10 seconds -6a. Left Leg 0 - No drift; leg holds 30- degree position for full 5 seconds -6b. Right Leg 0 - No drift; leg holds 30- degree position for full 5 seconds -7. Limb Ataxia 0 - Absent -8. Sensory 0 - Normal; no sensory loss -9. Best Language 0 - No aphasia; normal -10. Dysarthria 1 = Mild-to- moderate dysarthria; -11. Extinction and Inattention 0 - No abnormality -Total 2 Query Text:A score of 0 is normal or asymptomatic. Total possible score is 42 . ED: Notify Physician for NIHSS increase by > / = 3 points. Inpatient: RN or Physician to activate a stroke alert for NIHSS increase of > / = 3 points.
[2024-08-17 11:27] VITALS: BP 147/94; PULSE 95; RESP 16; TEMP 37.2; O2SAT 95
[2024-08-17] MEDS: APIXABAN 5 MG TABLET GT (11:31)
[2024-08-17 11:32] VITALS: PULSE 95
[2024-08-17] MEDS: Metoprolol Tartrate 25 MG Tablet GT (11:32)
[2024-08-17] MEDS: Montelukast 10 MG Tablet GT (11:32)
[2024-08-17] MEDS: Aspirin 81 MG TAB.CHEW NG (11:32)
[2024-08-17] MEDS: Ezetimibe 10 MG Tablet GT (11:32)
[2024-08-17] MEDS: Pantoprazole Sodium 40 MG in 0.9% Normal Saline (100mL MB+) 100 ML 330 MG IV (11:45)
[2024-08-17] MEDS: Acetaminophen 650 MG/20 ML UDC GT (11:50)
[2024-08-17 12:14] LABS: Bedside Glucose 357 mg/dL (74-106)
[2024-08-17] MEDS: Jevity 1.5 1,000 ML 55 ML GT (12:37)
--- NOTE | 2024-08-17 15:30 | CASEMGMT ---
Patient was approved to go to [facility] Acute Rehab Unit. SW notified patient, physician, and RN. SW also called patient's per patient's request and left her a voice mail letting her know. Jocelin ENGLISH
--- NOTE | 2024-08-17 15:46 | PCM.DC.SUM ---
Providers Date of Admission: 08/08/24 Primary Care Physician: Dr. Sonny Santos, DO Consultations 08/08/24 21:48 Consult: Brim Stretching Machine Operator / Pulmonary Medicine Routine Consulting Provider: [facility] Reason for Consult: stroke for thrombolytic administration EMERGENT Consult: Yes MD Notified: Yes Date Notified: 08/09/24 Time Notified: 05:13 Method of Notification: Text Comments:: Consult may be done in ED or ICU 08/09/24 02:19 Consult: Tele-Neurology Routine Consulting Provider: [facility] Reason for Consult: Acute Stroke Post Tenecteplase administration EMERGENT Consult: Yes MD Notified: Yes Date Notified: 08/08/24 Time Notified: 23:50 Method of Notification: ED Physician Initiated Nursing Unit Staff Notify [facility] of Tele-Neurology Consult: Yes 08/10/24 14:16 Consult: Gastroenterology Routine Consulting Provider: [facility] Reason for Consult: PEG tube EMERGENT Consult: No Notified: Yes Date Notified: 08/10/24 Time Notified: 14:16 Method of Notification: Text Reason For Visit: CVA S/P TNK Diagnosis Discharge Diagnosis (1) CVA (cerebral vascular accident): Status: Acute Code(s): I63.9 - Cerebral infarction, unspecified Plan: s/p TNK (received on 08/08 on 2154) CTA head and neck showed V4 segment right vertebral artery and right PICA showed absent opacification CT head 24 hour post TNK showed no changes. MRI brain WNL. DW Dr. Kelley, that didn't quite look like a CVA, but concerning for cancer, particularly lymphoma and recommends transfer. I discussed with the [facility] transfer line and provided information, had MRI push the images over to [facility] for the specialists to review. DW several [facility] specialists, first was neurology resident, then neurology attending. Given the respiratory changes, he requested ICU. I spoke with the custom designer, Dr. Soto, who accepted, but said it would be quite a while before a bed opened up and suggested I reach out to other institutions. I called , had images pushed to , later discussed with the neurosurgeon who agreed there was something in the area of concern brought up by Dr. Kelley, but did not feel it lubna to the level of transfer, but did suggest an MRI brain w contrast to further characterize the lesion. MRI brain with contrast ordered that showed no abnormal flair signal seen in the medula. Mild global parechymal atrophy. Right parietal, basal nucleus, left frontal small chronic lacunar infarcts. I spoke with [facility] transfer line and informed them that respiratory status is much improved. Later I spoke with Dr. Yepez of neurology at [facility] who reviewed the 1st MRI (w/o contrast) and saw a subacute brainstem CVA. No malignancy and transfer to [facility] has been cancelled. (2) Dysphagia: Status: Acute Code(s): R13.10 - Dysphagia, unspecified Plan: Secondary to stroke DW ST, he did very poorly, not safely able to take even a teaspoon. PEG tube placed 08/11. Continue ST. On Tube feeds. (3) Pulmonary nodule: Status: Acute Code(s): R91.1 - Solitary pulmonary nodule Plan: solid pulmonary nodule right lung apex at 4mm. repeat imaging in 12-months (4) LV (left ventricular) mural thrombus: Status: Acute Code(s): I51.3 - Intracardiac thrombosis, not elsewhere classified Plan: DW osiris Davis for anticoauglation. Changed to apixaban. (5) Acute hypoxic respiratory failure: Status: Acute Code(s): J96.01 - Acute respiratory failure with hypoxia Plan: high concern for aspiration event. on pip/tazo weaned down to 2 liters. Plan Chronic conditions: DM2: SSI. Metformin held. anxiety/depression: duloxetine when able to take PO/OG GERD: PPI IV until able to take PO/OG HTN: ARB, amlodipine held given NPO status. VTE prophylaxis: SCDs Disposition: now that transfer to [facility] and has been declined and it now appears that this a brainstem CVA, plan now is for SNF/rehab. Patient medically ready for discharge since 08/15. Delay in discharge is due awaiting on insurance approval for rehab. JAM patient's . Greater than 35 minutes of which greater than 50% of time was counseling the patient and his at bedside about the stroke and ongoing plan for rehab and this explained to them also just waiting on authorization for him to go to rehab. Will change patient's status to medical surg given that he is medically ready for discharge. Medications at Discharge Home Medications metformin 500 mg tablet 500 mg PO BID 08/08/24 Held on 08/17/24. Instructions: Resume on 08/19/24. semaglutide 0.25 mg or 0.5 mg (2 mg/3 mL) subcutaneous pen injector (Ozempic) 0.25 mg (0.368 mL) subcut QWEEK #3 mL 08/15/24 IV with Additives 55 mls/hr GT 08/17/24 acetaminophen 650 mg/20.3 mL oral solution 650 mg (20.3 mL) G-tube Q6H PRN PRN Pain 1-10 Or Fever #0 mL 08/17/24 albuterol sulfate 2.5 mg/3 mL (0.083 %) solution for nebulization 2.5 mg (3 mL) inhalation Q2H PRN PRN Dyspnea, wheezing #0 mL 08/17/24 amlodipine 5 mg tablet 5 mg feeding tube DAILY #30 tabs 08/17/24 amoxicillin 875 mg-potassium clavulanate 125 mg tablet 1 tab feeding tube BID 5 days #10 tabs 08/17/24 apixaban 5 mg tablet (Eliquis) 5 mg G-tube BID #0 tabs 08/17/24 aspirin 81 mg chewable tablet 81 mg NG BREAKFAST #0 tabs 08/17/24 atorvastatin 40 mg tablet 40 mg NG QHS #0 tabs 08/17/24 insulin glargine-yfgn 100 unit/mL (3 mL) subcutaneous pen 20 unit (0.2 mL) subcut DAILY #0 mL 08/17/24 insulin lispro 100 unit/mL subcutaneous pen (Humalog KwikPen (U-100) Insulin) See Protocol subcut ACHS #0 mL 08/17/24 metoprolol tartrate 25 mg tablet 25 mg G-tube DAILY #0 tabs 08/17/24 montelukast 10 mg tablet 10 mg G-tube DAILY #0 tabs 08/17/24 omeprazole 20 mg capsule,delayed release 20 mg feeding tube BID #30 caps 08/17/24 sitagliptin phosphate 100 mg tablet (Januvia) 100 mg feeding tube DAILY #30 tabs 08/17/24 Hospital Course Operations None Procedures 2-D Echocardiogram Summary of Care Provided Minutes Spent on Discharge: 35 Hospital Course: This is an 84-year-old male presents with left facial droop as well as dysarthria. Patient was a stroke alert and did receive tenecteplase when he arrived. Afterwards, patient did have ongoing dysarthria but also significant dysphagia. This dysphagia was so severe he could not even swallow a teaspoon of liquid. Decision was made to have a PEG tube placed which was placed successfully. Patient did have an MRI of his brain that was read as negative. Lastly, neurology was concerned about some brain type tumor or neuro inflammatory changes and recommended transfer. Unfortunate have stayed with out of his network and so we did reach out to [facility] where he was accepted however in the interim, he had aspirated and was on Airvo. So he would not be able to go anywhere about the intensive care unit. I was able to push images over to [facility] [place] and neurologist did review that and it did show a subacute brainstem stroke. CTA of the head neck showed absent opacification of the V4 segment of the right vertebral artery. And patient also had an echocardiogram that was concerning for an LV thrombus so it seemed like this was all due to an embolic stroke. So patient was anticoagulated with heparin and has since been transitioned over to apixaban. Patient also has been on tube feeds in which she has been tolerating but has had been having hypoglycemia so insulin glargine has been added. Patient was initially to be transferred to [facility] but since there was a stroke identified there was no need for transfer so that was discontinued (patient was also evaluated at but that transfer was canceled by the neurosurgeon). Patient will be discharged in stable condition. Of note his dysarthria is doing better at this time. Case has been discussed extensively with his who has been present daily. Weight / BMI Weight Weight: 85.3 kg Body Mass Index (BMI) 27.8 ABG / Lab / Microbiology Data 08/12/24 05:50 08/12/24 05:50 Laboratory: Laboratory Results - last 24 hr 08/16/24 16:51: POC Glucose 278 H 08/16/24 20:49: POC Glucose 308 H 08/17/24 06:57: POC Glucose 340 H 08/17/24 11:30: POC Glucose 357 H D/C Instructions Discharge Diet: - DC O2, CPAP, BIPAP Needs Home O2 Discharge instructions: No Meaningful Use Info Meaningful Use Meaningful Use Diagnoses (Choose all that apply): Ischemic CVA CVA Therapy Assessed for PT,OT and/or ST?: Yes Ischemic Stroke Antithrombotic order at d/c?: Yes Dx of Atrial fib/flutter?: No Anticoagulant at discharge?: Yes Statin Dosing Therapy Reference: STATIN DOSE THERAPY REFERENCE: * Patients > 75 years receive moderate or high dose statin therapy. * Patients 75 years or YOUNGER should receive HIGH intensity statin dose unless contraindicated. You will be required to document reason for non-treatment if statin daily dose does not meet guidelines. HIGH DOSE STATIN THERAPY DAILY Atorvastatin > than or = to 40 mg Rosuvastatin > than or = to 20 mg Amlodipine + Atorvastatin > than or = to 2.5/40 mg Ezetimibe + Simvastatin 10/80 mg Simvastatin 80mg Statins at discharge?: Yes Primary Dx Acute Ischemic CVA?: Yes IV thrombolytic ordered during stay?: Yes Discharge Plan Admission Admit Date/Time: 08/08/24 23:46 Primary Reason for Your Visit: Stroke Attending Provider: Jaison Puga Primary Care Provider: Sonny Santos Consulting Providers: Tiffanie Pace; RYAN VILLALTA; Cain Rg; Corey Maciel; Ronny Mascorro; Mio Doan; Jonathan Tran; Flako Valdez; Tristan Samayoa; Arleen Gunn; Elbert Nath; Thomas Pickering; Ole Fuller; Mary Garnica; Jorge Gonzales; Adilene Ortega; Vahid Weinberg; Eduardo Lopez; Al Fontenot; Rajeev Barone; Grace Araiza; Kirti Burciaga; Richar Sanches; Goran Jorge; Juan A West; Mihir Cevallos; Karlene Henriquez NP; Martha Mcdaniels; Ministerio Gonzales; Edwin Albert; Genny Juárez; Adriana Rendon; Jamila Kelley; Ari Martin; Makenzie Felder; Laurent Hughes; Dean St; Da Guzmán; Venessa Guaman; Jorge Yarbrough; Gema Tafoya; Cornell Bang; Ozdaphne Isreal; Jose Dillard; Noni Villavicencio; Donaldo Coleman; Estefania Sanders; Masoud Rico Discharge Orders/Prescriptions Prescriptions: New Ozempic 0.25 mg or 0.5 mg (2 mg/3 mL) pen injector 0.25 mg subcut QWEEK Qty: 3 0RF Rx Instructions: for 4 weeks acetaminophen 650 mg/20.3 mL Solution 650 mg G-tube Q6H PRN PRN (Reason: Pain 1-10 Or Fever) Qty: 0 0RF albuterol sulfate 2.5 mg /3 mL (0.083 %) Solution For Nebulization 2.5 mg inhalation Q2H PRN PRN (Reason: Dyspnea, wheezing) Qty: 0 0RF aspirin 81 mg Tablet,Chewable 81 mg NG BREAKFAST Qty: 0 0RF Eliquis 5 mg Tablet 5 mg G-tube BID Qty: 0 0RF atorvastatin 40 mg Tablet 40 mg NG QHS Qty: 0 0RF insulin glargine-yfgn 100 unit/mL (3 mL) Insulin Pen 20 unit subcut DAILY Qty: 0 0RF insulin lispro [Humalog KwikPen Insulin] 100 unit/mL Insulin Pen See Protocol subcut ACHS Qty: 0 0RF Protocol: 3. Sliding Scale Insulin Med Dosing Condition: 150-189 mg/dl = 1 unit Condition: 190-229 mg/dl = 2 units Condition: 230-269 mg/dl = 3 units Condition: 270-309 mg/dl = 4 units Condition: 310-349 mg/dl = 5 units Condition: 350-399 mg/dl = 6 units Condition: 400-449 mg/dl = 7 units Condition: Greater than 449 call physician Protocol Text: - Use for Total Daily Dose of Insulin 37-55 units - Obsese, infected, or steroid patients MEDIUM DOSING ALGORITHIM montelukast 10 mg Tablet 10 mg G-tube DAILY Qty: 0 0RF metoprolol tartrate 25 mg Tablet 25 mg G-tube DAILY Qty: 0 0RF IV with Additives Jevity 1.5 1000 ML 55 mls/hr GT Ordered By: Jaison Puga DO Last Taken: 08/17/24 12:37 55 mls/hr amoxicillin-pot clavulanate 875-125 mg tablet 1 tab feeding tube BID 5 Days Qty: 10 0RF omeprazole 20 mg capsule,delayed release(DR/EC) 20 mg feeding tube BID Qty: 30 0RF Changed amlodipine 5 mg tablet 5 mg feeding tube DAILY Qty: 30 0RF Januvia 100 mg tablet 100 mg feeding tube DAILY Qty: 30 0RF Held metformin 500 mg tablet 500 mg PO BID Hold Instructions: Resume on 08/19/24. Discontinued amlodipine 5 mg tablet 5 mg PO DAILY simvastatin 40 mg tablet 40 mg PO QHS pantoprazole 40 mg tablet,delayed release (DR/EC) 40 mg PO DAILY diclofenac sodium 75 mg tablet,delayed release (DR/EC) 75 mg PO BID montelukast 10 mg tablet 10 mg PO DAILY metoprolol succinate 25 mg tablet extended release 24 hr 25 mg PO DAILY olmesartan 40 mg tablet 40 mg PO DAILY ezetimibe 10 mg tablet 10 mg PO DAILY duloxetine 30 mg capsule,delayed release(DR/EC) 30 mg PO DAILY metformin 500 mg tablet 500 mg PO BID simvastatin 40 mg tablet 40 mg PO QHS pantoprazole 40 mg tablet,delayed release (DR/EC) 40 mg PO DAILY metoprolol succinate 25 mg tablet extended release 24 hr 25 mg PO DAILY olmesartan 40 mg tablet 40 mg PO DAILY ezetimibe 10 mg tablet 10 mg PO DAILY aspirin 325 mg capsule 325 mg PO DAILY diclofenac sodium 75 mg tablet,delayed release (DR/EC) 75 mg PO BID duloxetine 30 mg capsule,delayed release(DR/EC) 30 mg PO DAILY Referrals / Follow Up: Sonny Santos DO [Primary Care Provider] - Within 2 Weeks Rashid Moore MD [Non-Staff -Ordering Privileges] - Within 1 Month Care Physician,No Primary [Non-Staff] - Disposition Disposition (needs filled in before D/C Order can be placed): Inpatient Rehab Unit/Facility Charges/Coding Visit Charges Inpatient E&M: 13309 Disch Hosp >30min
--- NOTE | 2024-08-17 16:45 | NURSING ---
Report called to Rehab
[2024-08-17 17:00] VITALS: BMI 27.8
[2024-08-17 17:02] VITALS: BP 149/93; PULSE 88; RESP 16; TEMP 36.7; O2SAT 92
[2024-08-17] MEDS: Insulin Glargine-YFGN 100 UNIT/ML Pen 20 UNIT SC (17:07)
[2024-08-17 17:33] LABS: Bedside Glucose 304 mg/dL (74-106)
[2024-08-17 20:59] LABS: Bedside Glucose 300 mg/dL (74-106)
--- NOTE | 2024-10-07 12:52 | EX.PCM.CON.G ---
HPI Consult Data Date of Consult: 08/10/24 HPI Narrative Reason for Consultation: Dysphagia HPI Narrative: HENRIK MARQUEZ is a 84 M w/ HTN, HLD, Diabetes mellitus type II, Hx CVA (TIA 2014 which was left hand weakness) , Hx LA, Allergic rhinitis, GERD, Anxiety and Depression who presents to the [facility] ED on 08/08/2024 for trouble walking and COPE. He states around 630pm the day of admission he had a COPE and trouble walking which he describes as incoordinated gate. He tried sleeping it off but things still persisted so he decided to come in to get evaluated. He was seen by telestroke, NIH 2 for right FD and dysarthria. CTH neg. 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 He was given tnk. Admitted for post tnk and stroke workup. He was determined to have a stroke. This resulted in severe dysarthria and dysphagia. I was consulted for PEG tube placement. [facility] Medical History Hypercholesteremia Diabetes mellitus Grade I diastolic dysfunction Pulmonary nodule CVA (cerebral vascular accident) Anxiety and depression Remote history of stroke Allergic rhinitis Left ventricular hypertrophy Dupuytren's contracture of both hands Osteoarth NOS-shlder GERD (gastroesophageal reflux disease) CAD (coronary artery disease) HTN (hypertension) LA (myocardial infarction) CVA (cerebral vascular accident) Home Medications ?Medication ?Instructions ?Recorded ?Last Taken ?Type aspirin 81 mg chewable tablet 81 mg feeding tube DAILY heart 09/01/24 08/17/24 Rx health #1 TAB insulin glargine-yfgn 100 unit/mL 30 unit (0.3 mL) subcut DAILY@0600 09/01/24 Unknown Rx (3 mL) subcutaneous pen #3 pens lansoprazole 30 mg capsule,delayed 30 mg PO DAILY #30 caps 09/01/24 Unknown Rx release mirtazapine 15 mg tablet 15 mg PO QHS #30 tabs 09/01/24 Unknown Rx ezetimibe 10 mg tablet 10 mg PO DAILY #30 tabs 09/02/24 Unknown Rx famotidine 40 mg tablet 40 mg PO QHS #90 tabs 09/20/24 Unknown Rx acetaminophen 650 mg 650 mg PO Q8H PRN 10/05/24 Unknown History tablet,extended release apixaban 5 mg tablet (Eliquis) 5 mg PO BID cva 10/05/24 Unknown History atorvastatin 40 mg tablet 40 mg PO QHS cholesterol 10/05/24 Unknown History empagliflozin 10 mg tablet 10 mg PO DAILY 10/05/24 Unknown History (Jardiance) insulin lispro 100 unit/mL See Rx Instructions .Route .COMPLEX 10/05/24 Unknown History subcutaneous pen (Humalog KwikPen (U-100) Insulin) lactose-reduced food with fiber 265 ml PO BID 10/05/24 Unknown History 0.06 gram-1.5 kcal/mL oral liquid (Jevity 1.5 Gil) metoclopramide HCl 5 mg tablet 5 mg PO 5X/DAY 10/05/24 Unknown History metoprolol tartrate 25 mg tablet 25 mg PO BID 10/05/24 Unknown History montelukast 10 mg tablet 10 mg PO DAILY allergies 10/05/24 Unknown History scopolamine base 1 mg over 3 days 1 patch transdermal Q3D PRN 10/05/24 Unknown History transdermal patch Allergy/AdvReac Type Severity Reaction Status Date / Time No Known Allergies Allergy Verified 10/05/24 09:35 Family History Mother Colon cancer Father CAD (coronary artery disease) Heart disease Hypertension Myocardial infarction Family History no significant family his Surgical History S/P left rotator cuff repair History of tonsillectomy and adenoidectomy History of coronary angioplasty with insertion of stent Status post left partial knee replacement Social History household members: spouse current occupational status: 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[employer] pets and animals: No Smoking Status: Never smoker Electronic Cigarette Use: not used alcohol intake: never substance use type: does not use caffeine: Yes Type: coffee Number of servings: 1 do you feel safe at home: Yes ROS Constitutional Constitutional: Denies fatigue, fever(s), poor appetite, weight gain or weight loss Gastrointestinal Gastrointestinal: Reports dysphagia; Denies belching, bloating, change in bowel habits, change in stool character, chewing difficulty, coffee ground emesis, constipation, cramping, diarrhea, dyspepsia, early satiety, excessive flatus, fecal incontinence, heartburn, hematemesis, hematochezia, hemorrhoids, loose stools, melena, nausea, odynophagia, rectal bleeding, tenesmus, vomiting or weight changes Physical Exam Const alert, oriented x3, no apparent distress and healthy appearing General Appearance: cooperative GI normal to inspection, nondistended, normoactive bowel sounds, soft to palpation, non-tender and non-distended Percussion: normal to percussion Rectal Exam: deferred Lab / Micro Data 08/12/24 05:50 08/12/24 05:50 Assessment & Plan Assessment/Plan (1) Esophageal dysphagia: (2) Oropharyngeal dysphagia: PLAN: He will undergo an upper endoscopy with PEG tube placement. The patient patient's family was explained alternatives, risk and benefits: Understanding bleeding, pressure, subs, perforation, need for surgery. He will have an ASA of 3. 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: (6) Dysarthria: (7) Dysphagia: QUALIFIERS: Dysphagia type: pharyngoesophageal phase Qualified Code(s): R13.14 - Dysphagia, pharyngoesophageal phase (8) PEG (percutaneous endoscopic gastrostomy) status: (9) LV (left ventricular) mural thrombus: (10) Chronic anticoagulation: (11) Ischemic cardiomyopathy: (12) Diabetes mellitus: QUALIFIERS: Diabetes mellitus type: type 2 Diabetes mellitus salvage determiner insulin use: without salvage determiner use Diabetes mellitus complication status: with circulatory complication Diabetes mellitus complication detail: with other circulatory complications Qualified Code(s): E11.59 - Type 2 diabetes mellitus with other circulatory complications (13) Anxiety and depression: (14) Heme positive stool: (15) Schatzki's ring: (16) Esophageal abnormality: Charges/Coding Visit Charges Inpatient E&M: 14856 Init Hosp L2
== END 2024-08-17 17:55 | DRG 61 ==
LOC: ED 23:49 → ICU 08-09 00:02 → PCU 08-11 05:01
PROVIDERS: Internal Medicine Gastroenterology; Admitting Provider Family Medicine; Emergency Provider Emergency Medicine; PCP Family Medicine
PROC: 0DJ08ZZ Inspection of Upper Intestinal Tract, Via Natural or Artificial Opening Endoscopic (ICD-10-PCS; CPT 43235; principal; 2024-08-11 12:55)
DX: I63.9 Cerebral infarction, unspecified (principal); J96.01 Acute respiratory failure with hypoxia; I51.3 Intracardiac thrombosis, not elsewhere classified; E11.22 Type 2 diabetes mellitus with diabetic chronic kidney disease; I65.01 Occlusion and stenosis of right vertebral artery; F32.A Depression, unspecified; I12.9 Hypertensive chronic kidney disease with stage 1 through stage 4 chronic kidney disease, or unspecified chronic kidney disease; K21.9 Gastro-esophageal reflux disease without esophagitis; E78.00 Pure hypercholesterolemia, unspecified; N18.2 Chronic kidney disease, stage 2 (mild); I25.10 Atherosclerotic heart disease of native coronary artery without angina pectoris; F41.9 Anxiety disorder, unspecified; I25.2 Old myocardial infarction; I69.391 Dysphagia following cerebral infarction; R13.10 Dysphagia, unspecified; Z79.84 Long term (current) use of oral hypoglycemic drugs; Z95.5 Presence of coronary angioplasty implant and graft; Z82.49 Family history of ischemic heart disease and other diseases of the circulatory system; Z79.82 Long term (current) use of aspirin; R91.1 Solitary pulmonary nodule; R47.81 Slurred speech; R29.702 NIHSS score 2
CPT/HCPCS: 36415; 36600; 51702; 70450; 70496; 70498; 70551; 70553; 71045; 74230; 80048; 80053; 80061; 81001; 82803; 82962; 83036; 83735; 84145; 84443; 84484; 85025; 85610; 85730; 92507; 92523; 92526; 92610; 92611; 93005; 93306; 94660; 94668; 94762; 97110; 97112; 97116; 97162; 97166; 97530; 97535; 97802; 97803; 99285; A9575; J3101; Q9957; Q9967; A4216; C8929; J1938; J2405

== ENCOUNTER 2024-08-17 18:06 | Inpatient (IN) | payer MEDICARE, SELFPAY ==
[2024-08-17 18:40] VITALS: BP 159/86; PULSE 86; RESP 20; TEMP 36.8; O2SAT 94; BMI 27.9
[2024-08-17] MEDS: Jevity 1.5 1,000 ML 55 ML GT (19:00)
[2024-08-17] MEDS: Amox/Clav 400mg/5ml Susp 800 MG GT (22:45)
[2024-08-17] MEDS: Insulin Lispro 100 UNIT/ML INSULN.PEN SC (22:46)
[2024-08-17] MEDS: APIXABAN 5 MG TABLET GT (22:46)
[2024-08-17] MEDS: Atorvastatin Calcium 40 MG Tablet GT (22:46)
[2024-08-17] MEDS: Acetaminophen 650 MG/20 ML UDC GT (22:47)
[2024-08-18] VITALS (9 sets, daily range): BP systolic 146–157; BP diastolic 90–97; PULSE 59–102; RESP 16–18; TEMP 36.6–36.8; O2SAT 94–96; BMI 27.9
[2024-08-18] MEDS: Insulin Glargine-YFGN 100 UNIT/ML Pen 20 UNIT SC (07:11)
[2024-08-18] MEDS: Insulin Lispro 100 UNIT/ML INSULN.PEN SC ×4 (07:11→21:57)
[2024-08-18 07:21] LABS: Bedside Glucose 366 mg/dL (74-106)
[2024-08-18] MEDS: Aspirin 81 MG TAB.CHEW GT (08:32)
[2024-08-18] MEDS: LINAGLIPTIN 5 MG TABLET GT (08:32)
[2024-08-18] MEDS: Montelukast 10 MG Tablet GT (08:32)
[2024-08-18] MEDS: amLODIPine 5 MG Tablet GT (08:32)
[2024-08-18] MEDS: Amox/Clav 400mg/5ml Susp 800 MG GT ×2 (08:33→21:05)
[2024-08-18] MEDS: APIXABAN 5 MG TABLET GT ×2 (08:33→21:07)
[2024-08-18] MEDS: Metoprolol Tartrate 25 MG Tablet GT ×2 (08:33→17:49)
--- NOTE | 2024-08-18 09:36 | EX.PCM.HP.RE ---
HPI - General General Date of Admission: 08/17/24 Date of Service: 08/18/24 Chief Complaint: Poststroke debility HPI Narrative HENRIK MARQUEZ, is a 84 YO M with a PMH of hypertension, diabetes mellitus type 2, hyperlipidemia, history of CVA, history of NE, allergic rhinitis, GERD, anxiety/depression who presented to the ED at [facility] on 08/08/2024 complaining of slurred speech, cephalgia and left facial droop. Noncontrast brain CT showed no acute abnormalities. CTA of the head and neck showed absent total opacification of the V4 segment of the right vertebral artery and right PICA. There was no hemodynamically significant narrowing or occlusion of the internal carotid arteries bilaterally. Incidentally there was a solid pulmonary nodule at the right lung apex measuring 4 mm. TNK was administered in the emergency room and he was admitted to the hospitalist service to the ICU. Hemoglobin A1c at admission was elevated at 8.8. The LDL was 67 with an HDL of 40 and triglycerides were within normal limits. TSH was normal at 1.39. CT of the brain 24 hours after TNK showed no CT evidence for acute brain abnormality and specifically no hemorrhage. MRI of the brain on 08/10/2024 showed mild global parenchymal atrophy. There were small lacunar infarcts in the R parietal, R basal ganglia and R frontal areas. There was periventricular T2/FLAIR hyperintense foci thought to represent mild chronic microvascular ischemia. There was no hemorrhage or infarction present. Transthoracic echocardiogram showed mild concentric left ventricular hypertrophy with left ventricular apical akinesis and a suspected left ventricular apical thrombus. The EF was estimated to be 45% and there was stage I diastolic dysfunction. The bubble study was negative for [id number]-bo-vbti shunt. No significant valvular heart disease. Modified barium swallow on 08/10/2024 showed severe pharyngoesophageal dysphagia and mild oral dysphagia. On 08/11/2024 he had an EGD that showed no gross lesions in the stomach and no gross lesions in the entire examined duodenum. A PEG was inserted. He was re-evaluated by teleneurology on 08/13/24. They felt the FLAIR changes in the R medulla were out of proportion to the DWI changes and felt there may be something there in addition to the stroke. MRI of the brain was repeated on 08/15/24 with contrast and it showed NO abnormal signal in the melanie or the medulla. there were new punctate foci of restricted diffusion in the R cerebellum. The hospitalist discussed the results of the MRI with contrast with [facility] neurology who reviewed all the imaging and felt the abnormality reported on the initial MRI was consistent with with a subacute brainstem CVA. No further w/u was recommended. While in the hospital he was started on AC for LV thrombus and he was also treated with IV antibiotics for acute hypoxic respiratory failure thought to be due to aspiration PNA. He was transferred to the acute inpt rehab unit at [facility] on 08/17/24 for 3 hours of therapy daily to restore function/independence at or near his level prior to the recent stroke. The blood sugar record was reviewed. BS's are uncontrolled on the current regimen. They were not adequately controlled as an OP....HGBA1C was 8.8% at admission to the hospital. Resting HR is high. BP is above goal. AF Not incontinent of urine Last BM was on 08/16/24 Currently on continuous TF. Top Steep Tender is going to put in recommendations for bolus TF. Diabetic meds as OP included Ozempic, Januvia, Glucophage He was taking an ARB for HTN and AMlodipine. [facility] Medical History Left ventricular hypertrophy Dupuytren's contracture of both hands Osteoarth NOS-shlder GERD (gastroesophageal reflux disease) CAD (coronary artery disease) Hypercholesteremia Diabetes mellitus HTN (hypertension) NE (myocardial infarction) CVA (cerebral vascular accident) Home Medications ?Medication ?Instructions ?Recorded ?Last Taken ?Type metformin 500 mg tablet 500 mg PO BID glucose 08/08/24 Unknown History Held on 08/17/24. Instructions: Resume on 08/19/24. semaglutide 0.25 mg or 0.5 mg (2 0.25 mg (0.368 mL) subcut QWEEK 08/15/24 Unknown Rx mg/3 mL) subcutaneous pen injector glucose #3 mL (Ozempic) Held on 08/17/24. Instructions: Ordered acetaminophen 650 mg/20.3 mL oral 650 mg (20.3 mL) G-tube Q6H PRN 08/17/24 Unknown Rx solution PRN Pain 1-10 Or Fever #0 mL albuterol sulfate 2.5 mg/3 mL 2.5 mg (3 mL) inhalation Q2H PRN 08/17/24 Unknown Rx (0.083 %) solution for nebulization PRN Dyspnea, wheezing #0 mL amlodipine 5 mg tablet 5 mg feeding tube DAILY blood 08/17/24 Unknown Rx pressure #30 tabs amoxicillin 875 mg-potassium 1 tab feeding tube BID ATB 5 days 08/17/24 Unknown Rx clavulanate 125 mg tablet #10 tabs apixaban 5 mg tablet (Eliquis) 5 mg G-tube BID cva #0 tabs 08/17/24 08/17/24 Rx aspirin 81 mg chewable tablet 81 mg feeding tube BREAKFAST heart 08/17/24 08/17/24 History health atorvastatin 40 mg tablet 40 mg NG QHS cholesterol #0 tabs 08/17/24 08/16/24 Rx insulin glargine-yfgn 100 unit/mL 20 unit (0.2 mL) subcut DAILY 08/17/24 08/17/24 Rx (3 mL) subcutaneous pen blood sugar #0 mL insulin lispro 100 unit/mL See Protocol subcut ACHS blood 08/17/24 08/17/24 Rx subcutaneous pen (Humalog KwikPen sugar #0 mL (U-100) Insulin) metoprolol tartrate 25 mg tablet 25 mg G-tube DAILY blood presure 08/17/24 08/17/24 Rx #0 tabs montelukast 10 mg tablet 10 mg G-tube DAILY allergies #0 08/17/24 08/17/24 Rx tabs omeprazole 20 mg capsule,delayed 20 mg feeding tube BID acid 08/17/24 Unknown Rx release reduction #30 caps sitagliptin phosphate 100 mg 100 mg feeding tube DAILY blood 08/17/24 Unknown Rx tablet (Januvia) sugar #30 tabs Allergy/AdvReac Type Severity Reaction Status Date / Time No Known Allergies Allergy Verified 08/08/24 22:15 Family History Mother Colon cancer Father CAD (coronary artery disease) Heart disease Hypertension Myocardial infarction Surgical History S/P left rotator cuff repair History of tonsillectomy and adenoidectomy History of coronary angioplasty with insertion of stent Status post left partial knee replacement Social History household members: spouse Smoking Status: Never smoker alcohol intake: never substance use type: does not use ROS Constitutional Constitutional: Reports fatigue, snoring and weakness; Denies anorexia, change in weight, chills, fever(s), frequent falls, headache(s) or night sweats Eyes Eyes: Reports requires corrective lenses; Denies blurry vision, change in vision, double vision, eye pain, loss of vision, photophobia or ptosis ENT HEENT: Reports dysphagia; Denies abnormal hearing, headache(s), hearing loss, mouth pain, nasal congestion, sore throat or vertigo Cardiovascular Cardiovascular: Reports dyspnea on exertion and weakness in extremities; Denies chest pain, edema, lightheadedness, orthopnea, palpitations, paroxysmal nocturnal dyspnea or syncope Respiratory/Chest Respiratory/Chest: Reports cough, difficulty clearing secretions, shortness of breath with exertion and snoring; Denies dyspnea, shortness of breath at rest or wheezing Gastrointestinal Gastrointestinal: Reports dysphagia; Denies abdominal pain, constipation, diarrhea, dyspepsia, hematemesis, hematochezia, nausea, odynophagia or vomiting Genitourinary Genitourinary: Reports change in urinary stream, nocturia, urinary frequency and urinary urgency; Denies dysuria, flank pain, hematuria, urinary hesitancy or urinary incontinence Musculoskeletal Musculoskeletal: Reports joint pain; Denies back pain, joint swelling or neck pain Integumentary Integumentary: Reports dry skin; Denies changing lesions, jaundice, pruritus or rash Neurologic Neurologic: Reports focal weakness and weakness; Denies confusion, disequilibrium, dizziness, headache(s), paresthesias, seizures, sensory deficit, tremor(s) or vertigo Psychiatric Psychiatric: Denies anxiety, depression, homicidal ideation or suicidal ideation Endocrine Endocrinology: Reports polyuria; Denies change in body appearance or polydipsia Hematologic/Lymphatic Hematologic/Lymphatic: Reports easy bleeding and easy bruising; Denies lymphadenopathy Allergic/Immunologic Allergic/Immunologic: Reports other Details: Denies history of asthma or COPD but he is on montelukast? ; Denies rhinitis, eczemia or asthma Vital Signs Vital Signs Vital Signs: 08/17/24 18:40 08/17/24 18:57 08/17/24 22:00 Temperature 98.2 F Temperature Source Temporal Pulse Rate 86 Respiratory Rate 20 H Respiratory Effort Normal Non-Labored Respiratory Depth Normal Respiratory Pattern Normal Blood Pressure 159/86 H Blood Pressure Mean 110 Blood Pressure Source Monitor Blood Pressure Position Semi-Fowlers Blood Pressure Location Left Arm Pulse Ox 94 Oxygen Delivery Method Room Air Room Air Room Air 08/18/24 00:00 08/18/24 06:00 08/18/24 06:58 Temperature 98.2 F Temperature Source Oral Pulse Rate 76 101 H Respiratory Rate 16 Respiratory Effort Respiratory Depth Respiratory Pattern Blood Pressure 157/97 H Blood Pressure Mean 117 Blood Pressure Source Monitor Blood Pressure Position Semi-Fowlers Blood Pressure Location Right Arm Pulse Ox 95 94 94 Oxygen Delivery Method Room Air Room Air Room Air 08/18/24 08:33 Temperature Temperature Source Pulse Rate 101 H Respiratory Rate Respiratory Effort Respiratory Depth Respiratory Pattern Blood Pressure Blood Pressure Mean Blood Pressure Source Blood Pressure Position Blood Pressure Location Pulse Ox Oxygen Delivery Method Weight Weight: 183 lb 13.848 oz Body Mass Index (BMI) 27.9 Indicators for Scoring Admitted with or Primary Diagnosis of CVA/Stroke: Yes Hx of CVA/Stroke: Yes Modified Screven Score MRS Score at time of Evaluation: 4-Moderate/severe disability NIHSS NIHSS 1a. Level of Consciousness: 0 - Alert; keenly responsive 1b. LOC Questions: 0 - Answers BOTH questions correctly 1c. LOC Commands: 1 - Performs ONE task correctly (Needing visual cues to complete some of the tasks I asked him to do........like close your eyes. ) 2. Best Gaze: 0 - Normal (some nystagmus with the R eye. ) 3. Visual: 0 - No visual loss 4. Facial Palsy: 1 - Minor paralysis (flattened nasolabial fold, asymmetry on smiling) (Asymmetric smiling on the right side) 5a. Left Arm: 0 - No drift; arm holds 90 (or 45) degrees for full 10 seconds 5b. Right Arm: 0 - No drift; arm holds 90 (or 45) degrees for full 10 seconds 6a. Left Le - No drift; leg holds 30-degree position for full 5 seconds 6b. Right Le - No drift; leg holds 30-degree position for full 5 seconds 7. Limb Ataxia: 0 - Absent 8. Sensory: 0 - Normal; no sensory loss 11. Extinction and Inattention: 0 - No abnormality Total: 2 Physical Exam Const alert and no apparent distress Constitutional Narrative: Lying in the recliner at the bedside when I entered the room. General Appearance: cooperative HEENT normocephalic and head/scalp atraumatic HEENT Narrative: Very dry MM. Denies mouth pain, bad taste in the mouth and painful swallowing. Teeth and Gingiva: fair dentition Eyes PERRL, EOMs intact bilaterally, conjunctivae normal and no scleral icterus Eyes Narrative: No discharge from the eyes or mattering of the eyelashes. No visual field cuts. No visual extinction. Wears glasses only to read and drive. Trace nystagmus with the right eye only. Neck supple, No nodes and no carotid bruits General: trachea midline Chest Chest: symmetrical chest wall rise Resp Resp Narrative: Scattered coarse rhonchi that completely cleared after a cough. No wheezing. Not tachypneic. No conversational dyspnea. Sputum in the Yankauer is clear Effort and Inspection: able to speak in complete sentences; Negative for tachypneic or respiratory distress Cardio regular rate, regular rhythm, no murmurs, no rub and no gallops Cardio Narrative: No ectopy GI normal to inspection, nondistended, normoactive bowel sounds, soft to palpation, non-tender and non-distended GI Narrative: No guarding with palpation. PEG site is free of erythema and purulent DC. No N/V/abd pain and is tolerating TF with no significant residuals. no CVA tenderness Bladder / Kidney Exam: bladder normal to palpation Extremity no calf tenderness and no pedal edema Extremity Narrative: No clubbing or cyanosis. Has pain in the right shoulder and R biceps. Skin no jaundice Skin Narrative: resolving bruises from IV's and lab draws. General Skin Exam: no breakdown, crusts, scars and other Dry skin Rashes: no rashes Hair: general thinning Neuro Neuro Narrative: Tongue protrudes on the midline. Mild asymmetry with elevation of the palate. White coating of the tongue but, no buccal lesions and no c/o halitosis, mouth pain of tongue pain. R facial droop - mild. Had some difficulty following some of my commands and I had to give visual clues. Trace nystagmus with the R eye only. No visual field cuts. PERRLA, EOMI. No drift with any of the extremities and no ataxia. No extinction. Intact sensation. No visual extinction. Names all the pictures correctly. No neglect noted. Was able to read all the words and sentences with no mistakes. Speech is slurred. Psych thought process normal, cooperative, affect normal, denies hallucinations and denies suicidal ideation Psych Narrative: Polite and cooperative. Does not seem anxious or depressed. Affect is not flat. Not restless or fidgety. He is impulsive and has poor safety awareness due to the stroke. 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 He denies heartburn, nausea, vomiting, epigastric pain. Will hold off on GI prophylaxis for now DVT prophylaxis-continue apixaban Follow up with Dr. Sonny Santos, neurology, cardiology following DC from IP Rehab AM lab orders including CMP, CBC, Mag and Phos Arthritis compounded cream twice daily to the right shoulder Hemoccult stool since he is now on anticoagulation Postvoid residual x 3-he is not currently being treated for BPH but tells me he goes often and has a slow stream. May need Flomax. Overnight trending pulse ox Has had 7 days of antibiotics for ASP PNA.......just started on Augmentin at the time of transfer to rehab. Will complete 10 days of antibiotics and then DC. We are more than 1 week out from the stroke that occurred on 08/08/24. BP is not at goal. He is taking amlodipine 5 mg daily and metoprolol 25 mg p.o. twice daily. HR is increased. Will increase the Metoprolol tartrate to 25 mg Q8H. Restarted ARB for better blood pressure control and renal protection. DC Tradjenta and start Jardiance because it is of benefit to prevent chronic renal failure and helps with congestive heart failure. Will start 10 mg daily. Try and get the name of the agitator operator he sees and obtain records. Obtain records from Dr. Santos He quit smoking when he was 21 and he denies any hx of asthma or COPD......why is he on Singulair? Njot wheezing. Has a loose cough. He is using a Yankauer to suction himself when he is able to bring the sputum up to his throat. He is not drooling. Scored 33 out of a possible 50 on the BCAT prior to admission to acute rehab. Occasional trouble word finding when talking with me. did well with naming and reading words and sentences. Sometimes requires visual cues to follow my commands. Charges/Coding Visit Charges Inpatient E&M: 29478 Init Hosp L3
[2024-08-18 11:35] LABS: Bedside Glucose 264 mg/dL (74-106)
[2024-08-18] MEDS: Jevity 1.5 1,000 ML 55 ML GT (12:03)
[2024-08-18 16:02] LABS: Mucous, Urine 0 SEEN /hpf (<or=2+)
--- NOTE | 2024-08-18 16:05 | CHAPLAIN ---
Type of Pastoral Visit ___ Initial Visit _x__ Follow-up Visit ___ On-call Visit ___ General Patient Visit ___ Spiritual Assessment ___ Family Conference ___ Bereavement ___ Rapid Response ___ Code Blue ___ Other (describe below) Pastoral Care Referral From _x__ Patient _x__ Family ___ Nurse ___ Physician ___ Gear Nicker ___ Pumper Helper ___ Other (describe below) Sacrament/Intervention _x__ Active listening ___ Anointing ___ Sikhism ___ Bereavement ___ Communion ___ Heena exploration ___ ___ Life review ___ Prayer ___ Reconciliation ___ Sacrament of Sick ___ Supportive presence ___ Wedding ___ Other (describe below) Pastoral Comments patient was seen previously in ICU and PCU; pt is alone in the room and napping but easily awakened by his name; pt appears to be a little slow in responding to questions but answers each appropriately; pt admits that this could be a long process and not enjoyable; pt smiles when given some affirming and hopeful comments; small talk conversation
[2024-08-18 16:56] LABS: Color, Urine Yellow (Yellow); Glucose, Dipstick 100 mg/dl (Normal); Ketone-Dipstick Negative (Negative); Leukocyte Esterase-Dipstick Negative /ul (Negative); Nitrite-Dipstick Negative (Negative); Occult Blood-Urine 25 /ul (Negative); Protein-Dipstick 30 mg/dl (Negative); Urine Bilirubin Dipstick Negative (Negative); Urine Clarity Clear (Clear); Urine Urobilinogen 4 mg/dl (Normal)
--- NOTE | 2024-08-18 17:36 | PCM.RU.PYE ---
Admission Information Primary Diagnosis:: Post stroke debility Status Changes from Prescreening?: No changes Identified Actual Problem List:: Pain, ALteration in Cmfrt, Cognitve Impr/Memory Loss, Depression, Alteration in Sleep, Alteration in Nutrition, Mobility Impaired, Self Care Deficit, Know.Dfct of Medicaitons, Diabetes, Hyperglycemia, BP, Hypertension, Alteration/ Air Exchange and Alteration-Leisure Activ. Potential Problem List:: DVT, Bleeding, Infection, UTI, Aspiration, Falls, Skin Integrity and Depression Risk of Complications DVT: SIOBHAN Hose and - (Eliquis 5 mg twice daily) Bleeding: Monitor Lab Values, Nursing to Teach Precautions for anti-coagulation therapy., Wound, if applicable, to be assessed every shift. and Stroke patients assessed for lethargy or change in status. Infection: Clinical Staff to Monitor for S/S of infection: and S/S of infection include fever, redness, warmth, etc. Urinary Tract Infection: Monitor for frequency, burning, discomfort, or incontinence. and Nursing will obtain urine sample for urinalysis and C&S when ordered. Aspiration: Clinical staff will monitor for coughing, drooling, congestion., Speech will evaluate swallowing and dsyphasia. and Nursing will monitor patient swallowing during meals. Falls: Patient will be evaluated for Fall Precautions and Patient will be placed on Fall Precautions as indicated per protocol. Skin Breakdown: Nursing will assess skin daily using assessment tool. and Nursing will place on Skin Breakdown Precautions as indicated. Pain: Clinical staff will assess patient's pain level per protocol., Medications will be given, if needed, and the pain level reassessed. and Other methods: Massage, distraction, decrease stimulus, etc. used PRN. Plan of Care Patient requires physician specializing in physical medicine and rehab oversight to provide close medical supervision of rehab issues including: Pain Management, Sleep Problems, Bowel and Bladder, Medical and co-morbidity Management, DVT prophylaxis, Rehabilitation Leadership and Coordination of treatment team Patient needs Physical Therapy: For a minimum of 1 hour and At least 5 out of 7 days Patient needs Physical Therapy to improve:: Mobility, Strengthening, Transfers, Stretching, ROM, Endurance, Stairs, Gait and Balance Patient needs Occupational Therapy: For a minimum of 1 hour and At least 5 out of 7 days Patient needs Occupational Therapy to improve ADL's incl.: Eating, Grooming, Bathing, Dressing, Toileting, Toilet transfers, Community Reintegration, Higher functioning activities, Household tasks, Adaptive Equipment, Splinting and Other activities as determined Patient requires speech therapy: For a minimum of 1 hour and At least 5 out of 7 days Patient requires speech therapy for: Swallowing, Cognition, Language Skills and Compensatory Strategies Patient requires 24/7 Rehabilitation Nursing for: Pain Issues, Identifying and preventing risk factors, Monitoring and reporting current medical conditions, Assisting with ambulation, transfer, and all ADL's, Teaching patients about disease process and medications, Family teaching, Providing safe environment, Bowel and Bladder Issues, Skin integrity and Medication Management Patient needs Maintenance Instructor/ Case Management for: Discharge Planning, Arranging Home Equipment or Services and Family Interventions Patient needs Dietary and Nutrition Services for: Adequate Nutrition, Nutritional Supplements and Nutritional Education Goals Goals Patient will remain: free from falls Patient will perform eating at: MOD I level of assist. Patient will perform bed mobility at: MOD I level of assist. Patient will complete transfers from bed to chair at: MOD I level of assist. Patient will ambulate: - (350 feet with least restrictive device at supervision on various surfaces) Patient will complete upper body dressing at: MOD I level of assist. Patient will complete lower body dressing at: MOD I level of assist. (With adaptive equipment as needed.) Patient will complete toilet transfer at: MOD I level of assist. Patient will complete toileting at: MOD I level of assist. Patient will perform bathing at: MOD I level of assist. (Upper body bathing independently and lower body bathing at modified with adaptive equipment as needed to increase independence with self-care.) Patient will perform Tub/Shower transfer at: - (Supervision) Patient will complete grooming at: MOD I level of assist. Patient will achieve: - (2 steps with least restrictive device and no handrails at standby assist to allow entrance to his home.) Patient will have pain level of: of 3 or less Patient's skin will: remain intact Patient will receive: adequate nutrition. Discharge Planning Pt Prognosis for Sig. Practical Improv. w/in Reasonable Time: Good Estimated Length of stay (days): 21 Anticipated D/C Destination: Home Was Preadmission Assessment Accurate?: Yes
[2024-08-18] MEDS: Jevity 1.5. 1,000 ML Bottle 265 ML GT ×2 (17:54→21:36)
[2024-08-18 18:21] LABS: Bedside Glucose 191 mg/dL (74-106)
--- NOTE | 2024-08-18 18:40 | RAD_ITS ---
PROCEDURE: CHEST PA AND LATERAL 08/18/2024 REASON FOR EXAM: COUGH TECHNIQUE: Frontal and lateral views of the chest. COMPARISON: 08/11/2024. FINDINGS: The heart is normal in size. The mediastinum is normal in contour. The lungs are clear. No acute osseous abnormalities. RAD/Chest PA and Lateral IMPRESSION: No acute cardiopulmonary abnormalities. Reading Location: [place] [id number]
[2024-08-18] MEDS: Albuterol 2.5 MG/3 ML VIAL.NEB. INHALATION (18:46)
[2024-08-18 19:20] LABS: Red Blood Cells-Urine 0-5 SEEN /hpf (0-5); Squamous Epithelial Cells - UA 0-5 SEEN /hpf (0-5); White Blood Cells 0-5 SEEN /hpf (0-5)
[2024-08-18 19:21] LABS: Bacteria RARE /hpf (None Seen)
[2024-08-18] MEDS: MELATONIN 3 MG TABLET PO (21:06)
[2024-08-18] MEDS: Atorvastatin Calcium 40 MG Tablet GT (21:07)
[2024-08-18] MEDS: Arthritis Pain Compound 60 CLICK TUBE TOPICAL (21:37)
[2024-08-18 22:11] LABS: Bedside Glucose 405 mg/dL (74-106)
--- NOTE | 2024-08-18 23:35 | NURSING ---
Patient has a persistent cough this evening, c/o of not being able to rest, notified, new order for Robitussin 20ml Q6hr PRN
[2024-08-19] VITALS (7 sets, daily range): BP systolic 116–147; BP diastolic 72–92; PULSE 67–100; RESP 18; TEMP 36.7–37.7; O2SAT 93–99; BMI 26.8
[2024-08-19] MEDS: guaiFENesin 10 ML UDC (200MG/10ML) 20 ML GT ×3 (00:19→20:27)
[2024-08-19] MEDS: Acetaminophen 650 MG/20 ML UDC GT ×3 (00:20→22:13)
[2024-08-19] MEDS: Metoprolol Tartrate 25 MG Tablet GT ×3 (00:20→22:14)
--- NOTE | 2024-08-19 01:20 | NURSING ---
Addendum entered by Colleen Bueno 08/19/24 01:54: 0030 pt noted to have an emesis of 100cc of yellow fluid and mucus Addendum entered by Colleen Bueno 08/19/24 01:46: 0142 pt currently resting quietly with an occasional cough noted Original Note: 2100 pt coughing frequently and doing self suctioning. pt checked for residual and it was zero. when bolus feeding started pt became nauseated and started heaving, pt reports that this was the second time it has happened today. pt bring up small amt of clear fluid with mucus. the mucus was thick and white-yellow in color. pt was in high fowlers position in the bed , jevity bolus was given by gravity at a slow rate. pt cough remained harsh were pt was noted to be sob and was sweaty. 2199 pt continues to cough harshly bringing up a moderate amt of the thick white-yellow mucus. pt reports that he is tired but unable to sleep d/t the amt of coughing he is doing. staff assisted in repositioning pt in the bed and locked the hob out at 30 degrees to prevent aspiration, cool cloth applied to head an ice pack to back of neck for comfort. 2330 text sent to hospitalist regarding pt cough and new order received for robitussin 0030 robitussin and tylenol for cough and chest discomfort from coughing, lopressor given at this time as well [id number]
[2024-08-19 05:09] LABS: Absolute Lymphocyte Count 1.08 X10^3/uL (0.83-4.51); Absolute Neutrophil Count 9.5 X10^3/uL (2.0-7.7); Basophil# 0.08 X10^3/uL; Basophil% 0.7 % (0-1); Eosinophil# 0.18 X10^3/uL; Eosinophils% 1.5 % (0-5); Hematocrit 37.5 % (40-54); Hemoglobin 12.5 g/dL (13.0-16.5); Lymphocyte # 1.08 X10^3/ul (0.83-4.51); Lymphocyte % 8.8 % (19-41); Mean Corp Hgb Conc 33.3 g/dL (32-36); Mean Corpuscular Hgb 29.6 pg (27.0-32.0); Mean Corpuscular Volume 88.7 fL (80-94); Mean Platelet Vol. 11.2 fl (6.2-12.0); Monocyte# 1.16 X10^3/uL; Monocyte% 9.4 % (0-10); NRBC Flagged by Analyzer 0 % (0-5); Neutrophil # 9.51 X10^3/uL (2.7-7.7); Neutrophil % 77.4 % (47-70); Platelet Count 291 K/mm3 (150-450); RBC Distribution Width CV 13.6 % (11.6-14.6); RBC Distribution Width SD 44.3 fl (35.1-43.9); Red Blood Count 4.23 M/mm3 (4.6-6.2); White Blood Count 12.3 K/mm3 (4.4-11.0)
[2024-08-19] MEDS: Jevity 1.5. 1,000 ML Bottle 265 ML GT ×4 (06:04→20:06)
[2024-08-19] MEDS: Insulin Lispro 100 UNIT/ML INSULN.PEN SC ×7 (06:05→20:07)
[2024-08-19] MEDS: Insulin Glargine-YFGN 100 UNIT/ML Pen 30 UNIT SC (06:05)
[2024-08-19 06:57] LABS: Bedside Glucose 214 mg/dL (74-106)
[2024-08-19 07:10] LABS: AST(SGOT) 16 U/L (<=37); Alanine Aminotransfer ALT/SGPT 19 U/L (<=46); Albumin, Serum 3.1 g/dL (3.4-4.8); Alkaline Phosphatase 68 U/L (40-129); Anion Gap 13 (5-15); BUN 20 mg/dL (4-19); BUN/Creat Ratio 20.5 RATIO (10-20); Calcium,Total 9.4 mg/dL (7.6-11.0); Carbon Dioxide 26.2 mmol/L (21.0-32.0); Chloride 99 mmol/L (98-108); Creatinine, Serum 0.99 mg/dL (0.70-1.20); EST Glomerular Filtration Rate 75 (>60); Estimated Creatinine Clearance 53.74 ml/min (50-250); Globulin 3.1 g/dL (2.2-4.2); Glucose 204 mg/dL (70-99); Magnesium 2.3 mg/dL (1.5-2.2); Phosphorus 3.6 mg/dL (2.7-4.5); Potassium 3.8 mmol/L (3.3-5.1); Protein, Total 6.2 g/dL (5.9-8.4); Sodium Level 138 mmol/L (133-145); Total Bilirubin 0.48 mg/dL (0.00-1.30)
--- NOTE | 2024-08-19 08:44 | PN_ITS ---
Subjective Subjective Afebrile VSS -blood pressure over the past 24 hours has ranged from 136/88 to 157/92. Blood pressure this a.m. is 147/92. Heart rate has ranged from 67-1 02. Metoprolol was increased to 25 mg 3 times daily yesterday and the heart rate has come down and is 67 today. Cozaar 25 mg was added to the drug regimen to assist with blood pressure control. Maintaining appropriate oxygen saturation on RA Oral intake - FOOD NPO/PEG FLUIDS fluid balance yesterday was -20. He had 2200 and. The blood sugar record was reviewed. He has had 3 postvoid residuals and they have ranged from 155-194. Discussed with nursing - Nursing reports a productive cough. He kept lying down after TF yesterday despite being told numerous times to remain upright for at least 30 minutes - 60 minutes after a feeding. Very forgetful, impulsive and with poor safety awareness. Has been incontinent of urine at times. Reviewed the THERAPY notes Medication list reviewed. I reviewed the PA and LAT CXR and the infiltrate in the R base that was present earlier has resolved. No acute cardiopulmonary findings. All lab drawn this morning was personally reviewed. The white blood cell count is elevated at 12.3 with 77.4% neutrophils, down from 83.6% neutrophils on 08/12/2024. Hemoglobin is 12.5......it was 12.8 on 08/26/24. It is down from 13.9 on 08/12/24....I suspect due to better hydration. Platelets are within normal limits. Sodium is 138 and the potassium is stable at 3.8. The BUN is 28, down from 26 on 08/12/2024. Creatinine is 0.99 which is in the range it has been since admission to the hospital. Phosphorus is 3.6 and magnesium is good at 2.3. LFTs are within normal limits. UA was negative for nitrite and had 0-5 RBCs and 0-5 WBCs with rare bacteria. He denies dysuria. He is AF. The overnight trending pulse ox was reviewed. Pulse ox was less than 90% 4.74% of the time he was monitored for a total of 25 minutes and 38 seconds. There were no desaturation events greater than 60 seconds. He is c/o feeling tired today. Slept well after he was finally able to get to sleep last night. Denies cephalgia, lightheadedness, palpitations, chest pain, shortness of breath, nausea/vomiting/abdominal pain, dysuria and calf tenderness. Not complaining of shoulder pain today. He was sitting upright in the chair at the bedside when I entered the room today. He is not coughing. Objective Data Objective Data Vital Signs: Vital Signs Temp Pulse Resp BP Pulse Ox O2 Del Method FiO2 98.0 F 67 18 147/92 H 99 Room Air 21 08/19/24 06:00 08/19/24 06:00 08/19/24 06:00 08/19/24 06:00 08/19/24 06:00 08/19/24 06:00 08/18/24 21:40 Oxygen Delivery Method Room Air Weight: 176 lb 5.917 oz Body Mass Index (BMI) 26.8 Intake & Output: Intake and Output for Last 24 Hours 08/17/24 08/18/24 08/19/24 23:59 23:59 23:59 Intake Total 330 / 330 2205.50 / 2205.50 725 / 725 Output Total 125 / 125 2225 / 2225 250 / 250 Balance 205 / 205 -19.50 / -19.50 475 / 475 Lab / Micro Data 08/19/24 04:40 08/19/24 04:40 Labs: Laboratory Results - last 24 hr 08/18/24 11:12: POC Glucose 264 H 08/18/24 15:50: Urine Color Yellow, Urine Clarity Clear, Urine pH 8.0, Ur Specific [place] 1.010, Urine Protein 30 H, Urine Glucose (UA) 100 H, Urine Ketones Negative, Urine Occult Blood 25 H, Urine Nitrite Negative, Urine Bilirubin Negative, Urine Urobilinogen 4 H, Ur Leukocyte Esterase Negative, Urine RBC 0-5 SEEN, Urine WBC 0-5 SEEN, Ur Squamous Epith Cells 0-5 SEEN, Triple Phos Crystals [employer], Urine Bacteria RARE, Urine Mucus 0 SEEN 08/18/24 17:52: POC Glucose 191 H 08/18/24 21:47: POC Glucose 405 H 08/19/24 04:40: WBC 12.3 H, RBC 4.23 L, Hgb 12.5 L, Hct 37.5 L, MCV 88.7, MCH 29.6, MCHC 33.3, RDW Std Deviation 44.3 H, RDW Coeff of Josh 13.6, Plt Count 291, MPV 11.2, Immature Gran % (Auto) 2.200 H, Neut % (Auto) 77.4 H, Lymph % (Auto) 8.8 L, [place] % (Auto) 9.4, Eos % (Auto) 1.5, Baso % (Auto) 0.7, Absolute Neuts (auto) 9.5 H, Absolute Lymphs (auto) 1.08, Nucleated RBC % 0, Sodium 138, Potassium 3.8, Chloride 99, Carbon Dioxide 26.2, Anion Gap 13, BUN 20 H, Creatinine 0.99, Estim Creat Clear Calc 53.74, Est GFR (MDRD) Non-Af 75, B UN/Creatinine Ratio 20.5 H, Glucose 204 H, Calcium 9.4, Phosphorus 3.6, M agnesium 2.3 H, Total Bilirubin 0.48, AST 16, ALT 19, Alkaline Phosphatase 68, Total Protein 6.2, Albumin 3.1 L, Globulin 3.1, Albumin/Globulin Ratio 1.0 08/19/24 05:21: POC Glucose 214 H Radiography Diagnostic Testing: Radiology Impression Chest X-Ray 08/18/24 18:40 IMPRESSION: No acute cardiopulmonary abnormalities. Reading Location: [place] [id number] Physical Exam Const Constitutional Narrative: He was sleeping when I entered the room but, aroused easily. cough is much less today. Denies SOB. Cooperative. Calm, no agitation. Resp Resp Narrative: CTA today. No cough with deep breathing today. Not tachypneic and no resp distress. Cardio regular rate, regular rhythm, no murmurs and no gallops Cardio Narrative: No ectopy today. + hx of PAF. GI normal to inspection, nondistended, normoactive bowel sounds, soft to palpation and non-tender GI Narrative: No pain with palpation around the PEG site. No erythema and no purulent DC. Not having residuals. Extremity no calf tenderness General Extremity: Negative for edema Skin Rashes: no rashes Psych Psych Narrative: Wanting to sleep alot today......had a hard time last night with cough. Assessment & Plan Assessment/Plan (1) Debility: (2) CVA (cerebral vascular accident): QUALIFIERS: CVA mechanism: embolism Precerebral and cerebral artery: unspecified cerebral artery Qualified Code(s): I63.40 - Cerebral infarction due to embolism of unspecified cerebral artery PLAN: Embolic due to PAF. Received TNK. Initial MRI after TNK showed no acute findings. Repeat MRI on 08/15/24 showed a infarct in the R cerebellum. 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 R basilar infiltrate no longer present on PA and LAT CXR on 08/18/24. (7) Acute hypoxic respiratory failure: (8) PEG (percutaneous endoscopic gastrostomy) status: PLAN: Placed on 08/11/[address] Roberto Carlos Napoles. Stomach and duodenum normal. (9) LV (left ventricular) mural thrombus: (10) Chronic anticoagulation: PLAN: On Eliquis. (11) Urine retention: (12) BPH (benign prostatic hyperplasia): QUALIFIERS: Lower urinary tract symptom presence: symptoms present Lower urinary tract symptom detail: incomplete bladder emptying Qualified Code(s): N40.1 - Benign prostatic hyperplasia with lower urinary tract symptoms; R39.14 - Feeling of incomplete bladder emptying (13) Ischemic cardiomyopathy: PLAN: EF is 45% with an akinetic apex and a apical mural thrombus........recent VT? Records requested from his private branch exchange service advisor to see if the apex was akinetic in the past. (14) Grade I diastolic dysfunction: (15) Left ventricular hypertrophy: (16) CAD (coronary artery disease): QUALIFIERS: Coronary Disease-Associated Artery/Lesion type: [place] artery [place] vs. transplanted heart: [place] heart Associated angina: without angina Qualified Code(s): I25.10 - Atherosclerotic heart disease of [place] coronary artery without angina pectoris (17) History of coronary angioplasty with insertion of stent: (18) Diabetes mellitus: QUALIFIERS: Diabetes mellitus type: type 2 Diabetes mellitus fdc insulin use: without breadman use Diabetes mellitus complication status: with circulatory complication Diabetes mellitus complication detail: with other circulatory complications Qualified Code(s): E11.59 - Type 2 diabetes mellitus with other circulatory complications (19) Hypercholesteremia: (20) GERD (gastroesophageal reflux disease): QUALIFIERS: Esophagitis presence: without esophagitis Qualified Code(s): K21.9 - Gastro-esophageal reflux disease without esophagitis (21) Dupuytren's contracture of both hands: (22) Osteoarth NOS-shlder: QUALIFIERS: Osteoarthritis type: primary Laterality: right Q ualified Code(s): M19.011 - Primary osteoarthritis, right shoulder PLAN: Tells me that he needs a shoulder replacement. (23) Pulmonary nodule: PLAN: 4 mm R apex seen on a CTA of the neck and head. Needs a CT chest in 1 year to reassess. (24) Allergic rhinitis: QUALIFIERS: Allergic rhinitis trigger: unspecified Allergic rhinitis seasonality: unspecified Qualified Code(s): J30.9 - Allergic rhinitis, unspecified (25) Remote history of stroke: (26) Anxiety and depression: PLAN: Was taking duloxetine 30 mg capsule once daily when he presented to the emergency room with stroke symptoms. This has not been continued because it is a capsule and cannot be given through a PEG tube. Will transition to Effexor tablets. PLAN: Plan 1. Continue therapy 2. Add 4 units of lispro scheduled prior to each tube feed. Continue the SSI and the Glargine and Jardiance. Recheck a BMP on Thursday. 3. Start Flomax 0.4 mg daily 4. Finish 10 days of antibiotics for aspiration pneumonia in the right lower lobe. Transition from Zosyn to Augmentin at discharge to rehab 5. Continue melatonin 3 mg at at bedtime. 6. Awaiting the records from Dr. Santos........? why he is on Singulair? CTA today. I suspect the increased cough was related to lying down while getting continuous TF......This was likely also happening on the acute side of the hospital prior to transfer to rehab. Will keep him upright for 30-60 minutes after each TF. 7. Effexor 25 mg tablet twice daily via the PEG tube 8. I called his Kiana and left a VM asking her to call me with the name of his private branch exchange service advisor so that we can request records. Charges/Coding Visit Charges Inpatient E&M: 13089 Subs Hosp L2
[2024-08-19] MEDS: amLODIPine 5 MG Tablet GT (09:26)
[2024-08-19] MEDS: Losartan Potassium 25 MG Tablet PO (09:27)
[2024-08-19] MEDS: Aspirin 81 MG TAB.CHEW GT (09:27)
[2024-08-19] MEDS: Empagliflozin 10 MG Tablet GT (09:27)
[2024-08-19] MEDS: APIXABAN 5 MG TABLET GT ×2 (09:27→22:15)
[2024-08-19] MEDS: Amox/Clav 400mg/5ml Susp 800 MG GT ×2 (09:28→22:19)
[2024-08-19] MEDS: Montelukast 10 MG Tablet GT (09:32)
[2024-08-19] MEDS: Arthritis Pain Compound 60 CLICK TUBE TOPICAL ×2 (09:48→22:11)
[2024-08-19 10:05] LABS: Bedside Glucose 337 mg/dL (74-106)
[2024-08-19 14:06] LABS: Bedside Glucose 185 mg/dL (74-106)
[2024-08-19 21:02] LABS: Bedside Glucose 155 mg/dL (74-106)
[2024-08-19] MEDS: Finasteride 5 MG Tablet GT (22:11)
[2024-08-19] MEDS: MELATONIN 3 MG TABLET PO (22:14)
[2024-08-19] MEDS: Atorvastatin Calcium 40 MG Tablet GT (22:15)
[2024-08-19] MEDS: Venlafaxine HCl 25 MG Tablet PO (22:16)
[2024-08-20] VITALS (7 sets, daily range): BP systolic 119–125; BP diastolic 73–80; PULSE 65–94; RESP 16; TEMP 36.6–36.7; O2SAT 94–95; BMI 26.8
[2024-08-20] MEDS: Insulin Lispro 100 UNIT/ML INSULN.PEN SC ×8 (00:29→22:30)
[2024-08-20] MEDS: Jevity 1.5. 1,000 ML Bottle 265 ML GT ×6 (00:32→22:32)
[2024-08-20 00:37] LABS: Bedside Glucose 243 mg/dL (74-106)
[2024-08-20] MEDS: guaiFENesin 10 ML UDC (200MG/10ML) 20 ML GT ×3 (02:42→18:01)
[2024-08-20] MEDS: Insulin Glargine-YFGN 100 UNIT/ML Pen 30 UNIT SC (06:31)
[2024-08-20] MEDS: Metoprolol Tartrate 25 MG Tablet GT ×3 (06:32→22:20)
[2024-08-20 06:50] LABS: Bedside Glucose 124 mg/dL (74-106)
[2024-08-20] MEDS: Arthritis Pain Compound 60 CLICK TUBE TOPICAL ×2 (09:43→22:14)
[2024-08-20] MEDS: APIXABAN 5 MG TABLET GT ×2 (09:49→22:19)
[2024-08-20] MEDS: amLODIPine 5 MG Tablet GT (09:49)
[2024-08-20] MEDS: Montelukast 10 MG Tablet GT (09:49)
[2024-08-20] MEDS: Venlafaxine HCl 25 MG Tablet PO ×2 (09:50→22:15)
[2024-08-20] MEDS: Empagliflozin 10 MG Tablet GT (09:50)
[2024-08-20] MEDS: Losartan Potassium 25 MG Tablet PO (09:50)
[2024-08-20] MEDS: Amox/Clav 400mg/5ml Susp 800 MG GT ×2 (09:50→22:17)
[2024-08-20] MEDS: Aspirin 81 MG TAB.CHEW GT (09:50)
[2024-08-20 10:31] LABS: Bedside Glucose 310 mg/dL (74-106)
[2024-08-20 14:46] LABS: Bedside Glucose 133 mg/dL (74-106)
[2024-08-20] MEDS: Finasteride 5 MG Tablet GT (18:01)
[2024-08-20 19:04] LABS: Bedside Glucose 127 mg/dL (74-106)
[2024-08-20] MEDS: Atorvastatin Calcium 40 MG Tablet GT (22:20)
[2024-08-20] MEDS: MELATONIN 3 MG TABLET PO (22:22)
[2024-08-20] MEDS: 0.9% Saline Lock 10 ML Syringe IV (22:22)
[2024-08-20] MEDS: Acetaminophen 650 MG/20 ML UDC GT (22:25)
[2024-08-20 22:42] LABS: Bedside Glucose 129 mg/dL (74-106)
[2024-08-21] VITALS (7 sets, daily range): BP systolic 110–120; BP diastolic 62–74; PULSE 80–98; RESP 16; TEMP 36.4–37.1; O2SAT 94–97; BMI 26.8
[2024-08-21] MEDS: Insulin Lispro 100 UNIT/ML INSULN.PEN SC ×7 (06:22→21:18)
[2024-08-21] MEDS: Insulin Glargine-YFGN 100 UNIT/ML Pen 30 UNIT SC (06:23)
[2024-08-21] MEDS: Metoprolol Tartrate 25 MG Tablet GT ×3 (06:24→21:19)
[2024-08-21] MEDS: Jevity 1.5. 1,000 ML Bottle 265 ML GT ×5 (06:27→21:19)
[2024-08-21] MEDS: guaiFENesin 10 ML UDC (200MG/10ML) 20 ML GT ×3 (07:20→20:14)
[2024-08-21] MEDS: Aspirin 81 MG TAB.CHEW GT (07:21)
[2024-08-21 07:22] LABS: Bedside Glucose 142 mg/dL (74-106)
[2024-08-21] MEDS: Montelukast 10 MG Tablet GT (10:26)
[2024-08-21] MEDS: APIXABAN 5 MG TABLET GT ×2 (10:26→20:15)
[2024-08-21] MEDS: Venlafaxine HCl 25 MG Tablet PO ×2 (10:27→20:14)
[2024-08-21] MEDS: Empagliflozin 10 MG Tablet GT (10:27)
[2024-08-21] MEDS: Losartan Potassium 25 MG Tablet PO (10:27)
[2024-08-21] MEDS: amLODIPine 5 MG Tablet GT (10:27)
[2024-08-21] MEDS: Arthritis Pain Compound 60 CLICK TUBE TOPICAL ×2 (10:28→20:14)
[2024-08-21] MEDS: Amox/Clav 400mg/5ml Susp 800 MG GT ×2 (10:29→21:17)
[2024-08-21 10:48] LABS: Bedside Glucose 184 mg/dL (74-106)
[2024-08-21 14:43] LABS: Bedside Glucose 159 mg/dL (74-106)
[2024-08-21] MEDS: Finasteride 5 MG Tablet GT (18:21)
[2024-08-21 18:56] LABS: Bedside Glucose 121 mg/dL (74-106)
[2024-08-21] MEDS: MELATONIN 3 MG TABLET PO (20:15)
[2024-08-21] MEDS: Atorvastatin Calcium 40 MG Tablet GT (20:15)
[2024-08-21] MEDS: Acetaminophen 650 MG/20 ML UDC GT (21:19)
[2024-08-21 21:47] LABS: Bedside Glucose 147 mg/dL (74-106)
[2024-08-22] VITALS (7 sets, daily range): BP systolic 79–130; BP diastolic 45–79; PULSE 90–99; RESP 15–17; TEMP 36.5–36.7; O2SAT 93–99; BMI 26.8
[2024-08-22] MEDS: guaiFENesin 10 ML UDC (200MG/10ML) 20 ML GT ×2 (02:45→08:01)
[2024-08-22 05:35] LABS: Hemoglobin 12.1 g/dL (13.0-16.5)
[2024-08-22 06:01] LABS: Anion Gap 11 (5-15); BUN 32 mg/dL (4-19); BUN/Creat Ratio 32.5 RATIO (10-20); Calcium,Total 9.2 mg/dL (7.6-11.0); Carbon Dioxide 26.7 mmol/L (21.0-32.0); Chloride 101 mmol/L (98-108); Creatinine, Serum 0.97 mg/dL (0.70-1.20); EST Glomerular Filtration Rate 77 (>60); Estimated Creatinine Clearance 54.85 ml/min (50-250); Glucose 144 mg/dL (70-99); Potassium 4.9 mmol/L (3.3-5.1); Sodium Level 139 mmol/L (133-145)
[2024-08-22] MEDS: Insulin Lispro 100 UNIT/ML INSULN.PEN SC ×8 (06:01→21:47)
[2024-08-22] MEDS: Insulin Glargine-YFGN 100 UNIT/ML Pen 30 UNIT SC (06:03)
[2024-08-22] MEDS: Metoprolol Tartrate 25 MG Tablet GT ×2 (06:23→21:22)
[2024-08-22] MEDS: Jevity 1.5. 1,000 ML Bottle 265 ML GT ×5 (06:23→21:52)
[2024-08-22 07:24] LABS: Bedside Glucose 155 mg/dL (74-106)
[2024-08-22] MEDS: Arthritis Pain Compound 60 CLICK TUBE TOPICAL ×2 (10:02→21:19)
[2024-08-22] MEDS: Montelukast 10 MG Tablet GT (10:02)
[2024-08-22] MEDS: Losartan Potassium 25 MG Tablet PO (10:02)
[2024-08-22] MEDS: Venlafaxine HCl 25 MG Tablet PO (10:02)
[2024-08-22] MEDS: amLODIPine 5 MG Tablet GT (10:02)
[2024-08-22] MEDS: APIXABAN 5 MG TABLET GT ×2 (10:02→21:19)
[2024-08-22] MEDS: Empagliflozin 10 MG Tablet GT (10:02)
[2024-08-22] MEDS: Aspirin 81 MG TAB.CHEW GT (10:02)
[2024-08-22 10:38] LABS: Bedside Glucose 256 mg/dL (74-106)
--- NOTE | 2024-08-22 11:14 | PN_ITS ---
Subjective Subjective Taran was seen on team rounds today. Kiana was present in the room. Afebrile VSS -blood pressure is at goal and has ranged from 110/79 to 125/75 over the weekend. Heart rate is within normal limits but the resting heart rate is in the 90s. Maintaining appropriate oxygen saturation on RA Oral intake - FOOD PEG feedings FLUIDS fluid intake yesterday was only 1395.......with the TF and water flushes he should be getting 2,325 cc/day? Blood sugar record was reviewed. All blood sugars yesterday were less than 190. No hypoglycemia. 600 feeding today the blood sugar was 155 and then at 10 AM it was 256? Discussed with nursing - Keeps laying himself down after TF despite admonishments that he needs to remain upright for 30-60 minutes after a feed. Increased cough yesterday. Same thing happened last week and then when nursing made sure he remained upright the cough was greatly improved and the lungs were CTA for me. Nursing tells me he has been tearful at times and also seems anxious. He was taking Effexor as an outpatient but he was taking Effexor XR which is a capsule and it was not given on the acute side of the hospital due to n.p.o./PEG tube. He was started on Effexor tablets 25 mg twice daily on Thursday. Tolerating tube feeds with no residuals. Reviewed the THERAPY notes Medication list reviewed. All lab drawn this morning was personally reviewed. Hemoglobin is 12.1, down from 12.5 on 08/19/2024. Stool is Hemoccult positive. EGD done for PEG tube insertion showed no sites of bleeding in the stomach or duodenum. Sodium is 139 and the potassium is 4.9. BUN is 32 with a creatinine of 0.97. Calcium is normal. Kiana related to me that Delfin was having problems with balance that predated the presentation to the ED by a couple weeks. TIA's? Delfin denies cephalgia, lightheadedness, vertigo, chest pain, shortness of breath, palpitations, nausea/vomiting/heartburn/abdominal pain, dysuria and calf tenderness. Objective Data Objective Data Vital Signs: Vital Signs Temp Pulse Resp BP Pulse Ox O2 Del Method FiO2 97.7 F L 90 15 110/79 93 Room Air 21 08/22/24 06:00 08/22/24 10:00 08/22/24 06:00 08/22/24 06:00 08/22/24 06:00 08/22/24 10:00 08/18/24 21:40 Oxygen Delivery Method Room Air Weight: 176 lb 5.917 oz Body Mass Index (BMI) 26.8 Intake & Output: Intake and Output for Last 24 Hours 08/20/24 08/21/24 08/22/24 23:59 23:59 23:59 Intake Total 1795 / 1795 1395 / 1595 865 / 865 Output Total 1875 / 1875 1000 / 1225 525 / 525 Balance -80 / -80 395 / 370 340 / 340 Lab / Micro Data 08/22/24 05:12 08/22/24 05:12 Labs: Laboratory Results - last 24 hr 08/21/24 14:07: POC Glucose 159 H 08/21/24 18:23: POC Glucose 121 H 08/21/24 21:17: POC Glucose 147 H 08/22/24 05:12: Hgb 12.1 L, Hct 37.0 L, Sodium 139, Potassium 4.9, Chloride 101, Carbon Dioxide 26.7, Anion Gap 11, BUN 32 H, Creatinine 0.97, Estim Creat Clear Calc 54.85, Est GFR (MDRD) Non-Af 77, BUN/Creatinine Ratio 32.5 H, Glucose 144 H , Calcium 9.2 08/22/24 06:00: POC Glucose 155 H 08/22/24 10:04: POC Glucose 256 H Micro: Microbiology 08/19/24 11:20 Stool Stool Occult Blood (VANNESA) - Final Occult Blood Positive Physical Exam Const alert and no apparent distress General Appearance: cooperative HEENT Mouth: dry mucous membranes Resp Resp Narrative: CTA today. No cough with deep breathing today. Not tachypneic and no resp distress. Cardio regular rate, regular rhythm, no murmurs and no gallops Cardio Narrative: No ectopy today. + hx of PAF. GI normal to inspection, nondistended, normoactive bowel sounds, soft to palpation and non-tender GI Narrative: No pain with palpation around the PEG site. No erythema and no purulent DC. Not having residuals. Extremity no calf tenderness General Extremity: Negative for edema Skin Rashes: no rashes 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: (4) Dysarthria: (5) Dysphagia: QUALIFIERS: Dysphagia type: pharyngoesophageal phase Qualified Code(s): R13.14 - Dysphagia, pharyngoesophageal phase (6) Aspiration pneumonia: QUALIFIERS: Aspiration pneumonia type: due to gastric secretions Laterality: right Lung location: lower lobe of lung Qualified Code(s): J69.0 - Pneumonitis due to inhalation of food and vomit (7) Acute hypoxic respiratory failure: (8) PEG (percutaneous endoscopic gastrostomy) status: (9) LV (left ventricular) mural thrombus: (10) Chronic anticoagulation: (11) Urine retention: (12) BPH (benign prostatic hyperplasia): QUALIFIERS: Lower urinary tract symptom presence: symptoms present Lower urinary tract symptom detail: incomplete bladder emptying Qualified Code(s): N40.1 - Benign prostatic hyperplasia with lower urinary tract symptoms; R39.14 - Feeling of incomplete bladder emptying (13) Ischemic cardiomyopathy: (14) Grade I diastolic dysfunction: (15) Left ventricular hypertrophy: (16) CAD (coronary artery disease): QUALIFIERS: Coronary Disease-Associated Artery/Lesion type: [place] artery [place] vs. transplanted heart: [place] heart Associated angina: without angina Qualified Code(s): I25.10 - Atherosclerotic heart disease of [place] coronary artery without angina pectoris (17) History of coronary angioplasty with insertion of stent: (18) Diabetes mellitus: QUALIFIERS: Diabetes mellitus type: type 2 Diabetes mellitus middle or intermediate school principal insulin use: without middle or intermediate school principal use Diabetes mellitus complication status: with circulatory complication Diabetes mellitus complication detail: with other circulatory complications Qualified Code(s): E11.59 - Type 2 diabetes mellitus with other circulatory complications (19) Hypercholesteremia: (20) Pulmonary nodule: (21) Remote history of stroke: (22) Anxiety and depression: (23) Orthostatic hypotension: (24) Heme positive stool: PLAN: Plan 1. Continue therapy 2. orthostatics are + today. due to Proscar? Due to IV volume depletion? HR is high so suspecting IV volume depletion. 3. Remove the recliner from the room and put a straight back chair in the room so he is unable to lie down after nursing gives him a TF. 4. Increased BUN/CREAT ratio likely due to IV volume depletion. 5. He is on Apixban and ASA 81 mg daily. EGD showed no source of bleeding in the upper GI tract. Stool is heme +. If the HGB continues to drop will likely need to consult Dr. Napoles for an EGD. 6. Increase Effexor to 50 mg p.o. twice daily 7. BMP and CBC in AM. He is not on a potassium supplement. He is on Cozaar but, only 25 mg daily.....hemolysis? 8. Recheck the orthostatics in the AM.......if still orthostatic may need to DC Proscar. autonomic insufficiency from long standing DM? IV fluid bolus and IV fluids ordered. Make sure he is getting all his water flushes. Charges/Coding Visit Charges Inpatient E&M: 94405 Subs Hosp L2
[2024-08-22 14:19] LABS: Bedside Glucose 127 mg/dL (74-106)
[2024-08-22] MEDS: 0.9% Normal Saline (500mL Bag) 500 ML 999 ML IV (14:55)
[2024-08-22] MEDS: 0.9% Normal Saline (1000mL) 1,500 ML 100 ML IV (15:32)
--- NOTE | 2024-08-22 16:10 | CASEMGMT ---
Social Work Team meeting held with pt and pt's in attendance. PT/OT/ST/SN provided updates on pt's progress at this time. Pt is participating well and making good progress with therapy. SW educated pt and that NRD with insurance is 08/24 and continued stay is not guaranteed. Pt plans to return home with his at time of discharge. Pt's is having hand rails installed for pt to use while getting in and out of the house. Pt would benefit from continued stay on Inpatient Rehab at this time. Treatment plan to continue and will ReTeam next week. DALLIN Bruce
[2024-08-22] MEDS: Finasteride 5 MG Tablet GT (18:11)
[2024-08-22 19:00] LABS: Bedside Glucose 123 mg/dL (74-106)
--- NOTE | 2024-08-22 20:27 | NURSING ---
1930 pt having nausea and vomiting pt doing own suctioning, pt states that he is having a burning in his stomach. text to the doctor to make her aware. 1999 received new order from the doctor for reglan 5mg q8 hours, the reglan is contraindicated with the pt effexor, doctor made aware 2016 new order received for zofran and hold effexor
[2024-08-22] MEDS: Acetaminophen 650 MG/20 ML UDC GT (20:44)
[2024-08-22] MEDS: Metoclopramide 5 MG TABLET PO (20:45)
[2024-08-22] MEDS: Ondansetron 8 MG Tablet 4 MG PO (20:45)
[2024-08-22] MEDS: Atorvastatin Calcium 40 MG Tablet GT (21:19)
[2024-08-22] MEDS: MELATONIN 3 MG TABLET PO (21:19)
[2024-08-22 22:19] LABS: Bedside Glucose 182 mg/dL (74-106)
[2024-08-23] VITALS (8 sets, daily range): BP systolic 89–138; BP diastolic 55–90; PULSE 86–106; RESP 18; TEMP 36.6–36.7; O2SAT 94–98; BMI 26.8
[2024-08-23] MEDS: 0.9% Normal Saline (1000mL) 1,500 ML 100 ML IV (01:37)
[2024-08-23] MEDS: Metoprolol Tartrate 25 MG Tablet GT ×3 (05:07→22:08)
[2024-08-23] MEDS: Metoclopramide 5 MG TABLET PO ×3 (05:08→20:37)
[2024-08-23] MEDS: Insulin Lispro 100 UNIT/ML INSULN.PEN SC ×5 (05:15→22:07)
[2024-08-23] MEDS: Insulin Glargine-YFGN 100 UNIT/ML Pen 30 UNIT SC (05:16)
[2024-08-23] MEDS: Jevity 1.5. 1,000 ML Bottle 265 ML GT ×5 (06:07→22:09)
[2024-08-23 07:23] LABS: Bedside Glucose 111 mg/dL (74-106)
[2024-08-23 07:38] LABS: Potassium 4.5 mmol/L (3.3-5.1)
--- NOTE | 2024-08-23 08:15 | PN_ITS ---
Subjective Subjective Afebrile VSS -blood pressure is improved today. Blood pressure since last night at 6 PM has ranged from 120/72 to 133/98. Heart rate is still in the 90s. Maintaining appropriate oxygen saturation on RA Oral intake - FOOD remains n.p.o. with PEG tube feedings FLUIDS fluid balance over the past 24 hours is +1373. IV fluids were administered for orthostatic hypotension. The blood sugar record was reviewed. The last 4 blood sugars have all been under 190. He had a total of 9 units per SSI yesterday. Discussed with nursing - Reglan ordered last evening for heartburn/reflux Q8H and Zofran PRN. Slept well and tolerated TF well today. Had a small emesis with TF last evening. Not on a PPI but, was taking Protonix prior to admission to the hospital. Reviewed the THERAPY notes Medication list reviewed. K is 4.5 today. Slept well last night. Denies heartburn today and also denies N/V/epigastric pain/abd pain. No CP, SOB. Occasional cough.......does much better when he does not lie down after the TF. Objective Data Objective Data Vital Signs: Vital Signs Temp Pulse Resp BP Pulse Ox O2 Del Method FiO2 97.9 F 90 18 133/90 H 94 Room Air 21 08/23/24 05:00 08/23/24 05:07 08/23/24 05:00 08/23/24 05:07 08/23/24 05:00 08/23/24 05:00 08/18/24 21:40 Oxygen Delivery Method Room Air Weight: 176 lb 5.917 oz Body Mass Index (BMI) 26.8 Intake & Output: Intake and Output for Last 24 Hours 08/21/24 08/22/24 08/23/24 23:59 23:59 23:59 Intake Total 1395 / 1595 1565 / 1565 1208.33 / 1208.33 Output Total 1000 / 1225 1525 / 1525 Balance 395 / 370 40 / 40 1208.33 / 1208.33 Lab / Micro Data 08/22/24 05:12 08/23/24 06:46 Labs: Laboratory Results - last 24 hr 08/22/24 10:04: POC Glucose 256 H 08/22/24 13:43: POC Glucose 127 H 08/22/24 18:09: POC Glucose 123 H 08/22/24 21:45: POC Glucose 182 H 08/23/24 05:13: POC Glucose 111 H 08/23/24 06:46: Potassium 4.5 Micro: Microbiology 08/19/24 11:20 Stool Stool Occult Blood (VANNESA) - Final Occult Blood Positive Physical Exam Const alert and no apparent distress Constitutional Narrative: Good energy today. Very alert. General Appearance: cooperative HEENT Mouth: dry mucous membranes Resp Resp Narrative: CTA today. No cough with deep breathing today. Not tachypneic and no resp distress. Cardio regular rate, regular rhythm, no murmurs and no gallops Cardio Narrative: No ectopy today. + hx of PAF. PEG site is without erythema or DC and he has no pain with palpation of the area around the PEG. GI normal to inspection, nondistended, normoactive bowel sounds, soft to palpation and non-tender GI Narrative: No pain with palpation around the PEG site. No erythema and no purulent DC. Not having residuals. Extremity no calf tenderness General Extremity: Negative for edema Skin Rashes: no rashes Psych Psych Narrative: Admits to feeling depressed but, he is sleeping well and is motivated to do therapy and get better. 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 He will let me know if he starts not wanting to do therapy, can't sleep or feels despondent and wants to give up. 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: (4) Dysarthria: (5) Dysphagia: QUALIFIERS: Dysphagia type: pharyngoesophageal phase Qualified Code(s): R13.14 - Dysphagia, pharyngoesophageal phase (6) Aspiration pneumonia: QUALIFIERS: Aspiration pneumonia type: due to gastric secretions Laterality: right Lung location: lower lobe of lung Qualified Code(s): J69.0 - Pneumonitis due to inhalation of food and vomit (7) Acute hypoxic respiratory failure: (8) PEG (percutaneous endoscopic gastrostomy) status: (9) LV (left ventricular) mural thrombus: (10) Chronic anticoagulation: (11) Urine retention: (12) BPH (benign prostatic hyperplasia): QUALIFIERS: Lower urinary tract symptom presence: symptoms present Lower urinary tract symptom detail: incomplete bladder emptying Qualified Code(s): N40.1 - Benign prostatic hyperplasia with lower urinary tract symptoms; R39.14 - Feeling of incomplete bladder emptying (13) Ischemic cardiomyopathy: (14) Grade I diastolic dysfunction: (15) Left ventricular hypertrophy: (16) CAD (coronary artery disease): QUALIFIERS: Coronary Disease-Associated Artery/Lesion type: [place] artery [place] vs. transplanted heart: [place] heart Associated angina: without angina Qualified Code(s): I25.10 - Atherosclerotic heart disease of [place] coronary artery without angina pectoris (17) History of coronary angioplasty with insertion of stent: (18) Diabetes mellitus: QUALIFIERS: Diabetes mellitus type: type 2 Diabetes mellitus long term acute care registered nurse insulin use: without long term acute care registered nurse use Diabetes mellitus complication status: with circulatory complication Diabetes mellitus complication detail: with other circulatory complications Qualified Code(s): E11.59 - Type 2 diabetes mellitus with other circulatory complications (19) Hypercholesteremia: (20) Pulmonary nodule: (21) Remote history of stroke: (22) Anxiety and depression: (23) Orthostatic hypotension: (24) Heme positive stool: PLAN: Plan 1. Continue therapy 2. Discontinue Effexor - suspect this may be contributing to nausea and vomiting and reflux. Would like to allow a few days for this to wash out of his system before we consider adding another antidepressant. Would not choose a SSRI/RAJ due to the adverse reaction of slowing the GI tract down. He may have a component of gastroparesis due to long standing DM II, not always well controlled. 3. CBC and BMP in the AM. 4. Add lansoprazole 30 mg daily to the current drug regimen 5. Increase the lispro prior to feedings to 5 units with each feeding. 6. Continue Reglan 5 mg every 8 hours and as needed Zofran. I reviewed records from from Dr. Alcantar, ticket sales supervisor. Last ECHO was in 2020. He had an apical scar/wall motion abnormality then but, EF was 55%. Delfin will need to follow up with Dr. Alcantar following DC from rehab for the apical clot and possibly stress? Charges/Coding Visit Charges Inpatient E&M: 60702 Subs Hosp L1
[2024-08-23] MEDS: APIXABAN 5 MG TABLET GT ×2 (10:13→20:38)
[2024-08-23] MEDS: Lansoprazole 15 MG Capsule.DR 30 MG PO (10:13)
[2024-08-23] MEDS: Aspirin 81 MG TAB.CHEW GT (10:14)
[2024-08-23] MEDS: Arthritis Pain Compound 60 CLICK TUBE TOPICAL ×2 (10:14→22:07)
[2024-08-23] MEDS: Losartan Potassium 25 MG Tablet PO (10:14)
[2024-08-23] MEDS: Montelukast 10 MG Tablet GT (10:14)
[2024-08-23] MEDS: Empagliflozin 10 MG Tablet GT (10:15)
[2024-08-23] MEDS: Ondansetron 8 MG Tablet 4 MG PO (10:34)
[2024-08-23 10:58] LABS: Bedside Glucose 139 mg/dL (74-106)
[2024-08-23 15:10] LABS: Bedside Glucose 114 mg/dL (74-106)
[2024-08-23 18:41] LABS: Bedside Glucose 120 mg/dL (74-106)
[2024-08-23] MEDS: Acetaminophen 650 MG/20 ML UDC GT (20:37)
[2024-08-23] MEDS: Atorvastatin Calcium 40 MG Tablet GT (20:38)
[2024-08-23] MEDS: MELATONIN 3 MG TABLET PO (20:38)
[2024-08-23 22:37] LABS: Bedside Glucose 123 mg/dL (74-106)
[2024-08-24] VITALS (8 sets, daily range): BP systolic 96–133; BP diastolic 61–78; PULSE 80–101; RESP 15–16; TEMP 35.7–37.2; O2SAT 92; BMI 26.8
[2024-08-24 04:32] LABS: Hematocrit 34.2 % (40-54); Mean Corp Hgb Conc 32.2 g/dL (32-36); Mean Corpuscular Hgb 29.8 pg (27.0-32.0); Mean Corpuscular Volume 92.7 fL (80-94); Mean Platelet Vol. 10.3 fl (6.2-12.0); Platelet Count 404 K/mm3 (150-450); RBC Distribution Width CV 13.5 % (11.6-14.6); RBC Distribution Width SD 46.4 fl (35.1-43.9); Red Blood Count 3.69 M/mm3 (4.6-6.2); White Blood Count 9.4 K/mm3 (4.4-11.0)
[2024-08-24] MEDS: Metoclopramide 5 MG TABLET PO ×3 (04:54→20:39)
[2024-08-24] MEDS: Metoprolol Tartrate 25 MG Tablet GT ×2 (04:54→15:07)
[2024-08-24 04:58] LABS: Anion Gap 10 (5-15); BUN 28 mg/dL (4-19); BUN/Creat Ratio 29.2 RATIO (10-20); Calcium,Total 8.8 mg/dL (7.6-11.0); Carbon Dioxide 24.9 mmol/L (21.0-32.0); Chloride 105 mmol/L (98-108); Creatinine, Serum 0.97 mg/dL (0.70-1.20); EST Glomerular Filtration Rate 77 (>60); Estimated Creatinine Clearance 54.85 ml/min (50-250); Glucose 111 mg/dL (70-99); Potassium 4.5 mmol/L (3.3-5.1); Sodium Level 140 mmol/L (133-145)
[2024-08-24] MEDS: Jevity 1.5. 1,000 ML Bottle 265 ML GT ×5 (05:00→21:57)
[2024-08-24] MEDS: Insulin Lispro 100 UNIT/ML INSULN.PEN SC ×6 (05:01→21:55)
[2024-08-24] MEDS: Insulin Glargine-YFGN 100 UNIT/ML Pen 30 UNIT SC (05:02)
[2024-08-24 05:17] LABS: Bedside Glucose 119 mg/dL (74-106)
[2024-08-24] MEDS: Aspirin 81 MG TAB.CHEW GT (08:49)
[2024-08-24] MEDS: Losartan Potassium 25 MG Tablet PO (08:49)
[2024-08-24] MEDS: Montelukast 10 MG Tablet GT (08:49)
[2024-08-24] MEDS: Arthritis Pain Compound 60 CLICK TUBE TOPICAL ×2 (08:50→20:36)
[2024-08-24] MEDS: Lansoprazole 15 MG Capsule.DR 30 MG PO (08:50)
[2024-08-24] MEDS: APIXABAN 5 MG TABLET GT ×2 (08:50→20:41)
[2024-08-24] MEDS: Empagliflozin 10 MG Tablet GT (08:52)
[2024-08-24 09:59] LABS: Bedside Glucose 121 mg/dL (74-106)
--- NOTE | 2024-08-24 11:51 | PN_ITS ---
Subjective Subjective Afebrile Heart rate is within normal limits and the heart rate is in the 80s today rather than in the 90s. Blood pressure over the past 24 hours has ranged from 89/55 (at 6 PM yesterday) to 133/90. Blood pressure this a.m. was 128/78. Maintaining appropriate oxygen saturation on room air. Still suctioning himself. Sputum in the suction tubing and the [place] is clear. Not coughing very much today. Fluid balance yesterday was +1238 but overnight was -435. The blood sugar record was reviewed and the blood sugars are under excellent control with no hypoglycemia. TElls me that he slept well last night. Denies heartburn, epigastric pain, nausea. No longer gagging after TF. No CP and no SOB. All lab from this morning was personally reviewed. White blood cell count is normal at 9.4. Hemoglobin is 11.0, down from 12.1 on 08/22/2024 but he is better hydrated after IV fluids given for orthostatic hypotension. Platelets are within normal limits. MCV is 92.7. Sodium is 140 and the potassium today is 4.5. The BUN today is 28 which is down from 32 03/14/1624 after IV fluids. The creatinine is 0.97 which is stable. Calcium is normal. Objective Data Objective Data Vital Signs: Vital Signs Temp Pulse Resp BP Pulse Ox O2 Del Method FiO2 96.2 F L 89 15 110/61 92 Room Air 21 08/24/24 06:00 08/24/24 09:09 08/24/24 06:00 08/24/24 09:09 08/24/24 06:00 08/24/24 09:53 08/18/24 21:40 Oxygen Delivery Method Room Air Weight: 176 lb 9.444 oz Body Mass Index (BMI) 26.8 Intake & Output: Intake and Output for Last 24 Hours 08/22/24 08/23/24 08/24/24 23:59 23:59 23:59 Intake Total 1565 / 1565 3388.33 / 3388.33 715 / 715 Output Total 1525 / 1525 2150 / 2150 1150 / 1150 Balance 40 / 40 1238.33 / 1238.33 -435 / -435 Lab / Micro Data 08/24/24 04:18 08/24/24 04:18 Labs: Laboratory Results - last 24 hr 08/23/24 14:33: POC Glucose 114 H 08/23/24 18:05: POC Glucose 120 H 08/23/24 22:01: POC Glucose 123 H 08/24/24 04:18: WBC 9.4, RBC 3.69 L, Hgb 11.0 L, Hct 34.2 L, MCV 92.7, MCH 29.8, MCHC 32.2, RDW Std Deviation 46.4 H, RDW Coeff of Josh 13.5, Plt Count 404, MPV 10.3, Sodium 140, Potassium 4.5, Chloride 105, Carbon Dioxide 24.9, Anion Gap 10, BUN 28 H, Creatinine 0.97, Estim Creat Clear Calc 54.85, Est GFR (MDRD) Non- Af 77, BUN/Creatinine Ratio 29.2 H, Glucose 111 H, Calcium 8.8 08/24/24 04:58: POC Glucose 119 H 08/24/24 09:29: POC Glucose 121 H Micro: Microbiology 08/19/24 11:20 Stool Stool Occult Blood (VANNESA) - Final Occult Blood Positive Physical Exam Const alert, oriented x3 and no apparent distress General Appearance: cooperative HEENT Mouth: dry mucous membranes Resp normal respiratory effort and clear to auscultation bilaterally Resp Narrative: No cough with deep breathing. Effort and Inspection: Negative for tachypneic or labored Cardio regular rate, regular rhythm, no murmurs, no rub and no gallops Cardio Narrative: No ectopy. HR has improved with hydration. 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: (4) Dysarthria: (5) Dysphagia: QUALIFIERS: Dysphagia type: pharyngoesophageal phase Qualified Code(s): R13.14 - Dysphagia, pharyngoesophageal phase (6) Aspiration pneumonia: QUALIFIERS: Aspiration pneumonia type: due to gastric secretions Laterality: right Lung location: lower lobe of lung Qualified Code(s): J69.0 - Pneumonitis due to inhalation of food and vomit (7) Acute hypoxic respiratory failure: (8) PEG (percutaneous endoscopic gastrostomy) status: (9) LV (left ventricular) mural thrombus: (10) Chronic anticoagulation: (11) Urine retention: (12) BPH (benign prostatic hyperplasia): QUALIFIERS: Lower urinary tract symptom presence: symptoms present Lower urinary tract symptom detail: incomplete bladder emptying Qualified Code(s): N40.1 - Benign prostatic hyperplasia with lower urinary tract symptoms; R39.14 - Feeling of incomplete bladder emptying (13) Ischemic cardiomyopathy: (14) Diabetes mellitus: QUALIFIERS: Diabetes mellitus type: type 2 Diabetes mellitus terminal operations manager insulin use: without terminal operations manager use Diabetes mellitus complication status: with circulatory complication Diabetes mellitus complication detail: with other circulatory complications Qualified Code(s): E11.59 - Type 2 diabetes mellitus with other circulatory complications (15) Anxiety and depression: (16) Orthostatic hypotension: (17) Heme positive stool: PLAN: Plan 1. Continue therapy 2. With adjustment and the timing of the water flushes the reflux and gagging is markedly improved. Denies heartburn and nausea. 3. No changes in the drug regimen today. 4. Consider adding a plain SSRI to the drug regimen in a couple days........he has reactive depression.......Effexor I think was contributing to delayed gastric emptying. 5. Recheck orthostatics today. Continue to monitor I&O closely. If he is still orthostatic today will give additional fluids and recheck in the AM........if this does not resolve the orthostasis he may been to have a tile table test post DC to check for autonomic insufficiency. 6. If HGB continues to decrease will need to refer for colonoscopy. 7. Try Atrovent nasal spray to see if we can dry up some of the postnasal drainage and mild secretions. Charges/Coding Visit Charges Inpatient E&M: 59993 [facility] Hosp L1
[2024-08-24] MEDS: Ipratropium Bromide 0.06% NASAL SPRAY 2 SPRAY NASAL ×2 (15:16→20:39)
[2024-08-24 15:36] LABS: Bedside Glucose 107 mg/dL (74-106)
[2024-08-24] MEDS: guaiFENesin 10 ML UDC (200MG/10ML) 20 ML GT (17:36)
[2024-08-24 18:26] LABS: Bedside Glucose 198 mg/dL (74-106)
[2024-08-24] MEDS: MELATONIN 3 MG TABLET PO (20:39)
[2024-08-24] MEDS: Atorvastatin Calcium 40 MG Tablet GT (20:39)
[2024-08-24 22:09] LABS: Bedside Glucose 91 mg/dL (74-106)
[2024-08-25] VITALS (8 sets, daily range): BP systolic 120–136; BP diastolic 72–94; PULSE 92–97; RESP 17–18; TEMP 36.9–37.1; O2SAT 94; BMI 26.8
[2024-08-25] MEDS: 0.9% Saline Lock 10 ML Syringe IV ×2 (00:27→12:12)
[2024-08-25] MEDS: guaiFENesin 10 ML UDC (200MG/10ML) 20 ML GT ×2 (00:41→22:23)
[2024-08-25] MEDS: Metoprolol Tartrate 25 MG Tablet GT ×3 (05:22→22:22)
[2024-08-25] MEDS: Metoclopramide 5 MG TABLET PO ×3 (05:22→19:53)
[2024-08-25] MEDS: Menthol/Lanolin/Calamine/Znox 113 GM Tube 1 APPLIC TOPICAL ×3 (05:23→22:22)
[2024-08-25] MEDS: Ipratropium Bromide 0.06% NASAL SPRAY 2 SPRAY NASAL ×3 (05:23→22:21)
[2024-08-25 06:21] LABS: Bedside Glucose 120 mg/dL (74-106)
[2024-08-25] MEDS: Insulin Lispro 100 UNIT/ML INSULN.PEN SC ×5 (06:37→22:21)
[2024-08-25] MEDS: Insulin Glargine-YFGN 100 UNIT/ML Pen 30 UNIT SC (06:37)
[2024-08-25] MEDS: Jevity 1.5. 1,000 ML Bottle 265 ML GT ×5 (06:39→22:24)
[2024-08-25] MEDS: Acetaminophen 650 MG/20 ML UDC GT ×2 (06:39→22:23)
--- NOTE | 2024-08-25 08:31 | PN_ITS ---
Subjective Subjective Afebrile VSS -orthostatics yesterday were negative but the blood pressure was on the low side. Resting heart rate last evening was increased at 101 and is 92 today. We checked BP's in both arms and there is very little difference. Maintaining appropriate oxygen saturation on RA Oral intake - FOOD n.p.o. with PEG tube FLUIDS fluid balance yesterday was - 70. BS's are well controlled. Discussed with nursing - apparently has been coughing ever since he had ice chips with ST yesterday. Tolerating TF's with no residuals. reflux and gagging after feedings is much better since we changed the water flushes to between feedings. Reviewed the THERAPY notes Medication list reviewed. Denies CP. Tells me that the cough is less today.....nursing states he coughed all night. Taran c/o sweats last night. Denies chills. Denies SOB today. No N/V/heartburn, abd pain, dysuria. Objective Data Objective Data Vital Signs: Vital Signs Temp Pulse Resp BP Pulse Ox O2 Del Method FiO2 98.8 F 92 18 120/79 94 Room Air 21 08/25/24 06:00 08/25/24 06:00 08/25/24 06:00 08/25/24 06:00 08/25/24 06:00 08/25/24 06:00 08/18/24 21:40 Oxygen Delivery Method Room Air Weight: 176 lb 9.444 oz Body Mass Index (BMI) 26.8 Intake & Output: Intake and Output for Last 24 Hours 08/23/24 08/24/24 08/25/24 23:59 23:59 23:59 Intake Total 3388.33 / 3388.33 1680 / 1680 50 / 50 Output Total 2150 / 2150 1750 / 1750 500 / 500 Balance 1238.33 / 1238.33 -70 / -70 -450 / -450 Lab / Micro Data 08/24/24 04:18 08/24/24 04:18 Labs: Laboratory Results - last 24 hr 08/24/24 09:29: POC Glucose 121 H 08/24/24 15:06: POC Glucose 107 H 08/24/24 17:34: POC Glucose 198 H 08/24/24 21:51: POC Glucose 91 08/25/24 06:02: POC Glucose 120 H Micro: Microbiology 08/19/24 11:20 Stool Stool Occult Blood (VANNESA) - Final Occult Blood Positive Physical Exam Const alert and no apparent distress Constitutional Narrative: coughing, loose not constantly today. General Appearance: cooperative Resp Resp Narrative: He has coarse crackles and rhonchi in the R base posteriorly that persist after a cough and several deep breaths. Not tachypneic. No labored respirations. Cardio regular rate, regular rhythm and no gallops GI normal to inspection, nondistended, normoactive bowel sounds, soft to palpation and non-tender GI Narrative: No guarding with palpation. Having regular BM's. Continent of stool. Mostly continent of urine with occasional incontinence. Extremity no calf tenderness General Extremity: Negative for edema Skin Rashes: no rashes Wound Narrative: PEG site is free of erythema and discharge. He has no pain with palpation around the PEG site. 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: (4) Dysarthria: (5) Dysphagia: QUALIFIERS: Dysphagia type: pharyngoesophageal phase Qualified Code(s): R13.14 - Dysphagia, pharyngoesophageal phase (6) Aspiration pneumonia: QUALIFIERS: Aspiration pneumonia type: due to gastric secretions Laterality: right Lung location: lower lobe of lung Qualified Code(s): J69.0 - Pneumonitis due to inhalation of food and vomit (7) Acute hypoxic respiratory failure: (8) PEG (percutaneous endoscopic gastrostomy) status: (9) LV (left ventricular) mural thrombus: (10) Chronic anticoagulation: (11) Urine retention: (12) BPH (benign prostatic hyperplasia): QUALIFIERS: Lower urinary tract symptom presence: symptoms present Lower urinary tract symptom detail: incomplete bladder emptying Qualified Code(s): N40.1 - Benign prostatic hyperplasia with lower urinary tract symptoms; R39.14 - Feeling of incomplete bladder emptying (13) Ischemic cardiomyopathy: (14) Diabetes mellitus: QUALIFIERS: Diabetes mellitus type: type 2 Diabetes mellitus intermodal customer service insulin use: without intermodal customer service use Diabetes mellitus complication status: with circulatory complication Diabetes mellitus complication detail: with other circulatory complications Qualified Code(s): E11.59 - Type 2 diabetes mellitus with other circulatory complications (15) Anxiety and depression: (16) Orthostatic hypotension: (17) Heme positive stool: PLAN: Plan 1. Continue therapy 2. Discontinue sliding scale insulin coverage 3. Change the Lopressor from 3 times daily to twice daily. He had a dose held last evening for low blood pressure. Continue Cozaar 25 mg daily 4. Hold losartan today 5. PA and lateral chest x-ray today 6. Recheck HH on Thursday and a [facility] Charges/Coding Visit Charges Inpatient E&M: 41105 Subs Hosp L1
--- NOTE | 2024-08-25 10:02 | RAD_ITS ---
PROCEDURE: CHEST PA AND LATERAL 08/25/2024 REASON FOR EXAM: COUGH/CRACKLES R BASE. SUSPECTED ASPIRATION. TECHNIQUE: CHEST PA AND LATERAL COMPARISON: August 18, 2024 FINDINGS: Heart size and mediastinal configuration are within normal limits. There is atelectasis or scar in the retrocardiac region on the lateral view, unchanged. There is no new infiltrate or consolidation. There is no pneumothorax or effusion. Aortic calcifications are visible. Suture anchors are noted in the right shoulder. 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 RAD/Chest PA and Lateral IMPRESSION: There is atelectasis or scar in the retrocardiac region on the lateral view, un changed. There is no new infiltrate or consolidation. Reading Location: [facility]
[2024-08-25] MEDS: Montelukast 10 MG Tablet GT (10:04)
[2024-08-25] MEDS: Aspirin 81 MG TAB.CHEW GT (10:05)
[2024-08-25] MEDS: Empagliflozin 10 MG Tablet GT (10:05)
[2024-08-25] MEDS: APIXABAN 5 MG TABLET GT ×2 (10:05→22:22)
[2024-08-25] MEDS: Lansoprazole 15 MG Capsule.DR 30 MG PO (10:05)
[2024-08-25] MEDS: Arthritis Pain Compound 60 CLICK TUBE TOPICAL ×2 (10:18→22:22)
[2024-08-25 10:44] LABS: Bedside Glucose 235 mg/dL (74-106)
[2024-08-25 15:11] LABS: Bedside Glucose 70 mg/dL (74-106)
[2024-08-25 18:29] LABS: Bedside Glucose 149 mg/dL (74-106)
[2024-08-25] MEDS: Atorvastatin Calcium 40 MG Tablet GT (22:22)
[2024-08-25] MEDS: MELATONIN 3 MG TABLET PO (22:22)
[2024-08-25 22:32] LABS: Bedside Glucose 120 mg/dL (74-106)
[2024-08-26 03:08] VITALS: BMI 26.8
[2024-08-26 05:15] VITALS: BMI 26.6
[2024-08-26] MEDS: Metoclopramide 5 MG TABLET PO (05:16)
[2024-08-26 05:21] VITALS: BP 124/84; PULSE 69; RESP 17; TEMP 36.7; O2SAT 93
[2024-08-26] MEDS: Ipratropium Bromide 0.06% NASAL SPRAY 2 SPRAY NASAL ×3 (06:16→21:56)
[2024-08-26] MEDS: guaiFENesin 10 ML UDC (200MG/10ML) 20 ML GT ×2 (06:17→23:01)
[2024-08-26] MEDS: Insulin Glargine-YFGN 100 UNIT/ML Pen 30 UNIT SC (06:17)
[2024-08-26] MEDS: Insulin Lispro 100 UNIT/ML INSULN.PEN SC ×5 (06:18→23:00)
[2024-08-26] MEDS: Jevity 1.5. 1,000 ML Bottle 265 ML GT ×5 (06:20→21:58)
[2024-08-26 06:50] LABS: Bedside Glucose 134 mg/dL (74-106)
[2024-08-26] MEDS: Menthol/Lanolin/Calamine/Znox 113 GM Tube 1 APPLIC TOPICAL ×2 (09:27→21:57)
[2024-08-26 10:04] VITALS: PULSE 96
[2024-08-26] MEDS: Arthritis Pain Compound 60 CLICK TUBE TOPICAL ×2 (10:04→21:56)
[2024-08-26] MEDS: Metoprolol Tartrate 25 MG Tablet GT ×2 (10:04→21:58)
[2024-08-26] MEDS: Aspirin 81 MG TAB.CHEW GT (10:04)
[2024-08-26] MEDS: APIXABAN 5 MG TABLET GT ×2 (10:04→21:57)
[2024-08-26] MEDS: Empagliflozin 10 MG Tablet GT (10:04)
[2024-08-26] MEDS: Montelukast 10 MG Tablet GT (10:06)
[2024-08-26] MEDS: Metoclopramide 5 MG TABLET GT ×4 (10:06→21:58)
[2024-08-26] MEDS: Lansoprazole 15 MG Capsule.DR 30 MG PO (10:07)
[2024-08-26 11:27] LABS: Bedside Glucose 162 mg/dL (74-106)
[2024-08-26 14:10] VITALS: BMI 26.6
--- NOTE | 2024-08-26 14:41 | CASEMGMT ---
Social Work Pt is progressing well with therapy. Pt continues to require PEG tube and will be discharged with this. NRD with insurance is 08/31. After discussion with team, discharge date has been set for 09/03. SW met with pt and he is agreeable to timeline. SW provided pt with written information on stroke support. Pt states he will notify of dc plan. Team meeting held on Thursday and additional discussions regarding dc to take place then. DALLIN Bruce
[2024-08-26 15:22] LABS: Bedside Glucose 104 mg/dL (74-106)
[2024-08-26 17:47] LABS: Bedside Glucose 178 mg/dL (74-106)
[2024-08-26 18:00] VITALS: BP 100/75; PULSE 94; RESP 18; TEMP 36.9; O2SAT 95
[2024-08-26 21:58] VITALS: BP 122/85; PULSE 94
[2024-08-26] MEDS: Atorvastatin Calcium 40 MG Tablet GT (21:58)
[2024-08-26] MEDS: Acetaminophen 650 MG/20 ML UDC GT (21:58)
[2024-08-26] MEDS: MELATONIN 3 MG TABLET PO (21:58)
[2024-08-26 22:00] VITALS: PULSE 94; O2SAT 95
[2024-08-26 22:40] LABS: Bedside Glucose 86 mg/dL (74-106)
[2024-08-26 23:24] LABS: Bedside Glucose 208 mg/dL (74-106)
[2024-08-27 03:15] VITALS: BMI 26.6
[2024-08-27 06:00] VITALS: BP 127/83; PULSE 84; RESP 20; TEMP 36.6; O2SAT 94
[2024-08-27] MEDS: Ipratropium Bromide 0.06% NASAL SPRAY 2 SPRAY NASAL ×3 (06:24→22:33)
[2024-08-27] MEDS: Insulin Lispro 100 UNIT/ML INSULN.PEN SC ×5 (06:25→23:15)
[2024-08-27] MEDS: Insulin Glargine-YFGN 100 UNIT/ML Pen 30 UNIT SC (06:25)
[2024-08-27] MEDS: Jevity 1.5. 1,000 ML Bottle 265 ML GT ×4 (06:26→22:41)
[2024-08-27] MEDS: Metoclopramide 5 MG TABLET GT ×5 (06:26→22:34)
[2024-08-27 07:03] LABS: Bedside Glucose 135 mg/dL (74-106)
[2024-08-27] MEDS: Menthol/Lanolin/Calamine/Znox 113 GM Tube 1 APPLIC TOPICAL ×2 (09:46→22:43)
[2024-08-27] MEDS: Arthritis Pain Compound 60 CLICK TUBE TOPICAL ×2 (09:46→22:33)
[2024-08-27] MEDS: Lansoprazole 15 MG Capsule.DR 30 MG PO (10:25)
[2024-08-27 10:26] VITALS: PULSE 80
[2024-08-27] MEDS: guaiFENesin 10 ML UDC (200MG/10ML) 20 ML GT (10:26)
[2024-08-27] MEDS: Montelukast 10 MG Tablet GT (10:26)
[2024-08-27] MEDS: Empagliflozin 10 MG Tablet GT (10:26)
[2024-08-27] MEDS: Metoprolol Tartrate 25 MG Tablet GT ×2 (10:26→22:34)
[2024-08-27] MEDS: Aspirin 81 MG TAB.CHEW GT (10:26)
[2024-08-27] MEDS: APIXABAN 5 MG TABLET GT ×2 (10:26→22:33)
[2024-08-27 11:05] LABS: Bedside Glucose 161 mg/dL (74-106)
[2024-08-27 11:20] VITALS: BMI 26.6
[2024-08-27 14:49] LABS: Bedside Glucose 140 mg/dL (74-106)
[2024-08-27 17:35] LABS: Bedside Glucose 116 mg/dL (74-106)
[2024-08-27 17:40] VITALS: BP 111/83; PULSE 94; RESP 18; TEMP 36; O2SAT 96
[2024-08-27 22:34] VITALS: BP 128/79; PULSE 87
[2024-08-27] MEDS: Atorvastatin Calcium 40 MG Tablet GT (22:34)
[2024-08-27] MEDS: MELATONIN 3 MG TABLET PO (22:34)
[2024-08-27] MEDS: Acetaminophen 650 MG/20 ML UDC GT (22:46)
[2024-08-27 23:39] LABS: Bedside Glucose 84 mg/dL (74-106)
[2024-08-27 23:39] LABS: Bedside Glucose 189 mg/dL (74-106)
[2024-08-28 03:51] VITALS: BMI 26.6
[2024-08-28] MEDS: Ipratropium Bromide 0.06% NASAL SPRAY 2 SPRAY NASAL ×3 (05:05→21:00)
[2024-08-28] MEDS: Metoclopramide 5 MG TABLET GT ×5 (05:06→21:02)
[2024-08-28 05:51] VITALS: BP 121/81; PULSE 84; RESP 17; TEMP 36.7; O2SAT 95
[2024-08-28 07:36] LABS: Bedside Glucose 106 mg/dL (74-106)
[2024-08-28 08:02] VITALS: PULSE 84
[2024-08-28] MEDS: Montelukast 10 MG Tablet GT (08:02)
[2024-08-28] MEDS: Metoprolol Tartrate 25 MG Tablet GT ×2 (08:02→21:01)
[2024-08-28] MEDS: Aspirin 81 MG TAB.CHEW GT (08:02)
[2024-08-28] MEDS: Empagliflozin 10 MG Tablet GT (08:03)
[2024-08-28] MEDS: APIXABAN 5 MG TABLET GT ×2 (08:03→21:00)
[2024-08-28] MEDS: Insulin Lispro 100 UNIT/ML INSULN.PEN SC ×4 (08:03→17:18)
[2024-08-28] MEDS: Menthol/Lanolin/Calamine/Znox 113 GM Tube 1 APPLIC TOPICAL ×2 (08:06→21:02)
[2024-08-28] MEDS: Jevity 1.5. 1,000 ML Bottle 265 ML GT ×4 (08:07→20:58)
[2024-08-28] MEDS: Arthritis Pain Compound 60 CLICK TUBE TOPICAL ×2 (08:15→20:59)
[2024-08-28] MEDS: Insulin Glargine-YFGN 100 UNIT/ML Pen 30 UNIT SC (08:22)
[2024-08-28] MEDS: Lansoprazole 15 MG Capsule.DR 30 MG PO (10:51)
[2024-08-28 11:23] VITALS: BMI 26.6
[2024-08-28 11:41] LABS: Bedside Glucose 223 mg/dL (74-106)
[2024-08-28 15:29] LABS: Bedside Glucose 110 mg/dL (74-106)
[2024-08-28 17:43] LABS: Bedside Glucose 207 mg/dL (74-106)
[2024-08-28 17:48] VITALS: BP 126/84; PULSE 80; RESP 16; TEMP 36.4; O2SAT 94
[2024-08-28] MEDS: Atorvastatin Calcium 40 MG Tablet GT (21:00)
[2024-08-28 21:01] VITALS: BP 126/69; PULSE 95
[2024-08-28] MEDS: MELATONIN 3 MG TABLET PO (21:01)
[2024-08-28] MEDS: Acetaminophen 650 MG/20 ML UDC GT (21:27)
[2024-08-28 21:34] LABS: Bedside Glucose 56 mg/dL (74-106)
[2024-08-28 21:49] LABS: Bedside Glucose 89 mg/dL (74-106)
[2024-08-28] MEDS: guaiFENesin 10 ML UDC (200MG/10ML) 20 ML GT (23:24)
[2024-08-29] VITALS (9 sets, daily range): BP systolic 96–140; BP diastolic 72–91; PULSE 79–100; RESP 16–22; TEMP 36.4–36.5; O2SAT 92–98; BMI 26.6; BMI 26.4
[2024-08-29 05:42] LABS: Hematocrit 37.5 % (40-54); Hemoglobin 11.7 g/dL (13.0-16.5); Mean Corp Hgb Conc 31.2 g/dL (32-36); Mean Corpuscular Volume 93.1 fL (80-94); Mean Platelet Vol. 9.7 fl (6.2-12.0); Platelet Count 395 K/mm3 (150-450); RBC Distribution Width CV 13.4 % (11.6-14.6); RBC Distribution Width SD 45.8 fl (35.1-43.9); Red Blood Count 4.03 M/mm3 (4.6-6.2); White Blood Count 8.1 K/mm3 (4.4-11.0)
[2024-08-29] MEDS: Ipratropium Bromide 0.06% NASAL SPRAY 2 SPRAY NASAL (05:50)
[2024-08-29] MEDS: Metoclopramide 5 MG TABLET GT ×3 (05:55→22:19)
[2024-08-29] MEDS: Jevity 1.5. 1,000 ML Bottle 265 ML GT ×3 (05:55→22:31)
[2024-08-29] MEDS: Insulin Lispro 100 UNIT/ML INSULN.PEN SC ×3 (06:11→22:21)
[2024-08-29] MEDS: Insulin Glargine-YFGN 100 UNIT/ML Pen 30 UNIT SC (06:12)
[2024-08-29 06:27] LABS: Anion Gap 10 (5-15); BUN 22 mg/dL (4-19); BUN/Creat Ratio 19.5 RATIO (10-20); Calcium,Total 9.4 mg/dL (7.6-11.0); Chloride 103 mmol/L (98-108); EST Glomerular Filtration Rate 66 (>60); Estimated Creatinine Clearance 48.36 ml/min (50-250); Glucose 114 mg/dL (70-99); Potassium 4.8 mmol/L (3.3-5.1); Sodium Level 141 mmol/L (133-145)
[2024-08-29 06:54] LABS: Bedside Glucose 103 mg/dL (74-106)
[2024-08-29] MEDS: Menthol/Lanolin/Calamine/Znox 113 GM Tube 1 APPLIC TOPICAL (07:59)
[2024-08-29] MEDS: Arthritis Pain Compound 60 CLICK TUBE TOPICAL ×2 (07:59→22:17)
--- NOTE | 2024-08-29 08:42 | PN_ITS ---
Subjective Subjective TEAM rounds were with Kiana only today.......Taran was still in recovery. Afebrile VSS - Maintaining appropriate oxygen saturation on RA Oral intake - FOOD remains n.p.o. FLUIDS not being accurately reported. Intake recorded as 1015 yesterday........was to have 4 feedings of 265 cc and 4 water flushes of 200 cc? The blood sugar record was reviewed. Discussed with nursing - nursing saying he slept well last night. Pt says he is not sleeping. He tells me that he is regurgitating after every feeding......this was not the case last week.....it was only with the 6 PM feeding? Nursing tells me he did better with feedings yesterday.......because they were making sit upright. Reviewed the THERAPY notes Medication list reviewed. All lab done today was personally reviewed. White blood cell count is normal at 8.1. Hemoglobin is 11.7, up from 11 on 08/24/2024. Platelets are within normal limits. Sodium is 144 and the potassium is 4.8. The BUN is 22, down from 28 on 08/24/2024. Creatinine is 1.10. Calcium is normal. He is feeling depressed and getting hopeless. The swallowing has been a source of a lot of upset for him. Wanting to sleep a lot. Still doing his therapy but, bored when he is in his room and wanting to sleep. Denies lightheadedness, cephalgia, chest pain, shortness of breath (except when having coughing paroxysms), nausea/vomiting/abdominal pain, dysuria and calf tenderness. Objective Data Objective Data Vital Signs: Vital Signs Temp Pulse Resp BP Pulse Ox O2 Del Method FiO2 97.6 F L 79 17 140/91 H 93 Room Air 21 08/29/24 05:15 08/29/24 05:15 08/29/24 05:15 08/29/24 05:15 08/29/24 05:15 08/29/24 05:15 08/18/24 21:40 Oxygen Delivery Method Room Air Weight: 174 lb 2.643 oz Body Mass Index (BMI) 26.4 Intake & Output: Intake and Output for Last 24 Hours 08/27/24 08/28/24 08/29/24 23:59 23:59 23:59 Intake Total 1065 / 1065 1015 / 1015 200 / 200 Output Total 1250 / 1250 1650 / 1650 575 / 575 Balance -185 / -185 -635 / -635 -375 / -375 Lab / Micro Data 08/29/24 05:33 08/29/24 05:33 Labs: Laboratory Results - last 24 hr 08/28/24 10:55: POC Glucose 223 H 08/28/24 14:59: POC Glucose 110 H 08/28/24 17:22: POC Glucose 207 H 08/28/24 21:06: POC Glucose 56 L 08/28/24 21:20: POC Glucose 89 08/29/24 05:33: WBC 8.1, RBC 4.03 L, Hgb 11.7 L, Hct 37.5 L, MCV 93.1, MCH 29.0, MCHC 31.2 L, RDW Std Deviation 45.8 H, RDW Coeff of Josh 13.4, Plt Count 395, MPV 9.7, Sodium 141, Potassium 4.8, Chloride 103, Carbon Dioxide 28.0, Anion Gap 10, BUN 22 H, Creatinine 1.10, Estim Creat Clear Calc 48.36 L, Est GFR (MDRD) Non-Af 66, BUN/Creatinine Ratio 19.5, Glucose 114 H, Calcium 9.4 08/29/24 05:54: POC Glucose 103 Micro: Microbiology 08/19/24 11:20 Stool Stool Occult Blood (VANNESA) - Final Occult Blood Positive Physical Exam Const alert and no apparent distress Constitutional Narrative: depressed affect today. speech is soft and a little slurred. He is sitting up in the chair at the bedside but, is always asking to get back in bed. Tearful at times. General Appearance: cooperative Resp Resp Narrative: CTA for me today. No coughing with deep breathing. Cardio regular rate, regular rhythm and no gallops Cardio Narrative: No ectopy GI normal to inspection, nondistended, normoactive bowel sounds, soft to palpation and non-tender GI Narrative: No guarding with palpation. Having regular BM's. Continent of stool. Mostly continent of urine with occasional incontinence. Extremity no calf tenderness General Extremity: Negative for edema Skin Rashes: no rashes Wound Narrative: PEG site is free of erythema and discharge. He has no pain with palpation around the PEG site. 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: (4) Dysarthria: (5) Dysphagia: QUALIFIERS: Dysphagia type: pharyngoesophageal phase Qualified Code(s): R13.14 - Dysphagia, pharyngoesophageal phase (6) Aspiration pneumonia: QUALIFIERS: Aspiration pneumonia type: due to gastric secretions Laterality: right Lung location: lower lobe of lung Qualified Code(s): J69.0 - Pneumonitis due to inhalation of food and vomit (7) Acute hypoxic respiratory failure: (8) PEG (percutaneous endoscopic gastrostomy) status: (9) LV (left ventricular) mural thrombus: (10) Chronic anticoagulation: (11) Urine retention: (12) BPH (benign prostatic hyperplasia): QUALIFIERS: Lower urinary tract symptom presence: symptoms present Lower urinary tract symptom detail: incomplete bladder emptying Qualified Code(s): N40.1 - Benign prostatic hyperplasia with lower urinary tract symptoms; R39.14 - Feeling of incomplete bladder emptying (13) Ischemic cardiomyopathy: (14) Diabetes mellitus: QUALIFIERS: Diabetes mellitus type: type 2 Diabetes mellitus 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 Continue therapy 2. Patient to have a repeat EGD for suspected upper esophageal obstruction causing intolerance of TF with reflux and regurgitation despite Reglan. 3. Decrease insulin with feedings to 4 units. 4. Add Remeron 15 mg Q HS to the drug regimen. 5. Diflucan 100 mg daily X 3 doses......stop Nystatin and Calmoseptine to the penis. 6. Reinforce with nursing and the patient that he must be upright at 90 degrees for 30 to 60 minutes after each tube feeding. Charges/Coding Visit Charges Inpatient E&M: 54760 Subs Hosp L2
--- NOTE | 2024-08-29 12:20 | NURSING ---
Addendum entered by Pennie Garnica 08/29/24 16:27: returned to unit Original Note: pt left unit for procedure.
[2024-08-29] MEDS: Lactated Ringers 1,000 ML 15 ML IV (12:42)
--- NOTE | 2024-08-29 13:18 | PCM.PRE.AN2 ---
ASA Classification* ASA Classification ASA Classification: 3 Assessment & Plan Anesthesia* Anesthesia Assessment Anesthesia Assessment: Discussed sedation and/or anesthesia options, risks, benefits, and alternatives with patient/parents/legal guardian/POA. Questions invited. The patient/parents/legal guardian/POA seems to understand and agrees to proceed with anesthesia plan. Reviewed the physical assessment, medical history, allergy history and patient home medications list prior to surgery/procedure/anesthetic and documented any changes. Performed airway and anesthesia risk assessments. Anesthesia Type Anesthesia Type: MAC History Source History Obtained from:: Patient and Chart Anesthesia Focused Assessment* Temperature: 97.6 F Pulse Rate: 79 Blood Pressure: 140/91 Respiratory Rate: 17 Pulse Ox: 93 Fraction of Inspired Oxygen (FIO2): 21 Airway Assessment Mouth opens: 2 cm Mallampati Score: IV Teeth Condition: Implants Neck Range of motion (ROM): Limited ROM Labs Anesthesia Preop lab: CBC WBC 8.1 K/mm3 (4.4-11.0) 08/29/24 05:08/29/24 RBC 4.03 M/mm3 (4.6-6.2) L 08/29/24 05:08/29/24 Hgb 11.7 g/dL (13.0-16.5) L 08/29/24 05:08/29/24 Hct 37.5 % (40-54) L 08/29/24 05:08/29/24 Plt Count 395 K/mm3 (150-450) 08/29/24 05:08/29/24 CHEMISTRY Potassium 4.8 mmol/L (3.3-5.1) 08/29/24 05:08/29/24 Sodium 141 mmol/L (133-145) 08/29/24 05:08/29/24 Magnesium 2.3 mg/dL (1.5-2.2) H 08/19/24 04:40 08/19/24 Phosphorus 3.6 mg/dL (2.7-4.5) 08/19/24 04:40 08/19/24 BUN 22 mg/dL (4-19) H 08/29/24 05:08/29/24 Creatinine 1.10 mg/dL (0.70-1.20) 08/29/24 05:33 08/29/24 Glucose 114 mg/dL (70-99) H 08/29/24 05:33 08/29/24 POC Glucose 103 mg/dL (74-106) 08/29/24 05:54 08/29/24 TSH 1.390 uIU/mL (0.300-4.200) 08/09/24 04:32 08/09/24 COAG PT 13.3 SECONDS (11.7-14.9) 08/08/24 21:19 08/08/24 Pre-Assessment Diagnosis/Proposed Procedure Planned Operative Procedure(s): EGD Anesthesia History 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 When Was Last Pacemaker Check QUESTION #4 FULL TEXT: You/Your Family Experience fever (hyperthermia) with Anesthesia Last Oral Intake Last Oral intake: Last Oral Intake NPO since Meds taken in AM with sips of water? 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 professor Female HX of Motion Sickness HX of N/V After Surgery Non-Smoker Duration of Surgery greater than 60 minutes Number of Risk Factors PONV Score Height & Weight Height & Weight: Anesthesia: Height & Weight Height 5 ft 8 in 08/29/24 10:10 Weight: 79 kg 08/29/24 10:10 Body Mass Index (BMI) 26.4 08/29/24 06:51 Respiratory Assessment Respiratory Assessment - archeology professor: Respiratory Tract Infection Hx - archeology professor Hx Respiratory Tract Infection STOP Sleep Apnea STOP Sleep Apnea - archeology professor: STOP Sleep Apnea - archeology professor Hx Hypertension Yes 08/29/24 01:46 Hx Sleep Apnea No 08/17/24 18:49 CPAP BIPAP Do you snore loudly (louder No 08/17/24 18:49 than talking or can be heard Do you often feel tired/ No 08/17/24 18:49 fatigued/ sleepy during daytime? Has anyone observed you stop No 08/17/24 18:49 breathing during sleep? STOP Results Negative 08/17/24 18:49 QUESTION #5 FULL TEXT : Do you snore loudly (louder than talking or can be heard through closed doors)? 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 Specify any problems Hx of Preganancy in last 3 N/A 08/17/24 18:49 Months Nurse Filling Out Transfusion [facility] 08/17/24 18:49 & Questions: Date: 08/17/24 08/17/24 18:49 Time: 18:49 08/17/24 18:49 Patient unable to answer at this time (ie. confused, unrespo /Reproduction History /Reproductive History - archeology professor: /Reproductive Hx- archeology professor Hx Now Gestational Age (in weeks): EDC: Hx Hx Para Hx Section SAB Active Medications Active Medications: Current Medications Generic Name Dose Route Start Last Admin Trade Name Freq PRN Reason Stop Dose Admin Acetaminophen 650 mg 08/17/24 18:26 08/28/24 21:27 Acetaminophen 650 Mg/20 Ml Udc GT 650 mg Q6H PRN PRN Administration Pain 1-10 Or Fever Albuterol Sulfate 2.5 mg 08/17/24 18:26 08/18/24 18:46 Albuterol 2.5 Mg/3 Ml Vial.Neb. INHALATION 2.5 mg Q2H PRN PRN Administration Dyspnea, wheezing Apixaban 5 mg 08/17/24 22:00 08/29/24 09:41 Apixaban 5 Mg Tablet GT Not Given BID SOILA Aspirin 81 mg 08/18/24 08:00 08/29/24 09:40 Aspirin 81 Mg Tab.Chew GT Not Given BREAKFAST SOILA Atorvastatin Calcium 40 mg 08/17/24 22:00 08/28/24 21:00 Atorvastatin Calcium 40 Mg Tablet GT 40 mg QHS SOILA Administration Bisacodyl 10 mg 08/17/24 18:39 Bisacodyl 10 Mg Suppository RC X1 PRN Constipation Botulinum Toxin Type A 100 units 08/29/24 13:30 Botulinum Toxin A 100 Units Vial IJ 08/29/24 13:31 PREMED ONE Calamine/Phenol 1 applic 08/25/24 06:00 08/29/24 07:59 Menthol/Lanolin/Calamine/Znox 113 Gm Tube TOPICAL 1 applic BID SOILA Administration Protocol Compound Med 2 click 08/18/24 22:00 08/29/24 07:59 Arthritis Pain Compound 60 Click Tube TOPICAL 2 click BID [facility] Administration Protocol Empagliflozin 10 mg 08/19/24 10:00 08/28/24 08:03 Empagliflozin 10 Mg Tablet GT 10 mg DAILY SOILA Administration Enteral Nutritional Formula 265 ml 08/29/24 10:00 08/29/24 10:51 Jevity 1.5. 1,000 Ml Bottle GT Not Given 0600,1000,1400,1800 [facility] Enteral Nutritional Formula 265 ml 08/29/24 22:00 Jevity 1.5. 1,000 Ml Bottle GT 2200 [facility] Finasteride 5 mg 08/19/24 22:15 08/22/24 18:11 Finasteride 5 Mg Tablet GT 5 mg DAILY@1730 [facility] Administration Fluconazole 100 mg 08/29/24 10:00 Fluconazole 100 Mg Tablet PO 08/31/24 10:01 DAILY SOILA Guaifenesin 20 ml 08/18/24 23:36 08/28/24 23:24 Guaifenesin 10 Ml Udc (200mg/10ml) GT 20 ml Q6H PRN PRN Administration COUGH Lactated Ringer's 1,000 mls @ 15 mls/hr 08/29/24 12:45 08/29/24 12:42 IV 15 mls/hr .Q48H SOILA Administration Insulin Glargine 30 unit 08/19/24 06:00 08/29/24 06:12 Insulin Glargine-Yfgn 100 Unit/Ml Pen SC 30 unit DAILY@0600 SOILA Administration Insulin Human Lispro 4 unit 08/29/24 10:00 08/29/24 10:50 Insulin Lispro 100 Unit/Ml Insuln.Pen SC Not Given 0600,1000,1400,1800 [facility] Insulin Human Lispro 4 unit 08/29/24 22:00 Insulin Lispro 100 Unit/Ml Insuln.Pen SC 2200 [facility] Lansoprazole 30 mg 08/23/24 10:00 08/28/24 10:51 Lansoprazole 15 Mg Capsule.Dr PO 30 mg DAILY SOILA Administration Losartan Potassium 25 mg 08/19/24 10:00 08/24/24 08:49 Losartan Potassium 25 Mg Tablet PO 25 mg DAILY SOILA Administration Protocol Magnesium Hydroxide 30 ml 08/17/24 18:39 Magnesium Hydroxide 30 Ml Udc PO X1 PRN Constipation Melatonin 3 mg 08/18/24 22:00 08/28/24 21:01 Melatonin 3 Mg Tablet PO 3 mg QHS SOILA Administration Metoclopramide HCl 5 mg 08/26/24 10:00 08/29/24 10:50 Metoclopramide 5 Mg Tablet GT Not Given 5X/DAY [facility] Metoprolol Tartrate 25 mg 08/25/24 10:00 08/28/24 21:01 Metoprolol Tartrate 25 Mg Tablet GT 25 mg BID SOILA Administration Protocol Mirtazapine 15 mg 08/29/24 22:00 Mirtazapine 15 Mg Tablet PO QHS SOILA Montelukast Sodium 10 mg 08/18/24 10:00 08/28/24 08:02 Montelukast 10 Mg Tablet GT 10 mg DAILY SOILA Administration Ondansetron HCl 4 mg 08/22/24 20:18 08/23/24 10:34 Ondansetron 8 Mg Tablet PO 4 mg Q6 PRN Administration NAUSEA Sodium Chloride 10 - 40 ml 08/17/24 18:49 08/25/24 12:12 0.9% Saline Lock 10 Ml Syringe IV 10 ml UD PRN Administration SALINE FLUSH [facility] Medical History (Updated 08/25/24 @ 00:00 by Background Daemon) Anxiety and depression Remote history of stroke Allergic rhinitis Left ventricular hypertrophy Dupuytren's contracture of both hands Osteoarth NOS-shlder GERD (gastroesophageal reflux disease) CAD (coronary artery disease) Hypercholesteremia Diabetes mellitus HTN (hypertension) NH (myocardial infarction) CVA (cerebral vascular accident) Home Medications ?Medication ?Instructions ?Recorded ?Last Taken ?Type metformin 500 mg tablet 500 mg PO BID glucose 08/08/24 Unknown History Held on 08/17/24. Instructions: Resume on 08/19/24. semaglutide 0.25 mg or 0.5 mg (2 0.25 mg (0.368 mL) subcut QWEEK 08/15/24 Unknown Rx mg/3 mL) subcutaneous pen injector glucose #3 mL (Ozempic) Held on 08/17/24. Instructions: Ordered acetaminophen 650 mg/20.3 mL oral 650 mg (20.3 mL) G-tube Q6H PRN 08/17/24 Unknown Rx solution PRN Pain 1-10 Or Fever #0 mL albuterol sulfate 2.5 mg/3 mL 2.5 mg (3 mL) inhalation Q2H PRN 08/17/24 Unknown Rx (0.083 %) solution for nebulization PRN Dyspnea, wheezing #0 mL amlodipine 5 mg tablet 5 mg feeding tube DAILY blood 08/17/24 Unknown Rx pressure #30 tabs amoxicillin 875 mg-potassium 1 tab feeding tube BID ATB 5 days 08/17/24 Unknown Rx clavulanate 125 mg tablet #10 tabs apixaban 5 mg tablet (Eliquis) 5 mg G-tube BID cva #0 tabs 08/17/24 08/17/24 Rx aspirin 81 mg chewable tablet 81 mg feeding tube BREAKFAST heart 08/17/24 08/17/24 History health atorvastatin 40 mg tablet 40 mg NG QHS cholesterol #0 tabs 08/17/24 08/16/24 Rx insulin glargine-yfgn 100 unit/mL 20 unit (0.2 mL) subcut DAILY 08/17/24 08/17/24 Rx (3 mL) subcutaneous pen blood sugar #0 mL insulin lispro 100 unit/mL See Protocol subcut ACHS blood 08/17/24 08/17/24 Rx subcutaneous pen (Humalog KwikPen sugar #0 mL (U-100) Insulin) metoprolol tartrate 25 mg tablet 25 mg G-tube DAILY blood presure 08/17/24 08/17/24 Rx #0 tabs montelukast 10 mg tablet 10 mg G-tube DAILY allergies #0 08/17/24 08/17/24 Rx tabs omeprazole 20 mg capsule,delayed 20 mg feeding tube BID acid 08/17/24 Unknown Rx release reduction #30 caps sitagliptin phosphate 100 mg 100 mg feeding tube DAILY blood 08/17/24 Unknown Rx tablet (Januvia) sugar #30 tabs Allergy/AdvReac Type Severity Reaction Status Date / Time No Known Allergies Allergy Verified 08/08/24 22:15 Family History Mother Colon cancer Father CAD (coronary artery disease) Heart disease Hypertension Myocardial infarction Surgical History (Updated 08/19/24 @ 10:[address] Cassia Alvarez DO) S/P left rotator cuff repair History of tonsillectomy and adenoidectomy History of coronary angioplasty with insertion of stent Status post left partial knee replacement Social History household members: spouse Smoking Status: Never smoker alcohol intake: never substance use type: does not use Review of Systems (Anesthesia) ROS Narrative System reviewed and no additional complaints, except as documented.
--- NOTE | 2024-08-29 13:46 | CASEMGMT ---
Addendum entered by Dee Anderson 08/30/24 08:07: SW sent referral via [facility] to [facility] and [facility] for pt's needs. Will continue to follow. Original Note: Social Work IDT met with as pt was in procedure for Team meeting. Discussed patient's progress in PT/OT/ST/SN/MD. Educated to [facility] insurance with [employer] 08/31, with insurance requesting DC plans and date. Pt is getting EGD, and Dr wants to review results prior to setting a DC date, though anticipating DC 09/03. In preparation, SW to send referral to [facility] for peg supplies. SW to send referral to [facility] for hospital bed as pt needs to be at 90 degrees for peg tubes and swallowing precautions. Nursing schedule training with for peg tube feedings. SW to coordinate skilled HHC. SW provided list of skilled HHC agencies within geographical area, INN with insurance, that include quality and resource data via [employer]Port guide. to notify SW of preferences. SW will continue to follow for DC planning. Dee Anderson [employer] HOUSEK[employer]PER [employer]
--- NOTE | 2024-08-29 14:11 | PCM.PN.BLA ---
Progress Note Patient has been NPO. He is scheduled upper endoscopy with dilation and possible Botox placement due to worsening esophageal dysphagia. He underwent swallowing test and was discovered to have transfer oropharyngeal dysphagia as well as esophageal dysphagia. Physical Exam Const alert, oriented x3, no apparent distress and healthy appearing General Appearance: cooperative GI normal to inspection, nondistended, normoactive bowel sounds, soft to palpation, non-tender and non-distended Percussion: normal to percussion Rectal Exam: deferred Assessment & Plan Assessment/Plan (1) Esophageal dysphagia: (2) Oropharyngeal dysphagia: PLAN: He will undergo an upper endoscopy with dilation and possible Botox placement he was explained alternatives, risk and benefits include not withstanding bleeding, infection, sepsis, perforation, need for emergent surgery and . He will have an ASA of 3. Visit Charges Inpatient E&M: 33245 Subs Hosp L2
[2024-08-29] MEDS: 0.9% Normal Saline (Pres. free 10 ML Vial (14:34)
[2024-08-29] MEDS: Botulinum Toxin A 100 Units Vial IJ (14:34)
[2024-08-29] MEDS: 0.9% Saline Lock 10 ML Syringe IV (14:34)
--- NOTE | 2024-08-29 14:49 | OP.CCLET_ITS ---
08/29/2024 Sonny Santos [address] [place] [address] Re : Upper GI endoscopy procedure for Alida Gates Dear Dr. Santos This procedure was performed on Thursday, August 29, 2024. My impressions and recommendations are as follows: Impressions : - The nasopharynx and oropharynx are abnormal. - Moderate Schatzki ring. Dilated. - Abnormal esophageal motility. Injected with botulinum toxin. - Intact gastrostomy with a patent G-tube present characterized by healthy appearing mucosa. - No gross lesions in the second portion of the duodenum. - No specimens collected. Recommendations : - Return patient to [facility] care. - Resume previous diet. - Continue present medications. My findings are described in the full procedure note, which is enclosed. If I can be of further assistance, please feel free to contact me at . Sincerely, Roberto Carlos Friend, 08/29/2024 2:49:08 PM This report has been signed electronically.
--- NOTE | 2024-08-29 14:49 | OP.EGD_ITS ---
Patient Name: Alida Gates Procedure Date: 08/29/2024 2:16 PM Date of : 1940 Age: 84 Procedure: Upper GI endoscopy Indications: Dysphagia Providers: Roberto Carlos Napoles DO Medicines: Monitored Anesthesia Care Patient Profile: This is an 84 year old male. Refer to note in patient chart for documentation of history and physical. Patient has symptoms of dysphagia with both liquids and solids. Complications: No immediate complications. Procedure: Pre-Anesthesia Assessment: - Prior to the procedure, a History and Physical was performed, and patient medications and allergies were reviewed. The patient is competent. The risks and benefits of the procedure and the sedation options and risks were discussed with the patient. All questions were answered and informed consent was obtained. Patient identification and proposed procedure were verified by the physician in the pre-procedure area. Mental Status Examination: alert and oriented. Airway Examination: normal oropharyngeal airway and neck mobility. Respiratory Examination: clear to auscultation. CV Examination: normal. Prophylactic Antibiotics: The patient does not require prophylactic antibiotics. Prior Anticoagulants: The patient has taken no anticoagulant or antiplatelet agents except for NSAID medication. ASA Grade Assessment: II - A patient with mild systemic disease. After reviewing the risks and benefits, the patient was deemed in satisfactory condition to undergo the procedure. The anesthesia plan was to use monitored anesthesia care (MAC). Immediately prior to administration of medications, the patient was re-assessed for adequacy to receive sedatives. The heart rate, respiratory rate, oxygen saturations, blood pressure, adequacy of pulmonary ventilation, and response to care were monitored throughout the procedure. The physical status of the patient was re-assessed after the procedure. After obtaining informed consent, the endoscope was passed under direct vision. Throughout the procedure, the patient's blood pressure, pulse, and oxygen saturations were monitored continuously. The Endoscope was introduced through the mouth, and advanced to the second part of duodenum. The upper GI endoscopy was accomplished without difficulty. The patient tolerated the procedure well. Scope In: 2:31:36 PM Scope Out: 2:41:22 PM Total Procedure Duration Time 0 hours 9 minutes 46 seconds Findings: The nasopharynx and oropharynx are abnormal. A moderate Schatzki ring was found at the cricopharyngeus. A guidewire was placed and the scope was withdrawn. Dilation was performed with a Savary dilator with no resistance at 57 Fr. The dilation site was examined and showed moderate improvement in luminal narrowing. Abnormal motility was noted at the cricopharyngeus and in the upper third of the esophagus. The cricopharyngeus was abnormal. There are extra peristaltic waves in the esophageal body. The distal esophagus/lower esophageal sphincter is spastic, but gives up passage to the endoscope. Secondary peristaltic waves are noted. Area was successfully injected with 100 units botulinum toxin. There was evidence of an intact gastrostomy with a patent G-tube present in the gastric body. This was characterized by healthy appearing mucosa. No gross lesions were noted in the second portion of the duodenum. Impression: - The nasopharynx and oropharynx are abnormal. - Moderate Schatzki ring. Dilated. - Abnormal esophageal motility. Injected with botulinum toxin. - Intact gastrostomy with a patent G-tube present characterized by healthy appearing mucosa. - No gross lesions in the second portion of the duodenum. - No specimens collected. Recommendation: - [facility]. - Resume previous diet. - Continue present medications. Procedure Code(s): --- Professional --- 12579, Esophagogastroduodenoscopy, flexible, transoral; with insertion of guide wire followed by passage of dilator(s) through esophagus over guide wire 75894, 59,51, Esophagogastroduodenoscopy, flexible, transoral; with directed submucosal injection(s), any substance CPT copyright 2021 [employer]. All rights reserved. The codes documented in this report are preliminary and upon carpenter ship review may be revised to meet current compliance requirements. Roberto Carlos Napoles DO 08/29/2024 2:49:08 PM This report has been signed electronically. Number of Addenda: 0 Note Initiated On: 08/29/2024 2:16 PM
--- NOTE | 2024-08-29 14:49 | PCM.POST.ANE ---
Anesthesia: Postop Eval I Current Vital Signs Temperature: 97.5 F Pulse Rate: 98 Blood Pressure: 107/79 Respiratory Rate: 22 Pulse Ox: 94 Oxygen Delivery Method: Room Air Assessment Airway patent: Yes Spontaneous unlabored respirations: Yes Mental status: Calm and Asleep nausea: No Vomiting: No Anesthesia Complication: No Fluid Hydration Crystalloid volume administer (ml): 400 Total IV fluid infused: 400 Progress Note Anesthesia document: Postop Eval 1 completed: Yes
--- NOTE | 2024-08-29 15:23 | POSTOPAN2_ITS ---
Anesthesia Postop Eval I Sum Postop Eval Completion status Anesthesia document: Postop Eval 1 completed: Yes Anesthesia Postop Eval I Summary Anesthesia Postop Eval I Summary: Anesthesia Postop Eval I: Assessment Summary Airway patent Yes 08/29/24 14:50 [email or web address] Spontaneous unlabored Yes 08/29/24 14:50 [email or web address] respirations Mental status Calm,Asleep 08/29/24 14:50 [email or web address] nausea No 08/29/24 14:50 BLUEPRINT [email or web address] Vomiting No 08/29/24 14:50 [email or web address] Anesthesia Postop Eval I: Fluid Summary Crystalloid volume administer 400 08/29/24 14:50 [email or web address] (ml) Colloids volume administered ( ml) Blood Product volume administered (ml) Total IV fluid infused 400 08/29/24 14:50 [email or web address] Anesthesia Postop Eval I: Summary Notes Anesthesia Complication No 08/29/24 14:50 [email or web address] Anesthesia Complication Comment: Post-operative progress note Anesthesia: Postop Eval II Evaluation Mental status: Awake Pain Level: 0 nausea: No Vomiting: No Complications Anesthesia Complication: No
--- NOTE | 2024-08-29 15:23 | PCM.POSTANE2 ---
Anesthesia Postop Eval I Sum Postop Eval Completion status Anesthesia document: Postop Eval 1 completed: Yes Anesthesia Postop Eval I Summary Anesthesia Postop Eval I Summary: Anesthesia Postop Eval I: Assessment Summary Airway patent Yes 08/29/24 14:50 SENIOR WEB [email or web address] Spontaneous unlabored Yes 08/29/24 14:50 SENIOR WEB ENGINEER.APAT respirations Mental status Calm,Asleep 08/29/24 14:50 SENIOR WEB [email or web address] nausea No 08/29/24 14:50 SENIOR WEB [email or web address] Vomiting No 08/29/24 14:50 SENIOR WEB [email or web address] Anesthesia Postop Eval I: Fluid Summary Crystalloid volume administer 400 08/29/24 14:50 SENIOR WEB [email or web address] (ml) Colloids volume administered ( ml) Blood Product volume administered (ml) Total IV fluid infused 400 08/29/24 14:50 SENIOR WEB [email or web address] Anesthesia Postop Eval I: Summary Notes Anesthesia Complication No 08/29/24 14:50 SENIOR WEB [email or web address] Anesthesia Complication Comment: Post-operative progress note Anesthesia: Postop Eval II Evaluation Mental status: Awake Pain Level: 0 nausea: No Vomiting: No Complications Anesthesia Complication: No
[2024-08-29 18:57] LABS: Bedside Glucose 91 mg/dL (74-106)
[2024-08-29] MEDS: Acetaminophen 650 MG/20 ML UDC GT (22:18)
[2024-08-29] MEDS: Atorvastatin Calcium 40 MG Tablet GT (22:19)
[2024-08-29] MEDS: Metoprolol Tartrate 25 MG Tablet GT (22:19)
[2024-08-29] MEDS: APIXABAN 5 MG TABLET GT (22:19)
[2024-08-29] MEDS: MELATONIN 3 MG TABLET PO (22:19)
[2024-08-29] MEDS: Fluconazole 100 MG Tablet PO (22:19)
[2024-08-29] MEDS: Mirtazapine 15 MG Tablet PO (22:19)
[2024-08-29 23:07] LABS: Bedside Glucose 156 mg/dL (74-106)
[2024-08-30] MEDS: guaiFENesin 10 ML UDC (200MG/10ML) 20 ML GT ×2 (01:16→22:52)
[2024-08-30 04:01] VITALS: BMI 26.4
[2024-08-30 06:00] VITALS: BP 126/69; PULSE 88; RESP 18; TEMP 36.9; O2SAT 93
[2024-08-30] MEDS: Jevity 1.5. 1,000 ML Bottle 265 ML GT ×5 (06:48→21:01)
[2024-08-30] MEDS: Metoclopramide 5 MG TABLET GT ×5 (06:49→21:02)
[2024-08-30] MEDS: Insulin Glargine-YFGN 100 UNIT/ML Pen 30 UNIT SC (07:25)
[2024-08-30] MEDS: Insulin Lispro 100 UNIT/ML INSULN.PEN SC ×5 (07:25→21:03)
[2024-08-30 07:30] LABS: Bedside Glucose 92 mg/dL (74-106)
--- NOTE | 2024-08-30 08:30 | CASEMGMT ---
Social Work SW received call from with [facility] preferences: [facility] and [facility]. also provided times/dates for children/stepchildren to be present with this worker and Dr to have family meeting and get updates on pt's care. Scheduled for 09/01 at 1530. - RACHAEL phoned referral to [facility]. Dee ANDERSONW
[2024-08-30] MEDS: APIXABAN 5 MG TABLET GT ×2 (09:38→21:01)
[2024-08-30] MEDS: Lansoprazole 15 MG Capsule.DR 30 MG PO (09:39)
[2024-08-30 09:40] VITALS: BP 126/69; PULSE 88
[2024-08-30] MEDS: Aspirin 81 MG TAB.CHEW GT (09:40)
[2024-08-30] MEDS: Arthritis Pain Compound 60 CLICK TUBE TOPICAL ×2 (09:40→21:04)
[2024-08-30] MEDS: Metoprolol Tartrate 25 MG Tablet GT ×2 (09:40→21:02)
[2024-08-30] MEDS: Montelukast 10 MG Tablet GT (09:41)
[2024-08-30] MEDS: Empagliflozin 10 MG Tablet GT (09:41)
[2024-08-30] MEDS: Menthol/Lanolin/Calamine/Znox 113 GM Tube 1 APPLIC TOPICAL (09:48)
[2024-08-30 11:25] LABS: Bedside Glucose 334 mg/dL (74-106)
--- NOTE | 2024-08-30 13:46 | PN_ITS ---
Subjective Subjective Afebrile VSS -blood pressure is well-controlled. Heart rate is within normal limits. Maintaining appropriate oxygen saturation on RA Oral intake - FOOD PEG feeding FLUIDS per PEG BS record was reviewed. BS's on the low side yesterday.......TF's were held in preparation for EGD. Lispro has been decreased to 4 units with each TF. Discussed with nursing - no problems that need addressed. Less cough per nursing. He tried ice chips with St today and did better. Has to be reminded to do double swallows. With 5 of 10 trials he was coughing. He did not have to suction though and he coughed up some phlegm and swallowed it. He has not been using the Yankauer very often today. Reviewed the THERAPY notes Medication list reviewed. Denies SOB, CP, lightheadedness, nausea, heartburn, abd pain, dysuria and calf tenderness. Objective Data Objective Data Vital Signs: Vital Signs Temp Pulse Resp BP Pulse Ox O2 Del Method FiO2 98.5 F 88 18 126/69 H 93 Room Air 21 08/30/24 06:00 08/30/24 09:40 08/30/24 06:00 08/30/24 09:40 08/30/24 06:00 08/30/24 06:00 08/29/24 13:21 Oxygen Delivery Method Room Air Weight: 174 lb 2.643 oz Body Mass Index (BMI) 26.4 Intake & Output: Intake and Output for Last 24 Hours 08/28/24 08/29/24 08/30/24 23:59 23:59 23:59 Intake Total 1015 / 1015 553.5 / 553.5 Output Total 1650 / 1650 575 / 775 500 / 500 Balance -635 / -635 -21.5 / -221.5 -500 / -500 Lab / Micro Data 08/29/24 05:33 08/29/24 05:33 Labs: Laboratory Results - last 24 hr 08/29/24 18:21: POC Glucose 91 08/29/24 22:15: POC Glucose 156 H 08/30/24 06:34: POC Glucose 92 08/30/24 11:03: POC Glucose 334 H Micro: Microbiology 08/19/24 11:20 Stool Stool Occult Blood (VANNESA) - Final Occult Blood Positive Physical Exam Const alert and no apparent distress Constitutional Narrative: depressed affect today. speech is soft and a little slurred. He is sitting up in the chair at the bedside but, is always asking to get back in bed. Tearful at times. General Appearance: cooperative HEENT normocephalic and head/scalp atraumatic Eyes PERRL, EOMs intact bilaterally, conjunctivae normal and no scleral icterus Eyes Narrative: No discharge from the eyes or mattering of the eyelashes. No visual field cuts. No visual extinction. Wears glasses only to read and drive. Trace nystagmus with the right eye only. Neck supple, No nodes and no carotid bruits General: trachea midline Chest Chest: symmetrical chest wall rise Resp normal respiratory effort and clear to auscultation bilaterally Resp Narrative: CTA for me today. No coughing with deep breathing. Effort and Inspection: able to speak in complete sentences; Negative for tachypneic, respiratory distress or labored Cardio regular rate, regular rhythm and no gallops Cardio Narrative: No ectopy GI normal to inspection, nondistended, normoactive bowel sounds, soft to palpation and non-tender GI Narrative: No guarding with palpation. Having regular BM's. Continent of stool. Mostly continent of urine with occasional incontinence. no CVA tenderness Bladder / Kidney Exam: bladder normal to palpation Extremity no calf tenderness Extremity Narrative: No clubbing or cyanosis. Has pain in the right shoulder and R biceps. General Extremity: Negative for edema Skin no jaundice Skin Narrative: resolving bruises from IV's and lab draws. General Skin Exam: no breakdown, crusts, scars and other Dry skin Rashes: no rashes Wound Narrative: PEG site is free of erythema and discharge. He has no pain with palpation around the PEG site. Hair: general thinning Neuro Neuro Narrative: Tongue protrudes on the midline. Mild asymmetry with elevation of the palate. White coating of the tongue but, no buccal lesions and no c/o halitosis, mouth pain of tongue pain. R facial droop - mild. Had some difficulty following some of my commands and I had to give visual clues. Trace nystagmus with the R eye only. No visual field cuts. PERRLA, EOMI. No drift with any of the extremities and no ataxia. No extinction. Intact sensation. No visual extinction. Names all the pictures correctly. No neglect noted. Was able to read all the words and sentences with no mistakes. Speech is slurred. Psych thought process normal, cooperative, affect normal, denies hallucinations and denies suicidal ideation Psych Narrative: Admits to feeling depressed but, he is sleeping well and is motivated to do therapy and get better. 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 He will let me know if he starts not wanting to do therapy, can't sleep or feels despondent and wants to give up. 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: (4) Dysarthria: (5) Dysphagia: QUALIFIERS: Dysphagia type: pharyngoesophageal phase Qualified Code(s): R13.14 - Dysphagia, pharyngoesophageal phase (6) PEG (percutaneous endoscopic gastrostomy) status: (7) LV (left ventricular) mural thrombus: (8) Chronic anticoagulation: (9) Ischemic cardiomyopathy: (10) Diabetes mellitus: QUALIFIERS: Diabetes mellitus complication detail: with other circulatory complications Diabetes mellitus complication status: with circulatory complication Diabetes mellitus termination clerk insulin use: without senior care use Diabetes mellitus type: type 2 Qualified Code(s): E11.59 - Type 2 diabetes mellitus with other circulatory complications (11) Anxiety and depression: (12) Heme positive stool: (13) Schatzki's ring: (14) Esophageal abnormality: PLAN: Plan 1. Continue therapy 2. Decrease the Lispro to 3 units per feeding. 3. Only ice chips with ST for now. 4. I am encouraged that he is using the Yankauer less and seems to be managing his own oral secretions better. He did cough 5 out of the 10 ice chip trials but, he did not having coughing paroxysms 5. Continue Remeron at 15 mg Q HS. 6. Will need follow up with Dr. Napoles post DC from acute rehab 7. Family meeting scheduled for . 8. Will need to follow up with cardiology post DC for the LV thrombus, CM (new) with 45% EF (normal on his last ECHO)........why did he develop a LV thrombus? Does he need another stress test? cath? Charges/Coding Visit Charges Inpatient E&M: 76569 Subs Hosp L1
[2024-08-30 14:45] LABS: Bedside Glucose 113 mg/dL (74-106)
[2024-08-30 16:17] VITALS: BMI 26.4
[2024-08-30 17:43] VITALS: BP 124/89; PULSE 70; RESP 16; TEMP 37.1; O2SAT 95
[2024-08-30 18:34] LABS: Bedside Glucose 90 mg/dL (74-106)
[2024-08-30 20:50] VITALS: BP 122/85; PULSE 95; RESP 16; BMI 26.4
[2024-08-30] MEDS: MELATONIN 3 MG TABLET PO (21:01)
[2024-08-30 21:02] VITALS: BP 122/85; PULSE 95
[2024-08-30] MEDS: Atorvastatin Calcium 40 MG Tablet GT (21:02)
[2024-08-30] MEDS: Fluconazole 100 MG Tablet PO (21:02)
[2024-08-30] MEDS: Mirtazapine 15 MG Tablet PO (21:02)
[2024-08-30] MEDS: Acetaminophen 650 MG/20 ML UDC GT (21:13)
[2024-08-30 22:17] LABS: Bedside Glucose 144 mg/dL (74-106)
[2024-08-31] MEDS: Metoclopramide 5 MG TABLET GT ×5 (05:47→20:50)
[2024-08-31] MEDS: Insulin Glargine-YFGN 100 UNIT/ML Pen 30 UNIT SC (05:47)
[2024-08-31] MEDS: Insulin Lispro 100 UNIT/ML INSULN.PEN SC ×5 (05:48→22:18)
[2024-08-31] MEDS: guaiFENesin 10 ML UDC (200MG/10ML) 20 ML GT (05:51)
[2024-08-31 06:00] VITALS: BP 131/82; PULSE 80; RESP 16; TEMP 36.5; O2SAT 93
--- NOTE | 2024-08-31 06:58 | NURSING ---
pt reports being tired this am, pt had been coughing off and on this hs. pt washing his face and chest only this am and refused to brush his teeth but finally agreed to us a toothette. pt refused his am tube feeding stating that his stomach didn't feel well pt had already received his am insulin, rn made aware. pt denied nausea and reports that he only had a small bm yesterday. peg checked for residual and was 0.
[2024-08-31 07:07] LABS: Bedside Glucose 124 mg/dL (74-106)
--- NOTE | 2024-08-31 08:24 | PCM.PN.BLA ---
Progress Note Afebrile VSS -blood pressure is well-controlled and heart rate is within normal limits. Maintaining appropriate oxygen saturation on RA Oral intake - FOOD refused to 6 AM feeding today FLUIDS fluids per PEG Discussed with nursing - He continues to lay down after feedings and then has coughing paroxysms...........nursing has now locked the HOB out so that he can not lower his head by himself. Reviewed the THERAPY notes Medication list reviewed. He tells me that he refused the TF because he did not feel well. Tells me his belly felt hard and be felt bloated. 1 small BM yesterday- nonformed. He denies nausea, shortness of breath, lightheadedness, dysuria and calf pain. Physical Exam Const alert and no apparent distress Constitutional Narrative: He was sitting up in bed reading the newspaper when I walked into the room. He is not making good eye contact with me today. His speech is less slurred than it has been in the past couple days. He is more alert. General Appearance: cooperative Resp normal respiratory effort Resp Narrative: Initially had rare rhonchi and some coarse crackles in the bases but, after several deep breaths and a cough the lungs were CTA. Not tachypneic. Effort and Inspection: able to speak in complete sentences Cardio regular rate, regular rhythm and no gallops Cardio Narrative: No ectopy GI GI Narrative: The abd is more distended today and somewhat tympanic. It is soft and he had no guarding with palpation. Bs's are diminished today. The PEG site looks good with no erythema and no DC. Extremity no calf tenderness and no pedal edema Skin Rashes: no rashes Psych Psych Narrative: Depressed affect. Very frustrated that he is still not able to eat and has to have PEG feedings. I pointed out that he has made good progress with PT and OT and from that perspective he is ready for DC. He has made progress since the Esophageal dilation and the BOtox injection........this will take some time to get to the darwin benefit. He was able to do 10 trials with ice chips yesterday and prior to the procedure on Thursday he was not even able to do 1 trial without coughing paroxysms last hours. He coughed after 5 of the 10 trials but, had no paroxysms of coughing lasting hours. He is using the Yankauer much less and there is minimal sputum. I observed him coughing a few times and it was loose and he was able to cough it up and then swallow. He is sleeping better at night. Did not make good eye contact with me today. I asked him if he was ready to and he said yes.........He has no plan for suicide. He is looking forward to getting home. I do not feel he is suicidal........he is depressed and frustrated but, he continues to do therapy and is looking forward to getting home. 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: (4) Dysarthria: (5) Dysphagia: QUALIFIERS: Dysphagia type: pharyngoesophageal phase Qualified Code(s): R13.14 - Dysphagia, pharyngoesophageal phase (6) PEG (percutaneous endoscopic gastrostomy) status: (7) LV (left ventricular) mural thrombus: (8) Chronic anticoagulation: (9) Ischemic cardiomyopathy: (10) Diabetes mellitus: QUALIFIERS: Diabetes mellitus type: type 2 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 Continue therapy 2. KUB to assess fecal burden 3. Magnesium citrate 150 cc per PEG now 4. Continue Remeron.......consider increasing the dose the end of the week.......he is more alert today and is sleeping better. Recommend psychotherapy at DC to learn how to accept his new disabilities and move forward. 5. His has been getting training from the nurses in how to do PEG feedings. 6. Family meeting with his children and tomorrow to update everyone and finalize plan for DC. Taran will need TF for at least 90 days post DC from rehab. 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 The patient requires a hospital bed due to needing frequent changes in position that is not feasible in an ordinary bed. Related to Dx of severe oropharyngeal dysphagia with dependence on PEG tube feedings for hydration and nutrition he must remain upright for 60 minutes after each feeding/flush to prevent reflux/aspiration. The patient is unsafe to use a cane and requires a walker for ambulation in the home and the community. The patient is confined to the patient is confined to one level of the home environment and there is no toilet on that level. Will need a 3 in 1 commode that he can also place over his existing toilet to facilitate getting on and off the toilet. Visit Charges Inpatient E&M: [id number] [facility] Hosp L1
--- NOTE | 2024-08-31 09:26 | RAD_ITS ---
PROCEDURE: ABDOMEN SINGLE VIEW 08/31/2024 REASON FOR EXAM: ABD PAIN TECHNIQUE: ABDOMEN SINGLE VIEW COMPARISON: None FINDINGS: Bowel gas: Large amount of fecal material is seen throughout the colon. Calcifications: No abnormal calcifications are seen. Bones: There are degenerative changes of the spine. Other: A catheter seen overlying the right side of the abdomen. RAD/Abdomen Single View IMPRESSION: Large amount of fecal material is seen in the colon. Reading Location: [place]
[2024-08-31 10:21] VITALS: BP 126/87; PULSE 99
[2024-08-31] MEDS: Aspirin 81 MG TAB.CHEW GT (10:21)
[2024-08-31] MEDS: Montelukast 10 MG Tablet GT (10:21)
[2024-08-31] MEDS: Lansoprazole 15 MG Capsule.DR 30 MG PO (10:21)
[2024-08-31] MEDS: Metoprolol Tartrate 25 MG Tablet GT ×2 (10:21→20:54)
[2024-08-31] MEDS: Empagliflozin 10 MG Tablet GT (10:22)
[2024-08-31] MEDS: APIXABAN 5 MG TABLET GT ×2 (10:22→20:51)
[2024-08-31] MEDS: Magnesium Citrate 300 ML 150 ML GT (10:29)
[2024-08-31] MEDS: Jevity 1.5. 1,000 ML Bottle 265 ML GT ×4 (10:33→22:19)
[2024-08-31] MEDS: Arthritis Pain Compound 60 CLICK TUBE TOPICAL ×2 (10:33→20:49)
[2024-08-31 11:08] LABS: Bedside Glucose 132 mg/dL (74-106)
--- NOTE | 2024-08-31 11:39 | CASEMGMT ---
Addendum entered by Dee Anderson 09/01/24 11:07: SW spoke with Yulissa at [facility] and confirmed everything is in order for pt to receive supplies. Original Note: Social Work SW followed up with [facility] on infusion referral and they are OON with insurance. SW located [facility] infusion company - [facility]. Phoned company, obtained fax number and faxed referral. Will continue to follow. Dee Anderson MOLD PARTER ARCHITECTURAL ENGINEER
[2024-08-31 15:25] LABS: Bedside Glucose 123 mg/dL (74-106)
[2024-08-31] MEDS: 0.9% Saline Lock 10 ML Syringe IV (15:32)
[2024-08-31 16:22] VITALS: BMI 26.4
[2024-08-31 17:25] VITALS: BP 121/77; PULSE 94; RESP 17; TEMP 37.2; O2SAT 96
[2024-08-31 18:40] LABS: Bedside Glucose 118 mg/dL (74-106)
[2024-08-31 20:35] VITALS: BP 123/91; PULSE 97; RESP 17; O2SAT 94; BMI 26.4
[2024-08-31] MEDS: Acetaminophen 650 MG/20 ML UDC GT (20:51)
[2024-08-31] MEDS: MELATONIN 3 MG TABLET PO (20:51)
[2024-08-31] MEDS: Mirtazapine 15 MG Tablet PO (20:51)
[2024-08-31] MEDS: Atorvastatin Calcium 40 MG Tablet GT (20:51)
[2024-08-31] MEDS: Fluconazole 100 MG Tablet PO (20:51)
[2024-08-31 20:54] VITALS: BP 123/91; PULSE 97
[2024-08-31 22:53] LABS: Bedside Glucose 112 mg/dL (74-106)
[2024-09-01] MEDS: Metoclopramide 5 MG TABLET GT ×5 (05:00→22:36)
[2024-09-01 06:00] VITALS: BP 135/87; PULSE 87; RESP 22; TEMP 36.5; O2SAT 94
[2024-09-01] MEDS: Insulin Lispro 100 UNIT/ML INSULN.PEN SC ×5 (06:14→22:36)
[2024-09-01] MEDS: Insulin Glargine-YFGN 100 UNIT/ML Pen 30 UNIT SC (06:15)
[2024-09-01] MEDS: Jevity 1.5. 1,000 ML Bottle 265 ML GT ×5 (06:16→22:37)
[2024-09-01 06:52] LABS: Bedside Glucose 103 mg/dL (74-106)
[2024-09-01] MEDS: Menthol/Lanolin/Calamine/Znox 113 GM Tube 1 APPLIC TOPICAL ×2 (09:28→22:36)
[2024-09-01] MEDS: Arthritis Pain Compound 60 CLICK TUBE TOPICAL ×2 (09:29→22:35)
--- NOTE | 2024-09-01 09:47 | PCM.PROGNOTE ---
Subjective Subjective Afebrile VSS - Maintaining appropriate oxygen saturation on RA Oral intake - FOOD n.p.o. FLUIDS positive fluid balance yesterday and overnight. Had 3 bowel movements yesterday following magnesium citrate and 1 bowel movement today. KUB yesterday shows a large amount of fecal material in the colon. Discussed with nursing - no problems that need addressed Reviewed the THERAPY notes Medication list reviewed. Modified barium swallow continues to show severe oropharyngeal dysphagia. He is to remain n.p.o. but, will do Cheema water with a speech therapist. Consideration will be given to Vital Stim Therapy if/as available. Denies cephalgia, lightheadedness, nausea/vomiting/abdominal pain/heartburn. Using the Yankauer suction much less send he was previously for small amount of spit. No regurgitation. No gagging. Denies chest pain, shortness of breath, palpitations, dysuria and calf tenderness. Objective Data Objective Data Vital Signs: Vital Signs Temp Pulse Resp BP Pulse Ox O2 Del Method FiO2 97.7 F L 87 22 H 135/87 H 94 Room Air 21 09/01/24 06:00 09/01/24 06:00 09/01/24 06:00 09/01/24 06:00 09/01/24 06:00 09/01/24 06:00 08/29/24 13:21 Oxygen Delivery Method Room Air Weight: 174 lb 2.643 oz Body Mass Index (BMI) 26.4 Intake & Output: Intake and Output for Last 24 Hours 08/30/24 08/31/24 09/01/24 23:59 23:59 23:59 Intake Total 1115 / 1115 1480 / 1480 250 / 250 Output Total 1250 / 1250 750 / 750 175 / 175 Balance -135 / -135 730 / 730 75 / 75 Lab / Micro Data 08/29/24 05:33 08/29/24 05:33 Labs: Laboratory Results - last 24 hr 08/31/24 10:13: POC Glucose 132 H 08/31/24 14:45: POC Glucose 123 H 08/31/24 17:56: POC Glucose 118 H 08/31/24 22:14: POC Glucose 112 H 09/01/24 06:13: POC Glucose 103 Micro: Microbiology 08/19/24 11:20 Stool Stool Occult Blood (VANNESA) - Final Occult Blood Positive Radiography Diagnostic Testing: Radiology Impression KUB X-Ray 08/31/24 09:26 IMPRESSION: Large amount of fecal material is seen in the colon. Reading Location: [facility] Physical Exam Const alert and no apparent distress General Appearance: cooperative Resp normal respiratory effort Resp Narrative: CTA after several deep breaths. Effort and Inspection: able to speak in complete sentences Cardio regular rate, regular rhythm and no gallops Cardio Narrative: No ectopy GI GI Narrative: The abd is more distended today and somewhat tympanic. It is soft and he had no guarding with palpation. Bs's are diminished today. The PEG site looks good with no erythema and no DC. 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: (4) Dysarthria: (5) Dysphagia: QUALIFIERS: Dysphagia type: pharyngoesophageal phase Qualified Code(s): R13.14 - Dysphagia, pharyngoesophageal phase (6) PEG (percutaneous endoscopic gastrostomy) status: (7) LV (left ventricular) mural thrombus: (8) Chronic anticoagulation: (9) Ischemic cardiomyopathy: (10) Diabetes mellitus: QUALIFIERS: Diabetes mellitus type: type 2 Diabetes mellitus senior care insulin use: without senior care use Diabetes mellitus complication status: with circulatory complication Diabetes mellitus complication detail: with other circulatory complications Qualified Code(s): E11.59 - Type 2 diabetes mellitus with other circulatory complications (11) Anxiety and depression: (12) Heme positive stool: (13) Schatzki's ring: (14) Esophageal abnormality: PLAN: Plan 1. Continue therapy 2. Plan discharge on 09/03/2024 3. [facility] [place] I spoke with Varun, Taran's son, on the phone and answered his questions and updated him on how Taran has been progressing Patient requires a suction machine due to copious oral secretions with history of severe oropharyngeal dysphagia who is not able to swallow secretions putting him at high risk for aspiration pneumonia if he does not have suction available. Charges/Coding Visit Charges Inpatient E&M: 60109 Subs Hosp L1
[2024-09-01 10:06] VITALS: PULSE 88
[2024-09-01] MEDS: Metoprolol Tartrate 25 MG Tablet GT ×2 (10:06→22:35)
[2024-09-01] MEDS: APIXABAN 5 MG TABLET GT ×2 (10:06→22:35)
[2024-09-01] MEDS: Aspirin 81 MG TAB.CHEW GT (10:06)
[2024-09-01] MEDS: Montelukast 10 MG Tablet GT (10:07)
[2024-09-01] MEDS: Empagliflozin 10 MG Tablet GT (10:07)
[2024-09-01] MEDS: Lansoprazole 15 MG Capsule.DR 30 MG PO (10:07)
[2024-09-01] MEDS: Acetaminophen 650 MG/20 ML UDC GT ×2 (10:19→22:36)
[2024-09-01 10:43] LABS: Bedside Glucose 160 mg/dL (74-106)
--- NOTE | 2024-09-01 10:48 | ST.MBS ---
Modified Barium Swallow Patient Information Study Date: 09/01/24 Study Time: 09:30 Direct Billable Minutes: 120 Total Minutes procedure & reportin Diagnosis: Dysphagia/CVA Referring Physician: Cassia Alvarez Reason for Referral: Objective evaluation of swallow function recommended s/p 3 weeks of skilled speech therapy intervention and s/p recent EGD Medical History: HENRIK MARQUEZ, is a 84 YO M with a PMH of hypertension, diabetes mellitus type 2, hyperlipidemia, history of CVA, history of OH, allergic rhinitis, GERD, anxiety/depression who presented to the ED at [facility] on 08/08/2024 complaining of slurred speech, cephalgia and left facial droop. Noncontrast brain CT showed no acute abnormalities. CTA of the head and neck showed absent total opacification of the V4 segment of the right vertebral artery and right PICA. TNK was administered in the emergency room and he was admitted to the hospitalist service to the ICU. CT of the brain 24 hours after TNK showed no CT evidence for acute brain abnormality and specifically no hemorrhage. MRI of the brain on 08/10/2024 showed mild global parenchymal atrophy. There were small lacunar infarcts in the R parietal, R basal ganglia and R frontal areas. There was periventricular T2/FLAIR hyperintense foci thought to represent mild chronic microvascular ischemia. There was no hemorrhage or infarction present. Modified barium swallow on 08/10/2024 showed severe pharyngoesophageal dysphagia and mild oral dysphagia w/ recommendation for strict NPO status. On 08/11/2024 he had an EGD that showed no gross lesions in the stomach and no gross lesions in the entire examined duodenum. A PEG was inserted. MRI of the brain was repeated on 08/15/24 with contrast and it showed NO abnormal signal in the melanie or the medulla, but there were new punctate foci of restricted diffusion in the R cerebellum consistent with a subacute brainstem CVA. He was transferred to the [facility] acute Inpatient Rehabilitation Unit at [facility] on 08/17/24 for 3 hours of therapy daily to restore function/independence at or near his level prior to the recent stroke. The patient underwent another EGD on 08/29/24 - Impression: The nasopharynx and oropharynx are abnormal. Moderate Schatzki ring. Dilated.? Abnormal esophageal motility. Injected with botulinum toxin. Intact gastrostomy with a patent G-tube present characterized by healthy appearing mucosa. No gross lesions in the second portion of the duodenum. Current Diet Ordered: NPO Dentition: Natural Teeth Mental Status: WNL Respiratory Status: Oxygenating on Room Air Penetration-Aspiration Scale Penetration-Aspiration Scale: OBJECTIVE ASSESSMENT OF SWALLOW FUNCTION (QUANTITATIVE ? PER TRIAL): PENETRATION / ASPIRATION SCALE (OSORIO): 1 = does not enter airway 2 = enters airway/above vocal folds/ejected 3 = enters airway/above vocal folds/not ejected 4 = enters airway/contacts vocal folds/ejected 5 = enters airway/contacts vocal folds/not ejected 6 = enters airway/below vocal folds/ejected 7 = enters airway/below vocal folds/not ejected despite effort 8 = enters airway/below vocal folds/no effort VIDEOFLOROSCOPIC SCALE SCORE (OSORIO): Grade I = aspiration of material that has penetrated into the laryngeal vestibule, intact cough reflex Grade II = aspiration < 10 % of the bolus, intact cough reflex Grade III = aspiration of < 10 % of the bolus, reduced cough reflex or aspiration of > 10 % of the bolus, intact cough reflex Grade IV = aspiration of > 10 % of the bolus, reduced cough reflex Penetration-Aspiration Scale Score Thin Liquid via teaspoon: Result: 6= enters airway/below vocal folds/ejected Thin Liquid via teaspoon Trial 2: Result: 5= enters airways/contacts vocal folds/not ejected Comment: eventual trace aspiration of penetrated contrast - Grade III = aspiration of < 10 % of the bolus, reduced cough reflex Thin Liquid via small single sip: cup: Result: 6= enters airway/below vocal folds/ejected Comment: Grade III = aspiration of < 10 % of the bolus, reduced cough reflex Thin Liquid via small single sip: cup Trial 2: Result: 1= does not enter airway Comment: post prandial penetration Pudding: Result: 1= does not enter airway (bolus trapped in valleculae, no pharyngeal clearance) [place] Thick Liquid via small single sip: cup: Result: 1= does not enter airway Oral Phase Labial Seal: No Labial Escape Tongue Control During Bolus Hold: Cohesive bolus between tongue to palatal seal Bolus Transport/Lingual Motion: Slowed tongue motion Oral Residue: Trace residue lining oral structures Pharyngeal Phase Initiation of Pharyngeal Swallow: Bolus head in pyriforms Soft Palate Elevation: No bolus between soft palate and pharyngeal wall Laryngeal Elevation: Min superior movement thyroid cart/min apprx aryte cart-epig petiole Anterior Hyoid Excursion: Partial anterior movement Epiglottic Movement: Partial inversion Laryngeal Vestibule Closure at Height of Swallow: Incomplete; narrow column of air/contrast in laryngeal vestibule Pharyngeal Stripping Wave: Absent Pharyngoesophageal Segment Opening: Minimal distension and minimal duration; marked obstruction of flow Tongue Base Retraction: Narrow column of contrast between tongue base & post. pharyngeal wall Pharyngeal Residue: Minimal to no pharyngeal clearance Diagnosis/Impression Diagnosis: severe oropharyngeal dysphagia Impression: The oral phase is characterized by... slowed lingual motion w/ AP bolus transportation trace oral residue The pharyngeal phase is marked by... delayed pharyngeal swallow onset w/ liquid boluses spilling into the pharynx to the pyriforms mildly decreased tongue base retraction poor hyolaryngeal excursion w/ reduced epiglottic inversion severely impaired pharyngeal motility w/ absent pharyngeal stripping wave entire pudding bolus was trapped in the valleculae the patient was sensate to penetrated contrast and attempted to cough/clear throat in response to contrast reaching the vocal folds minimal PES distention w/ minimal pharyngoesophageal bolus clearance Recommendations Diet: NPO Comment: Recommend Repeat Modified Barium Swallow: Yes (repeat MBSS in 4 weeks) Need for Skilled Speech Therapy Services: Yes Comment: ST to continue oropharyngeal strengthening (shaker, kathryn, elvira, effortful, CTAR) w/ consideration for implementation of Vital Stim therapy if/as available. Recommend initiating a modified Cheema Water Protocol w/ small sips of water. Reinforce the importance of thorough and frequent oral hygiene. Education Completed: 1. Described result of evaluation., 2. Pt understands evaluation & agrees with goals and treatment plan. and 7. Pt requires further education on strategies & risks. Status Active ST Patient: Active Contact Information [facility] Speech Therapy:: Jennifer Martinez M.A. SOCIAL MEDIA EDITOR Speech-Language Pathologist [facility] [place] [address] [email or web address] [phone]
[2024-09-01 14:15] VITALS: BMI 26.4
--- NOTE | 2024-09-01 14:15 | CASEMGMT ---
Social Work SW received call from stating the pt canceled the family meeting this date. Pt and spoke last evening and pt was upset about the family meeting and did not want the children to have a meeting. SW expressed understanding and will notify the Dr . apologized. SW discussed pt's DC plans. Confirmed to set DC date for 09/03. confirmed. SW referred to [facility] for PT/OT/ST/SN, [facility] for hospital bed, BSC and FWW, [facility] for peg supplies. Companies will contact for SOC and delivery. expressed understanding. - SW notified Dr. Plan: DC home with 09/03, [facility] for PT/OT/ST/SN, [facility] for hospital bed, BSC and FWW, [facility] for peg supplies. Dee Anderson ETCH OPERATOR [employer]IC[employer] SENIOR MAINFRAME PROGRAMMER ANALYST
[2024-09-01] MEDS: 0.9% Saline Lock 10 ML Syringe IV (14:35)
--- NOTE | 2024-09-01 14:35 | CASEMGMT ---
Social Work PT recommending pt have KADANNY at DC. RACHAEL obtained script from and faxed to August. SW received call from [facility] about insurance information. SW spoke with pt at bedside and provided written information on copays/amounts to provide to . Confirmed DC this date. Confirmed with [employer] that DME has been delivered. Dee Anderson UROLOGY PHYSICIAN ASSISTANT JAZZ SINGER
[2024-09-01 14:55] LABS: Bedside Glucose 114 mg/dL (74-106)
[2024-09-01 18:00] VITALS: BP 121/76; PULSE 88; RESP 16; TEMP 36.7; O2SAT 95
--- NOTE | 2024-09-01 18:11 | DCINST_ITS ---
Discharge Instructions DC O2, CPAP, BIPAP needs Home O2 Discharge instructions: No Dressing / Incision Discharge Activity: May Not Drive, May Shower and - (use a walker or a cane when outside the house on uneven ground) Weight Bearing Status: Full weight bearing Dressing / Incision Call your doctor if your incision/area has: - (If the area around the PEG tube is red or has discharge call the doctor) Call your doctor if you observe: Fever of 101 or Higher, Inability to urinate, Inability to have a bowel movement, Shortness of breath, Dizziness, Fainting spells, Swelling in the ankles, Chest pain, Increased palpitations (irregular heartbeat), Calf discomfort and - (bleeding from the mouth, nose or the anus, large bruises) Follow Up Care Please Follow Up With: Sonny Santos, When: See the time of appt later in this document. You will also need to follow up with neurology, Dr. Napoles (gastroenterology) and with Dr. Alcantar. Test Results: Test results from this visit will be discussed in further detail at your follow- up appointment, if applicable. Pending Tests Upon Discharge: none Discharge Plan Admission Admit Date/Time: 08/17/24 18:06 Primary Reason for Your Visit: Poststroke debility Attending Provider: Cassia Alvarez Primary Care Provider: Sonny Santos Instructions Additional Instructions / Restrictions: 1. You had a blood clot in your heart at admission to the hospital. A piece of this clot likely broke off and caused the stroke. You are now on a blood thinner called Eliquis. the blood thinner does NOT dissolve the clot. Your body produces enzymes that will dissolve the clot over time. The blood thinner prevents the existing clot from getting bigger and prevents new clots from forming. Dr. Alcantar will want to repeat the ultrasound of your heart (ECHO or echocardiogram) at some point to make sure the clot is gone. I got Dr. Harris's records and it looks like the last time you had an ECHO was in 2020. At the time the ejection fraction (EF) was 50-55%. This is the percentage of the blood that is ejected from the heart every time it squeezes. A Normal EF is 55-65%. Your EF in 2020 was 50-55%. There were areas in the apex of the heart that were akinetic........this means that when the heart squeezes the apex does not squeeze. This is called a wall motion abnormality and it is usually caused by a heart attack. Your ejection fraction at admission to the hospital was 45%. I do not know why the clot formed......Dr. Alcantar will likely want to do some more testing. 2. You had as ring in the upper esophagus that was causing constriction of the esophagus. This has likely been present for quite sometime and this is why have been getting heartburn and regurgitating for quite some time. You also have abnormal contractions in the esophagus and the lower esophagus was not relaxing to allow the food to pass into the stomach. Dr. Napoles dilated the upper esophagus with a scope and he injected the lower esophagus with BOTOX to prevent the spasms. Since he did this you are tolerating the tube feeds much better and you are now making progress with swallowing. The regurgitation is MUCH improved and you are no longer gagging after you get a tube feed. You will need to follow up with Dr. Napoles following discharge from the hospital. 3. IT IS VERY IMPORTANT TO REMAIN UPRIGHT FOR 30-60 MINUTES AFTER A TUBE FEED. If you lie down too soon after a tube feed you will reflux and this can lead to coughing and pneumonia. 4. Because of the stroke you will need to follow up with a neurologist. You will see Dr. Moore.......his office is in [place]. You also need to follow up with Dr. Santos and Dr. Alcantar. 5. If you or your family have any questions after you leave rehab please do not hesitate to call me. OFFICE: [phone] CELL: [phone] NURSES STATION ON REHAB: [phone] Discharge Orders/Prescriptions Prescriptions: New Jardiance 10 mg Tablet 10 mg G-tube DAILY Qty: 30 0RF insulin glargine-yfgn 100 unit/mL (3 mL) Insulin Pen 30 unit subcut DAILY@0600 Qty: 3 0RF insulin lispro [Humalog KwikPen Insulin] 100 unit/mL Insulin Pen See Rx Instructions .ROUTE .COMPLEX Qty: 2 0RF Rx Instructions: 3 units prior to each PEG feeding - 5 times a day Jevity 1.5 Gil 0.06 gram-1.5 kcal/mL Liquid 265 ml G-tube 2200 Qty: 1 0RF Jevity 1.5 Gil 0.06 gram-1.5 kcal/mL Liquid 265 ml G-tube 0600,1000,1400,1800 Qty: 0 0RF lansoprazole 30 mg capsule,delayed release(DR/EC) 30 mg PO DAILY Qty: 30 0RF metoclopramide HCl 5 mg Tablet 5 mg G-tube 5X/DAY Qty: 150 0RF mirtazapine 15 mg Tablet 15 mg PO QHS Qty: 30 0RF metoprolol tartrate 25 mg Tablet 25 mg G-tube BID Qty: 60 0RF ezetimibe 10 mg Tablet 10 mg PO DAILY Qty: 30 0RF Continued acetaminophen 650 mg/20.3 mL Solution 650 mg G-tube Q6H PRN PRN (Reason: Pain 1-10 Or Fever) Qty: 0 0RF montelukast 10 mg Tablet 10 mg G-tube DAILY Qty: 30 0RF Eliquis 5 mg Tablet 5 mg G-tube BID Qty: 60 0RF Changed atorvastatin 40 mg Tablet 40 mg feeding tube QHS Qty: 30 0RF aspirin 81 mg Tablet,Chewable 81 mg feeding tube DAILY Qty: 1 0RF Rx Instructions: Must be crushed. Discontinued metformin 500 mg tablet 500 mg PO BID Ozempic 0.25 mg or 0.5 mg (2 mg/3 mL) pen injector 0.25 mg subcut QWEEK Qty: 3 0RF Rx Instructions: for 4 weeks albuterol sulfate 2.5 mg /3 mL (0.083 %) Solution For Nebulization 2.5 mg inhalation Q2H PRN PRN (Reason: Dyspnea, wheezing) Qty: 0 0RF insulin glargine-yfgn 100 unit/mL (3 mL) Insulin Pen 20 unit subcut DAILY Qty: 0 0RF insulin lispro [Humalog KwikPen Insulin] 100 unit/mL Insulin Pen See Protocol subcut ACHS Qty: 0 0RF Protocol: 3. Sliding Scale Insulin Med Dosing Condition: 150-189 mg/dl = 1 unit Condition: 190-229 mg/dl = 2 units Condition: 230-269 mg/dl = 3 units Condition: 270-309 mg/dl = 4 units Condition: 310-349 mg/dl = 5 units Condition: 350-399 mg/dl = 6 units Condition: 400-449 mg/dl = 7 units Condition: Greater than 449 call physician Protocol Text: - Use for Total Daily Dose of Insulin 37-55 units - Obsese, infected, or steroid patients MEDIUM DOSING ALGORITHIM metoprolol tartrate 25 mg Tablet 25 mg G-tube DAILY Qty: 0 0RF amoxicillin-pot clavulanate 875-125 mg tablet 1 tab feeding tube BID 5 Days Qty: 10 0RF omeprazole 20 mg capsule,delayed release(DR/EC) 20 mg feeding tube BID Qty: 30 0RF amlodipine 5 mg tablet 5 mg feeding tube DAILY Qty: 30 0RF Januvia 100 mg tablet 100 mg feeding tube DAILY Qty: 30 0RF Referrals / Follow Up: Sonny Santos DO [Primary Care Provider] - 09/07/24 9:20 am () Rashid Moore MD [Non-Staff -Ordering Privileges] - Roberto Carlos Napoles DO [Med Staff - Active Staff] - 09/13/24 8:30 am (with Alanna MANLEY) Disposition Disposition (needs filled in before D/C Order can be placed): Home Health Service
[2024-09-01 18:24] LABS: Bedside Glucose 108 mg/dL (74-106)
[2024-09-01 22:28] VITALS: BP 129/84; PULSE 84
[2024-09-01] MEDS: guaiFENesin 10 ML UDC (200MG/10ML) 20 ML GT (22:34)
[2024-09-01 22:35] VITALS: BP 129/84; PULSE 84
[2024-09-01] MEDS: MELATONIN 3 MG TABLET PO (22:35)
[2024-09-01] MEDS: Mirtazapine 15 MG Tablet PO (22:35)
[2024-09-01] MEDS: Atorvastatin Calcium 40 MG Tablet GT (22:36)
[2024-09-01 22:47] LABS: Bedside Glucose 96 mg/dL (74-106)
[2024-09-02 01:40] VITALS: BMI 26.4
[2024-09-02 06:00] VITALS: BP 135/82; PULSE 83; RESP 16; TEMP 36.6; O2SAT 96; BMI 26.3
[2024-09-02] MEDS: Insulin Glargine-YFGN 100 UNIT/ML Pen 30 UNIT SC (06:52)
[2024-09-02] MEDS: Metoclopramide 5 MG TABLET GT ×5 (06:52→21:52)
[2024-09-02] MEDS: Jevity 1.5. 1,000 ML Bottle 265 ML GT ×5 (06:53→21:51)
[2024-09-02] MEDS: Insulin Lispro 100 UNIT/ML INSULN.PEN SC ×5 (06:53→21:50)
[2024-09-02 06:54] LABS: Bedside Glucose 119 mg/dL (74-106)
[2024-09-02] MEDS: Aspirin 81 MG TAB.CHEW GT (09:54)
[2024-09-02] MEDS: Menthol/Lanolin/Calamine/Znox 113 GM Tube 1 APPLIC TOPICAL ×2 (09:54→21:50)
[2024-09-02] MEDS: Arthritis Pain Compound 60 CLICK TUBE TOPICAL ×2 (09:54→21:50)
[2024-09-02] MEDS: APIXABAN 5 MG TABLET GT ×2 (09:55→21:50)
[2024-09-02] MEDS: Empagliflozin 10 MG Tablet GT (09:55)
[2024-09-02 09:56] VITALS: PULSE 83
[2024-09-02] MEDS: Metoprolol Tartrate 25 MG Tablet GT ×2 (09:56→21:51)
[2024-09-02] MEDS: Lansoprazole 15 MG Capsule.DR 30 MG PO (09:56)
[2024-09-02] MEDS: Montelukast 10 MG Tablet GT (09:57)
[2024-09-02] MEDS: Ezetimibe 10 MG Tablet PO (09:57)
[2024-09-02 10:42] LABS: Bedside Glucose 181 mg/dL (74-106)
--- NOTE | 2024-09-02 12:23 | CASEMGMT ---
Social Work DR requested pt have a suction machine at home. SW sent referral to [facility] via [facility]. Dee Anderson VALET FULFILLMENT ASSOCIATE
[2024-09-02 14:33] LABS: Bedside Glucose 137 mg/dL (74-106)
--- NOTE | 2024-09-02 14:45 | EX.DISCHREH ---
Providers Date of Admission: 08/17/24 Date of Discharge: 09/03/24 Primary Care Physician: Dr. Sonny Santos DO Reason For Visit: STROKE Diagnosis Discharge Diagnosis (1) Debility: Status: Acute Code(s): R53.81 - Other malaise (2) CVA (cerebral vascular accident): Status: Acute Code(s): I63.9 - Cerebral infarction, unspecified Qualifiers: CVA mechanism: embolism Precerebral and cerebral artery: unspecified cerebral artery Qualified Code(s): I63.40 - Cerebral infarction due to embolism of unspecified cerebral artery Plan: CTA of the head and neck at presentation to the ED showed absent opacification of the V4 segment of the right vertebral artery in the right PICA. He received TNK in the emergency department. MRI on 08/10/2024 showed small chronic lacunar infarcts in the right parietal, right basal ganglia and right frontal areas with no acute intracranial abnormality. Despite no acute abnormality on the MRI on 08/10 he had persistent stroke symptoms including severe oropharyngeal/esophageal dysphagia, dysarthria, facial droop, weakness of the right lower extremity greater than left. This MRI was later reviewed by a neurologist at [facility] who felt there was a subacute brainstem infarct. On 08/15/24 he had a repeat MRI with contrast and it showed new punctate focus of restricted diffusion in the R cerebellum (this was reported in an addendum). He had a previous stroke prior to this most recdent stroke. 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 this was repeated on 08/19/24 and the score was 45/50. Poor short term memory, increased impulsivity and poor safety awareness. (4) Dysarthria: Status: Acute Code(s): R47.1 - Dysarthria and anarthria (5) Dysphagia: Status: Chronic Code(s): R13.10 - Dysphagia, unspecified Qualifiers: Dysphagia type: pharyngoesophageal phase Qualified Code(s): R13.14 - Dysphagia, pharyngoesophageal phase Plan: Has had GERD/heartburn and regurgitation of food for several years prior to this most recent stroke. Suspect the esophageal dysmotility has been present for quite some time. (6) PEG (percutaneous endoscopic gastrostomy) status: Status: Acute Code(s): Z93.1 - Gastrostomy status (7) LV (left ventricular) mural thrombus: Status: Suspected Code(s): I51.3 - Intracardiac thrombosis, not elsewhere classified Plan: LV apical thrombus was reported as suspected on the TTE report. 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 (9) Ischemic cardiomyopathy: Status: Chronic Code(s): I25.5 - Ischemic cardiomyopathy Plan: EF in 2020 was 50-55%. He has a hx of wall motion abnormalities in the apex. ECHO at admission to [facility] showed mild left ventricular hypertrophy, left ventricular apical akinesis and an apical mural thrombus. There was stage I diastolic dysfunction and the left ventricular ejection fraction was estimated at 45%. The atria were of normal size and the bubble contrast study was negative for avcpb-dm-bjix shunt. There was +1 MR and mild TR. The pulmonary artery pressure was normal. 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 (11) Anxiety and depression: Status: Chronic Code(s): F41.9 - Anxiety disorder, unspecified; F32.A - Depression, unspecified Plan: Was taking Effexor at admission to the hospital but this was discontinued because he now has a PEG tube and Effexor is a capsule. He has been started on Remeron 15 mg nightly. Since starting Remeron he is sleeping better and affect has improved. (12) Heme positive stool: Status: Acute Code(s): R19.5 - Other fecal abnormalities Plan: Normal gastric mucosa on EGD and no gross lesions in the second portion of the duodenum. He did not have a colonoscopy but, he had 2 EGD's.....one to insert the PEG and a second for dilation of a Schatzki's ring at the cricopharyngeus area and injection of Botox into the lower esophagus for lower esophageal sphincter spasm. Hemoglobin is stable at 11.7 at the time of discharge from rehab. (13) Schatzki's ring: Status: Chronic Code(s): K22.2 - Esophageal obstruction Plan: At the cricopharyngeus. Dilated by Dr. Napoles on 08/29/2024. (14) Esophageal abnormality: Status: Chronic Code(s): K22.9 - Disease of esophagus, unspecified Plan: Abnormal motility was noted at the cricopharyngeus and in the upper third of the esophagus. There were extra peristaltic waves in the esophageal body. The distal esophagus/lower esophageal sphincter was spastic but did allow passage of the endoscope. There were secondary peristaltic waves noted. The area was injected with Botox. (15) Oropharyngeal dysphagia: Status: Chronic Code(s): R13.12 - Dysphagia, oropharyngeal phase (16) Esophageal dysphagia: Status: Chronic Code(s): R13.19 - Other dysphagia (17) Remote history of stroke: Status: Chronic Code(s): Z86.73 - Personal history of transient ischemic attack (TIA), and cerebral infarction without residual deficits (18) History of coronary angioplasty with insertion of stent: Status: Chronic Code(s): Z95.5 - Presence of coronary angioplasty implant and graft (19) Grade I diastolic dysfunction: Status: Chronic Code(s): I51.89 - Other ill-defined heart diseases (20) Left ventricular hypertrophy: Status: Chronic Code(s): I51.7 - Cardiomegaly (21) BPH (benign prostatic hyperplasia): Status: Suspected Code(s): N40.0 - Benign prostatic hyperplasia without lower urinary tract symptoms Qualifiers: Lower urinary tract symptom detail: incomplete bladder emptying Lower urinary tract symptom presence: symptoms present Qualified Code(s): N40.1 - Benign prostatic hyperplasia with lower urinary tract symptoms; R39.14 - Feeling of incomplete bladder emptying Plan: He had urine retention and was ordered Flomax but, this can not be given in a PEG tube so he was started on Proscar. PVR's on rehab were 194, 155 and 155. (22) GERD (gastroesophageal reflux disease): Status: Chronic Code(s): K21.9 - Gastro-esophageal reflux disease without esophagitis Qualifiers: Esophagitis presence: without esophagitis Qualified Code(s): K21.9 - Gastro-esophageal reflux disease without esophagitis (23) Hypercholesteremia: Status: Chronic Code(s): E78.00 - Pure hypercholesterolemia, unspecified (24) Pulmonary nodule: Status: Acute Code(s): R91.1 - Solitary pulmonary nodule Plan: R lung apex measuring 4 mm. Deferred to PCP for surveillance. Radiology recommended a CT chest in 1 year. Plan 1. Discharge home on 09/03/2024 2. HHC at [place] for PT/OT/ST/SN 3. DME at [place] includes a suction machine, hospital bed, bedside commode and a front wheel walker. 4. He will follow up with Dr. Santos, Dr. Napoles, Dr. Moore and Dr. Alcantar (cardiology) Patient requires a suction machine due to copious oral secretions with history of severe oropharyngeal dysphagia who is not able to swallow secretions putting him at high risk for aspiration pneumonia if he does not have suction available. Medications at Discharge Home Medications acetaminophen 650 mg/20.3 mL oral solution 650 mg (20.3 mL) G-tube Q6H PRN PRN Pain 1-10 Or Fever #0 mL 08/17/24 apixaban 5 mg tablet (Eliquis) 5 mg G-tube BID cva #60 tabs 09/01/24 aspirin 81 mg chewable tablet 81 mg feeding tube DAILY heart health #1 TAB 09/01/24 atorvastatin 40 mg tablet 40 mg feeding tube QHS cholesterol #30 tabs 09/01/24 empagliflozin 10 mg tablet (Jardiance) 10 mg G-tube DAILY #30 tabs 09/01/24 insulin glargine-yfgn 100 unit/mL (3 mL) subcutaneous pen 30 unit (0.3 mL) subcut DAILY@0600 #3 pens 09/01/24 insulin lispro 100 unit/mL subcutaneous pen (Humalog KwikPen (U-100) Insulin) See Rx Instructions .Route .COMPLEX #2 pens 09/01/24 lactose-reduced food with fiber 0.06 gram-1.5 kcal/mL oral liquid (Jevity 1.5 Gil) 265 ml G-tube 0600,1000,1400,1800 #0 mL 09/01/24 lactose-reduced food with fiber 0.06 gram-1.5 kcal/mL oral liquid (Jevity 1.5 Gil) 265 ml G-tube 2200 #1 mL 09/01/24 lansoprazole 30 mg capsule,delayed release 30 mg PO DAILY #30 caps 09/01/24 metoclopramide HCl 5 mg tablet 5 mg G-tube 5X/DAY #150 tabs 09/01/24 metoprolol tartrate 25 mg tablet 25 mg G-tube BID #60 tabs 09/01/24 mirtazapine 15 mg tablet 15 mg PO QHS #30 tabs 09/01/24 montelukast 10 mg tablet 10 mg G-tube DAILY allergies #30 tabs 09/01/24 ezetimibe 10 mg tablet 10 mg PO DAILY #30 tabs 09/02/24 Hospital Course Operations None Procedures EGD (08/29/24 with dilation of a Schatzki's ring and injection of botulinum toxin into the distal esophagus for lower esophageal/sphincter spasm), Modified Barium Swallow (Diagnosis: severe oropharyngeal dysphagia Impression: The oral phase is characterized by... slowed lingual motion w/ AP bolus transportation trace oral residue The pharyngeal phase is marked by... delayed pharyngeal swallow onset w/ liquid boluses spilling into the pharynx to the pyriforms mildly ), Peg tube placement and Transthoracic echo (Mild concentric left ventricular hypertrophy. LV apical akinesis. 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 Estimated LVEF 45%. Stage I diastolic dysfunction. Bubble contrast study is negative for PFO/ASD. Mild (1+) mitral valve insufficiency. Mild tricuspid valve insufficiency. Mild (1+) aortic valve insufficien) Summary of Care Provided Minutes Spent on Discharge: 45 Hospital Course: HENRIK MARQUEZ, is a 84 YO M with a PMH of hypertension, diabetes mellitus type 2, hyperlipidemia, history of CVA, CAD, history of [place], hx of PCI, allergic rhinitis, anxiety/depression, OA and GERD/dysphagia/chronic regurgitation after eating who presented to the ED at [facility] on 08/08/2024 complaining of slurred speech, cephalgia and left facial droop. Noncontrast brain CT showed no acute abnormalities. CTA of the head and neck showed absent/total opacification of the V4 segment of the right vertebral artery and right PICA. There was no hemodynamically significant narrowing or occlusion of the internal carotid arteries bilaterally. Incidentally there was a solid pulmonary nodule at the right lung apex measuring 4 mm. TNK was administered in the emergency room and he was admitted to the hospitalist service to the ICU. Hemoglobin A1c at admission was elevated at 8.8. The LDL was 67 (on Simvastatin and Ezetimibe) with an HDL of 40 and triglycerides were within normal limits. TSH was normal at 1.39. CT of the brain 24 hours after TNK showed no CT evidence for acute brain abnormality and specifically no hemorrhage. MRI of the brain on 08/10/2024 showed mild global parenchymal atrophy. There were small lacunar infarcts in the R parietal, R basal ganglia and R frontal areas. There was periventricular T2/FLAIR hyperintense foci thought to represent mild chronic microvascular ischemia. There was no hemorrhage or infarction present. Transthoracic echocardiogram showed mild concentric left ventricular hypertrophy with left ventricular apical akinesis and a suspected left ventricular apical thrombus. The EF was estimated to be 45% and there was stage I diastolic dysfunction. The bubble study was negative for izclx-vc-caah shunt. No significant valvular heart disease. Modified barium swallow on 08/10/2024 showed severe pharyngoesophageal dysphagia and mild oral dysphagia. On 08/11/2024 he had an EGD that showed no gross lesions in the stomach and no gross lesions in the entire examined duodenum. A PEG was inserted. He was re-evaluated by teleneurology on 08/13/24. They felt the FLAIR changes in the R medulla were out of proportion to the DWI changes and felt there may be something there in addition to the stroke. MRI of the brain was repeated on 08/15/24 with contrast and it showed NO abnormal signal in the melanie or the medulla. There were new punctate foci of restricted diffusion in the R cerebellum. The hospitalist discussed the results of the MRI with contrast with [facility] neurology who reviewed all the imaging and felt the abnormality reported on the initial MRI was consistent with with a subacute brainstem CVA. No further w/u was recommended. While in the hospital he was started on AC for LV thrombus and he was also treated with IV antibiotics for acute hypoxic respiratory failure thought to be due to aspiration PNA. He was transferred to the acute inpt rehab unit at [facility] on 08/17/24 for 3 hours of therapy daily to restore function/independence at or near his level prior to the recent stroke. Taran had problems tolerating TF's at presentation to rehab. He was c/o heartburn and he was gagging and having coughing paroxysms after feedings. He could not swallow his own secretions and was using a Yankauer suction. He was laying himself down in the recliner or the bed after the feeding despite being told he needed to remain upright for 60 minutes after a feeding. His family told me that he had been having heartburn and regurgitating after eating for a long time. The water flushes were changed to between feedings and the recliner was removed from the room and a straight back chair was placed in the room. He was started on Reglan prior to each TF. Nursing had to lock the HOB to keep him from lying down after a feeding......he still scooted himself to the bottom of the bed so he could le down. He continued to gag and have coughing paroxysms, lowell at the end of the day. Dr. Napoles was consulted and he did an EGD on 08/29. There was a moderate Schatzki's ring noted at the cricopharyngeus. This area was dilated and post dilation there was moderate improvement in luminal narrowing. There was abnormal motility noted in the cricopharyngeus and in the upper third of the esophagus. There were extra peristaltic waves in the esophageal body. The distal esophagus/lower esophageal sphincter was spastic but Dr. Napoles was able to pass the scope into the stomach. There were secondary peristaltic waves. The gastric mucosa and duodenum had no lesions. Dr. Napoles then injected him with botulinum toxin. After the procedure Taran was better able to handle his own secretions and he is suctioning a lot less. He no longer has coughing paroxysms and he has had no residuals after feeds. He was able to tolerate some sips and ice chips with less coughing a MBS was repeated on 09/01/24. It still continues to show severe oropharyngeal dysphagia. Speech therapy recommended we continue n.p.o. status and they initiated a modified Cheema water protocol with small sips of water. the importance of frequent oral hygiene was stressed with the pt. They felt he would benefit form Vital Stim therapy and are recommending that at [place] from therapy. Taran had a heme + stool while on rehab. There were no lesions in the stomach or the duodenum at EGD. He has not had a colonoscopy. He is on Eliquis and the HGB is stable at 11.7 on 08/29/24. He denies abd pain and also denies heartburn. Taran was taking Effexor prior to admission to the hospital and this can not be given via PEG. He was started on Remeron 15 mg QHS and this has helped him to sleep at night. His affect was very depressed but, it has improved in the few days prior to DC. He is anxious and excited about going home. Taran made good progress with therapy. At the time of DC from rehab he has ambulated up to 750' with a FWW on various surfaces. He has ambulated up to 500' with no device at CGA on various surfaces. He is able to ascend/descend 5 steps x 3 trials with bilateral handrails at contact-guard assist with good control and no loss of balance. He is supervision/set up for grooming. He is standby assist for bathing, toilet transfer, toileting and tub/shower transfer. He is contact-guard assist for lower body dressing and requires minimal assistance with upper body dressing, mostly due to pain in the R shoulder (he is supposed to have a shoulder replacement going forward). He is impulsive and has poor safety awareness. His BP is well controlled at DC and the blood sugars are also well controlled. He will be following up with his PCP, Dr. Sonny Santos, with Dr. Moore from neurology and with Dr. Napoles from gastroenterology. He will also be following up with his wardrobe manager Dr. Gareth Alcantar. I question why he developed a apical thrombus? and why the EF is now down to 45%? He is being discharged on Eliquis 5 mg BID. He will need a CT scan of the chest in 6-12 months to re-evaluate the 4 mm nodule in the R apex. Physical Exam Const alert and no apparent distress Constitutional Narrative: Making good eye contact. Affect is better today and is not so flat. engaged in the conversation. Appropriate. Very alert and reading a book when I entered the room. General Appearance: cooperative HEENT normocephalic and head/scalp atraumatic HEENT Narrative: MM are a little dry. Handling his oral secretions much better since the dilation of the esophagus. Not using the Yankauer suction nearly as much as he was and there is only a small amount of clear sputum with suctioning. Teeth and Gingiva: fair dentition Eyes PERRL, EOMs intact bilaterally, conjunctivae normal and no scleral icterus Eyes Narrative: No discharge from the eyes or mattering of the eyelashes. No visual field cuts. No visual extinction. Wears glasses only to read and drive. No nystagmus today. Neck supple, No nodes and no carotid bruits General: trachea midline Chest Chest: symmetrical chest wall rise Resp Resp Narrative: Scattered coarse rhonchi that completely cleared after a cough. No wheezing. Not tachypneic. No conversational dyspnea. Sputum in the Yankauer is clear Effort and Inspection: able to speak in complete sentences; Negative for tachypneic or respiratory distress Cardio regular rate, regular rhythm, no murmurs, no rub and no gallops Cardio Narrative: No ectopy GI normal to inspection, nondistended, normoactive bowel sounds, soft to palpation, non-tender and non-distended GI Narrative: No guarding with palpation. PEG site is free of erythema and purulent DC. No N/V/abd pain and is tolerating TF with no residuals. no CVA tenderness Bladder / Kidney Exam: bladder normal to palpation Extremity no calf tenderness and no pedal edema Extremity Narrative: No clubbing or cyanosis. Has pain in the right shoulder and R biceps due to severe OA. Skin no jaundice Skin Narrative: resolving bruises from IV's and lab draws. General Skin Exam: no breakdown Rashes: no rashes Wound Narrative: PEG site is free of erythema and DC and he has no pain with palpation around the PEG site. Hair: general thinning Neuro Neuro Narrative: Mild asymmetry of smile. Tongue protrudes on the midline. Pupils are equal round and reactive to light and accommodation. No nystagmus. No loss of sensation in the face. Good shoulder shrug bilaterally. Limited range of motion in the right upper extremity secondary to pain/severe osteoarthritis. He is able to raise his right arm a little bit and hold it there with no drift for 10 seconds. He has good sanitary plumber strength in both hands. No drift with the left upper extremity and has good range of motion. No drift with either lower extremity. He has diminished dorsiflexion of the left foot. Good plantarflexion bilaterally. Intact sensation with no sensory loss throughout. No ataxia. No extinction. Mild dysarthria which is much improved from admission. No aphasia. Psych thought process normal, cooperative, denies hallucinations and denies suicidal ideation Psych Narrative: Polite and cooperative. He became quite depressed on rehab with flat affect and tears. Was not sleeping well and felt hopeless. He was started on Remeron and he is sleeping well at [place]. His is pleasant and more outgoing and he is making good eye contact with me. He is looking forward to going home. He is more alert and he is sitting up in the chair at the bedside reading when I entered the room today rather than lying in bed and sleeping. Appearance: grossly normal and appropriate Attitude: calm and engaged Activity / Motor Behavior: appropriate eye contact Speech: normal speech Weight / BMI Weight Weight: 173 lb 8.061 oz Body Mass Index (BMI) 26.3 ABG / Lab / Microbiology Data 08/29/24 05:33 08/29/24 05:33 Laboratory: Laboratory Results - last 24 hr 09/01/24 14:21: POC Glucose 114 H 09/01/24 17:59: POC Glucose 108 H 09/01/24 22:27: POC Glucose 96 09/02/24 06:37: POC Glucose 119 H 09/02/24 09:53: POC Glucose 181 H 09/02/24 13:56: POC Glucose 137 H Microbiology: Microbiology 08/19/24 11:20 Stool Stool Occult Blood (VANNESA) - Final Occult Blood Positive Indicators for Scoring Admitted with or Primary Diagnosis of CVA/Stroke: Yes Hx of CVA/Stroke: Yes Modified [place] Score MRS Score at time of Evaluation: 3-Moderate disability (down from a 4 at admission ) NIHSS NIHSS 1a. Level of Consciousness: 0 - Alert; keenly responsive 1b. LOC Questions: 0 - Answers BOTH questions correctly 1c. LOC Commands: 0 - Performs BOTH tasks correctly 2. Best Gaze: 0 - Normal 3. Visual: 0 - No visual loss 4. Facial Palsy: 1 - Minor paralysis (flattened nasolabial fold, asymmetry on smiling) (Asymmetric smiling on the right side.) 5a. Left Arm: 0 - No drift; arm holds 90 (or 45) degrees for full 10 seconds 5b. Right Arm: 0 - No drift; arm holds 90 (or 45) degrees for full 10 seconds (Limited ROM oin the RUE due to severe OA of the R shoulder....needs a shoulder replacement but, he is able to hold it up a little for a count of 10 with no drift) 6a. Left Le - No drift; leg holds 30-degree position for full 5 seconds (He has poor dorsiflexion of the Left foot. Good plantar flexion. ) 6b. Right Le - No drift; leg holds 30-degree position for full 5 seconds 7. Limb Ataxia: 0 - Absent 8. Sensory: 0 - Normal; no sensory loss 9. Best Language: 0 - No aphasia; normal 10. Dysarthria: 1 = Fvvl-[id number] dysarthria; 11. Extinction and Inattention: 0 - No abnormality Total: 2 Stroke Questions Stroke Team Activated: No D/C Instructions Weight Bearing Status: Full weight bearing Call your doctor if your incision/area has: - (If the area around the PEG tube is red or has discharge call the doctor) Call your doctor if you observe: Fever of 101 or Higher, Inability to urinate, Inability to have a bowel movement, Shortness of breath, Dizziness, Fainting spells, Swelling in the ankles, Chest pain, Increased palpitations (irregular heartbeat), Calf discomfort and - (bleeding from the mouth, nose or the anus, large bruises) DC O2, CPAP, BIPAP Needs RN Home O2 qualification: No Data to Display PSN CPAP & BiPAP: BiPAP & CPAP Settings per PSN Fraction of Inspired Oxygen ( 08/29/24 13:21 FIO2) Home O2 Discharge instructions: No Pending Tests Upon Discharge: none Please Follow Up With: Sonny Santos DO When: See the time of appt later in this document. You will also need to follow up with neurology, Dr. Napoles (gastroenterology) and with Dr. Alcantar. Meaningful Use Info Meaningful Use Meaningful Use Diagnoses (Choose all that apply): Ischemic CVA CVA Therapy Assessed for PT,OT and/or ST?: Yes Ischemic Stroke Antithrombotic order at d/c?: Yes Dx of Atrial fib/flutter?: No Anticoagulant at discharge?: Yes Statin Dosing Therapy Reference: STATIN DOSE THERAPY REFERENCE: * Patients > 75 years receive moderate or high dose statin therapy. * Patients 75 years or YOUNGER should receive HIGH intensity statin dose unless contraindicated. You will be required to document reason for non-treatment if statin daily dose does not meet guidelines. HIGH DOSE STATIN THERAPY DAILY Atorvastatin > than or = to 40 mg Rosuvastatin > than or = to 20 mg Amlodipine + Atorvastatin > than or = to 2.5/40 mg Ezetimibe + Simvastatin 10/80 mg Simvastatin 80mg Statins at discharge?: Yes Primary Dx Acute Ischemic CVA?: Yes IV thrombolytic ordered during stay?: No Reason IV thrombolytic not ordered: Procedure not Indicated (He received TNK in the ED at the initial presentation to the ED. ) Discharge Plan Admission Admit Date/Time: 08/17/24 18:06 Primary Reason for Your Visit: Poststroke debility Attending Provider: Cassia Alvarez Primary Care Provider: Sonny Santos Instructions Additional Instructions / Restrictions: 1. You had a blood clot in your heart at admission to the hospital. A piece of this clot likely broke off and caused the stroke. You are now on a blood thinner called Eliquis. the blood thinner does NOT dissolve the clot. Your body produces enzymes that will dissolve the clot over time. The blood thinner prevents the existing clot from getting bigger and prevents new clots from forming. Dr. Alcantar will want to repeat the ultrasound of your heart (ECHO or echocardiogram) at some point to make sure the clot is gone. I got Dr. Harris's records and it looks like the last time you had an ECHO was in 2020. At the time the ejection fraction (EF) was 50-55%. This is the percentage of the blood that is ejected from the heart every time it squeezes. A Normal EF is 55-65%. Your EF in 2020 was 50-55%. There were areas in the apex of the heart that were akinetic........this means that when the heart squeezes the apex does not squeeze. This is called a wall motion abnormality and it is usually caused by a heart attack. Your ejection fraction at admission to the hospital was 45%. I do not know why the clot formed......Dr. Alcantar will likely want to do some more testing. 2. You had as ring in the upper esophagus that was causing constriction of the esophagus. This has likely been present for quite sometime and this is why have been getting heartburn and regurgitating for quite some time. You also have abnormal contractions in the esophagus and the lower esophagus was not relaxing to allow the food to pass into the stomach. Dr. Napoles dilated the upper esophagus with a scope and he injected the lower esophagus with BOTOX to prevent the spasms. Since he did this you are tolerating the tube feeds much better and you are now making progress with swallowing. The regurgitation is MUCH improved and you are no longer gagging after you get a tube feed. You will need to follow up with Dr. Napoles following discharge from the hospital. 3. IT IS VERY IMPORTANT TO REMAIN UPRIGHT FOR 30-60 MINUTES AFTER A TUBE FEED. If you lie down too soon after a tube feed you will reflux and this can lead to coughing and pneumonia. 4. Because of the stroke you will need to follow up with a neurologist. You will see Dr. Moore.......his office is in [place]. You also need to follow up with Dr. Santos and Dr. Alcantar. 5. If you or your family have any questions after you leave rehab please do not hesitate to call me. OFFICE: [phone] CELL: [phone] NURSES ST[facility] ON REHAB: [phone] Discharge Orders/Prescriptions Prescriptions: New Jardiance 10 mg Tablet 10 mg G-tube DAILY Qty: 30 0RF insulin glargine-yfgn 100 unit/mL (3 mL) Insulin Pen 30 unit subcut DAILY@0600 Qty: 3 0RF insulin lispro [Humalog KwikPen Insulin] 100 unit/mL Insulin Pen See Rx Instructions .ROUTE .COMPLEX Qty: 2 0RF Rx Instructions: 3 units prior to each PEG feeding - 5 times a day Jevity 1.5 Gil 0.06 gram-1.5 kcal/mL Liquid 265 ml G-tube 2200 Qty: 1 0RF Jevity 1.5 Gil 0.06 gram-1.5 kcal/mL Liquid 265 ml G-tube 0600,1000,1400,1800 Qty: 0 0RF lansoprazole 30 mg capsule,delayed release(DR/EC) 30 mg PO DAILY Qty: 30 0RF metoclopramide HCl 5 mg Tablet 5 mg G-tube 5X/DAY Qty: 150 0RF mirtazapine 15 mg Tablet 15 mg PO QHS Qty: 30 0RF metoprolol tartrate 25 mg Tablet 25 mg G-tube BID Qty: 60 0RF ezetimibe 10 mg Tablet 10 mg PO DAILY Qty: 30 0RF Continued acetaminophen 650 mg/20.3 mL Solution 650 mg G-tube Q6H PRN PRN (Reason: Pain 1-10 Or Fever) Qty: 0 0RF montelukast 10 mg Tablet 10 mg G-tube DAILY Qty: 30 0RF Eliquis 5 mg Tablet 5 mg G-tube BID Qty: 60 0RF Changed atorvastatin 40 mg Tablet 40 mg feeding tube QHS Qty: 30 0RF aspirin 81 mg Tablet,Chewable 81 mg feeding tube DAILY Qty: 1 0RF Rx Instructions: Must be crushed. Discontinued metformin 500 mg tablet 500 mg PO BID Ozempic 0.25 mg or 0.5 mg (2 mg/3 mL) pen injector 0.25 mg subcut QWEEK Qty: 3 0RF Rx Instructions: for 4 weeks albuterol sulfate 2.5 mg /3 mL (0.083 %) Solution For Nebulization 2.5 mg inhalation Q2H PRN PRN (Reason: Dyspnea, wheezing) Qty: 0 0RF insulin glargine-yfgn 100 unit/mL (3 mL) Insulin Pen 20 unit subcut DAILY Qty: 0 0RF insulin lispro [Humalog KwikPen Insulin] 100 unit/mL Insulin Pen See Protocol subcut ACHS Qty: 0 0RF Protocol: 3. Sliding Scale Insulin Med Dosing Condition: 150-189 mg/dl = 1 unit Condition: 190-229 mg/dl = 2 units Condition: 230-269 mg/dl = 3 units Condition: 270-309 mg/dl = 4 units Condition: 310-349 mg/dl = 5 units Condition: 350-399 mg/dl = 6 units Condition: 400-449 mg/dl = 7 units Condition: Greater than 449 call physician Protocol Text: - Use for Total Daily Dose of Insulin 37-55 units - Obsese, infected, or steroid patients MEDIUM DOSING ALGORITHIM metoprolol tartrate 25 mg Tablet 25 mg G-tube DAILY Qty: 0 0RF amoxicillin-pot clavulanate 875-125 mg tablet 1 tab feeding tube BID 5 Days Qty: 10 0RF omeprazole 20 mg capsule,delayed release(DR/EC) 20 mg feeding tube BID Qty: 30 0RF amlodipine 5 mg tablet 5 mg feeding tube DAILY Qty: 30 0RF Januvia 100 mg tablet 100 mg feeding tube DAILY Qty: 30 0RF Referrals / Follow Up: Sonny Santos DO [Primary Care Provider] - 09/07/24 9:20 am () Rashid Moore MD [Non-Staff -Ordering Privileges] - Roberto Carlos Napoles DO [Med Staff - Active Staff] - 09/13/24 8:30 am (with Alanna MANLEY) Disposition Disposition (needs filled in before D/C Order can be placed): Home Health Service Charges/Coding Visit Charges Inpatient E&M: 16391 Disch Hosp >30min
[2024-09-02 18:00] VITALS: BP 131/90; PULSE 86; RESP 16; TEMP 36.6; O2SAT 97
[2024-09-02 19:12] LABS: Bedside Glucose 93 mg/dL (74-106)
[2024-09-02 21:30] VITALS: BP 137/87; PULSE 92; O2SAT 97
[2024-09-02 21:51] VITALS: BP 137/87; PULSE 92
[2024-09-02] MEDS: Atorvastatin Calcium 40 MG Tablet GT (21:51)
[2024-09-02] MEDS: MELATONIN 3 MG TABLET PO (21:52)
[2024-09-02] MEDS: Mirtazapine 15 MG Tablet PO (21:52)
[2024-09-02 22:00] VITALS: PULSE 92; O2SAT 97
[2024-09-02 22:00] LABS: Bedside Glucose 178 mg/dL (74-106)
[2024-09-02] MEDS: Acetaminophen 650 MG/20 ML UDC GT (22:13)
[2024-09-03] MEDS: guaiFENesin 10 ML UDC (200MG/10ML) 20 ML GT (00:19)
[2024-09-03 04:37] VITALS: BMI 26.3
[2024-09-03] MEDS: Insulin Glargine-YFGN 100 UNIT/ML Pen 30 UNIT SC (05:52)
[2024-09-03] MEDS: Insulin Lispro 100 UNIT/ML INSULN.PEN SC ×2 (05:54→10:34)
[2024-09-03] MEDS: Jevity 1.5. 1,000 ML Bottle 265 ML GT ×2 (05:54→11:09)
[2024-09-03] MEDS: Metoclopramide 5 MG TABLET GT ×2 (05:54→10:28)
[2024-09-03 06:00] VITALS: BP 124/79; PULSE 94; RESP 14; TEMP 37; O2SAT 95
[2024-09-03 06:25] LABS: Bedside Glucose 118 mg/dL (74-106)
[2024-09-03] MEDS: APIXABAN 5 MG TABLET GT (10:28)
[2024-09-03] MEDS: Empagliflozin 10 MG Tablet GT (10:28)
[2024-09-03] MEDS: Lansoprazole 15 MG Capsule.DR 30 MG PO (10:28)
[2024-09-03] MEDS: Ezetimibe 10 MG Tablet PO (10:28)
[2024-09-03] MEDS: Aspirin 81 MG TAB.CHEW GT (10:28)
[2024-09-03] MEDS: Montelukast 10 MG Tablet GT (10:28)
[2024-09-03 10:33] VITALS: BP 133/80; PULSE 87
[2024-09-03] MEDS: Metoprolol Tartrate 25 MG Tablet GT (10:33)
[2024-09-03] MEDS: Menthol/Lanolin/Calamine/Znox 113 GM Tube 1 APPLIC TOPICAL (10:35)
[2024-09-03 11:23] LABS: Bedside Glucose 135 mg/dL (74-106)
[2024-09-03 11:55] VITALS: BP 133/80; PULSE 87; RESP 16
[2024-09-03 11:56] VITALS: BMI 26.3
== END 2024-09-03 12:30 | disposition home health service (06) | DRG 56 ==
PROVIDERS: Internal Medicine Gastroenterology; Admitting Provider Internal Medicine; PCP Family Medicine; Visit Provider Internal Medicine
PROC: 0DJ08ZZ Inspection of Upper Intestinal Tract, Via Natural or Artificial Opening Endoscopic (ICD-10-PCS; CPT 43235; principal; 2024-08-29 13:25)
DX: I69.341 Monoplegia of lower limb following cerebral infarction affecting right dominant side (principal); J69.0 Pneumonitis due to inhalation of food and vomit; I67.82 Cerebral ischemia; E11.59 Type 2 diabetes mellitus with other circulatory complications; I69.319 Unspecified symptoms and signs involving cognitive functions following cerebral infarction; I10 Essential (primary) hypertension; F32.A Depression, unspecified; I48.0 Paroxysmal atrial fibrillation; Z93.1 Gastrostomy status; I69.322 Dysarthria following cerebral infarction; I25.5 Ischemic cardiomyopathy; K22.2 Esophageal obstruction; K22.4 Dyskinesia of esophagus; M24.541 Contracture, right hand; M24.542 Contracture, left hand; I95.1 Orthostatic hypotension; Z79.4 Long term (current) use of insulin; E78.00 Pure hypercholesterolemia, unspecified; F41.9 Anxiety disorder, unspecified; J30.9 Allergic rhinitis, unspecified; I25.10 Atherosclerotic heart disease of native coronary artery without angina pectoris; K21.9 Gastro-esophageal reflux disease without esophagitis; I69.391 Dysphagia following cerebral infarction; I69.328 Other speech and language deficits following cerebral infarction; Z79.01 Long term (current) use of anticoagulants; R33.8 Other retention of urine; Z79.84 Long term (current) use of oral hypoglycemic drugs; N40.1 Benign prostatic hyperplasia with lower urinary tract symptoms; R39.14 Feeling of incomplete bladder emptying; Z79.899 Other long term (current) drug therapy; Z79.82 Long term (current) use of aspirin; R13.14 Dysphagia, pharyngoesophageal phase; R91.1 Solitary pulmonary nodule
CPT/HCPCS: 36415; 71046; 74018; 74230; 80048; 80053; 81001; 82274; 82962; 83735; 84100; 84132; 85014; 85018; 85025; 85027; 92523; 92526; 92610; 92611; 94640; 94668; 94762; 97110; 97112; 97116; 97162; 97166; 97530; 97535; A4216; C1769; J0585; J2405

== ENCOUNTER → 2024-10-06 | Outpatient (CLI) | payer MEDICARE, SELFPAY ==
--- NOTE | 2024-10-06 10:32 | SP.MBSS_ITS ---
Modified Barium Swallow Patient Information Study Date: 10/06/24 Study Time: 10:30 Direct Billable Minutes: 120 Total Minutes procedure & reportin Diagnosis: CVA I63.9 Referring Physician: Sonny Santos Reason for Referral: Assess swallow function, assess risk for aspiration, and determine recommendations for least restrictive diet textures and compensatory strategies to improve safety of swallow. Medical History: PMH of hypertension, diabetes mellitus type 2, hyperlipidemia, history of CVA, history of [place], allergic rhinitis, GERD, anxiety/depression. who presented to the ED at [facility] on 08/08/2024 complaining of slurred speech, cephalgia and left facial droop. Noncontrast brain CT showed no acute abnormalities. CTA of the head and neck showed absent total opacification of the V4 segment of the right vertebral artery and right PICA. TNK was administered in the emergency room and he was admitted to the hospitalist service to the ICU. CT of the brain 24 hours after TNK showed no CT evidence for acute brain abnormality and specifically no hemorrhage. MRI of the brain on 08/10/2024 showed mild global parenchymal atrophy. There were small lacunar infarcts in the R parietal, R basal ganglia and R frontal areas. There was periventricular T2/FLAIR hyperintense foci thought to represent mild chronic microvascular ischemia. There was no hemorrhage or infarction present. Modified barium swallow on 08/10/2024 showed severe pharyngoesophageal dysphagia and mild oral dysphagia w/ recommendation for strict NPO status. On 08/11/2024 he had an EGD that showed no gross lesions in the stomach and no gross lesions in the entire examined duodenum. A PEG was inserted. MRI of the brain was repeated on 08/15/24 with cont rast and it showed NO abnormal signal in the melanie or the medulla, but there were new punctate foci of restricted diffusion in the R cerebellum consistent with a subacute brainstem CVA. He was transferred to the [facility] acute Inpatient Rehabilitation Unit at [facility] on 08/17/24 for 3 hours of therapy daily to restore function/independence at or near his level prior to the recent stroke. The patient underwent another EGD on 08/29/24 - Impression: The nasopharynx and oropharynx are abnormal. Moderate Schatzki ring. Dilated.? Abnormal esophageal motility. Injected with botulinum toxin. Intact gastrostomy with a patent G-tube present characterized by healthy appearing mucosa. No gross lesions in the second portion of the duodenum. Repeat MBSS 09/01/2024 revealed continued severe oropharyngeal dysphagia w/ recommendation for NPO, initiation of FFWP, and continued intensive dysphagia rehab. Upon discharge home, he has participated in continued dysphagia treatment w/ HH ST. HH ST reported that as po trials of thin liquids and thinned purees went well, the pt began to advance his diet himself despite caution from the [employer]OL [employer]IC [employer]ER. He also began taking po meds and weaning himself from the PEG tube. He is currently consuming kiser, salad, and unrestricted solid textures per pt report. He has not used PEG tube in 48 hours. He does report occ difficulty swallowing large sips of liquids and occ retention of pil ls in his throat. Current Diet Ordered: Regular textures / Thin liquids consumed at home Dentition: Natural Teeth Mental Status: WNL Respiratory Status: Oxygenating on Room Air Penetration-Aspiration Scale Penetration-Aspiration Scale: OBJECTIVE ASSESSMENT OF SWALLOW FUNCTION (QUANTITATIVE ? PER TRIAL): PENETRATION / ASPIRATION SCALE (OSORIO): 1 = does not enter airway 2 = enters airway/above vocal folds/ejected 3 = enters airway/above vocal folds/not ejected 4 = enters airway/contacts vocal folds/ejected 5 = enters airway/contacts vocal folds/not ejected 6 = enters airway/below vocal folds/ejected 7 = enters airway/below vocal folds/not ejected despite effort 8 = enters airway/below vocal folds/no effort VIDEOFLOROSCOPIC SCALE SCORE (OSORIO): Grade I = aspiration of material that has penetrated into the laryngeal vestibule, intact cough reflex Grade II = aspiration < 10 % of the bolus, intact cough reflex Grade III = aspiration of < 10 % of the bolus, reduced cough reflex or aspiration of > 10 % of the bolus, intact cough reflex Grade IV = aspiration of > 10 % of the bolus, reduced cough reflex Penetration-Aspiration Scale Score Thin Liquid via teaspoon: Result: 2= enter airway/above vocal folds/ejected Thin Liquid via small single sip: cup: Result: 3= enters airways/above vocal folds/not ejected [place] Thick Liquid via small single sip: cup: Result: 5= enters airways/contacts vocal folds/not ejected Comment: Cued pt for multiple, effortful swallows Pudding via teaspoon: Result: 2= enter airway/above vocal folds/ejected Comment: Cued pt for multiple, effortful swallows Post prandial aspiration of residues of previous trials Thin Liquid via single sip: straw: Result: 7= enters airways/below vocal folds/not ejected despite effort Comment: Cued multiple, effortful swallows 1/2 Cookie: Result: 2= enter airway/above vocal folds/ejected Comment: Cued chin tuck to attempt clearing residue in the vallecula = not effective. Thin Liquid via small single sip: cup Supraglottic swallow: Result: 7= enters airways/below vocal folds/not ejected despite effort Comment: Esophageal screen - Mild retention of barium in the upper esophagus. Moderate retention in the middle and lower esophagus w/ retrograde flow to the upper esophagus. Oral Phase Labial Seal: Interlabial escape, no progression to anterior lip Tongue Control During Bolus Hold: Posterior escape of greater than half of bolus Bolus Preparation/Mastication: Slow prolonged chewing/mashing with complete recollection Bolus Transport/Lingual Motion: Slowed tongue motion Oral Residue: Residue collection on oral structures Pharyngeal Phase Initiation of Pharyngeal Swallow: Bolus head in pyriforms Soft Palate Elevation: Trace column of contrast/air between soft palate and pharyngeal wall Laryngeal Elevation: Partial superior movement thyroid cart/partial apprx aryt- epig petiole Anterior Hyoid Excursion: Partial anterior movement Epiglottic Movement: Partial inversion Laryngeal Vestibule Closure at Height of Swallow: Incomplete; narrow column of air/contrast in laryngeal vestibule Pharyngeal Stripping Wave: Present - diminished (very minimal) Pharyngoesophageal Segment Opening: Minimal distension and minimal duration; marked obstruction of flow Tongue Base Retraction: Wide column of contrast between tongue base & post. pharyngeal wall Pharyngeal Residue: Majority of contrast within or on pharyngeal structures (After multiple, hard swallows, some clearance of boluses through the UES) Esophageal Phase Esophageal Clearance: Esophageal retention w/ retrograde flow below pharyngoesophageal seg. Diagnosis/Impression Diagnosis: Moderate-severe oropharyngeal dysphagia R13.12 MBS Impressions: The oral phase is primarily marked by... -Premature posterior loss of >1/2 of liquids to the pharynx prior to swallow onset. -Slowed lingual motion w/ AP transport. -Mild oral residue, which mostly cleared w/ use of multiple swallows. -Slow, but complete mastication of cookie. The pharyngeal phase is primarily marked by... -Delayed swallow onset. -Decreased pharyngeal contraction due to decreased TB retraction, minimal pharyngeal stripping wave, and very poor UES opening / duration of opening. Multiple, hard swallows and liquid wash were somewhat effective in reducing pharyngeal residue, but moderate-severe residues of pudding and cookie remained. Did not assess barium tablet due to concern for choking w/ whole tablet. -Decreased airway closure due to poor hyolaryngeal excursion, reduced epiglottic inversion, and decreased laryngeal elevation w/ aspiration of thin liquids during the swallow and post prandial aspiration of mildly thick liquids. Weak, throat clearing in response to aspiration. Cued cough and re-swallow was somewhat effective in reducing risk for aspiration. H[employer]CHO[employer] TEACHER EDUCATED THE PATIENT IN HIGH CHOKING AND ASPIRATION RISK, ESPECIALLY W/ REGULAR TEXTURED SOLIDS AND WHOLE MEDICATIONS. Patient reported plans to resume regular textures / thin liquids despite HIGH [employer] TE[employer]ER education for high risk for choking and even choking related . H[employer] SCHO[employer] TE[employer]ER strongly recommended not consuming any solids that cannot be thoroughly and easily mashed and educated pt in soft and bite size textures (IDDSI Level 6), recommending small bites, a sip after each bite w/ use of cough and re-swallow after each sip. Additionally, he requires multiple, hard swallows w/ each bite/sip. H[employer]CHO[employer] TE[employer]ER provided handout re: IDDSI Level 6 diet information and also verbally educated on appropriate bite size and fork pressure test. Pt's verbalized understanding. Pt stated he still plans to go home and eat kiser and lettuce. IF POOR DIET TOLERANCE OR WORSENING RESPIRATORY STATUS, PLEASE DOWNGRADE TO FULL LIQUID DIET W/ USE OF MULTIPLE SWALLOWS, COUGH AND RE-SWALLOW AFTER EACH SIP. OF NOTE, PT'S SWALLOW IS STILL VE RY EFFORTFUL AND IT IS RECOMMENDED THAT HE USE HIS PEG TUBE TO MEET NUTRITIONAL/HYDRATION NEEDS, WELL TO TAKE MEDICATIONS. Recommendations Diet: Soft and Bite Sized Textures and Thin Liquids Comment: PEG TUBE TO MEET PRIMARY NUTRITION/HYDRATION NEEDS ORAL CARE BEFORE AND AFTER ALL PO INTAKE MEDICATIONS VIA PEG TUBE Compensatory Strategies: Small Bites (CHEW THOROUGHLY; MULTIPLE, HARD SWALLOWS EACH BITE), Small Sips (MULTIPLE, HARD SWALLOWS EACH SIP; COUGH AND RE-SWALLOW AFTER EACH SIP), Slow Rate, Alternate bites/solids and sips/liquids (1:1 RATIO), Sitting upright (DURING AND 60 MIN AFTER MEALS) and Assist with verbal cues to use recommended strategies Recommend Repeat Modified Barium Swallow: Yes (4-8 weeks after continued implementation of oropharyngeal exercise program. ) Need for Skilled Speech Therapy Services: Yes Comment: -Train the patient in use of strategies to decrease risk for aspiration and choking. -Ongoing assessment of diet tolerance of recommended textures. Monitor respiratory status closely. DOWNGRADE TO FULL LIQUIDS IF POOR DIET TOLERANCE OR CHANGE IN RESPIRATORY STATUS. -Train the patient in a thorough oral care routine, before and after all po int daniela. -Continued training in oropharyngeal exercise program (Effortful swallows, Matthew, Karely, Shaker, CTAR). Recommended Referrals: GI Consult (Continue to follow w/ GI for management of very poor UES opening/duration of opening, as well as esophageal retention of foods w/ retrograde flow) Education Completed: 1. Described result of evaluation., 4. Family/caregivers understand evaluation & agree w/ goals & tx plan. and 7. Pt requires further education on strategies & risks. (Pt acknowledged education and HIGH [employer]CHOOL [employer] TEACHER's recommendations; however, he ultimately feels he will resume regular textures / thin liquids at home.) Status Active ST Patient: Active Contact Information [facility] Speech Therapy:: Yulissa Burleson M.A. CCC-HIGH SCHO[employer] MUSIC TEACHER? Speech-Language Pathologist?? [facility] [address] [place] [address]? [email or web address]?? [phone]
[2024-10-06 12:42] LABS: Hematocrit 42.7 % (40-54); Hemoglobin 13.3 g/dL (13.0-16.5); Immature Granulocytes Count 0.030 X10^3/uL (0.0-0.0); Mean Corp Hgb Conc 31.1 g/dL (32-36); Mean Corpuscular Volume 91.6 fL (80-94); Mean Platelet Vol. 10.8 fl (6.2-12.0); NRBC Flagged by Analyzer 0 % (0-5); Platelet Count 204 K/mm3 (150-450); RBC Distribution Width CV 12.6 % (11.6-14.6); RBC Distribution Width SD 42.1 fl (35.1-43.9); Red Blood Count 4.66 M/mm3 (4.6-6.2); White Blood Count 8.3 K/mm3 (4.4-11.0)
[2024-10-06 13:11] LABS: AST(SGOT) 16 U/L (<=37); Alanine Aminotransfer ALT/SGPT 22 U/L (<=46); Albumin, Serum 3.8 g/dL (3.4-4.8); Alkaline Phosphatase 98 U/L (40-129); Anion Gap 12 (5-15); BUN 16 mg/dL (4-19); BUN/Creat Ratio 15.5 RATIO (10-20); Calcium,Total 9.5 mg/dL (7.6-11.0); Carbon Dioxide 24.5 mmol/L (21.0-32.0); Chloride 106 mmol/L (98-108); Globulin 3.0 g/dL (2.2-4.2); Glucose 100 mg/dL (70-99); Potassium 4.0 mmol/L (3.3-5.1)
[2024-10-06 13:12] LABS: CRP 7.45 mg/L (0.0-3.0)
[2024-10-07 12:08] LABS: ANTINUCLEAR ANTIBODIES DIRECT Negative (Negative)
[2024-10-12 15:08] LABS: Anti-Cardiolipin Ab, IgA, Qn < 9 APL U/mL (0-11); Anti-Cardiolipin Ab, IgG, Qn < 9 GPL U/mL (0-14); Anti-Cardiolipin Ab, IgM, Qn < 9 MPL U/mL (0-12); Anti-Thrombin 3 AG, Immunol 116 % (72-124); Antithrombin 3 Function 153 % (75-135); Complement CH50 > 60 U/mL (>41); Dilute Russell Viper Venom 84.0 sec (0.0-47.0); Dilute Russell Viper Venom Mix 62.2 sec (0.0-40.4); Interpretation Comment: (.); PTT-LA 40.6 sec (0.0-43.5); Protein C, Functional 87 % (73-180); Protein S, Funtional 67 % (63-140)
== END | disposition home or self-care (01) ==
PROVIDERS: PCP Family Medicine; Referring Provider Family Medicine; Visit Provider Family Medicine
DX: I69.391 Dysphagia following cerebral infarction (principal); I51.3 Intracardiac thrombosis, not elsewhere classified; Z79.01 Long term (current) use of anticoagulants
CPT/HCPCS: 36415; 74230; 80053; 81240; 81241; 85025; 85300; 85301; 85303; 85305; 85306; 85652; 86038; 86140; 86147; 86160; 86162; 86225; 92611

== ENCOUNTER 2024-10-07 09:34 | Emergency (ER) | payer MEDICARE, SELFPAY ==
[2024-10-07] VITALS (9 sets, daily range): BP systolic 103–179; BP diastolic 69–160; PULSE 69–91; RESP 18–28; TEMP 36.3–36.9; O2SAT 93–96; BMI 26.2
--- NOTE | 2024-10-07 10:16 | CT_ITS ---
PROCEDURE: BRAIN/HEAD WITHOUT CONTRAST 10/07/2024 REASON FOR EXAM: DIZZINESS Fall. Weakness. TECHNIQUE: BRAIN/HEAD WITHOUT CONTRAST Coronal and Sagittal reconstruction series were provided. One or more dose reduction techniques were used (e.g., Automated exposure control, adjustment of the mA and/or kV according to patient size, use of iterative reconstruction technique. RADIATION DOSE SUMMARY: CTDlvol: 44.99 mGy DLP: 829.85 mGycm COMPARISON: Prior MRI of the brain dated August 15, 2024. FINDINGS: Brain: Low density in the periventricular white matter suggests mild chronic small vessel ischemic changes. Tiny old lacunar infarct in the right basal ganglion. CSF Spaces: Mild generalized cerebral atrophy Sinuses/Mastoids: Clear at visualized levels Bones: CT/Brain/Head without Contrast IMPRESSION: CHRONIC CHANGES. NO ACUTE FINDINGS. Reading Location: [id number]
--- NOTE | 2024-10-07 10:16 | RAD_ITS ---
PROCEDURE: CHEST PA AND LATERAL 10/07/2024 REASON FOR EXAM: COUGH TECHNIQUE: CHEST PA AND LATERAL COMPARISON: Prior study dated August 25, 2024. FINDINGS: Hardware: EKG Heart: The heart is nonenlarged. Mediastinum: Tortuosity of the descending thoracic aorta. Lungs: Findings suggestive of early left lower lobe infiltrate. Bones: Degenerative changes are identified within the thoracic spine. RAD/Chest PA and Lateral IMPRESSION: Findings suggestive of early left lower lobe infiltrate. Reading Location: [id number]
--- NOTE | 2024-10-07 10:16 | EKG12_ITS ---
Test Reason : Blood Pressure : */* mmHG Vent. Rate : 76 BPM Atrial Rate : 76 BPM P-R Int : 158 ms QRS Dur : 94 ms QT Int : 402 ms P-R-T Axes : -5 28 163 degrees QTcB Int : 452 ms Normal sinus rhythm Possible Inferior infarct , age undetermined ST & T wave abnormality, consider lateral ischemia Abnormal ECG Confirmed by TERE ROMAN, JM ([id number]), web content editor BAM LOW ([id number]) on 10/10/2024 7:03:55 AM Referred By: Confirmed By: JM CARRANZA MD
--- NOTE | 2024-10-07 10:24 | ED.VIS.FALL ---
HPI HPI - Fall History of Present Illness Chief Complaint: Weakness Narrative Narrative: Chief complaint and HPI: Dizziness, cough. 84-year-old gentleman with past medical history of CVA status post PEG for dysphagia, HTN, DM, HLD, history of blood clot on anticoagulation presents for evaluation of dizziness and cough. Patient states that history taken by patient, , neurology office note on 10/05. Patient was recently diagnosed with a CVA in August in which he received TNK. He had ongoing dysphagia which required PEG placement. He completed a 17-day of inpatient rehab. His residual defects include mild facial droop, mild dysarthria, dysphagia with PEG, and mild debility. states yesterday patient had 27 vials of blood taken for routine laboratory workup. She states later that evening he had increased coughing, weakness, nausea and vomiting. She states that patient has been eating more food than is recommended via the speech therapist. Patient woke up this morning and ate a pancake. He then had a coughing fit. When he tried to ambulate out of the chair he developed dizziness and fell. Did not hit his head. No LOC. Obtained a abrasion to the left elbow. Denies any bony tenderness. Endorses chills last night but denies fever. Denies any chest pain, abdominal pain, diarrhea, dysuria. New weakness or numbness or tingling. Has chronic right shoulder pain. Review of systems: See HPI Medications: As listed on the chart Allergies: As listed on the chart PFSH: Per chart Vital signs: As listed on the chart. Reviewed. Physical exam: Gen: A&O x3, NAD Head: Normocephalic, atraumatic Eyes: No sclera icterus, conjunctiva clear, PERRL, EOMI ENT: Moist mucous membranes, mild facial droop which is residual from previous CVA Neck: Trachea midline, No JVD, full range of motion, nontender CV: RRR, no murmurs, no peripheral edema Resp: Lungs CTA BL, no w/r/c GI: Abd soft, non-distended, non-tender, no r/r/g, PEG + Musc: Full ROM except for right upper extremity given chronic right shoulder pain-patient's baseline, o deformity, strength slightly decreased on the left-patient's residuals from the stroke, no pronator drift, no ataxia, radial/DP/PT pulses +2 bilaterally Skin: Warm, dry, skin abrasion to the left elbow neuro: Alert, oriented, grossly intact, sensation intact, no new focal deficits Psych: Cooperative, appropriate mood and affect [facility] Medical History Hypercholesteremia Diabetes mellitus Grade I diastolic dysfunction Pulmonary nodule CVA (cerebral vascular accident) Anxiety and depression Remote history of stroke Allergic rhinitis Left ventricular hypertrophy Dupuytren's contracture of both hands Osteoarth NOS-shlder GERD (gastroesophageal reflux disease) CAD (coronary artery disease) HTN (hypertension) HI (myocardial infarction) CVA (cerebral vascular accident) Home Medications ?Medication ?Instructions ?Recorded ?Last Taken ?Type aspirin 81 mg chewable tablet 81 mg feeding tube DAILY heart 09/01/24 08/17/24 Rx health #1 TAB insulin glargine-yfgn 100 unit/mL 30 unit (0.3 mL) subcut DAILY@0600 09/01/24 Unknown Rx (3 mL) subcutaneous pen #3 pens lansoprazole 30 mg capsule,delayed 30 mg PO DAILY #30 caps 09/01/24 Unknown Rx release mirtazapine 15 mg tablet 15 mg PO QHS #30 tabs 09/01/24 Unknown Rx ezetimibe 10 mg tablet 10 mg PO DAILY #30 tabs 09/02/24 Unknown Rx famotidine 40 mg tablet 40 mg PO QHS #90 tabs 09/20/24 Unknown Rx acetaminophen 650 mg 650 mg PO Q8H PRN 10/05/24 Unknown History tablet,extended release apixaban 5 mg tablet (Eliquis) 5 mg PO BID cva 10/05/24 Unknown History atorvastatin 40 mg tablet 40 mg PO QHS cholesterol 10/05/24 Unknown History empagliflozin 10 mg tablet 10 mg PO DAILY 10/05/24 Unknown History (Jardiance) insulin lispro 100 unit/mL See Rx Instructions .Route .COMPLEX 10/05/24 Unknown History subcutaneous pen (Humalog KwikPen (U-100) Insulin) lactose-reduced food with fiber 265 ml PO BID 10/05/24 Unknown History 0.06 gram-1.5 kcal/mL oral liquid (Jevity 1.5 Gil) metoclopramide HCl 5 mg tablet 5 mg PO 5X/DAY 10/05/24 Unknown History metoprolol tartrate 25 mg tablet 25 mg PO BID 10/05/24 Unknown History montelukast 10 mg tablet 10 mg PO DAILY allergies 10/05/24 Unknown History scopolamine base 1 mg over 3 days 1 patch transdermal Q3D PRN 10/05/24 Unknown History transdermal patch Allergy/AdvReac Type Severity Reaction Status Date / Time No Known Allergies Allergy Verified 10/05/24 09:35 Family History Mother Colon cancer Father CAD (coronary artery disease) Heart disease Hypertension Myocardial infarction Family History no significant family his Surgical History S/P left rotator cuff repair History of tonsillectomy and adenoidectomy History of coronary angioplasty with insertion of stent Status post left partial knee replacement Social History household members: spouse current occupational status: 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[employer] pets and animals: No Smoking Status: Never smoker Electronic Cigarette Use: not used alcohol intake: never substance use type: does not use caffeine: Yes Type: coffee Number of servings: 1 do you feel safe at home: Yes EXAM Physical Exam Const Vital Signs: 10/07/24 09:34 10/07/24 10:25 10/07/24 10:36 Temperature 97.9 F 97.7 F L Temperature Source Oral Oral Pulse Rate 91 78 Pulse Rate [Lying] 74 Pulse Rate [Sitting (for 1 minute prior to obtaining)] 78 Pulse Rate [Standing (for 1 minute prior to obtaining)] 74 Respiratory Rate 18 22 H Respiratory Effort Respiratory Pattern Blood Pressure 179/160 H 107/73 Blood Pressure [Lying] 116/73 Blood Pressure [Sitting (for 1 minute prior to obtaining)] 110/73 Blood Pressure [Standing (for 1 minute prior to obtaining)] 114/76 Blood Pressure Mean 166 84 Blood Pressure Mean [Lying] 87 Blood Pressure Mean [Sitting (for 1 minute prior to obtaining)] 85 Blood Pressure Mean [Standing (for 1 minute prior to obtaining)] 88 Pulse Ox 94 94 Oxygen Delivery Method Room Air Room Air 10/07/24 10:39 10/07/24 11:00 10/07/24 11:57 Temperature 98.4 F Temperature Source Oral Pulse Rate 87 Pulse Rate [Lying] Pulse Rate [Sitting (for 1 minute prior to obtaining)] Pulse Rate [Standing (for 1 minute prior to obtaining)] Respiratory Rate 26 H Respiratory Effort Non-Labored Respiratory Pattern Tachypnea Blood Pressure 107/73 103/69 Blood Pressure [Lying] Blood Pressure [Sitting (for 1 minute prior to obtaining)] Blood Pressure [Standing (for 1 minute prior to obtaining)] Blood Pressure Mean 84 80 Blood Pressure Mean [Lying] Blood Pressure Mean [Sitting (for 1 minute prior to obtaining)] Blood Pressure Mean [Standing (for 1 minute prior to obtaining)] Pulse Ox 95 Oxygen Delivery Method Room Air Room Air 10/07/24 12:00 10/07/24 13:00 Temperature 98.1 F 97.3 F L Temperature Source Oral Oral Pulse Rate 70 69 Pulse Rate [Lying] Pulse Rate [Sitting (for 1 minute prior to obtaining)] Pulse Rate [Standing (for 1 minute prior to obtaining)] Respiratory Rate 24 H 28 H Respiratory Effort Respiratory Pattern Blood Pressure 115/74 117/78 Blood Pressure [Lying] Blood Pressure [Sitting (for 1 minute prior to obtaining)] Blood Pressure [Standing (for 1 minute prior to obtaining)] Blood Pressure Mean 87 91 Blood Pressure Mean [Lying] Blood Pressure Mean [Sitting (for 1 minute prior to obtaining)] Blood Pressure Mean [Standing (for 1 minute prior to obtaining)] Pulse Ox 94 94 Oxygen Delivery Method Room Air Room Air MDM MDM MDM Narrative Medical decision making narrative: 84-year-old gentleman with past medical history of CVA status post PEG for dysphagia, HTN, DM, HLD, history of blood clot on anticoagulation presents for evaluation of dizziness and cough. History taken via patient, , medical record. See HPI. Patient had a CVA in August and since then has struggled with dysphagia, mild dysarthria, mild weakness, mild facial droop. Associated symptom is mechanical fall today with left elbow skin abrasion. Differential diagnosis includes but is not limited to CVA side effects, aspiration pneumonia, viral illness, dehydration, CARLOS, electrolyte abnormality, orthostatic hypotension, anemia, arrhythmia, suspect less likely ACS as patient is not having chest pain, intracranial bleed, patient is on blood thinners. NS bolus and Zofran ordered. Dizziness workup ordered. EKG and chest x-ray reviewed. Patient has likely forming left-sided pneumonia, suspect aspiration as he has been not eating appropriate diet. CBC with leukocytosis at 17.1, likely secondary to developing pneumonia. Patient has baseline anemia. CMP unremarkable without significant electrolyte abnormality, CARLOS, transaminitis. Troponin 32. Previously 31. Patient not having any chest pain. Will get delta although I suspect this is his baseline. Repeat troponin 27. Patient not having any chest pain. Low suspicion for ACS. UA negative for UTI. CT of the brain with chronic changes, no acute intracranial abnormality. Orthostatic vital signs negative. Patient states his lightheadedness is improved with fluids. Suspect symptoms were secondary to mild dehydration as well as developing pneumonia. Patient is afebrile, vitals are stable, not hypoxic. Pharmacy was consulted and patient was discussed. Levaquin can be flushed on the PEG. Will give first dose here. Will prescribe Levaquin for pneumonia. Patient and family updated all results and confirmed understand the plan. Patient ambulated in the emergency department with pulse ox. No hypoxia. Denies any lightheadedness or dizziness. Patient stable to discharge home. Recommend following speech recommendations and only eating appropriate recommended food. Family and patient confirmed understanding. They were updated of all the results and the plan for discharge home. Follow-up with PCP. EKG: Interpreted by me/EM physician: EKG shows normal sinus rhythm with nonspecific ST changes. Heart rate 76. This is similar to previous EKG in August Diagnostic: Interpreted by me/EM physician: Chest x-ray without cardiomegaly, pneumothorax, effusion. Patient has concerning for left lower lobe pneumonia. Radiology in agreement. Impression: 1. Left lower lobe pneumonia, suspect aspiration 2. Lightheadedness, resolved, suspect mild dehydration 3. History of CVA with left-sided weakness and dysphagia with PEG 4. Mechanical fall Lab Data Labs: Laboratory Results - last 24 hr 10/07/24 10/07/24 10/07/24 10:25 10:35 11:05 WBC 17.1 H RBC 4.46 L Hgb 12.9 L Hct 39.6 L MCV 88.8 MCH 28.9 MCHC 32.6 RDW Std Deviation 41.1 RDW Coeff of Josh 12.7 Plt Count 188 MPV 10.8 Immature Gran % (Auto) 0.600 Neut % (Auto) 88.9 H Lymph % (Auto) 4.2 L [place] % (Auto) 5.8 Eos % (Auto) 0.1 Baso % (Auto) 0.4 Absolute Neuts (auto) 15.2 H Absolute Lymphs (auto) 0.71 L Nucleated RBC % 0 Sodium 141 Potassium 3.9 Chloride 105 Carbon Dioxide 25.0 Anion Gap 11 BUN 21 H Creatinine 1.07 Estim Creat Clear Calc 51.39 Est GFR (MDRD) Non-Af 68 BUN/Creatinine Ratio 19.3 Glucose 160 H Lactic Acid 1.5 Calcium 9.2 Total Bilirubin 0.72 AST 14 ALT 17 Alkaline Phosphatase 87 Troponin T High Sens 32 H Troponin T Hi Sens 2 Hr Total Protein 6.0 Albumin 3.6 Globulin 2.5 Albumin/Globulin Ratio 1.4 Urine Color Yellow Urine Clarity Clear Urine pH 6.0 Ur Specific [place] 1.010 Urine Protein 30 H Urine Glucose (UA) 1000 H Urine Ketones Negative Urine Occult Blood 10 H Urine Nitrite Negative Urine Bilirubin Negative Urine Urobilinogen Normal Ur Leukocyte Esterase Negative Urine RBC 0-5 SEEN Urine WBC 0 SEEN Ur Squamous Epith Cells 0-5 SEEN Urine Bacteria 0 SEEN Urine Mucus 0 SEEN 10/07/24 12:15 WBC RBC Hgb Hct MCV MCH MCHC RDW Std Deviation RDW Coeff of Josh Plt Count MPV Immature Gran % (Auto) Neut % (Auto) Lymph % (Auto) [place] % (Auto) Eos % (Auto) Baso % (Auto) Absolute Neuts (auto) Absolute Lymphs (auto) Nucleated RBC % Sodium Potassium Chloride Carbon Dioxide Anion Gap BUN Creatinine Estim Creat Clear Calc Est GFR (MDRD) Non-Af BUN/Creatinine Ratio Glucose Lactic Acid Calcium Total Bilirubin AST ALT Alkaline Phosphatase Troponin T High Sens Troponin T Hi Sens 2 Hr 27 H Total Protein Albumin Globulin Albumin/Globulin Ratio Urine Color Urine Clarity Urine pH Ur Specific [place] Urine Protein Urine Glucose (UA) Urine Ketones Urine Occult Blood Urine Nitrite Urine Bilirubin Urine Urobilinogen Ur Leukocyte Esterase Urine RBC Urine WBC Ur Squamous Epith Cells Urine Bacteria Urine Mucus Radiography Diagnostic Testing: Clinical Impression(s) from Imaging Studies Brain CT 10/07/24 10:16 IMPRESSION: CHRONIC CHANGES. NO ACUTE FINDINGS. Reading Location: [facility] Chest X-Ray 10/07/24 10:16 IMPRESSION: Findings suggestive of early left lower lobe infiltrate. Reading Location: [id number] Discharge Plan Triage Chief Complaint: Weakness Other Complaint: Fall ED Provider: Brandon Morillo Dx/Rx/DC Orders Prescriptions: No Action acetaminophen 650 mg tablet extended release 650 mg PO Q8H PRN Eliquis 5 mg tablet 5 mg PO BID atorvastatin 40 mg tablet 40 mg PO QHS Jardiance 10 mg tablet 10 mg PO DAILY insulin lispro [Humalog KwikPen Insulin] 100 unit/mL insulin pen See Rx Instructions .ROUTE .COMPLEX Rx Instructions: 3 units subcut- 5 times a day Jevity 1.5 Gil 0.06 gram-1.5 kcal/mL liquid 265 ml PO BID metoclopramide HCl 5 mg tablet 5 mg PO 5X/DAY metoprolol tartrate 25 mg tablet 25 mg PO BID montelukast 10 mg tablet 10 mg PO DAILY scopolamine base 1 mg over 3 days patch 3 day 1 patch transdermal Q3D PRN insulin glargine-yfgn 100 unit/mL (3 mL) Insulin Pen 30 unit subcut DAILY@0600 Qty: 3 0RF lansoprazole 30 mg capsule,delayed release(DR/EC) 30 mg PO DAILY Qty: 30 0RF mirtazapine 15 mg Tablet 15 mg PO QHS Qty: 30 0RF aspirin 81 mg Tablet,Chewable 81 mg feeding tube DAILY Qty: 1 0RF Rx Instructions: Must be crushed. ezetimibe 10 mg Tablet 10 mg PO DAILY Qty: 30 0RF famotidine 40 mg tablet 40 mg PO QHS Qty: 90 3RF Rx Instructions: Crush and give per PEG Primary Care Provider: Sonny Santos Referrals: Sonny Santos DO [Primary Care Provider] - Print Language: Chinese
[2024-10-07] MEDS: 0.9% Normal Saline (1000mL) 1,000 ML 1000 ML IV (10:31)
[2024-10-07 10:37] LABS: Hematocrit 39.6 % (40-54); Hemoglobin 12.9 g/dL (13.0-16.5); Immature Granulocytes Count 0.100 X10^3/uL (0.0-0.0); Mean Corp Hgb Conc 32.6 g/dL (32-36); Mean Corpuscular Volume 88.8 fL (80-94); Mean Platelet Vol. 10.8 fl (6.2-12.0); NRBC Flagged by Analyzer 0 % (0-5); Platelet Count 188 K/mm3 (150-450); RBC Distribution Width CV 12.7 % (11.6-14.6); RBC Distribution Width SD 41.1 fl (35.1-43.9); Red Blood Count 4.46 M/mm3 (4.6-6.2); White Blood Count 17.1 K/mm3 (4.4-11.0)
[2024-10-07 11:11] LABS: Mucous, Urine 0 SEEN /hpf (<or=2+)
[2024-10-07 11:12] LABS: AST(SGOT) 14 U/L (<=37); Alanine Aminotransfer ALT/SGPT 17 U/L (<=46); Albumin, Serum 3.6 g/dL (3.4-4.8); Alkaline Phosphatase 87 U/L (40-129); Anion Gap 11 (5-15); BUN 21 mg/dL (4-19); BUN/Creat Ratio 19.3 RATIO (10-20); Calcium,Total 9.2 mg/dL (7.6-11.0); Carbon Dioxide 25.0 mmol/L (21.0-32.0); Chloride 105 mmol/L (98-108); Estimated Creatinine Clearance 51.39 ml/min (50-250); Globulin 2.5 g/dL (2.2-4.2); Glucose 160 mg/dL (70-99); Potassium 3.9 mmol/L (3.3-5.1); Troponin T High Sensitivity 32 ng/L (<=22)
[2024-10-07 11:45] LABS: Color, Urine Yellow (Yellow); Glucose, Dipstick 1000 mg/dl (Normal); Ketone-Dipstick Negative (Negative); Leukocyte Esterase-Dipstick Negative /ul (Negative); Nitrite-Dipstick Negative (Negative); Occult Blood-Urine 10 /ul (Negative); Protein-Dipstick 30 mg/dl (Negative); Specific Gravity, Urine 1.010 (1.002-1.030); Urine Bilirubin Dipstick Negative (Negative)
[2024-10-07 12:03] LABS: Red Blood Cells-Urine 0-5 SEEN /hpf (0-5); Squamous Epithelial Cells - UA 0-5 SEEN /hpf (0-5)
[2024-10-07 13:49] LABS: Troponin T High Sens 2 HR 27 ng/L (<=22)
== END 2024-10-07 14:12 | disposition home or self-care (01) ==
PROVIDERS: Emergency Provider Surgery; PCP Family Medicine; Visit Provider Surgery
DX: R53.1 Weakness (principal); I11.0 Hypertensive heart disease with heart failure; I50.32 Chronic diastolic (congestive) heart failure; E11.9 Type 2 diabetes mellitus without complications; Z79.4 Long term (current) use of insulin; J18.9 Pneumonia, unspecified organism; S50.312A Abrasion of left elbow, initial encounter; E78.5 Hyperlipidemia, unspecified; I25.10 Atherosclerotic heart disease of native coronary artery without angina pectoris; R42 Dizziness and giddiness; Z86.73 Personal history of transient ischemic attack (TIA), and cerebral infarction without residual deficits; I25.2 Old myocardial infarction; Z79.82 Long term (current) use of aspirin; K21.9 Gastro-esophageal reflux disease without esophagitis; Z79.899 Other long term (current) drug therapy; Z79.01 Long term (current) use of anticoagulants; Z95.5 Presence of coronary angioplasty implant and graft; Z96.652 Presence of left artificial knee joint; W19.XXXA Unspecified fall, initial encounter
CPT/HCPCS: 70450; 71046; 80053; 81001; 83605; 84484; 85025; 87631; 93005; 96361; 96374; 99285; A4216; J2405

== ENCOUNTER 2024-12-16 10:30 | Outpatient (RCR) | payer MEDICARE, SELFPAY ==
--- NOTE | 2024-11-14 17:56 | HP.SP.EV_ITS ---
Visit History Visit Info Date of Eval: 11/10/24 Today is Visit #: 1 [employer]: BRITTANY History Attending Doctor: Referring Doctor: Reason for Referral: DYSPHAGIA RX HERE Medical Diagnosis: CVA Date of Onset of Diagnosis: 08/08/24 Previous speech therapy: Yes Results: Patient received in-patient therapy and MBSS while at [facility]. Patient also received home health services after discharge at [facility], utilizing vital stim. Other Relevant Medical History/Diagnoses/Surgery: Alida Delcid) is a 84M who presented to the ED at [facility] on 08/08/2024 complaining of slurred speech, cephalgia and left facial droop. Noncontrast brain CT showed no acute abnormalities. CTA of the head and neck showed absent total opacification of the V4 segment of the right vertebral artery and right PICA. TNK was administered in the emergency room and he was admitted to the hospitalist service to the ICU. CT of the brain 24 hours after TNK showed no CT evidence for acute brain abnormality and specifically no hemorrhage. MRI of the brain on 08/10/2024 showed mild global p arenchymal atrophy. There were small lacunar infarcts in the R parietal, R basal ganglia and R frontal areas. There was periventricular T2/FLAIR hyperintense foci thought to represent mild chronic microvascular ischemia. There was no hemorrhage or infarction present. Modified barium swallow on 08/10/2024 showed severe pharyngoesophageal dysphagia and mild oral dysphagia w/ recommendation for strict NPO status. On 08/11/2024 he had an EGD that showed no gross lesions in the stomach and no gross lesions in the entire examined duodenum. A PEG was inserted. MRI of the brain was repeated on 08/15/24 with contrast and it showed NO abnormal signal in the melanie or the medulla, but there were new punctate foci of restricted diffusion in the R cerebellum consistent with a subacute brainstem CVA. He was transferred to the [facility] acute Inpatient Rehabilitation Unit at [facility] on 08/17/24 for 3 hours of therapy daily to restore function/independence at or near his level prior to the recent stroke. The patient underwent another EGD on 08/29/24 - Impression: The nasopharynx and oropharynx are abnormal. Moderate Schatzki ring. Dilated. Abnormal esophageal motility. Injected with botulinum toxin. Intact gastrostomy with a patent G-tube present characterized by healthy appearing mucosa. No gross lesions in the second portion of the duodenum. Repeat MBSS 09/01/2024 revealed continued severe oropharyngeal dysphagia w/ recommendation for NPO, initiation of FFWP, and continued intensive dysphagia rehab. Upon discharge home, he has participated in continued dysphagia treatment w/ [facility]. ST reported that as po trials of thin liquids and thinned purees went well, the pt began to advance his diet himself despite caution from the SHIP SC[employer]ER. He also began taking po meds and weaning himself from the PEG tube. Repeat MBSS was completed on 10/06/2024 revealed moderate-severe oropharyngeal dysphagia primarily marked by premature posterior loss of >1/2 liquids to the pharynx prior to swallow onset, slowed lingual motion w/AP transport, mild oral residue that was cleared using multiple cues swallows, slow mastication of regular foods, delayed swallow onset, decreased pharyngeal contraction due to decreased TB retraction and poor UES opening, decreased airway closure due to poor hyolaryngeal excursion and reduced epiglottic inversion. Patient continued ST until referral to [facility]. Medications related to this diagnosis: acetaminophen 650 mg tablet extended release, apixaban [Eliquis] 5 mg tablet, aspirin 81 mg Tablet (chewable), atorvastatin 40 mg tablet, empagliflozin [Jardiance] 10 mg tablet, ezetimibe 10 mg Tablet, famotidine 40 mg tablet, insulin glargine-yfgn 100 unit/mL (3 mL) Insulin Pen, lactose-reduced food with fibr [Jevity 1.5 Gil] 0.06 gram-1.5 kcal/mL liquid, lansoprazole 30 mg capsule (delayed release) (DR/EC), levofloxacin 750 mg tablet, metoclopramide HCl 5 mg tablet, metoprolol tartrate 25 mg tablet, mirtazapine 15 mg Tablet, montelukast 10 mg tablet, scopolamine base 1 mg over 3 days patch 3 day Smoking Status: Never smoker Diagnosis Diagnosis: Mild-moderate oropharyngeal dysphagia Pain Is pain an issue with your current prescribed condition?: No Personal Preferred language: Wolof Patient Allergies Allergies Allergies: Allergies No Known Allergies Allergy (Verified 10/05/24 09:35) Subjective Dysphagia Symptoms Reported Symptoms/Problems with: Difficulty Swallowing Liquids, Difficulty Swallowing Pills and Hx of Aspiration Current Diet Solids Current Diet: Soft Current Diet Liquids Current Liquids: Thin NPO NPO - Alternative Nutrition Method: Gastrostomy Tube Date Tube Placed: 08/11/2024 Comments -: -: Pt stated that he currently is eating 2 meals per day PO and 2 using his feeding tube. Objective Dysphagia Administered by Administered by: SHIP SCALER Thin Liquids Administred via: Cup Positioning: Chin Tuck Oral Transit: Delay > 1 seconds Bolus clearance: fully cleared Gagging: No Cough: throat clear and productive Pharyngeal phase: laryngeal elevation mildly restricted slow initiation Comments: Patient with throat clear x3 prior to using chin tuck. Chin tuck was effective in reduction of throat clearing following cup sip swallows. Pureed Administered via: Spoon Oral Preparation: WNL Oral Transit: Delay > 1 seconds Bolus clearance: fully cleared Gagging: No Cough: productive Pharyngeal phase: laryngeal elevation mildly restricted slow initiation Soft & Bite sized (Mechanical) Oral Preparation: WNL Oral Transit: Delay > 1 seconds Bolus clearance: significant clearance/minimal residue Gagging: No Cough: productive Pharyngeal phase: laryngeal elevation mildly restricted slow initiation Comments: Cued multiple swallows to ensure full clearance. Regular Oral Preparation: WNL Oral Transit: Delay > 1 seconds Bolus clearance: significant clearance/minimal residue Gagging: No Cough: productive Pharyngeal phase: elevation incomplete Patient Report: Patient reported that he stays away from crunchy and dry foods, as they are more difficult for him to effectively chew and swallow. Comments: Cued multiple swallows to ensure full clearance. Swallowing Impairment Contributing Factors to Swallowing Impairment: Reduced Laryngeal Excursion Impact Impact on Safety & Functioning: Risk for Aspiration Recommendations Modified Barium Swallow/Cookie Swallow Recommended: No Swallowing Treatment: Yes Diet Texture Recommendations Solids: Soft & Bite sized (Level 6, Chopped) Liquids: Thin (Level 0) Safety Saftey Precautions/Swallowing Recommendations (Check all that Apply): Supervision Needed All Meals, Reduce Distractions, Needs Verbal Cues to Use Recommended Strategies, Upright Position at Least 30 Minutes After Meals, Small Sips & Bites when Eating, No Straw, Multiple Swallows and Other (Specify Below) Other: Multiple HARD swallows. Results Swallowing Within Normal Limits: No Swallowing Diagnosis: Oropharyngeal Phase Dysphagia (R13.12) Severity: Moderate Objective Oral Motor Oral Status Dentition: WNL Labial Impairment: WNL Observation at Rest: WNL Closure: WNL Pucker: WNL Retraction: WNL Alternating Pucker/Retraction: WNL Involuntary Movement noted: No Lingual Impairment: Mild Protrusion: WFL Retraction: WFL Lateralization: WFL Involuntary Movement: No Lingual Comments Comments: Reduced lingual strength (mild) Jaw Opening: WNL Closing: WNL Involuntary Movement: No Respiratory Status Respiratory Status: Room Air Reference: Neuro-QoL instrument Radiation Oncology Patient Plan Plan Plan: At this time, it is recommended that Taran participates in skilled outpatient speech therapy interventions to target moderate oropharyngeal dysphagia. Oral phase is primarily marked by mild lingual weakness which causes slow lingual motion with AP transport and mild residue after completion of swallow. Pharyngeal phase is primarily marked by a mild delayed swallow onset and reduced hyolaryngeal excursion. Participation in therapy will aid in education of compensatory strategies as well as increase lingual and pharyngeal strength to reduce the risk of aspiration. ST recommended to continue with a soft and bite sized diet with regular liquids using compensatory strategies (chin tuck, multiple swallows, hard swallows, no straws, small bites and sips, supervision at meals, sit upright during and after meals). Recommendations Treatment Warranted: Yes Treatment Warranted: Dysphagia Progress Prognosis: Excellent Frequency Frequency: 1x/Week Duration: 12 Months Visits in this POC: 52 Patient/Family Goal Patient/Family Goal: Patient stated that his goal is to be on a regular diet and have his PEG removed. Goals that are Established Determination:: Goals will be added/modified as deemed necessary and appropriate. Therapy will be discontinued when results of re-evaluation indicate therapy is no longer needed or lack of progress has been documented. Goal #1-5 Goal #1: Taran will complete oropharyngeal exercises independently to improve tongue base retraction, PES opening/distention, and hyolaryngeal excursion. Goal #2: Taran will complete oral motor exercises to aid in bolus manipulation, oral strengthening, and ROM with no cues. Goal #3: Taran will utilize swallowing strategies and tolerate least restrictive diet with no overt s/s of aspiration/penetration to aid in safe consumption of solid/liquids independently. Education Patient has Indicated that the Following Identified Educational Needs: None The Patient has indicated that they have no educational or learning abilities that may effect their care.: Yes Patient Instruction Patient Education: Diagnosis, Treatment Plan, Goals and Safety Precautions Person Taught: Patient Teaching Method: Discussion Response to teaching: Verbalize Understanding
--- NOTE | 2024-12-16 12:18 | HP.SP.DC_ITS ---
ST Discharge Summary Discharged: Discharge: Patient is being discharged from [facility] speech therapy services at this time. Patient attended initial evaluation on 11/14/24 and attended weekly appointments to target dysphagia. Patient participated in oral motor tasks as well as oropharyngeal strengthening exercises. Patient completed a food trial on and was able to demonstrate tolerance of his least restrictive diet. Patient plans to go to [place] following his feeding tube removal on 12/26/24. Thank you for allowing me to participate in the care of this patient.
== END 2024-12-16 14:00 | disposition home or self-care (01) ==
LOC: SP 10:30
PROVIDERS: PCP Family Medicine; Referring Provider Family Medicine; Visit Provider Family Medicine
DX: Z86.73 Personal history of transient ischemic attack (TIA), and cerebral infarction without residual deficits (principal); R13.12 Dysphagia, oropharyngeal phase
CPT/HCPCS: 92507; 92610

== ENCOUNTER → 2024-12-20 | Outpatient (CLI) | payer MEDICARE, SELFPAY ==
[2024-12-20 10:31] LABS: Hematocrit 42.8 % (40-54); Hemoglobin 13.8 g/dL (13.0-16.5); Immature Granulocytes Count 0.020 X10^3/uL (0.0-0.0); Mean Corp Hgb Conc 32.2 g/dL (32-36); Mean Corpuscular Volume 84.8 fL (80-94); Mean Platelet Vol. 10.7 fl (6.2-12.0); NRBC Flagged by Analyzer 0 % (0-5); Platelet Count 189 K/mm3 (150-450); RBC Distribution Width CV 14.8 % (11.6-14.6); RBC Distribution Width SD 45.5 fl (35.1-43.9); Red Blood Count 5.05 M/mm3 (4.6-6.2); White Blood Count 8.0 K/mm3 (4.4-11.0)
[2024-12-20 10:52] LABS: Creatinine, Urine (random) 96.00 mg/dL (39.00-259.00); Microalbumin,Random Urine 92.4 mg/L (<20 mg/L)
[2024-12-20 10:58] LABS: Anion Gap 10 (5-15); BUN 20 mg/dL (4-19); BUN/Creat Ratio 22.1 RATIO (10-20); Calcium,Total 9.6 mg/dL (7.6-11.0); Carbon Dioxide 25.4 mmol/L (21.0-32.0); Chloride 108 mmol/L (98-108); Cholesterol 116 mg/dL (<=200); Glucose 87 mg/dL (70-99); Low Density Lipoprotein Calc. 61 mg/dL; Potassium 4.3 mmol/L (3.3-5.1); Triglycerides 68 mg/dL; Very Low Density Lipoprotein 14 mg/dL (5-40); cholesterol:hdl ratio screen 2.78
== END | disposition home or self-care (01) ==
PROVIDERS: PCP Family Medicine; Referring Provider Family Medicine; Visit Provider Family Medicine
DX: E11.9 Type 2 diabetes mellitus without complications (principal); I25.10 Atherosclerotic heart disease of native coronary artery without angina pectoris; I10 Essential (primary) hypertension
CPT/HCPCS: 36415; 80048; 80061; 82043; 82570; 83036; 85025